=== PATIENT | female | born 1930 | race Caucasian/White ===

== ENCOUNTER → 2016-06-20 | Outpatient (CLI) | payer MEDICARE, OTHER ==
[~2016-06-20] MED LIST: AMIO200T35 PO; ATEN-36 PO; CYAN500T47; FOLI1TAB15 PO; IPRA21SP2 EA NOSTRIL; POTA99TA9 PO; PRAV20TA4 PO; TRIA1TAB3 PO; WARF2TAB PO; WARF3TAB27 PO
== END ==
LOC: WC.BC 10:49
DX: Z12.31 Encounter for screening mammogram for malignant neoplasm of breast (principal); N64.59 Other signs and symptoms in breast
CPT/HCPCS: 77063; G0202

== ENCOUNTER 2017-10-10 10:00 | Inpatient (IN) ==
--- NOTE | 2017-10-10 10:24 | Emergency Department Report ---
General Adult HPI - General Stated complaint: Extremem fatigue, dry heaves, diarrhea Time Seen by Provider: 10/10/17 10:23 Source: patient Mode of arrival: ambulatory Limitations: no limitations - History of Present Illness HPI narrative: Patient is an 86-year-old female presents emergency room for evaluation of a 2 year history of weakness. Patient does have a history of chronic atrial fibrillation currently in atrial fibrillation. Patient states that she's just been feeling weak and fatigued, for the past 2 years. Patient states it's usually worse after she gets her probably an injection, which she did receive 2 weeks ago. Patient states her weakness is worsening over the last 2 weeks, does have a productive cough just recently treated for a sinus infection. Patient states she's been to her doctor several times that he "never does nothing". Patient decided today to present to the ER for evaluation on arrival patient's heart rate is irregularly irregular 140-160, patient states she has forgotten to take her atenolol this morning. - Related Data Home Medications Medication Instructions Recorded Confirmed Potassium 99 mg PO DAILY #0 02/02/10 10/10/17 Maxzide-25mg (triamterene 37.5 1 tab PO DAILY 04/18/17 10/10/17 mg-hydrochlorothiazide 25 mg) tablet Pravachol (pravastatin) 20 mg 20 mg PO HS 04/18/17 10/10/17 tablet digoxin 125 mcg tablet 125 mcg PO Q2D tab 04/26/17 10/10/17 Atenolol [Tenormin] 25 mg PO BID 10/10/17 10/10/17 Cholecalciferol (Vitamin D3) 5,000 unit PO DAILY 10/10/17 10/10/17 [Vitamin D3] Cyanocobalamin (B-12) [Vit. B-12] 500 mcg PO DAILY 10/10/17 10/10/17 Denosumab [Prolia] 60 mg SQ Q6M 10/10/17 10/10/17 Folic Acid [Folate] 1 mg PO DAILY 10/10/17 10/10/17 Mirtazapine [Remeron] 15 mg PO HS 10/10/17 10/10/17 Warfarin Sodium 0.5 mg PO 5XW 10/10/17 10/10/17 Warfarin Sodium 2 mg PO MOFR 10/10/17 10/10/17 Warfarin [Coumadin] 4 mg PO 5XW 10/10/17 10/10/17 Allergies Allergy/AdvReac Type Severity Reaction Status Date / Time naproxen [From Aleve] Allergy Verified 10/10/17 11:28 Sulfa (Sulfonamide AdvReac Intermediate GENERALIZED Verified 10/10/17 11:28 Antibiotics) WEAKNESS Review of Systems Constitutional: Denies: fever, chills, weakness Eyes: Denies: eye pain, eye discharge, vision change ENT: Denies: ear pain, throat pain, dental pain, congestion Cardiovascular: Reports: dyspnea on exertion. Denies: chest pain, palpitations Respiratory: Reports: cough, dyspnea. Denies: wheezes Gastrointestinal: Denies: abdominal pain, nausea, vomiting Genitourinary: Denies: urgency, dysuria, frequency Musculoskeletal: Denies: back pain Neurological: Denies: headache, weakness Psychiatric: Denies: anxiety, depression Endocrine: Denies: fatigue, heat or cold intolerance Allergic/Immunologic: Denies: facial swelling [facility] Medical History (This Medical Record has been edited. Action required.) Atrial fibrillation (Acute Medical) HTN (hypertension) (Acute Medical) Surgical History: appendectomy 1935. tubal ligation . cataracts 2000- 2002. colonoscopy 2006 Family History: Family History (This Medical Record has been edited. Action required.) Father High blood pressure Mother High blood pressure Stroke Sister High blood pressure Stroke Cancer of colon Sister Cancer of colon - Social History Smoking status: Never smoker Substance use type: does not use Alcohol intake frequency: does not drink Physical Exam - General General appearance: alert, in no apparent distress - Eye Eye exam: Present: PERRL, EOMI - ENT ENT exam: Present: normal oropharynx, mucous membranes moist, TM's normal bilaterally - Neck Neck exam: Present: trachea midline. Absent: tenderness - Chest Chest inspection: Present: symmetric chest wall rise. Absent: tenderness - Respiratory Respiratory exam: Present: normal lung sounds bilaterally. Absent: respiratory distress, wheezes, stridor - Cardiovascular Cardiovascular exam: Present: tachycardia, irregular rhythm, normal heart sounds - Abdominal Exam Abdominal exam: Present: soft, normal bowel sounds. Absent: distention, tenderness - Extremities Exam Extremities exam: Present: full ROM. Absent: tenderness - Back Exam Back exam: Present: full ROM. Absent: tenderness - Skin Skin exam: Present: warm, dry - Neurological Exam Neurological exam: Present: alert, oriented X3 - Psychiatric Psychiatric exam: Present: normal affect, normal mood Medical Decision Making - Medical Records Medical records reviewed: Yes: I reviewed the patient's medical records. - Lab Data Lab results reviewed: Yes: I reviewed the patient's lab results. Result diagrams: 10/10/17 10:34 10/10/17 10:34 - Radiology Data Radiology results reviewed: Yes: I reviewed the patient's radiology results. - EKG Data EKG #1 EKG attestation: Yes: I reviewed and interpreted this EKG. Rate: tachycardia Rhythm: A.Fib Schaller/QRS: normal Interpretation: no acute changes Disposition Clinical Impression: Atrial fibrillation with RVR UTI (urinary tract infection) Qualifiers: Urinary tract infection type: acute cystitis Hematuria presence: without hematuria Qualified Code(s): N30.00 - Acute cystitis without hematuria Right middle lobe pneumonia Qualifiers: Pneumonia type: due to unspecified organism Qualified Code(s): J18.1 - Lobar pneumonia, unspecified organism Disposition: To [facility] Condition: Stable Time of Disposition: 14:07 - Seen By: physician
[2017-10-10] MEDS ORDERED: DiltiaZEM 25 MG/5 ML INJECTION IVP ONE ×3 (10:29→15:53)
[2017-10-10] MEDS ORDERED: NS 1,000 ML IV ONE (10:29)
[2017-10-10] MEDS: SALINE FLUSH 10ml SYRINGE IVF PRN (10:44)
--- NOTE | 2017-10-10 10:58 | XRay Report ---
Indication: off shortness of air weakness PROCEDURE: XR chest 1V: Encounter: Initial Comparison: March 27, 2014 Findings: New airspace opacity in the right lower or middle lobe. Left lung remains stable and grossly clear. No pleural effusion or pneumothorax. Heart size and mediastinal contours are stable. Pulmonary vascularity is normal. Impression: Right basilar pneumonia. .
--- NOTE | 2017-10-10 14:33 | History & Physical Report ---
History of Present Illness Date: 10/10/17 Chief complaint: Fatigue, dry heaves for a week HPI: Patient is an 86-year-old female who presents to the emergency room because she is "exhausted." She reports she's been tired ("that's been going on for a long time") and she is getting to the point where she can "hardly walk." She states for the last week she's had dry heaves and vomiting, usually in the evenings. She does admit to a cough and shortness of breath with exertion. She feels that she gets weaker after each Prolia injection (for hyperparathyroidism). Her last one was 2 weeks ago. On arrival to ER, patient was found to be in atrial fibrillation with rates 140-160. Patient had forgotten to take her atenolol this morning. She reports she's had cardioversion 3 and her last was in 2013. She states she does not want another cardioversion because "they have to put me out for that and the last time I had surgery they couldn't get my blood pressure up and they told me never to have surgery again." She denies symptoms with her atrial fibrillation. Review of Systems All systems PM: 10-point ROS was reviewed, no additional remarkable complaints except (fatigue/exhaustion, weakness, cough, shortness of breath exertion, nausea/dry heaves/vomiting, urinary frequency, walks with cane) Past Medical History Medical History: Medical History (This Medical Record has been edited. Action required.) Hyperlipidemia Hyperparathyroidism Atrial fibrillation HTN (hypertension) Medical History Updates: Hyperparathyroidism, hyperlipidemia, and paroxysmal atrial fibrillation Surgical History: appendectomy 1936. tubal ligation 1969. cataracts 2000- 2002. 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 Lives independently. PCP - Dr. Reid Component Design Engineer - Dr. Schmitz Endo - Dr Galvan Sister, Beth Fierro - DPOA-H Medications Home Medications Medication Instructions Recorded Confirmed Type Potassium 99 mg PO DAILY #0 02/02/10 10/10/17 History Maxzide-25mg (triamterene 37.5 1 tab PO DAILY 04/18/17 10/10/17 History mg-hydrochlorothiazide 25 mg) tablet Pravachol (pravastatin) 20 mg 20 mg PO HS 04/18/17 10/10/17 History tablet digoxin 125 mcg tablet 125 mcg PO Q2D tab 04/26/17 10/10/17 History Atenolol [Tenormin] 25 mg PO BID 10/10/17 10/10/17 History Cholecalciferol (Vitamin D3) 5,000 unit PO DAILY 10/10/17 10/10/17 History [Vitamin D3] Cyanocobalamin (B-12) [Vit. B-12] 500 mcg PO DAILY 10/10/17 10/10/17 History Denosumab [Prolia] 60 mg SQ Q6M 10/10/17 10/10/17 History Folic Acid [Folate] 1 mg PO DAILY 10/10/17 10/10/17 History Mirtazapine [Remeron] 15 mg PO HS 10/10/17 10/10/17 History Warfarin Sodium 0.5 mg PO 5XW 10/10/17 10/10/17 History Warfarin Sodium 2 mg PO MOFR 10/10/17 10/10/17 History Warfarin [Coumadin] 4 mg PO 5XW 10/10/17 10/10/17 History Allergies Allergy/AdvReac Type Severity Reaction Status Date / Time naproxen [From Aleve] Allergy Verified 10/10/17 11:28 Sulfa (Sulfonamide AdvReac Intermediate GENERALIZED Verified 10/10/17 11:28 Antibiotics) WEAKNESS Exam Vital Signs: Temperature 96.5 F L 10/10/17 14:02 Pulse Rate 88 10/10/17 14:02 Respiratory Rate 18 10/10/17 14:02 Blood Pressure 127/84 10/10/17 14:02 Pulse Oximetry 99 10/10/17 14:02 Height/Weight/BMI: Height 1.66 m Weight 61.1 kg - Constitutional Present: no acute distress, well nourished, well developed - Routine HEENT Exam Head: Present: normocephalic, atraumatic Eye: Present: EOMI, PERRL ENT: Present: mucous membranes moist, oropharynx clear - Routine Neck Exam Present: supple. Absent: lymphadenopathy, thyromegaly - Routine Respiratory Exam Present: CTA bilaterally. Absent: wheezes - Routine Cardiovascular Exam Present: irregular rhythm - Routine Abdominal Exam Present: soft, normoactive bowel sounds. Absent: tenderness, distended - Routine Extremities Exam Present: no edema, normal capillary refill - Routine Skin Exam Present: dry, warm - Routine Neurological Exam Present: alert, oriented X3, CN II-XII intact - Routine Psychiatric Exam Present: normal affect, cooperative Results - Labs CBC & Chem 7: 10/10/17 10:34 10/10/17 10:34 Labs: Laboratory Tests 10/10/17 10/10/17 10:34 10:34 INR 5.35 H* AST 94 H ALT 41 H Alkaline Phosphatase 232 H Laboratory Tests 10/10/17 10:34 Troponin I < 0.012 NT-Pro-B Natriuret Pep 6300 H TSH 1.40 Laboratory Tests 10/10/17 11:55 Urine Color Yellow Urine Clarity Clear Urine pH 6.0 Ur Specific [place] 1.010 L Urine Protein Negative Urine Glucose (UA) Negative Urine Ketones Negative Urine Occult Blood Trace-lysed Urine Nitrate Positive A Urine Bilirubin Negative Urine Urobilinogen 0.2 Ur Leukocyte Esterase 1+ A Urine RBC None seen Urine WBC 5-10 H Ur Squamous Epith Cells 5-10 Urine Bacteria 4+ H Microbiology Results: Microbiology 10/10/17 11:55 Urine, Voided (Cc/notcc) Urine Culture - Preliminary Culture Initiated - Results Pending - Imaging and Cardiology Chest x-ray Additional comments: Date of Exam: 10/10/17 Indication: off shortness of air weakness PROCEDURE: XR chest 1V: Findings: New airspace opacity in the right lower or middle lobe. Left lung remains stable and grossly clear. No pleural effusion or pneumothorax. Heart size and mediastinal contours are stable. Pulmonary vascularity is normal. Impression: Right basilar pneumonia. Assessment and Plan (1) Community acquired pneumonia Current visit: Yes Status: Acute (2) Atrial fibrillation with RVR Current visit: Yes Status: Acute Assessment and Plan: Assessment Community-acquired pneumonia-right basilar Urinary tract infection with symptoms of urinary frequency Atrial fibrillation with RVR-POA Supratherapeutic INR-POA Hyponatremia-POA Mild transaminitis-POA Normocytic anemia - POA (most recent hgb on file in 2013 was 13.3) Thrombocytosis - POA Progressive debility Hyperparathyroidism Hypertension Hyperlipidemia Paroxysmal atrial fibrillation-chronic warfarin Plan Admit for treatment of pneumonia and urinary tract infection, hydration and monitoring/treatment of atrial fibrillation. Patient was given diltiazem 10 mg IV 1 and 15 mg IV 1 for A. fib with RVR and a liter of normal saline in the emergency room. Rate currently controlled at 80. Check dig level. Will need to follow dig level closely with pt taking Zithromax as it can change the GI seng for up to a month and cause increased absorption of dig lending to dig toxicity. Dig recheck ordered for 10/13. Initiate Rocephin 1 g q24 hours and Zithromax 500mg IV q 24 hrs for coverage of CAP and UTI. Urine culture pending. Start Duonebs and acapella for pulmonary toilet. Consult pharmacy for warfarin. Currently on hold given elevated INR. Vit K 1mg x 1 with f-u INR per pharm. Iron studies and Hemoccult for further eval of anemia. Telemetry to monitor rhythm/rate. Pt declines electrical cardioversion at present given concern re: previous history of low BP assoc with sedation. Continue IVF's at 100cc/hr for hydration. Compazine IV prn nausea/vomiting. Warfarin/SCDs for DVT prophylaxis. DO NOT RESUSCITATE Dr. Reid-PCP. If patient needs cardiology consult, she would be interested in establishing with Dr. Kessler, as he is in [place], as opposed to driving to [place] to see Dr. Schmitz. DVT Prophylaxis: SCD's, Coumadin Resuscitation Status: Do Not Resuscitate - Physician Narrative Physician: Barbara Henry MD Narrative: Date: 10/10/17 Time: 2029 I have independently evaluated and examined this patient. I reviewed the chart, the patient's history, and the CARE DIRECTOR RN/PA's documented findings as above. We discussed and formulated the assessment and plan as above with additions as below: Mrs. Ardon as described with a variety of symptoms including feeling tired and washed out. She describes 10 pound weight loss in the past month because she's been too exhausted to prepare meals. She reports exertional dyspnea without orthopnea or edema. Cough without sputum production, fevers, or chills. Increased urinary frequency and getting up to urinate every 2 hours at night which is atypical for her. Chest x-ray in the emergency room has faint right basilar infiltrate, there is minor pyuria, and the patient was in atrial fibrillation with RVR. She is admitted for further management of above problems. NAD, alert, fluent speech Respirations nonlabored, crackles at the left base, no wheezing, no rhonchi appreciated Irregularly irregular rhythm with low-grade tachycardia at the time of my assessment Laboratory abnormalities his previously outlined; proBNP 6300, troponin undetectable, white count minimally elevated, digoxin level 0.5 Chest x-ray reviewed by myself-probable bilateral small pleural effusions, suggested infiltrate right lower lung EKG also reviewed by myself demonstrating atrial fibrillation with rapid ventricular response, rate 138, no acute ST/T-wave changes A. fib with RVR Right-sided pneumonia Pyuria Anorexia Antibiotics as planned; I am concerned that the patient is developing a component of heart failure due to atrial fibrillation with RVR. Rate remained elevated late this afternoon after she received a total of 40 mg of diltiazem IV (15 mg-10 mg-15 mg) at which point I opted to give her 0.25 mg of digoxin IV. Rate slowed to approximately 100 but gradually increased back to 150 prompting administration of second dose of IV dig at 0.25 mg. Patient reports that digoxin dose was decreased to every other day at some point in the recent past. Unclear over what time period heart rate has been accelerating. Echo echocardiogram to be obtained; PA/lateral chest x-ray in morning. Rate of IV fluids decreased; triamterene/HCTZ on hold. Hospital Course Summary Disclaimer: The visit summary below is not to be considered part of the above Progress Note. Hospital Course: 10/10/17 Admit for treatment of pneumonia and urinary tract infection, hydration and monitoring/treatment of atrial fibrillation. Patient was given diltiazem 10 mg IV 1 and 15 mg IV 1 for A. fib with RVR and a liter of normal saline in the emergency room. Rate currently controlled at 80. Check dig level. Will need to follow dig level closely with pt taking Zithromax as it can change the GI seng for up to a month and cause increased absorption of dig lending to dig toxicity. Dig recheck ordered for 10/13. Initiate Rocephin 1 g q24 hours and Zithromax 500mg IV q 24 hrs for coverage of CAP and UTI. Urine culture pending. Start Duonebs and acapella for pulmonary toilet. Consult pharmacy for warfarin. Currently on hold given elevated INR. Vit K 1mg x 1 with f-u INR per pharm. Iron studies and Hemoccult for further eval of anemia. Telemetry to monitor rhythm/rate. Pt declines electrical cardioversion at present given concern re: previous history of low BP assoc with sedation. Continue IVF's at 100cc/hr for hydration. Compazine IV prn nausea/vomiting. Warfarin/SCDs for DVT prophylaxis. DO NOT RESUSCITATE Dr. Reid-PCP. If patient needs cardiology consult, she would be interested in establishing with Dr. Kessler, as he is in [place], as opposed to driving to [place] to see Dr. Schmitz.
[2017-10-10] MEDS ORDERED: PROCHLORPERAZINE 10 MG/2 ML INJECTION IVP PRN (14:54)
[2017-10-10] MEDS ORDERED: ACETAMINOPHEN 325 MG TABLET PO PRN (14:54)
[2017-10-10] MEDS ORDERED: WARFARIN - PHARMACY CONSULT MC ONE (14:56)
[2017-10-10 15:05] VITALS: BMI 22.4
[2017-10-10] MEDS ORDERED: PHYTONADIONE 1 MG/0.5 ML ORAL LIQUID PO ONE (15:11)
[2017-10-10] MEDS ORDERED: POLYETHYL GLYCOL 3350 17gm PACKET PO PRN (15:11)
[2017-10-10] MEDS ORDERED: DIGOXIN 125 MCG TABLET PO SCH (15:15)
[2017-10-10] MEDS: ALBUTEROL/IPRATROPIUM 2.5mg-0.5mg/3ml NEB AEROSOL SCH ×2 (15:16→19:35)
--- NOTE | 2017-10-10 15:26 | Pharmacy Consult ---
Pharmacy Consult-Warfarin - Laboratory Information 10/10/17 10/10/17 10/10/17 10:34 10:34 10:34 Hgb 9.2 L Hct 26.5 L INR 5.35 H* AST 94 H ALT 41 H Albumin 3.4 L - Consult Information COUMADIN CONSULT (Initial): Dx: A fIB Baseline INR = 5.35. Will give VIT K po 1 mg now. NOTE MADE IN "DOCUMENT" IN EMR. Thank you.
[2017-10-10] MEDS: ATENOLOL 25 MG TABLET PO SCH ×2 (15:50→21:20)
[2017-10-10] MEDS: NS 1,000 ML IV SCH (16:05)
[2017-10-10] MEDS: CEFTRIAXONE 1 G in NS 100 ML IV SCH (16:25)
[2017-10-10] MEDS ORDERED: DIGOXIN 500 MCG/2 ML INJECTION IVP ONE ×2 (16:58→20:11)
[2017-10-10] MEDS: AZITHROMYCIN IV 500 MG in NS 250ml 250 ML IV SCH (19:49)
[2017-10-10] MEDS: MIRTAZAPINE 15 MG TABLET PO SCH (21:20)
[2017-10-10] MEDS: PRAVASTATIN 20 MG TABLET PO SCH (21:21)
[2017-10-11] MEDS: ALBUTEROL/IPRATROPIUM 2.5mg-0.5mg/3ml NEB AEROSOL SCH ×4 (07:44→21:36)
[2017-10-11] MEDS: CYANOCOBALAMIN (B-12) 500mcg TABLET PO SCH (08:53)
[2017-10-11] MEDS: FOLIC ACID 1 MG TABLET PO SCH (08:53)
[2017-10-11] MEDS: ATENOLOL 25 MG TABLET PO SCH ×2 (08:53→21:07)
[2017-10-11] MEDS ORDERED: TRIAMTERENE/HCTZ 37.5 MG-25 MG TABLET PO SCH (09:00)
[2017-10-11] MEDS ORDERED: NON-FORMULARY MEDICATION 1 EACH EACH (Potassium [Potassium] 99 MG) PO SCH (09:00)
--- NOTE | 2017-10-11 09:43 | XRay Report ---
INDICATION: pna PROCEDURE: CHEST 2-VIEWS UPRIGHT (PA & LAT) Encounter: Initial COMPARISON: October 10, 2017 FINDINGS: There is an oval 2.3 cm nodule projecting just below the right clavicle, likely within the right upper lobe. Lungs are mildly hyperinflated. Small pleural effusions. Right basilar airspace disease has slightly improved. No pneumothorax. Heart size and mediastinal contours are stable. Pulmonary vascularity is normal. Impression: Improving right basilar pneumonia. Right upper lobe pulmonary nodule. Recommend noncontrast chest CT for further evaluation. .
--- NOTE | 2017-10-11 10:31 | Pharmacy Consult ---
Pharmacy Consult-Warfarin - Laboratory Information 10/10/17 10/10/17 10/10/17 10:34 10:34 10:34 Hgb 9.2 L Hct 26.5 L INR 5.35 H* AST 94 H ALT 41 H Albumin 3.4 L 10/10/17 10/11/17 10/11/17 22:18 05:17 05:17 Hgb 7.8 L D Hct 23.3 L D INR 4.58 H* AST 44 H D ALT 33 Albumin 2.8 L 10/11/17 05:17 Hgb Hct INR 3.09 H AST ALT Albumin - Consult Information Warfarin consult: 86 y.o. F with history of a. fib and chronic anticoagulation with Warfarin. goal INR range= 2.0 to 3.0. Patient's reported home dose is Warfarin 4 mg po daily, except for Mon and Fri when she take 2 mg po. INR was supra-therapeutic on admission at 5.35, a small dose of Vitamin K 1 mg po x 1 dose was given 10/10/17. date INR dose 10/10 5.35 vitamin K 1 mg po was given 10/11 3.09 plan: 1.5 mg x 1 dose INR dropped considerably from yesterday with 1 mg po of Vitamin K. Will give a small dose of Warfarin 1.5 mg po x1 dose today. Patient is on both Rocephin and azithromycin which have a potential interaction with warfarin and may increase INR an risk of bleeding. Pharmacy will monitor and adjust as needed. Thank you, Jacy Shaffer [facility]
[2017-10-11] MEDS ORDERED: WARFARIN 3 MG TABLET PO SCH (12:00)
--- NOTE | 2017-10-11 14:15 | Echocardiogram ---
DATE OF PROCEDURE October 11, 2017 REFERRING PHYSICIAN Raji Galdamez MD This is a two-dimensional echo with spectral Doppler, color-flow and M-mode. It was obtained in a patient with atrial fibrillation. Left atrial dimension is increased. Left ventricle end-diastolic dimension is normal. Left ventricle wall thickness is normal. LV systolic function is normal with ejection fraction of 66%. Right atrium is dilated. Right ventricle is normal. Aortic root dimension is normal. Mitral annulus is calcified. Mitral valve leaflets are normal with mild mitral regurgitation. Aortic valve is a trileaflet structure with no stenosis. Mild aortic insufficiency is present. Tricuspid valve shows moderate tricuspid regurgitation with mild pulmonary hypertension with estimated pulmonary artery systolic pressure of 37. Pulmonary valve shows mild pulmonary insufficiency. There is no pericardial effusion. IMPRESSION 1. Normal LV systolic function with ejection fraction of 66%. 2. Biatrial dilation. 3. Mitral annulus calcification with mild mitral regurgitation. 4. Mild aortic insufficiency. 5. Moderate tricuspid regurgitation with mild pulmonary hypertension with estimated pulmonary artery systolic pressure of 37. 6. Mild pulmonary insufficiency. MTDD
[2017-10-11] MEDS: CEFTRIAXONE 1 G in NS 100 ML IV SCH (15:02)
[2017-10-11] MEDS: NS 1,000 ML IV SCH (15:32)
[2017-10-11] MEDS: AZITHROMYCIN IV 500 MG in NS 250ml 250 ML IV SCH (16:09)
[2017-10-11] MEDS: MIRTAZAPINE 15 MG TABLET PO SCH (21:07)
[2017-10-11] MEDS: PRAVASTATIN 20 MG TABLET PO SCH (21:07)
--- NOTE | 2017-10-11 21:31 | Progress Note ---
- Date 10/11/17 Subjective: States she is feeling all right with some residual shortness of breath. She does feel palpitations from time to time and this is more noticeable when she is active. Objective Vital signs: Temperature 97.7 F 10/11/17 08:00 Pulse Rate 135 H 10/11/17 16:00 Respiratory Rate 18 10/11/17 15:50 Blood Pressure 127/73 10/11/17 15:50 Pulse Oximetry 96 10/11/17 15:50 Rhythm: Atrial Fibrillation with RVR Height/Weight/BMI: Height 5 ft 5 in Weight 64 kg Body Mass Index 22.4 - Constitutional Present: well nourished, well developed - Routine HEENT Exam Eye: Present: EOMI ENT: Present: mucous membranes moist, dentition normal - Routine Respiratory Exam Present: CTA bilaterally. Absent: wheezes - Routine Cardiovascular Exam Present: S1, S2, murmur, irregularly irregular - Routine Abdominal Exam Present: soft, normoactive bowel sounds, non distended. Absent: tenderness - Routine Extremities Exam Present: normal capillary refill - Routine Skin Exam Present: dry, warm - Routine Neurological Exam Present: alert, oriented X3, CN II-XII intact - Routine Lymphatic Exam Lymphatic: Absent: adenopathy - Routine Psychiatric Exam Present: normal affect Results - Labs CBC & Chem 7: 10/11/17 05:17 10/11/17 05:17 Microbiology Results: Microbiology 10/10/17 11:55 Urine, Voided (Cc/notcc) Urine Culture - Preliminary Gram Negative John Assessment and Plan (1) Atrial fibrillation with RVR Current visit: Yes Status: Acute (2) Community acquired pneumonia Current visit: Yes Status: Acute Assessment and Plan: Assessment Community-acquired pneumonia-right basilar Urinary tract infection with symptoms of urinary frequency Atrial fibrillation with RVR-POA Supratherapeutic INR-POA Hyponatremia-POA Mild transaminitis-POA Normocytic anemia - POA (most recent hgb on file in 2013 was 13.3) Thrombocytosis - POA Progressive debility Hyperparathyroidism Hypertension Hyperlipidemia Paroxysmal atrial fibrillation-chronic warfarin Plan patient has received a one-off doses of diltiazem and digoxin. Her atrial fibrillation with rapid ventricular rate does not appear to be improving while on antibiotics. I've discussed the case with Dr. Kessler and he reports a 60% ejection fraction with by atrial enlargement on echocardiogram. I am more inclined to believe that this primary cardiac. We will reinitiate Cardizem and diltiazem and continue the atenolol at this time. Failing improvement on this I will make a formal consult to Dr. Kessler and Cherry. Continue the treatment for the urinary tract infection with Rocephin 1 g q24 hours and Zithromax 500mg IV q 24 hrs for coverage of CAP as well. Urine culture is greater than hundred thousand colony forming units. Consult pharmacy for warfarin. Iron studies and Hemoccult for further eval of anemia. Telemetry to monitor rhythm/rate. Pt declined electrical cardioversion at present given concern re: previous history of low BP assoc with sedation. Continue IVF's at 100cc/hr for hydration. Compazine IV prn nausea/vomiting. Warfarin/SCDs for DVT prophylaxis. DO NOT RESUSCITATE Dr. Reid-PCP. If patient needs cardiology consult, she would be interested in establishing with Dr. Kessler, as he is in [place], as opposed to driving to [place] to see Dr. Schmitz. - Physician Narrative Narrative: Date: 10/11/17 Time: 2122 Hospital Course Summary Disclaimer: The visit summary below is not to be considered part of the above Progress Note. Hospital Course: 10/10/17 Admit for treatment of pneumonia and urinary tract infection, hydration and monitoring/treatment of atrial fibrillation. Patient was given diltiazem 10 mg IV 1 and 15 mg IV 1 for A. fib with RVR and a liter of normal saline in the emergency room. Rate currently controlled at 80. Check dig level. Will need to follow dig level closely with pt taking Zithromax as it can change the GI seng for up to a month and cause increased absorption of dig lending to dig toxicity. Dig recheck ordered for 10/13. Initiate Rocephin 1 g q24 hours and Zithromax 500mg IV q 24 hrs for coverage of CAP and UTI. Urine culture pending. Start Duonebs and acapella for pulmonary toilet. Consult pharmacy for warfarin. Currently on hold given elevated INR. Vit K 1mg x 1 with f-u INR per pharm. Iron studies and Hemoccult for further eval of anemia. Telemetry to monitor rhythm/rate. Pt declines electrical cardioversion at present given concern re: previous history of low BP assoc with sedation. Continue IVF's at 100cc/hr for hydration. Compazine IV prn nausea/vomiting. Warfarin/SCDs for DVT prophylaxis. DO NOT RESUSCITATE Dr. Reid-PCP. If patient needs cardiology consult, she would be interested in establishing with Dr. Kessler, as he is in [place], as opposed to driving to [place] to see Dr. Schmitz.
[2017-10-12] MEDS: NS 1,000 ML IV SCH (03:56)
[2017-10-12] MEDS: ALBUTEROL/IPRATROPIUM 2.5mg-0.5mg/3ml NEB AEROSOL SCH ×4 (06:34→20:05)
--- NOTE | 2017-10-12 07:18 | Pharmacy Consult ---
Pharmacy Consult-Warfarin - Laboratory Information 10/10/17 10/10/17 10/10/17 10:34 10:34 10:34 Hgb 9.2 L Hct 26.5 L INR 5.35 H* AST 94 H ALT 41 H Albumin 3.4 L 10/10/17 10/11/17 10/11/17 22:18 05:17 05:17 Hgb 7.8 L D Hct 23.3 L D INR 4.58 H* AST 44 H D ALT 33 Albumin 2.8 L 10/11/17 10/12/17 05:17 04:21 Hgb Hct INR 3.09 H 2.11 H AST ALT Albumin - Consult Information INR decreased to 2.11 today. Vitamin K may still have some effect. I have ordered 5mg dose of warfarin (1 more mg than usual home dose) in attempt to move INR to center of range. Thanks
[2017-10-12] MEDS: ATENOLOL 25 MG TABLET PO SCH ×2 (08:29→20:29)
[2017-10-12] MEDS: FOLIC ACID 1 MG TABLET PO SCH (08:29)
[2017-10-12] MEDS: CYANOCOBALAMIN (B-12) 500mcg TABLET PO SCH (08:29)
[2017-10-12] MEDS ORDERED: WARFARIN 5 MG TABLET PO SCH (12:00)
[2017-10-12] MEDS: CEFTRIAXONE 1 G in NS 100 ML IV SCH (15:55)
[2017-10-12] MEDS: AZITHROMYCIN IV 500 MG in NS 250ml 250 ML IV SCH (17:08)
[2017-10-12] MEDS: PRAVASTATIN 20 MG TABLET PO SCH (20:28)
[2017-10-12] MEDS: DIGOXIN 250 MCG TABLET PO SCH (20:29)
[2017-10-12] MEDS: MIRTAZAPINE 15 MG TABLET PO SCH (20:30)
--- NOTE | 2017-10-12 22:29 | Progress Note ---
- Date 10/12/17 Subjective: Feeling somewhat better with less noticeable episodes palpitations. She still complains of fatigue and does not yet feel that she is recovered. 10 system review otherwise has no other acute changes Objective Vital signs: Temperature 97.9 F 10/12/17 15:33 Pulse Rate 116 H 10/12/17 20:29 Respiratory Rate 20 10/12/17 20:05 Blood Pressure 132/72 10/12/17 15:33 Pulse Oximetry 94 10/12/17 20:05 Rhythm: Atrial Fibrillation with RVR Height/Weight/BMI: Height 5 ft 5 in Weight 64.9 kg Body Mass Index 22.4 - Constitutional Present: well nourished, well developed - Routine HEENT Exam Eye: Present: EOMI ENT: Present: mucous membranes moist, dentition normal - Routine Respiratory Exam Present: CTA bilaterally. Absent: wheezes - Routine Cardiovascular Exam Present: murmur, tachycardia, irregular rhythm - Routine Abdominal Exam Present: soft, normoactive bowel sounds, non distended. Absent: tenderness - Routine Extremities Exam Present: normal capillary refill - Routine Skin Exam Present: dry, warm - Routine Neurological Exam Present: alert, oriented X3, CN II-XII intact - Routine Lymphatic Exam Lymphatic: Absent: adenopathy - Routine Psychiatric Exam Present: normal affect Results - Labs CBC & Chem 7: 10/11/17 05:17 10/11/17 05:17 Microbiology Results: Microbiology 10/10/17 11:55 Urine, Voided (Cc/notcc) Urine Culture - Final Klebsiella pneumoniae Assessment and Plan (1) Atrial fibrillation with RVR Current visit: Yes Status: Acute (2) Community acquired pneumonia Current visit: Yes Status: Acute Assessment and Plan: Assessment Community-acquired pneumonia-right basilar Urinary tract infection with symptoms of urinary frequency Atrial fibrillation with RVR-POA Supratherapeutic INR-POA Hyponatremia-POA Mild transaminitis-POA Normocytic anemia - POA (most recent hgb on file in 2013 was 13.3) Thrombocytosis - POA Progressive debility Hyperparathyroidism Hypertension Hyperlipidemia Paroxysmal atrial fibrillation-chronic warfarin Plan patient seems to be failing improvement on rate control despite resuming diltiazem and digoxin I will make a formal consult to Dr. Kessler and Cherry. Their input is appreciated. Continuing treatment Rocephin and azithromycin but I am less certain that there is any significant contribution of infection to her variable rate atrial fibrillation. She is growing Klebsiella that is susceptible to everything but ampicillin. Her INR is currently therapeutic 2.11 Telemetry to monitor rhythm/rate. A few days ago declined electrical cardioversion: previous history of low BP assoc with sedation. Continue IVF's at 100cc/hr for hydration. Compazine IV prn nausea/vomiting. Warfarin/SCDs for DVT prophylaxis. DO NOT RESUSCITATE Dr. Reid-PCP. If patient needs cardiology consult, she would be interested in establishing with Dr. Kessler, as he is in [place], as opposed to driving to [place] [employer] to see Dr. Schmitz. - Physician Narrative Narrative: Date: 10/12/17 Time: 2225 Hospital Course Summary Disclaimer: The visit summary below is not to be considered part of the above Progress Note. Hospital Course: 10/10/17 Admit for treatment of pneumonia and urinary tract infection, hydration and monitoring/treatment of atrial fibrillation. Patient was given diltiazem 10 mg IV 1 and 15 mg IV 1 for A. fib with RVR and a liter of normal saline in the emergency room. Rate currently controlled at 80. Check dig level. Will need to follow dig level closely with pt taking Zithromax as it can change the GI seng for up to a month and cause increased absorption of dig lending to dig toxicity. Dig recheck ordered for 10/13. Initiate Rocephin 1 g q24 hours and Zithromax 500mg IV q 24 hrs for coverage of CAP and UTI. Urine culture pending. Start Duonebs and acapella for pulmonary toilet. Consult pharmacy for warfarin. Currently on hold given elevated INR. Vit K 1mg x 1 with f-u INR per pharm. Iron studies and Hemoccult for further eval of anemia. Telemetry to monitor rhythm/rate. Pt declines electrical cardioversion at present given concern re: previous history of low BP assoc with sedation. Continue IVF's at 100cc/hr for hydration. Compazine IV prn nausea/vomiting. Warfarin/SCDs for DVT prophylaxis. DO NOT RESUSCITATE Dr. Reid-PCP. If patient needs cardiology consult, she would be interested in establishing with Dr. Kessler, as he is in [place], as opposed to driving to [place] to see Dr. Schmitz.
[2017-10-13] MEDS: ALBUTEROL/IPRATROPIUM 2.5mg-0.5mg/3ml NEB AEROSOL SCH ×4 (07:45→19:51)
--- NOTE | 2017-10-13 08:03 | Pharmacy Consult ---
Pharmacy Consult-Warfarin - Laboratory Information 10/10/17 10/10/17 10/10/17 10:34 10:34 10:34 Hgb 9.2 L Hct 26.5 L INR 5.35 H* AST 94 H ALT 41 H Albumin 3.4 L 10/10/17 10/11/17 10/11/17 22:18 05:17 05:17 Hgb 7.8 L D Hct 23.3 L D INR 4.58 H* AST 44 H D ALT 33 Albumin 2.8 L 10/11/17 10/12/17 10/13/17 05:17 04:21 04:59 Hgb Hct INR 3.09 H 2.11 H 2.41 H AST ALT Albumin - Consult Information INR is in target range. Warfarin 3mg po is ordered for noon today. Thank you.
[2017-10-13] MEDS: CYANOCOBALAMIN (B-12) 500mcg TABLET PO SCH (09:37)
[2017-10-13] MEDS: ATENOLOL 25 MG TABLET PO SCH (09:37)
[2017-10-13] MEDS: FOLIC ACID 1 MG TABLET PO SCH (09:37)
[2017-10-13] MEDS: DIGOXIN 250 MCG TABLET PO SCH (10:22)
--- NOTE | 2017-10-13 11:43 | Progress Note ---
- Date 10/13/17 Subjective: Patrizia is seen while resting in bed, working with RT on her acapella. She reports that she is feeling better and is eager for discharge home. She admits to continued non-productive cough but denies any chest pain, increased shortness of breath, nausea, vomiting or dysuria. She does complain of some abdominal wall pain from coughing so much but denies any abdominal pain. Her appetite remains fair and no BM since admission. Urinary output is stable. She remains afebrile. Heart rate remains elevated and awaiting Dr. Kessler's recommendations. Objective Vital signs: Temperature 98.3 F 10/13/17 08:00 Pulse Rate 111 H 10/13/17 10:22 Respiratory Rate 16 10/13/17 11:26 Blood Pressure 124/65 10/13/17 08:00 Pulse Oximetry 95 10/13/17 11:26 Rhythm: Atrial Fibrillation with RVR Height/Weight/BMI: Height 5 ft 5 in Weight 145 lb 4.554 oz Body Mass Index 22.4 Comments: resting in bed, working with RT on acapella. Pleasant disposition. - Constitutional Present: no acute distress, well nourished, well developed, cooperative - Routine HEENT Exam Head: Present: normocephalic, atraumatic Eye: Present: PERRL. Absent: conjunctival icterus ENT: Present: mucous membranes moist, oropharynx clear - Routine Respiratory Exam Present: decreased breath sounds. Absent: respiratory distress Comments: Bilateral basilar crackles with occasional non-productive cough. - Routine Cardiovascular Exam Present: irregularly irregular - Routine Abdominal Exam Present: soft, normoactive bowel sounds, non tender - Routine Extremities Exam Present: edema (trace), full ROM, pulses intact - Routine Back/Spine/Pelvis Exam Back/Spine: Present: full ROM. Absent: vertebral tenderness - Routine Musculoskeletal Exam Musculoskeletal: Present: no clubbing or cyanosis, moving extremities well - Routine Skin Exam Present: intact, dry, warm Comments: Afebrile. - Routine Neurological Exam Present: alert, oriented X3, moving all extremities, hearing grossly intact, normal speech - Routine Lymphatic Exam Lymphatic: Absent: lymphedema - Routine Psychiatric Exam Present: cooperative Results - Labs CBC & Chem 7: 10/14/17 04:05 10/14/17 04:05 Microbiology Results: Microbiology 10/10/17 11:55 Urine, Voided (Cc/notcc) Urine Culture - Final Klebsiella pneumoniae Assessment and Plan Assessment and Plan: Assessment Community-acquired pneumonia-right basilar Urinary tract infection with symptoms of urinary frequency Atrial fibrillation with RVR-POA Supratherapeutic INR-POA Hyponatremia-POA Mild transaminitis-POA Normocytic anemia - POA (most recent hgb on file in 2013 was 13.3) Thrombocytosis - POA Progressive debility Hyperparathyroidism Hypertension Hyperlipidemia Paroxysmal atrial fibrillation-chronic warfarin Plan - 10/13/17 Overall, patient is doing well and making gains. Eager for discharge. Remains in a-fib with RVR. Dr. Kessler consulted and awaiting his recommendations. Continue atenolol, diltiazem and digoxin. Dig level improved. Continue Rocephin and azithromycin for treatment of pneumonia and UTI. UA revealed Klebsiella pneumoniae sensitive to Rocephin. INR remains therapeutic with pharmacy managing. Continue to monitor closely on telemetry. Encourage oral intake. Will check labs now given previous anemia and electrolyte imbalances. Warfarin/SCDs for DVT prophylaxis. Anticipate discharge either today or in near future. DVT Prophylaxis: SCD's, Lovenox Resuscitation Status: Do Not Resuscitate - Time spent with patient Time with patient PN: 30 minutes - Physician Narrative Physician: other (Dr. Galdamez) Narrative: Date: 10/13/17 Time: 1139 Seen and examined patient on same day as the above note nurse practitioner Danae Bower. Agree with history, physical, assessment and plan. Patient states she does not feel significantly better yet but does not feel quite as ill as days prior Exam: vital signs as above Gen.:no apparent distress, alert and conversant but lethargic HEENT: normocephalic atraumatic, oral mucosa moderately dry neck: no lymphadenopathy no jugular venous distention respiratory: there to auscultation bilaterally with good excursion cardiovascular: cardiovascular S1 S2 no adventitious murmurs rubs or gallops abdomen/GI: soft nondistended with bowel sounds extremities: good peripheral perfusion with no edema skin/integument: no significant injuries or edema neuro: alert and oriented. No focal deficits appreciable psych: mood is perhaps a little low but appears appropriately responsive and conducive to situation Labs: reviewed Assessment and plan: atrophic with rapid ventricular rate. Increasing the digoxin level. Failing this will discuss with cardiology pneumonia and urinary tract infection. Continue Rocephin and azithromycin. Documented on Dragon speech to text. Efforts to crack speech recognition errors performed, but variation may exist Hospital Course Summary Disclaimer: The visit summary below is not to be considered part of the above Progress Note. Hospital Course: 10/10/17 Admit for treatment of pneumonia and urinary tract infection, hydration and monitoring/treatment of atrial fibrillation. Patient was given diltiazem 10 mg IV 1 and 15 mg IV 1 for A. fib with RVR and a liter of normal saline in the emergency room. Rate currently controlled at 80. Check dig level. Will need to follow dig level closely with pt taking Zithromax as it can change the GI seng for up to a month and cause increased absorption of dig lending to dig toxicity. Dig recheck ordered for 10/13. Initiate Rocephin 1 g q24 hours and Zithromax 500mg IV q 24 hrs for coverage of CAP and UTI. Urine culture pending. Start Duonebs and acapella for pulmonary toilet. Consult pharmacy for warfarin. Currently on hold given elevated INR. Vit K 1mg x 1 with f-u INR per pharm. Iron studies and Hemoccult for further eval of anemia. Telemetry to monitor rhythm/rate. Pt declines electrical cardioversion at present given concern re: previous history of low BP assoc with sedation. Continue IVF's at 100cc/hr for hydration. Compazine IV prn nausea/vomiting. Warfarin/SCDs for DVT prophylaxis. DO NOT RESUSCITATE Dr. Reid-PCP. If patient needs cardiology consult, she would be interested in establishing with Dr. Kessler, as he is in [place], as opposed to driving to [place] to see Dr. Schmitz. 10/11/17 patient has received a one-off doses of diltiazem and digoxin. Her atrial fibrillation with rapid ventricular rate does not appear to be improving while on antibiotics. I've discussed the case with Dr. Kessler and he reports a 60% ejection fraction with by atrial enlargement on echocardiogram. I am more inclined to believe that this primary cardiac. We will reinitiate Cardizem and diltiazem and continue the atenolol at this time. Failing improvement on this I will make a formal consult to Dr. Kessler and Cherry. Continue the treatment for the urinary tract infection with Rocephin 1 g q24 hours and Zithromax 500mg IV q 24 hrs for coverage of CAP as well. Urine culture is greater than hundred thousand colony forming units. Consult pharmacy for warfarin. Iron studies and Hemoccult for further eval of anemia. Telemetry to monitor rhythm/rate. Pt declined electrical cardioversion at present given concern re: previous history of low BP assoc with sedation. Continue IVF's at 100cc/hr for hydration. Compazine IV prn nausea/vomiting. Warfarin/SCDs for DVT prophylaxis. DO NOT RESUSCITATE Dr. Reid-PCP. If patient needs cardiology consult, she would be interested in establishing with Dr. Kessler, as he is in [place], as opposed to driving to [place] to see Dr. Schmitz. 10/12/17 patient seems to be failing improvement on rate control despite resuming diltiazem and digoxin I will make a formal consult to Dr. Kessler and Cherry. Their input is appreciated. Continuing treatment Rocephin and azithromycin but I am less certain that there is any significant contribution of infection to her variable rate atrial fibrillation. She is growing Klebsiella that is susceptible to everything but ampicillin. Her INR is currently therapeutic 2.11 Telemetry to monitor rhythm/rate. A few days ago declined electrical cardioversion: previous history of low BP assoc with sedation. Continue IVF's at 100cc/hr for hydration. Compazine IV prn nausea/vomiting. Warfarin/SCDs for DVT prophylaxis. DO NOT RESUSCITATE Dr. Reid-UMBERTO. If patient needs cardiology consult, she would be interested in establishing with Dr. Kessler, as he is in [place], as opposed to driving to [place] [employer] [place] to see Dr. Schmitz. 10/13/17 Overall, patient is doing well and making gains. Eager for discharge. Remains in a-fib with RVR. Dr. Kessler consulted and awaiting his recommendations. Continue atenolol, diltiazem and digoxin. Dig level improved. Continue Rocephin and azithromycin for treatment of pneumonia and UTI. UA revealed Klebsiella pneumoniae sensitive to Rocephin. INR remains therapeutic with pharmacy managing. Continue to monitor closely on telemetry. Encourage oral intake. Will check labs now given previous anemia and electrolyte imbalances. Warfarin/SCDs for DVT prophylaxis. Anticipate discharge either today or in near future.
[2017-10-13] MEDS ORDERED: WARFARIN 3 MG TABLET PO SCH (12:00)
[2017-10-13] MEDS: CEFTRIAXONE 1 G in NS 100 ML IV SCH (14:55)
[2017-10-13] MEDS: AZITHROMYCIN IV 500 MG in NS 250ml 250 ML IV SCH (15:55)
--- NOTE | 2017-10-13 17:11 | Cardiology Consult Note ---
<Cherry Hernandez - Last Filed: 10/16/17 10:51> History of Present Illness Consult date: 10/12/17 Requesting physician: Raji Galdamez Consult reason: atrial fibrillation Chief complaint: A Fib History of present illness: Patrizia is an 86-year-old female who is a patient of Dr. Schmitz with a history of PAF who presented to the ED because she was "exhausted." She reportedly has been tired ("that's been going on for a long time") and she had gotten to the point where she can "hardly walk." She reported dry heaves and vomiting, usually in the evenings and a cough and shortness of breath with exertion. She was found to be in atrial fibrillation with rates 140-160. She reportedly has had cardioversion 3 and her last was in 2013. She was admitted in the care of the hospitalist and rate is controlled with the additional of Digoxin and Cardizem, however her rate elevated with minimal activity. Dr. Kessler is consulted for further evaluation and we appreciate the consult. Review of Systems - Constitutional Constitutional: Present: fatigue, weakness. Absent: chills, fever(s) - EENMT Eyes: Absent: change in vision Balance: Absent: vertigo Mouth/Throat: Absent: sore throat - Cardiovascular Cardiovascular: Present: dyspnea on exertion. Absent: chest pain, palpitations , syncope, orthopnea, heart murmur Rhythm: Absent: abnormal rhythm Vascular: Absent: pedal edema - Respiratory Respiratory: Present: dyspnea, dyspnea on exertion. Absent: cough - Gastrointestinal Gastrointestinal: Present: as per HPI, nausea, vomiting. 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 Action required.) Hyperlipidemia (Acute Medical) Hyperparathyroidism (Acute Medical) Atrial fibrillation (Acute Medical) HTN (hypertension) (Acute Medical) Medical History Updates: Hyperparathyroidism, hyperlipidemia, and paroxysmal atrial fibrillation Surgical History: appendectomy 1936. tubal ligation 1969. cataracts 2000- 2002. colonoscopy 2005 Family History: Family History (This Medical Record has been edited. 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 B-12] 500 mcg PO DAILY 10/10/17 10/10/17 History Denosumab [Prolia] 60 mg SQ Q6M 10/10/17 10/10/17 History Folic Acid [Folate] 1 mg PO DAILY 10/10/17 10/10/17 History Mirtazapine [Remeron] 15 mg PO HS 10/10/17 10/10/17 History Atenolol [Tenormin] 50 mg PO BID tab 10/17/17 Rx Digoxin [Lanoxin] 125 mcg PO DAILY tab 10/17/17 Rx DiltiaZEM CD [Cardizem CD 180 MG] 180 mg PO DAILY cap 10/17/17 Rx PEG 3350 17gm PACKET [Miralax] 17 gm PO DAILY PRN packet 10/17/17 Rx Allergies Allergy/AdvReac Type Severity Reaction Status Date / Time naproxen [From Aleve] Allergy Verified 10/10/17 11:28 Sulfa (Sulfonamide AdvReac Intermediate GENERALIZED Verified 10/10/17 11:28 Antibiotics) WEAKNESS Exam Vital signs: Temperature 98.1 F 10/13/17 15:59 Pulse Rate 94 10/13/17 15:59 Respiratory Rate 18 10/13/17 15:59 Blood Pressure 114/63 10/13/17 15:59 Pulse Oximetry 92 10/13/17 15:59 - Constitutional no acute distress, well nourished, cooperative - Routine HEENT Exam Head: Present: normocephalic ENT: Present: mucous membranes moist - Routine Neck Exam Absent: JVD, carotid bruit - Routine Chest/Breast/Axilla Exam Chest wall: Absent: tenderness - Routine Respiratory Exam Present: CTA bilaterally. Absent: dyspnea, rales, wheezes - Routine Cardiovascular Exam Present: no murmur, irregularly irregular. Absent: JVD - Routine Abdominal Exam Present: soft - Routine Extremities Exam Present: no edema, pulses intact - Routine Skin Exam Present: intact, dry, warm - Routine Neurological Exam Present: alert - Routine Psychiatric Exam Present: normal affect Results 10/14/17 04:05 10/14/17 04:05 CBC 10/13/17 Range/Units 12:08 WBC 12.3 H (4.5-11.0) T/MM3 RBC 2.81 L (4.00-5.20) M/MM3 Hgb 7.9 L (12-16) GM/DL Hct 23.7 L (36-46) % Plt Count 491 H (130-400) T/MM3 Neut # (Auto) 9.7 H (1.8-7.7) T/MM3 Lymph # (Auto) 1.6 (1-4.8) T/MM3 [place] # (Auto) 0.9 H (0-0.8) T/MM3 Eos # (Auto) 0.1 (0-0.5) T/MM3 Baso # (Auto) 0.0 (0-0.2) T/MM3 Comprehensive Metabolic Panel 10/13/17 Range/Units 12:08 Sodium 134 L (136-146) MEQ/L Potassium 4.2 (3.6-5) MEQ/L Chloride 103 (98-107) MEQ/L Carbon Dioxide 23 (22-30) MEQ/L BUN 16.0 (7-17) MG/DL Creatinine 0.9 (0.7-1.2) mg/dL Glucose 117 H (65-110) MG/DL Calcium 8.7 (8.4-10.2) MG/DL Intake and Output 10/13/17 10/13/17 10/13/17 06:59 14:59 22:59 Intake Total 150 / 150 550 / 550 100 / 100 Balance 150 / 150 550 / 550 100 / 100 Intake: IV 100 / 100 Ceftriaxone 1 g In Ns 100 ml @ 100 / 100 200 mls/hr IV Q24H MARIFER Rx#: [id number] Oral 150 / 150 550 / 550 Other: Urine Color Yellow Yellow Stool Color Brown Stool Consistency Soft Size of Bowel Movement Small # Voids 1 1 # Bowel Movements 1 Weight 145 lb 4.554 oz Patient Weight 10/14/17 06:59 Weight 145 lb 4.554 oz - Imaging and Cardiology Imaging & Cardiology Narrative: Date of Exam: 10/11/17 Type of Exam(s): US echo doppler complete DATE OF PROCEDURE October 11, 2017 REFERRING PHYSICIAN Raji Galdamez MD This is a two-dimensional echo with spectral Doppler, color-flow and M-mode. It was obtained in a patient with atrial fibrillation. Left atrial dimension is increased. Left ventricle end-diastolic dimension is normal. Left ventricle wall thickness is normal. LV systolic function is normal with ejection fraction of 66%. Right atrium is dilated. Right ventricle is normal. Aortic root dimension is normal. Mitral annulus is calcified. Mitral valve leaflets are normal with mild mitral regurgitation. Aortic valve is a trileaflet structure with no stenosis. Mild aortic insufficiency is present. Tricuspid valve shows moderate tricuspid regurgitation with mild pulmonary hypertension with estimated pulmonary artery systolic pressure of 37. Pulmonary valve shows mild pulmonary insufficiency. There is no pericardial effusion. IMPRESSION 1. Normal LV systolic function with ejection fraction of 66%. 2. Biatrial dilation. 3. Mitral annulus calcification with mild mitral regurgitation. 4. Mild aortic insufficiency. 5. Moderate tricuspid regurgitation with mild pulmonary hypertension with estimated pulmonary artery systolic pressure of 37. 6. Mild pulmonary insufficiency. 10/13/17 17:16 EKG interpretations - EKG EKG shows: atrial fibrillation (RVR, HR 138) - Dysrhythmias Ventricular dysrhythmias: ventricular premature complexes (rare) Assessment and Plan - Assessment and Plan (1) Atrial fibrillation with RVR Status: Chronic Chronic rate controlled atrial fibrillation - rate increases and patient feels poorly with activity - increased rate related to infectious process and catecholamines - increase Atenolol for better rate control with activity - decrease Digoxin to 125mcg daily - continue to monitor dig level (2) Right middle lobe pneumonia Status: Acute (3) Essential (primary) hypertension Status: Chronic (4) Mixed hyperlipidemia Status: Chronic - Assessment and Plan A FIB RVR:Chronic rate controlled atrial fibrillation - rate increases and patient feels poorly with activity - increased rate related to infectious process and catecholamines - increase Atenolol for better rate control with activity - decrease Digoxin to 125mcg daily - continue to monitor dig level Rt pneumonia: per attending HTN:well controlled on current therapy HLD: takes Pravastatin Thank you for allowing us to participate in the care of this patient. Hospital Course Summary Disclaimer: The visit summary below is not to be considered part of the above Progress Note. Hospital Course: 10/10/17 Admit for treatment of pneumonia and urinary tract infection, hydration and monitoring/treatment of atrial fibrillation. Patient was given diltiazem 10 mg IV 1 and 15 mg IV 1 for A. fib with RVR and a liter of normal saline in the emergency room. Rate currently controlled at 80. Check dig level. Will need to follow dig level closely with pt taking Zithromax as it can change the GI seng for up to a month and cause increased absorption of dig lending to dig toxicity. Dig recheck ordered for 10/13. Initiate Rocephin 1 g q24 hours and Zithromax 500mg IV q 24 hrs for coverage of CAP and UTI. Urine culture pending. Start Duonebs and acapella for pulmonary toilet. Consult pharmacy for warfarin. Currently on hold given elevated INR. Vit K 1mg x 1 with f-u INR per pharm. Iron studies and Hemoccult for further eval of anemia. Telemetry to monitor rhythm/rate. Pt declines electrical cardioversion at present given concern re: previous history of low BP assoc with sedation. Continue IVF's at 100cc/hr for hydration. Compazine IV prn nausea/vomiting. Warfarin/SCDs for DVT prophylaxis. DO NOT RESUSCITATE Dr. Reid-PCP. If patient needs cardiology consult, she would be interested in establishing with Dr. Kessler, as he is in [place], as opposed to driving to [place] to see Dr. Schmitz. 10/11/17 patient has received a one-off doses of diltiazem and digoxin. Her atrial fibrillation with rapid ventricular rate does not appear to be improving while on antibiotics. I've discussed the case with Dr. Kessler and he reports a 60% ejection fraction with by atrial enlargement on echocardiogram. I am more inclined to believe that this primary cardiac. We will reinitiate Cardizem and diltiazem and continue the atenolol at this time. Failing improvement on this I will make a formal consult to Dr. Kessler and Cherry. Continue the treatment for the urinary tract infection with Rocephin 1 g q24 hours and Zithromax 500mg IV q 24 hrs for coverage of CAP as well. Urine culture is greater than hundred thousand colony forming units. Consult pharmacy for warfarin. Iron studies and Hemoccult for further eval of anemia. Telemetry to monitor rhythm/rate. Pt declined electrical cardioversion at present given concern re: previous history of low BP assoc with sedation. Continue IVF's at 100cc/hr for hydration. Compazine IV prn nausea/vomiting. Warfarin/SCDs for DVT prophylaxis. DO NOT RESUSCITATE Dr. Reid-PCP. If patient needs cardiology consult, she would be interested in establishing with Dr. Kessler, as he is in [place], as opposed to driving to [facility] to see Dr. Schmitz. 10/12/17 patient seems to be failing improvement on rate control despite resuming diltiazem and digoxin I will make a formal consult to Dr. Kessler and Cherry. Their input is appreciated. Continuing treatment Rocephin and azithromycin but I am less certain that there is any significant contribution of infection to her variable rate atrial fibrillation. She is growing Klebsiella that is susceptible to everything but ampicillin. Her INR is currently therapeutic 2.11 Telemetry to monitor rhythm/rate. A few days ago declined electrical cardioversion: previous history of low BP assoc with sedation. Continue IVF's at 100cc/hr for hydration. Compazine IV prn nausea/vomiting. Warfarin/SCDs for DVT prophylaxis. DO NOT RESUSCITATE Dr. Reid-UMBERTO. If patient needs cardiology consult, she would be interested in establishing with Dr. Kessler, as he is in [place], as opposed to driving to [facility] to see Dr. Schmitz. 10/13/17 Overall, patient is doing well and making gains. Eager for discharge. Remains in a-fib with RVR. Dr. Kessler consulted and awaiting his recommendations. Continue atenolol, diltiazem and digoxin. Dig level improved. Continue Rocephin and azithromycin for treatment of pneumonia and UTI. UA revealed Klebsiella pneumoniae sensitive to Rocephin. INR remains therapeutic with pharmacy managing. Continue to monitor closely on telemetry. Encourage oral intake. Will check labs now given previous anemia and electrolyte imbalances. Warfarin/SCDs for DVT prophylaxis. Anticipate discharge either today or in near future. 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 Action required.) Atrial fibrillation (Acute Medical) HTN (hypertension) (Acute Medical) Hyperlipidemia (Acute Medical) Hyperparathyroidism (Acute Medical) Family History: Family History (This Medical Record has been edited. Action required.) Father High blood pressure Mother High blood pressure Stroke Sister High blood pressure Stroke Cancer of colon Sister Cancer of colon Exam Vital signs: Temperature 97.6 F 10/17/17 07:42 Pulse Rate 105 H 10/17/17 08:38 Respiratory Rate 20 10/17/17 15:11 Blood Pressure 147/71 H 10/17/17 07:42 Pulse Oximetry 94 10/17/17 15:11 Results 10/17/17 03:57 10/17/17 03:57 Assessment and Plan - Attestation Attestation Narrative: 10/20/17 10:15 Recommendation After examining the patient I agree with the above assessment. I am involved in the formulation of the patient's plan of care. - Assessment and Plan (1) Right middle lobe pneumonia Status: Acute (2) Atrial fibrillation with RVR Status: Chronic (3) Essential (primary) hypertension Status: Chronic (4) Mixed hyperlipidemia Status: Chronic Hospital Course Summary Disclaimer: The visit summary below is not to be considered part of the above Progress Note.
[2017-10-13] MEDS: ATENOLOL 50 MG TABLET PO SCH (22:11)
[2017-10-13] MEDS: PRAVASTATIN 20 MG TABLET PO SCH (22:12)
[2017-10-13] MEDS: MIRTAZAPINE 15 MG TABLET PO SCH (22:12)
[2017-10-14] MEDS: ALBUTEROL/IPRATROPIUM 2.5mg-0.5mg/3ml NEB AEROSOL SCH ×4 (07:59→19:35)
[2017-10-14] MEDS: FOLIC ACID 1 MG TABLET PO SCH (09:14)
[2017-10-14] MEDS: CYANOCOBALAMIN (B-12) 500mcg TABLET PO SCH (09:14)
[2017-10-14] MEDS: ATENOLOL 50 MG TABLET PO SCH ×2 (09:15→20:18)
[2017-10-14] MEDS: DIGOXIN 125 MCG TABLET PO SCH (09:17)
--- NOTE | 2017-10-14 13:41 | Pharmacy Consult ---
Pharmacy Consult-Warfarin - Laboratory Information 10/10/17 10/10/17 10/10/17 10:34 10:34 10:34 Hgb 9.2 L Hct 26.5 L INR 5.35 H* AST 94 H ALT 41 H Albumin 3.4 L 10/10/17 10/11/17 10/11/17 22:18 05:17 05:17 Hgb 7.8 L D Hct 23.3 L D INR 4.58 H* AST 44 H D ALT 33 Albumin 2.8 L 10/11/17 10/12/17 10/13/17 05:17 04:21 04:59 Hgb Hct INR 3.09 H 2.11 H 2.41 H AST ALT Albumin 10/13/17 10/14/17 10/14/17 12:08 04:05 04:05 Hgb 7.9 L 7.2 L Hct 23.7 L 22.2 L INR 3.32 H AST ALT Albumin - Consult Information COUMADIN CONSULT (Recurring): 87 yr old female 5'5" 66.3 kg admitted for pneumonia. Patient takes warfarin at home for A-Fib. Her home dose of warfarin is 4.5 mg 5 days a week and 2 mg on Mondays and Fridays. Therapeutic INR range is 2-3. She was admitted and had an elevated INR of 5.35. 1 mg po Vitamin K was given. DATE INR DOSE 10/11 3.09 1.5 MG 10/12 2.11 5 MG 10/13 2.41 3 MG 10/14 3.32 Dose Held today Pharmacy will continue to monitor the INR and adjust the warfarin dose accordingly. Thank you. Justine Raya, PharmD
[2017-10-14] MEDS: CEFTRIAXONE 1 G in NS 100 ML IV SCH (14:14)
[2017-10-14] MEDS: NS FLUSH BAG 500ml IV PRN (14:14)
[2017-10-14] MEDS: AZITHROMYCIN IV 500 MG in NS 250ml 250 ML IV SCH (14:52)
--- NOTE | 2017-10-14 18:59 | Progress Note ---
- Date 10/14/17 Subjective: Nursing reports heart rates have shown some improvement after adjustments by cardiology however patient claims to still feel unimproved and quite weak. Objective Vital signs: Temperature 96.5 F L 10/14/17 15:00 Pulse Rate 85 10/14/17 15:00 Respiratory Rate 20 10/14/17 15:24 Blood Pressure 123/66 10/14/17 15:00 Pulse Oximetry 90 10/14/17 15:24 Rhythm: Atrial Fibrillation with Normal Ventricular Rate, Atrial Fibrillation with RVR Height/Weight/BMI: Height 5 ft 5 in Weight 66.3 kg Body Mass Index 22.4 Results - Labs CBC & Chem 7: 10/14/17 04:05 10/14/17 04:05 Microbiology Results: Microbiology 10/10/17 11:55 Urine, Voided (Cc/notcc) Urine Culture - Final Klebsiella pneumoniae Assessment and Plan (1) Atrial fibrillation with RVR Current visit: Yes Status: Chronic (2) Community acquired pneumonia Current visit: Yes Status: Acute Assessment and Plan: Assessment Community-acquired pneumonia-right basilar Urinary tract infection with symptoms of urinary frequency Atrial fibrillation with RVR-POA Supratherapeutic INR-POA Hyponatremia-POA Mild transaminitis-POA Normocytic anemia - POA (most recent hgb on file in 2013 was 13.3) Thrombocytosis - POA Progressive debility Hyperparathyroidism Hypertension Hyperlipidemia Paroxysmal atrial fibrillation-chronic warfarin Plan - 10/14/17 uncertain of the continuing etiology of the weakness. The patient may be adjusting to cardiac medicines or this may be some slow recovery from the infectious processes Remains in a-fib with RVR. Dr. Kessler consulted and increased beta merari while decreasing the digoxin. Continue atenolol, diltiazem and digoxin. Dig level improved. Continue Rocephin and azithromycin for treatment of pneumonia and UTI. UA revealed Klebsiella pneumoniae sensitive to Rocephin. INR remains therapeutic with pharmacy managing. Continue to monitor closely on telemetry. Physical therapy - Physician Narrative Narrative: Date: 10/14/17 Time: 1858 Hospital Course Summary Disclaimer: The visit summary below is not to be considered part of the above Progress Note. Hospital Course: 10/10/17 Admit for treatment of pneumonia and urinary tract infection, hydration and monitoring/treatment of atrial fibrillation. Patient was given diltiazem 10 mg IV 1 and 15 mg IV 1 for A. fib with RVR and a liter of normal saline in the emergency room. Rate currently controlled at 80. Check dig level. Will need to follow dig level closely with pt taking Zithromax as it can change the GI seng for up to a month and cause increased absorption of dig lending to dig toxicity. Dig recheck ordered for 10/13. Initiate Rocephin 1 g q24 hours and Zithromax 500mg IV q 24 hrs for coverage of CAP and UTI. Urine culture pending. Start Duonebs and acapella for pulmonary toilet. Consult pharmacy for warfarin. Currently on hold given elevated INR. Vit K 1mg x 1 with f-u INR per pharm. Iron studies and Hemoccult for further eval of anemia. Telemetry to monitor rhythm/rate. Pt declines electrical cardioversion at present given concern re: previous history of low BP assoc with sedation. Continue IVF's at 100cc/hr for hydration. Compazine IV prn nausea/vomiting. Warfarin/SCDs for DVT prophylaxis. DO NOT RESUSCITATE Dr. Reid-PCP. If patient needs cardiology consult, she would be interested in establishing with Dr. Kessler, as he is in [place], as opposed to driving to [place] to see Dr. Schmitz. 10/11/17 patient has received a one-off doses of diltiazem and digoxin. Her atrial fibrillation with rapid ventricular rate does not appear to be improving while on antibiotics. I've discussed the case with Dr. Kessler and he reports a 60% ejection fraction with by atrial enlargement on echocardiogram. I am more inclined to believe that this primary cardiac. We will reinitiate Cardizem and diltiazem and continue the atenolol at this time. Failing improvement on this I will make a formal consult to Dr. Kessler and Cherry. Continue the treatment for the urinary tract infection with Rocephin 1 g q24 hours and Zithromax 500mg IV q 24 hrs for coverage of CAP as well. Urine culture is greater than hundred thousand colony forming units. Consult pharmacy for warfarin. Iron studies and Hemoccult for further eval of anemia. Telemetry to monitor rhythm/rate. Pt declined electrical cardioversion at present given concern re: previous history of low BP assoc with sedation. Continue IVF's at 100cc/hr for hydration. Compazine IV prn nausea/vomiting. Warfarin/SCDs for DVT prophylaxis. DO NOT RESUSCITATE Dr. Reid-PCP. If patient needs cardiology consult, she would be interested in establishing with Dr. Kessler, as he is in [place], as opposed to driving to [place] [employer] to see Dr. Schmitz. 10/12/17 patient seems to be failing improvement on rate control despite resuming diltiazem and digoxin I will make a formal consult to Dr. Kessler and Cherry. Their input is appreciated. Continuing treatment Rocephin and azithromycin but I am less certain that there is any significant contribution of infection to her variable rate atrial fibrillation. She is growing Klebsiella that is susceptible to everything but ampicillin. Her INR is currently therapeutic 2.11 Telemetry to monitor rhythm/rate. A few days ago declined electrical cardioversion: previous history of low BP assoc with sedation. Continue IVF's at 100cc/hr for hydration. Compazine IV prn nausea/vomiting. Warfarin/SCDs for DVT prophylaxis. DO NOT RESUSCITATE Dr. Reid-PCP. If patient needs cardiology consult, she would be interested in establishing with Dr. Kessler, as he is in [place], as opposed to driving to [place] to see Dr. Schmitz. 10/13/17 Overall, patient is doing well and making gains. Eager for discharge. Remains in a-fib with RVR. Dr. Kessler consulted and awaiting his recommendations. Continue atenolol, diltiazem and digoxin. Dig level improved. Continue Rocephin and azithromycin for treatment of pneumonia and UTI. UA revealed Klebsiella pneumoniae sensitive to Rocephin. INR remains therapeutic with pharmacy managing. Continue to monitor closely on telemetry. Encourage oral intake. Will check labs now given previous anemia and electrolyte imbalances. Warfarin/SCDs for DVT prophylaxis. Anticipate discharge either today or in near future.
[2017-10-14] MEDS: MIRTAZAPINE 15 MG TABLET PO SCH (20:18)
[2017-10-14] MEDS: PRAVASTATIN 20 MG TABLET PO SCH (20:19)
[2017-10-15] MEDS: ALBUTEROL/IPRATROPIUM 2.5mg-0.5mg/3ml NEB AEROSOL SCH ×4 (07:11→20:05)
--- NOTE | 2017-10-15 08:21 | Pharmacy Consult ---
Pharmacy Consult-Warfarin - Laboratory Information 10/10/17 10/10/17 10/10/17 10:34 10:34 10:34 Hgb 9.2 L Hct 26.5 L INR 5.35 H* AST 94 H ALT 41 H Albumin 3.4 L 10/10/17 10/11/17 10/11/17 22:18 05:17 05:17 Hgb 7.8 L D Hct 23.3 L D INR 4.58 H* AST 44 H D ALT 33 Albumin 2.8 L 10/11/17 10/12/17 10/13/17 05:17 04:21 04:59 Hgb Hct INR 3.09 H 2.11 H 2.41 H AST ALT Albumin 10/13/17 10/14/17 10/14/17 12:08 04:05 04:05 Hgb 7.9 L 7.2 L Hct 23.7 L 22.2 L INR 3.32 H AST ALT Albumin 10/15/17 04:14 Hgb Hct INR 3.29 H AST ALT Albumin - Consult Information COUMADIN CONSULT (Recurring): 87 yr old female 5'5" 66.3 kg admitted for pneumonia. Patient takes warfarin at home for A-Fib. Her home dose of warfarin is 4.5 mg 5 days a week and 2 mg on Mondays and Fridays. She was admitted and had an elevated INR of 5.35. 1 mg po Vitamin K was given. Patient is currently on Rocephin and Zithromax which can cause the INR to be elevated. DATE INR DOSE 10/11 3.09 1.5 MG 10/12 2.11 5 MG 10/13 2.41 3 MG 10/14 3.32 Dose Held 10/15 3.29 Dose Held Pharmacy will continue to monitor the INR and adjust the warfarin dose accordingly. Thank you. Justine Raya, PharmD
[2017-10-15] MEDS: SALINE FLUSH 10ml SYRINGE IVF PRN (08:29)
[2017-10-15] MEDS: FOLIC ACID 1 MG TABLET PO SCH (09:02)
[2017-10-15] MEDS: DIGOXIN 125 MCG TABLET PO SCH (09:02)
[2017-10-15] MEDS: CYANOCOBALAMIN (B-12) 500mcg TABLET PO SCH (09:03)
[2017-10-15] MEDS: ATENOLOL 50 MG TABLET PO SCH ×2 (09:03→22:16)
[2017-10-15] MEDS: CEFTRIAXONE 1 G in NS 100 ML IV SCH (16:13)
--- NOTE | 2017-10-15 19:50 | Progress Note ---
- Date 10/15/17 Subjective: Mrs. Fernandes admits to feeling slow and tired. She is not seem physical therapy today cannot recall if she had worked with him yesterday. She states that she has not felt well since she last had her Prolia injection and states that she knows that her vitamin D level is practically nonexistent Objective Vital signs: Temperature 98.5 F 10/15/17 08:00 Pulse Rate 94 10/15/17 16:00 Respiratory Rate 18 10/15/17 16:04 Blood Pressure 115/65 10/15/17 16:00 Pulse Oximetry 92 10/15/17 16:04 Rhythm: Atrial Fibrillation with Normal Ventricular Rate Height/Weight/BMI: Height 5 ft 5 in Weight 68.9 kg Body Mass Index 22.4 - Constitutional Present: mild distress, well nourished, well developed, cooperative - Routine HEENT Exam Head: Present: normocephalic, atraumatic Eye: Present: EOMI ENT: Present: mucous membranes moist, dentition normal - Routine Respiratory Exam Present: CTA bilaterally. Absent: wheezes - Routine Cardiovascular Exam Present: RRR. Absent: murmur - Routine Abdominal Exam Present: soft, normoactive bowel sounds, non distended. Absent: tenderness - Routine Extremities Exam Present: normal capillary refill - Routine Skin Exam Present: dry, warm - Routine Neurological Exam Present: alert, oriented X3, CN II-XII intact - Routine Lymphatic Exam Lymphatic: Absent: adenopathy - Routine Psychiatric Exam Present: normal affect Results - Labs CBC & Chem 7: 10/14/17 04:05 10/14/17 04:05 Microbiology Results: Microbiology 10/10/17 11:55 Urine, Voided (Cc/notcc) Urine Culture - Final Klebsiella pneumoniae Assessment and Plan (1) Acute hemolytic anemia Current visit: Yes Status: Acute (2) Atrial fibrillation with RVR Current visit: Yes Status: Chronic (3) Community acquired pneumonia Current visit: Yes Status: Acute Assessment and Plan: Assessment acute anemia likely hemolytic Community-acquired pneumonia-right basilar Urinary tract infection with symptoms of urinary frequency Atrial fibrillation with RVR-POA Supratherapeutic INR-POA Hyponatremia-POA Mild transaminitis-POA Normocytic anemia - POA (most recent hgb on file in 2013 was 13.3) Thrombocytosis - POA Progressive debility Hyperparathyroidism Hypertension Hyperlipidemia Paroxysmal atrial fibrillation-chronic warfarin Plan - 10/15/17 patient's anemia has been worsening and does not appear to be any G.I. blood loss as the Guaiac study is negative. Furthermore she does have an elevated reticular site count attempting to compensate. Vitamin D level and iron binding studies are still pending to determine if IV iron gluconate and supplemental vitamin D are worthwhile. Should the patient's H&H fall any further I would be inclined to consider unit of packed red blood cells as she does have cardiac risk factors. Atrial fibrillation appears to be well rate controlled except when she attempts activity and then becomes symptomatic. My appreciation to Cherry and Dr. Kessler. Patient is also another one that is curiously fluid overloaded despite not being given aggressive fluid rehydration in many days. Will attempt to gently draw off some of fluids as well Resuscitation Status: Do Not Resuscitate - Physician Narrative Physician: other Narrative: Date: 10/15/17 Time: 1948 Hospital Course Summary Disclaimer: The visit summary below is not to be considered part of the above Progress Note. Hospital Course: 10/10/17 Admit for treatment of pneumonia and urinary tract infection, hydration and monitoring/treatment of atrial fibrillation. Patient was given diltiazem 10 mg IV 1 and 15 mg IV 1 for A. fib with RVR and a liter of normal saline in the emergency room. Rate currently controlled at 80. Check dig level. Will need to follow dig level closely with pt taking Zithromax as it can change the GI seng for up to a month and cause increased absorption of dig lending to dig toxicity. Dig recheck ordered for 10/13. Initiate Rocephin 1 g q24 hours and Zithromax 500mg IV q 24 hrs for coverage of CAP and UTI. Urine culture pending. Start Duonebs and acapella for pulmonary toilet. Consult pharmacy for warfarin. Currently on hold given elevated INR. Vit K 1mg x 1 with f-u INR per pharm. Iron studies and Hemoccult for further eval of anemia. Telemetry to monitor rhythm/rate. Pt declines electrical cardioversion at present given concern re: previous history of low BP assoc with sedation. Continue IVF's at 100cc/hr for hydration. Compazine IV prn nausea/vomiting. Warfarin/SCDs for DVT prophylaxis. DO NOT RESUSCITATE Dr. Reid-PCP. If patient needs cardiology consult, she would be interested in establishing with Dr. Kessler, as he is in [place], as opposed to driving to [employer] to see Dr. Schmitz. 10/11/17 patient has received a one-off doses of diltiazem and digoxin. Her atrial fibrillation with rapid ventricular rate does not appear to be improving while on antibiotics. I've discussed the case with Dr. Kessler and he reports a 60% ejection fraction with by atrial enlargement on echocardiogram. I am more inclined to believe that this primary cardiac. We will reinitiate Cardizem and diltiazem and continue the atenolol at this time. Failing improvement on this I will make a formal consult to Dr. Kessler and Cherry. Continue the treatment for the urinary tract infection with Rocephin 1 g q24 hours and Zithromax 500mg IV q 24 hrs for coverage of CAP as well. Urine culture is greater than hundred thousand colony forming units. Consult pharmacy for warfarin. Iron studies and Hemoccult for further eval of anemia. Telemetry to monitor rhythm/rate. Pt declined electrical cardioversion at present given concern re: previous history of low BP assoc with sedation. Continue IVF's at 100cc/hr for hydration. Compazine IV prn nausea/vomiting. Warfarin/SCDs for DVT prophylaxis. DO NOT RESUSCITATE Dr. Reid-PCP. If patient needs cardiology consult, she would be interested in establishing with Dr. Kessler, as he is in [place], as opposed to driving to [employer] to see Dr. Schmitz. 10/12/17 patient seems to be failing improvement on rate control despite resuming diltiazem and digoxin I will make a formal consult to Dr. Kessler and Cherry. Their input is appreciated. Continuing treatment Rocephin and azithromycin but I am less certain that there is any significant contribution of infection to her variable rate atrial fibrillation. She is growing Klebsiella that is susceptible to everything but ampicillin. Her INR is currently therapeutic 2.11 Telemetry to monitor rhythm/rate. A few days ago declined electrical cardioversion: previous history of low BP assoc with sedation. Continue IVF's at 100cc/hr for hydration. Compazine IV prn nausea/vomiting. Warfarin/SCDs for DVT prophylaxis. DO NOT RESUSCITATE Dr. Reid-PCP. If patient needs cardiology consult, she would be interested in establishing with Dr. Kessler, as he is in [place], as opposed to driving to [place] to see Dr. Schmitz. 10/13/17 Overall, patient is doing well and making gains. Eager for discharge. Remains in a-fib with RVR. Dr. Kessler consulted and awaiting his recommendations. Continue atenolol, diltiazem and digoxin. Dig level improved. Continue Rocephin and azithromycin for treatment of pneumonia and UTI. UA revealed Klebsiella pneumoniae sensitive to Rocephin. INR remains therapeutic with pharmacy managing. Continue to monitor closely on telemetry. Encourage oral intake. Will check labs now given previous anemia and electrolyte imbalances. Warfarin/SCDs for DVT prophylaxis. Anticipate discharge either today or in near future.
[2017-10-15] MEDS: MIRTAZAPINE 15 MG TABLET PO SCH (22:16)
[2017-10-15] MEDS: PRAVASTATIN 20 MG TABLET PO SCH (22:16)
[2017-10-16] MEDS: ALBUTEROL/IPRATROPIUM 2.5mg-0.5mg/3ml NEB AEROSOL SCH ×4 (06:46→19:02)
[2017-10-16] MEDS: DIGOXIN 125 MCG TABLET PO SCH (08:45)
[2017-10-16] MEDS: ATENOLOL 50 MG TABLET PO SCH ×2 (08:46→20:42)
[2017-10-16] MEDS: CYANOCOBALAMIN (B-12) 500mcg TABLET PO SCH (08:46)
[2017-10-16] MEDS: FOLIC ACID 1 MG TABLET PO SCH (08:46)
--- NOTE | 2017-10-16 11:19 | Pharmacy Consult ---
Pharmacy Consult-Warfarin - Laboratory Information 10/10/17 10/10/17 10/10/17 10:34 10:34 10:34 Hgb 9.2 L Hct 26.5 L INR 5.35 H* AST 94 H ALT 41 H Albumin 3.4 L 10/10/17 10/11/17 10/11/17 22:18 05:17 05:17 Hgb 7.8 L D Hct 23.3 L D INR 4.58 H* AST 44 H D ALT 33 Albumin 2.8 L 10/11/17 10/12/17 10/13/17 05:17 04:21 04:59 Hgb Hct INR 3.09 H 2.11 H 2.41 H AST ALT Albumin 10/13/17 10/14/17 10/14/17 12:08 04:05 04:05 Hgb 7.9 L 7.2 L Hct 23.7 L 22.2 L INR 3.32 H AST ALT Albumin 10/15/17 10/16/17 04:14 03:57 Hgb Hct INR 3.29 H 3.42 H AST ALT Albumin - Consult Information INR is above target range. No warfarin will be ordered today. Thank you.
[2017-10-16] MEDS: SALINE FLUSH 10ml SYRINGE IVF PRN ×2 (14:22→20:42)
[2017-10-16] MEDS: CEFTRIAXONE 1 G in NS 100 ML IV SCH (14:22)
[2017-10-16] MEDS ORDERED: SODIUM FERRIC GLUC. COMPLEX 125 MG in NS 100 ML IV ONE (15:00)
--- NOTE | 2017-10-16 19:26 | Progress Note ---
- Date 10/16/17 Subjective: Patient states she does feel a little bit less fatigue. She does feel however she is nowhere near as functional as she should be and physical therapy is simply overwhelming for her at this point. Objective Vital signs: Temperature 97.2 F 10/16/17 16:21 Pulse Rate 93 10/16/17 16:21 Respiratory Rate 16 10/16/17 19:05 Blood Pressure 138/75 10/16/17 16:21 Pulse Oximetry 93 10/16/17 19:05 Rhythm: Atrial Fibrillation with Normal Ventricular Rate Height/Weight/BMI: Height 5 ft 5 in Weight 66.9 kg Body Mass Index 22.4 - Constitutional Present: well nourished, well developed, cooperative - Routine HEENT Exam Eye: Present: EOMI ENT: Present: mucous membranes moist, dentition normal - Routine Respiratory Exam Present: CTA bilaterally. Absent: wheezes - Routine Cardiovascular Exam Present: irregularly irregular. Absent: murmur - Routine Abdominal Exam Present: soft, normoactive bowel sounds, non distended. Absent: tenderness - Routine Extremities Exam Present: normal capillary refill - Routine Skin Exam Present: dry, warm - Routine Neurological Exam Present: alert, oriented X3, CN II-XII intact - Routine Lymphatic Exam Lymphatic: Absent: adenopathy - Routine Psychiatric Exam Present: normal affect Results - Labs CBC & Chem 7: 10/16/17 03:54 10/14/17 04:05 Microbiology Results: Microbiology 10/10/17 11:55 Urine, Voided (Cc/notcc) Urine Culture - Final Klebsiella pneumoniae Assessment and Plan (1) Atrial fibrillation with RVR Current visit: Yes Status: Chronic (2) Community acquired pneumonia Current visit: Yes Status: Acute Assessment and Plan: Assessment Community-acquired pneumonia-right basilar Urinary tract infection with symptoms of urinary frequency Atrial fibrillation with RVR-POA Supratherapeutic INR-POA Hyponatremia-POA Mild transaminitis-POA Normocytic anemia - POA (most recent hgb on file in 2013 was 13.3) Thrombocytosis - POA Progressive debility Hyperparathyroidism Hypertension Hyperlipidemia Paroxysmal atrial fibrillation-chronic warfarin Plan - 10/16/17 remains fatigue but motivated Remains in a-fib with appropriate rate control. Continue atenolol, diltiazem and digoxin. Pneumonia and UTI are at the end of the treatment. Will be able to discontinue her antibiotics tomorrow or at least de-escalate to low-level oral monotherapy. The anemia shows some improvement and to assist with the iron deficiency, I am giving a iron gluconate infusion. The patient does appear to be above the threshold for blood transfusion but remains very symptomatic vitamin D deficiency appears to be well treated patient's thyroid is within normal limits - Physician Narrative Narrative: Date: 10/16/17 Time: 1921 Hospital Course Summary Disclaimer: The visit summary below is not to be considered part of the above Progress Note. Hospital Course: 10/10/17 Admit for treatment of pneumonia and urinary tract infection, hydration and monitoring/treatment of atrial fibrillation. Patient was given diltiazem 10 mg IV 1 and 15 mg IV 1 for A. fib with RVR and a liter of normal saline in the emergency room. Rate currently controlled at 80. Check dig level. Will need to follow dig level closely with pt taking Zithromax as it can change the GI seng for up to a month and cause increased absorption of dig lending to dig toxicity. Dig recheck ordered for 10/13. Initiate Rocephin 1 g q24 hours and Zithromax 500mg IV q 24 hrs for coverage of CAP and UTI. Urine culture pending. Start Duonebs and acapella for pulmonary toilet. Consult pharmacy for warfarin. Currently on hold given elevated INR. Vit K 1mg x 1 with f-u INR per pharm. Iron studies and Hemoccult for further eval of anemia. Telemetry to monitor rhythm/rate. Pt declines electrical cardioversion at present given concern re: previous history of low BP assoc with sedation. Continue IVF's at 100cc/hr for hydration. Compazine IV prn nausea/vomiting. Warfarin/SCDs for DVT prophylaxis. DO NOT RESUSCITATE Dr. Reid-PCP. If patient needs cardiology consult, she would be interested in establishing with Dr. Kessler, as he is in [place], as opposed to driving to [place] to see Dr. Schmitz. 10/11/17 patient has received a one-off doses of diltiazem and digoxin. Her atrial fibrillation with rapid ventricular rate does not appear to be improving while on antibiotics. I've discussed the case with Dr. Kessler and he reports a 60% ejection fraction with by atrial enlargement on echocardiogram. I am more inclined to believe that this primary cardiac. We will reinitiate Cardizem and diltiazem and continue the atenolol at this time. Failing improvement on this I will make a formal consult to Dr. Kessler and Cherry. Continue the treatment for the urinary tract infection with Rocephin 1 g q24 hours and Zithromax 500mg IV q 24 hrs for coverage of CAP as well. Urine culture is greater than hundred thousand colony forming units. Consult pharmacy for warfarin. Iron studies and Hemoccult for further eval of anemia. Telemetry to monitor rhythm/rate. Pt declined electrical cardioversion at present given concern re: previous history of low BP assoc with sedation. Continue IVF's at 100cc/hr for hydration. Compazine IV prn nausea/vomiting. Warfarin/SCDs for DVT prophylaxis. DO NOT RESUSCITATE Dr. Reid-PCP. If patient needs cardiology consult, she would be interested in establishing with Dr. Kessler, as he is in [place], as opposed to driving to [place] to see Dr. Schmitz. 10/12/17 patient seems to be failing improvement on rate control despite resuming diltiazem and digoxin I will make a formal consult to Dr. Kessler and Cherry. Their input is appreciated. Continuing treatment Rocephin and azithromycin but I am less certain that there is any significant contribution of infection to her variable rate atrial fibrillation. She is growing Klebsiella that is susceptible to everything but ampicillin. Her INR is currently therapeutic 2.11 Telemetry to monitor rhythm/rate. A few days ago declined electrical cardioversion: previous history of low BP assoc with sedation. Continue IVF's at 100cc/hr for hydration. Compazine IV prn nausea/vomiting. Warfarin/SCDs for DVT prophylaxis. DO NOT RESUSCITATE Dr. Reid-UMBERTO. If patient needs cardiology consult, she would be interested in establishing with Dr. Kessler, as he is in [place], as opposed to driving to [place] to see Dr. Schmitz. 10/13/17 Overall, patient is doing well and making gains. Eager for discharge. Remains in a-fib with RVR. Dr. Kessler consulted and awaiting his recommendations. Continue atenolol, diltiazem and digoxin. Dig level improved. Continue Rocephin and azithromycin for treatment of pneumonia and UTI. UA revealed Klebsiella pneumoniae sensitive to Rocephin. INR remains therapeutic with pharmacy managing. Continue to monitor closely on telemetry. Encourage oral intake. Will check labs now given previous anemia and electrolyte imbalances. Warfarin/SCDs for DVT prophylaxis. Anticipate discharge either today or in near future.
[2017-10-16] MEDS: PRAVASTATIN 20 MG TABLET PO SCH (20:42)
[2017-10-16] MEDS: MIRTAZAPINE 15 MG TABLET PO SCH (20:42)
[2017-10-17 07:48] VITALS: BP 147/71; TEMP 97.6
--- NOTE | 2017-10-17 07:49 | Pharmacy Consult ---
Pharmacy Consult-Warfarin - Laboratory Information 10/13/17 10/14/17 10/14/17 12:08 04:05 04:05 Hgb 7.9 L 7.2 L Hct 23.7 L 22.2 L INR 3.32 H AST ALT Albumin 10/15/17 10/16/17 10/16/17 04:14 03:54 03:57 Hgb 8.0 L D Hct 24.5 L INR 3.29 H 3.42 H AST ALT Albumin 10/17/17 04:03 Hgb Hct INR 3.32 H AST ALT Albumin - Consult Information WARFARIN PROTOCOL: Day 8 The INR was 3.32 today. Will hold the warfarin another day. The effect from azithromycin appears to be wearing off. Thanks, Charles Bashir, Pharmacust
[2017-10-17] MEDS: ALBUTEROL/IPRATROPIUM 2.5mg-0.5mg/3ml NEB AEROSOL SCH ×3 (08:01→15:11)
[2017-10-17] MEDS: DIGOXIN 125 MCG TABLET PO SCH (08:38)
[2017-10-17] MEDS: CYANOCOBALAMIN (B-12) 500mcg TABLET PO SCH (08:39)
[2017-10-17] MEDS: FOLIC ACID 1 MG TABLET PO SCH (08:39)
[2017-10-17] MEDS: ATENOLOL 50 MG TABLET PO SCH (08:39)
[2017-10-17 08:40] VITALS: PULSE 105
[2017-10-17] MEDS: SALINE FLUSH 10ml SYRINGE IVF PRN ×2 (11:39→13:56)
[2017-10-17] MEDS: NS FLUSH BAG 500ml IV PRN (13:56)
[2017-10-17] MEDS: CEFTRIAXONE 1 G in NS 100 ML IV SCH (14:00)
--- NOTE | 2017-10-17 14:07 | Discharge Summary ---
Discharge Information Date of admission: 10/11/17 14:28 Anticipated date of discharge: 10/17/17 Attending Physician: Raji Galdamez MD Primary care physician: Meir Reid MD Consults: Consulting Provider: [place] Kessler Reason For Exam: AFib with poorly controlled rate - Discharge Diagnosis (1) Atrial fibrillation with RVR Status: Chronic (2) Community acquired pneumonia Status: Acute Community-acquired pneumonia-right basilar Urinary tract infection secondary to Klebsiella pneumoniae Atrial fibrillation with RVR-POA- on warfarin Supratherapeutic INR-POA Hyponatremia-POA Mild transaminitis-POA Normocytic anemia - POA - iron deficient Thrombocytosis - POA Progressive debility Hyperparathyroidism Hypertension Hyperlipidemia - Procedures Procedures: Date of Exam: 10/11/17 Type of Exam(s): US echo doppler complete This is a two-dimensional echo with spectral Doppler, color-flow and M-mode. It was obtained in a patient with atrial fibrillation. Left atrial dimension is increased. Left ventricle end-diastolic dimension is normal. Left ventricle wall thickness is normal. LV systolic function is normal with ejection fraction of 66%. Right atrium is dilated. Right ventricle is normal. Aortic root dimension is normal. Mitral annulus is calcified. Mitral valve leaflets are normal with mild mitral regurgitation. Aortic valve is a trileaflet structure with no stenosis. Mild aortic insufficiency is present. Tricuspid valve shows moderate tricuspid regurgitation with mild pulmonary hypertension with estimated pulmonary artery systolic pressure of 37. Pulmonary valve shows mild pulmonary insufficiency. There is no pericardial effusion. IMPRESSION 1. Normal LV systolic function with ejection fraction of 66%. 2. Biatrial dilation. 3. Mitral annulus calcification with mild mitral regurgitation. 4. Mild aortic insufficiency. 5. Moderate tricuspid regurgitation with mild pulmonary hypertension with estimated pulmonary artery systolic pressure of 37. 6. Mild pulmonary insufficiency. - Laboratory Labs: 10/16/17 03:54 10/14/17 04:05 - Microbiology Microbiology 10/10/17 11:55 Urine, Voided (Cc/notcc) Urine Culture - Final Klebsiella pneumoniae - Radiology Radiology: Date of Exam: 10/10/17 PROCEDURE: XR chest 1V: Findings: New airspace opacity in the right lower or middle lobe. Left lung remains stable and grossly clear. No pleural effusion or pneumothorax. Heart size and mediastinal contours are stable. Pulmonary vascularity is normal. Impression: Right basilar pneumonia. = = = = = = = = = = = = = = = = = = = = = = = = = = = = = = = = = = = = = = = = = = = = = = = = = = = = = = = = = = = Date of Exam: 10/11/17 PROCEDURE: CHEST 2-VIEWS UPRIGHT (PA & LAT) FINDINGS: There is an oval 2.3 cm nodule projecting just below the right clavicle, likely within the right upper lobe. Lungs are mildly hyperinflated. Small pleural effusions. Right basilar airspace disease has slightly improved. No pneumothorax. Heart size and mediastinal contours are stable. Pulmonary vascularity is normal. Impression: Improving right basilar pneumonia. Right upper lobe pulmonary nodule. Recommend noncontrast chest CT for further evaluation. History of Present Illness HPI: Patient is an 86-year-old female who presents to the emergency room because she is "exhausted." She reports she's been tired ("that's been going on for a long time") and she is getting to the point where she can "hardly walk." She states for the last week she's had dry heaves and vomiting, usually in the evenings. She does admit to a cough and shortness of breath with exertion. She feels that she gets weaker after each Prolia injection (for hyperparathyroidism). Her last one was 2 weeks ago. On arrival to ER, patient was found to be in atrial fibrillation with rates 140-160. Patient had forgotten to take her atenolol this morning. She reports she's had cardioversion 3 and her last was in 2013. She states she does not want another cardioversion because "they have to put me out for that and the last time I had surgery they couldn't get my blood pressure up and they told me never to have surgery again." She denies symptoms with her atrial fibrillation. Objective Vital signs: Temperature 97.6 F 10/17/17 07:42 Pulse Rate 105 H 10/17/17 08:38 Respiratory Rate 22 10/17/17 11:34 Blood Pressure 147/71 H 10/17/17 07:42 Pulse Oximetry 95 10/17/17 08:05 Rhythm: Atrial Fibrillation with Normal Ventricular Rate Height/Weight/BMI: Height 1.65 m Weight 67.7 kg Body Mass Index 22.4 - Constitutional Present: no acute distress, well nourished, well developed, thin - Routine HEENT Exam Head: Present: normocephalic Eye: Present: PERRL. Absent: conjunctival icterus, scleral injection ENT: Present: oropharynx clear - Routine Respiratory Exam Present: CTA bilaterally - Routine Cardiovascular Exam Present: S1, S2, irregularly irregular - Routine Abdominal Exam Present: soft, normoactive bowel sounds, non distended, non tender - Routine Extremities Exam Present: no edema - Routine Back/Spine/Pelvis Exam Back/Spine: Present: full ROM - Routine Musculoskeletal Exam Musculoskeletal: Present: no clubbing or cyanosis - Routine Skin Exam Present: intact, dry, warm - Routine Neurological Exam Present: alert, oriented X3, CN II-XII intact, moving all extremities, vision grossly intact, hearing grossly intact, normal speech. Absent: sensory deficit , motor deficit, altered mental status, facial asymmetry - Routine Psychiatric Exam Present: normal affect, normal thought process, cooperative Hospital Course This is a general summary of the patient's hospital course. For more details refer to the complete medical record. Hospital course: Mrs. Ardon was admitted on 10/10/17 for pneumonia and UTI. For these diagnoses. She was started on Rocephin and Zithromax. Ultimately, her urine culture grew out Klebsiella pneumoniae which was sensitive to Rocephin. On admission, she was also found to be in A. fib with RVR. She received IV fluids as well as IV diltiazem and initially her rate responded. Pharmacy was consulted for Coumadin management -- her INR was high at time of admission of 4.58 and she received vitamin K. Since then, her INR has ranged from 2.1-3.4; and in fact despite holding her coumadin x4 days it was still 3.32 on day of discharge. She was found to be anemic, stool was heme-negative. Her iron stores were low, iron was 13, TIBC 157, percent saturation 8. Vitamin D stores were actually elevated at 105. Her stool was heme-negative 2. She received IV iron during her hospitalization. On her second hospital day, her A. fib was not improving. Cardiology was consulted. An echocardiogram was obtained, and her EF was found to be normal. They adjusted her medication: Atenolol 50 mg twice a day, digoxin 125 g daily, Cardizem 180 mg daily. She occasionally had spikes in her heart rate, but overall her heart rhythm was under better control in the felt she was stable to go home from that regard. She had some intermittent periods of hypoxia in which she required 1-2 L of oxygen. By time of discharge she was on room air. She remained weak throughout hospital stay and physical therapy was consulted and they recommended inpatient PT to address strength, balance, endurance and functional mobility concerns. She was medically stable for discharge to senior living on 10/17/17. Her antibiotic course for both pneumonia and UTI has been completed. Will order follow-up BMP, INR, and digoxin level in 3 days. Follow-up with cardiology in 2 weeks. Also, recommend follow-up with Dr. Reid: I discussed her hospitalization with him and he will follow up on: daily INRs and adjust her Coumadin; anemia; pneumonia/UTI; dig level and BMP; and pulmonary nodule noted on CXR. Discharge plans were reviewed with the patient and she voiced an understanding. Seen and examined patient on same day as the above discharge summary nurse practitioner Lili Ponce. Agree with summary, physical, assessment and plan. Comprehensive physical findings correlate to the above note. Exam: Gen.:no apparent distress, moderately browsable to noxious stimuli HEENT: normocephalic atraumatic, oral mucosa moderately dry neck: no lymphadenopathy no jugular venous distention respiratory: there to auscultation bilaterally with good excursion cardiovascular: cardiovascular S1 S2 no adventitious murmurs rubs or gallops abdomen/GI: soft nondistended with bowel sounds extremities: good peripheral perfusion with no edema skin/integument: no significant injuries or edema neuro: minimally responsive but protecting airway. No focal deficits appreciable psych: unable to assess Labs: reviewed assessment and plan: patient remained fatigued secondary to what appears to be anemia. She was given IV iron gluconate day prior to discharge has her hemoglobin 7.2 is probably spuriously low. Appears that are low hemoglobin was approximately 8. Rate control has been achieved for the atrial fibrillation with the help with cardiology and at this time she is best served with returning to her care center with physical therapy. Documented on Dragon speech to text. Efforts to crack speech recognition errors performed, but variation may exist Time spent with patient: greater than 35 minutes Resuscitation Status: Do Not Resuscitate Discharge Plan - Discharge Disposition Discharge Date: 10/17/17 Disposition: 03 To SNU Not [facility] [place] (SNF) *Condition: Stable Reason For Visit (Visit label in EMR): UTI,left side pnuemonia,atrial fibrillation RVR - Discharge Medications *Discharge Medications: New DiltiaZEM CD [Cardizem CD 180 MG] 180 mg PO DAILY cap PEG 3350 17gm PACKET [Miralax] 17 gm PO DAILY PRN packet PRN Reason: Constipation Atenolol [Tenormin] 50 mg PO BID tab Digoxin [Lanoxin] 125 mcg PO DAILY tab Continue Folic Acid [Folate] 1 mg PO DAILY Cyanocobalamin (B-12) [Vit. B-12] 500 mcg PO DAILY Denosumab [Prolia] 60 mg SQ Q6M Mirtazapine [Remeron] 15 mg PO HS Cholecalciferol (Vitamin D3) [Vitamin D3] 5,000 unit PO DAILY Pravachol (pravastatin) 20 mg tablet 20 mg PO HS Discontinued Potassium 99 mg PO DAILY #0 Warfarin [Coumadin] 4 mg PO 5XW Warfarin Sodium 2 mg PO MOFR Warfarin Sodium 0.5 mg PO 5XW Atenolol [Tenormin] 25 mg PO BID Maxzide-25mg (triamterene 37.5 mg-hydrochlorothiazide 25 mg) tablet 1 tab PO DAILY digoxin 125 mcg tablet 125 mcg PO Q2D tab - Discharge Packet/Instructions *Diet: Regular *Activity: PT/OT *Pain Management/Treatment: Tylenol PRN *Wound Care: N/A Additional Instructions: Check daily INR. Coumadin not restarted at time of discharge because her INR was still elevated. Dr. Reid will manage her Coumadin dosing. Check BMP and digoxin level in [address] Fax results to Dr. Reid and Dr. Kessler's office. Check daily weights. Monitor oxygen saturations and apply oxygen if <90%. *Expected Signs/Symptoms: Weakness, fatigue, palpitations *Notify Physician if: Fever, chest pain, difficulty breathing, passing out, choking or aspirating, fall, or any new concerns. *During Business Hours Contact: Contact [facility], Dr[facility] Reid's clinic. Conversely, you may also call cardiology. *After Business Hours Contact: The on-call provider for Dr. Reid, or Dr. Kessler. *Pending Lab/Results: Follow up w/your PCP Outpatient Orders: BMP - Basic Metabolic - [facility] Time Frame: 3 Days, Location: None Selected Digoxin - [facility] Time Frame: 3 Days, Location: None Selected INR - [facility] Time Frame: 1 Day, Location: None Selected - Referrals/Follow Up *Referrals/Follow Up: Meir Reid MD [Primary Care Provider] - 1 Week (daily INRs and adjust her Coumadin; anemia; pneumonia/UTI; dig level and BMP; and pulmonary nodule noted on CXR) Cherry Hernandez APRN [Advanced Practice Nurse] - 2 Weeks - Patient Handouts Patient Handouts: A-fib (Atrial Fibrillation) (GEN), Urinary Tract Infection in Women (GEN), Pneumonia (GEN) - Dismissal Complete Discharge Instructions are:: Complete Physician Narrative - Narrative Attestation Narrative: Date: 10/17/17 Time: 4801
--- NOTE | 2017-10-17 14:50 | Extended Care Facility Orders ---
Admission Orders Admit to:: Care Home Allergies/Adverse Reactions: Allergies naproxen [From Aleve] Allergy (Verified 10/10/17 11:28) Sulfa (Sulfonamide Antibiotics) Adverse Reaction (Intermediate, Verified 11:28) GENERALIZED WEAKNESS Admitting Diagnosis: UTI,left side pnuemonia,atrial fibrillation RVR Admitting Physician: Raji Galdamez MD Attending Physician: Raji Galdamez MD Code Status: Do Not Resuscitate Anticiapted Length of Stay: 30 days or less Rehab Potential: good Rehab Prognosis: good Diet: Regular Diet May use Facility Protocol or Standing Orders: Yes May have flu vaccine: Yes Evaluations/Treatment: PT, OT, as needed Care Home Certification: I certify that SNF services are required to be given on an Inpatient basis because of the patient's need for jail care on a continuing basis for the condition(s) for which she received inpatient hospital services prior to her transfer to the SNF. SNF inpatient care is necessary for the following reasons Indication for Care Home: Chest Pain Assessment/Care, Teach CHF - Additional Information In Event of Arrest: Do Not Start CPR Resident is Aware of Diagnosis: Yes Laboratory/Radiology: Check daily INR. Coumadin not restarted at time of discharge because her INR was still elevated. Dr. Reid will manage her Coumadin dosing. Check BMP and digoxin level in [address] days[address] Fax results to Dr. Reid and Dr. Kessler's office. Referrals: Meir Reid MD [Primary Care Provider] - 1 Week (daily INRs and adjust her Coumadin; anemia; pneumonia/UTI; dig level and BMP; and pulmonary nodule noted on CXR) Cherry Hernandez APRN [Advanced Practice Nurse] - 2 Weeks Additional Orders: Check daily weights. Monitor oxygen saturations and apply oxygen if <90%.
[2017-10-17 15:20] VITALS: RESP 20; O2SAT 94
== END 2017-10-17 16:21 | DRG 194 ==
LOC: ED 10:00 → EDHOLD 10:00 → SUATTDRO 13:13 → MED 13:52
PROVIDERS: ADMIT Internal Medicine; ATTEND Family Medicine

== ENCOUNTER 2017-11-01 13:00 | Inpatient (IN) ==
[2017-11-01 14:24] VITALS: BMI 27.7
--- NOTE | 2017-11-01 14:32 | XRay Report ---
Indication: CHF PROCEDURE: XR chest 1V: Encounter: Initial Comparison: Chest x-ray dated October 11, 2017 Findings: Worsening appearance of the chest with increasing small to moderate right and small left pleural effusions. Bilateral basilar compressive atelectasis. No pneumothorax. Probable skin folds present in the right chest. Heart size and mediastinal contours are stable. Pulmonary vascularity is similar to the prior study. Impression: Worsening pleural effusions. .
[2017-11-01] MEDS: FUROSEMIDE 40 MG/4 ML INJECTION IVP SCH ×2 (14:49→23:28)
[2017-11-01] MEDS ORDERED: POLYETHYL GLYCOL 3350 17gm PACKET PO PRN (16:38)
[2017-11-01] MEDS ORDERED: FUROSEMIDE 40 MG/4 ML INJECTION IVP SCH (17:00)
[2017-11-01] MEDS: ATENOLOL 50 MG TABLET PO SCH (21:52)
[2017-11-01] MEDS: PRAVASTATIN 20 MG TABLET PO SCH (21:53)
[2017-11-01] MEDS: SALINE FLUSH 10ml SYRINGE IV PRN (23:28)
[2017-11-02] MEDS: FUROSEMIDE 40 MG/4 ML INJECTION IVP SCH ×2 (07:20→22:59)
[2017-11-02] MEDS: SALINE FLUSH 10ml SYRINGE IV PRN (07:20)
[2017-11-02] MEDS: ATENOLOL 50 MG TABLET PO SCH ×2 (08:14→22:59)
[2017-11-02] MEDS: CYANOCOBALAMIN (B-12) 500mcg TABLET PO SCH (08:14)
[2017-11-02] MEDS: DIGOXIN 125 MCG TABLET PO SCH (08:15)
[2017-11-02] MEDS: FOLIC ACID 1 MG TABLET PO SCH (08:16)
[2017-11-02] MEDS ORDERED: WARFARIN 2 MG TABLET PO SCH (12:00)
--- NOTE | 2017-11-02 14:06 | Cardiology Progress Note ---
Subjective Principal diagnosis: DCHF Interval history: Patrizia is seen in follow up for DCHF. She was seen in the clinic yesterday and made a direct admit for inpatient diuresis. She diuresed 3800mL and feels much better. Her legs remain edematous, but she is in no distress on room air. She denies chest pain, pressure, tightness. Exam Vital signs: Temperature 97.5 F 11/02/17 11:58 Pulse Rate 74 11/02/17 11:58 Respiratory Rate 14 11/02/17 11:58 Blood Pressure 114/61 11/02/17 11:58 Pulse Oximetry 93 11/02/17 11:58 Inpatient Medications: Generic Name Dose Route Start Last Admin Trade Name Freq PRN Reason Stop Dose Admin Atenolol 50 mg 11/01/17 21:00 11/02/17 08:14 Tenormin PO 50 mg BID MARIFER Administration Cholecalciferol 5,000 unit 11/02/17 09:00 11/02/17 08:15 Vit. D-3 PO 5,000 unit DAILY MARIFER Administration Cyanocobalamin 500 mcg 11/02/17 09:00 11/02/17 08:14 Vit. B-12 PO 500 mcg DAILY MARIFER Administration Digoxin 125 mcg 11/02/17 09:00 11/02/17 08:15 Lanoxin PO 125 mcg DAILY MARIFER Administration Diltiazem HCl 180 mg 11/02/17 09:00 11/02/17 08:15 Cardizem Cd 180 Mg PO 180 mg DAILY MARIFER Administration Folic Acid 1 mg 11/02/17 09:00 11/02/17 08:16 Folate PO 1 mg DAILY MARIFER Administration Polyethylene Glycol 17 gm 11/01/17 16:38 Miralax PO PRN PRN Constipation Potassium Chloride 20 meq 11/02/17 12:00 11/02/17 11:26 K-Dur 20 Meq Tablet PO 20 meq TIDWM MARIFER Administration Pravastatin Sodium 20 mg 11/01/17 21:00 11/01/17 21:53 Pravachol PO 20 mg HS MARIFER Administration Sodium Chloride 10 - 80 ml 11/01/17 13:40 11/02/17 07:20 Iv Flush IV 10 ml PRN PRN Administration Flushing Discontinued Medications Generic Name Dose Route Start Last Admin Trade Name Freq PRN Reason Stop Dose Admin Furosemide 40 mg 11/01/17 17:00 Lasix 40 Mg/4 Ml IVP 0900,1700 MARIFER Furosemide 40 mg 11/01/17 15:00 11/02/17 07:20 Lasix 40 Mg/4 Ml IVP 40 mg Q8H MARIFER Administration Potassium Chloride 40 meq 11/02/17 10:42 11/02/17 11:26 K-Dur 20 Meq Tablet PO 11/02/17 10:43 40 meq O ONE Administration Warfarin Sodium 2 mg 11/02/17 12:00 Coumadin PO NOON MARIFER - Constitutional no acute distress, well nourished, cooperative - Routine HEENT Exam Head: Present: normocephalic ENT: Present: mucous membranes moist - Routine Neck Exam Absent: JVD, carotid bruit - Routine Chest/Breast/Axilla Exam Chest wall: Absent: tenderness - Routine Respiratory Exam Present: CTA bilaterally, diminished air movement (bases). Absent: dyspnea, rales, crackles - Routine Cardiovascular Exam Present: RRR, no murmur - Routine Abdominal Exam Present: soft, non tender - Routine Extremities Exam Present: edema, pulses intact - Routine Skin Exam Present: intact, dry, warm - Routine Neurological Exam Present: alert - Routine Psychiatric Exam Present: normal affect Results 11/03/17 04:10 11/03/17 04:10 Cardiac Enzymes 11/01/17 Range/Units 14:18 AST 67 H (14-36) U/L Troponin I < 0.012 (0-0.12) ng/ml CBC 11/01/17 11/02/17 Range/Units 14:18 04:34 WBC 17.7 H 14.1 H (4.5-11.0) T/MM3 RBC 3.23 L 3.15 L (4.00-5.20) M/MM3 Hgb 8.7 L 8.4 L (12-16) GM/DL Hct 26.5 L 25.9 L (36-46) % Plt Count 617 H 615 H (130-400) T/MM3 Neut # (Auto) Not performed 11.8 H Lymph # (Auto) Not performed 1.3 Parmer # (Auto) Not performed 1.0 H Eos # (Auto) Not performed 0.0 Baso # (Auto) Not performed 0.0 Comprehensive Metabolic Panel 11/01/17 11/02/17 Range/Units 14:18 04:34 Sodium 132 L 133 L (136-146) MEQ/L Potassium 3.5 L 3.1 L (3.6-5) MEQ/L Chloride 101 96 L (98-107) MEQ/L Carbon Dioxide 23 28 (22-30) MEQ/L BUN 19.0 H 19.0 H (7-17) MG/DL Creatinine 0.8 0.9 (0.7-1.2) mg/dL Glucose 91 88 (65-110) MG/DL Calcium 8.5 8.2 L (8.4-10.2) MG/DL AST 67 H (14-36) U/L ALT 35 (1-35) U/L Alkaline Phosphatase 282 H (38-126) U/L Total Protein 6.1 L (6.3-8.2) g/dL Albumin 2.7 L (3.5-5.0) g/dL Intake and Output 11/01/17 11/02/17 11/02/17 22:59 06:59 14:59 Intake Total 300 / 300 200 / 200 710 / 710 Output Total 1600 / 1600 1800 / 1800 700 / 700 Balance -1300 / -1300 -1600 / -1600 Intake: Oral 300 / 300 200 / 200 710 / 710 Output: Urine 1600 / 1600 1800 / 1800 700 / 700 Other: Urine Appearance Clear Clear Clear Urine Color Yellow Yellow Yellow Urine Odor Normal Normal # Voids 1 Weight 143 lb 1.28 oz Patient Weight 11/03/17 06:59 Weight 143 lb 1.28 oz - Imaging and Cardiology Imaging & Cardiology Narrative: Date of Exam: 11/01/17 Ordering Provider: Cherry Hernandez APRN Type of Exam(s): XR chest 1V Reason for Exam(s): CHF Indication: CHF PROCEDURE: XR chest 1V: Encounter: Initial Comparison: Chest x-ray dated October 11, 2017 Findings: Worsening appearance of the chest with increasing small to moderate right and small left pleural effusions. Bilateral basilar compressive atelectasis. No pneumothorax. Probable skin folds present in the right chest. Heart size and mediastinal contours are stable. Pulmonary vascularity is similar to the prior study. Impression: Worsening pleural effusions. 11/02/17 14:12 Assessment and Plan - Assessment and Plan (1) Acute diastolic congestive heart failure Current visit: Yes Status: Acute - BNP 6160, CXR: Worsening appearance of the chest with increasing small to moderate right and small left pleural effusions. Bilateral basilar compressive atelectasis. No pneumothorax. - Change Lasix to 40mg q12h - K+ 3.1, Mag 1.9 today, replace with 40meq X1 and 20meq TID - 1800mL fluid restriction - monitor renal and electrolytes - repeat chest x-ray in am (2) PAF (paroxysmal atrial fibrillation) Current visit: Yes Status: Chronic rate controlled - continue Atenolol, Diltiazem and Digoxin - warfarin for anticoagulation per pharmacy consult (thank you) - INR yesterday 4.5 (3) Essential (primary) hypertension Current visit: No Status: Chronic well controlled on current therapy - continue current therapy (4) Mixed hyperlipidemia Current visit: No Status: Chronic Continue Pravastatin - Assessment and Plan Acute diastolic congestive heart failure Current visit: Yes Status: Acute - BNP 6160, CXR: Worsening appearance of the chest with increasing small to moderate right and small left pleural effusions. Bilateral basilar compressive atelectasis. No pneumothorax. - Change Lasix to 40mg q12h - K+ 3.1, Mag 1.9 today, replace with 40meq X1 and 20meq TID - 1800mL fluid restriction - monitor renal and electrolytes - repeat chest x-ray in am PAF (paroxysmal atrial fibrillation) Current visit: Yes Status: Chronic - rate controlled - continue Atenolol, Diltiazem and Digoxin - warfarin for anticoagulation per pharmacy consult (thank you) - INR yesterday 4.5 Essential (primary) hypertension Current visit: No Status: Chronic - well controlled on current therapy - continue current therapy Mixed hyperlipidemia Current visit: No Status: Chronic - Continue Pravastatin Hospital Course Summary Disclaimer: The visit summary below is not to be considered part of the above Progress Note.
[2017-11-02] MEDS ORDERED: WARFARIN - PHARMACY CONSULT MC ONE (14:25)
--- NOTE | 2017-11-02 14:58 | Fluoroscopy Report ---
Indication:oropharyngeal dysphagia Procedure:FL barium swallow modified MODIFIED BAR. SWALLOW STUDY: Technique: Videofluoroscopy was performed in conjunction with a novelties sales representative from speech pathology and a separate report and recommendations will be provided. Varying gradations of barium from thin to solid were administered. Findings: Deep tracheal penetration was noted with thin consistency barium through a straw. The penetration resolved within the patient used the chin tuck method. There was no aspiration noted with any of the consistencies. On the AP view the bolus showed no obvious preference for either side. Impression: 1. Deep tracheal penetration with thin consistency barium through a straw, as described above. 2. No aspiration seen. Please see the speech pathology report for additional details and recommendations. Fluoroscopy dose: 5.55 mGy (Cumulative air kerma) Christian Costello RPA/SOPHIA performed this under my direct supervision. .
[2017-11-02] MEDS ORDERED: PHYTONADIONE 1 MG/0.5 ML ORAL LIQUID PO ONE (15:45)
--- NOTE | 2017-11-02 15:49 | Pharmacy Consult ---
Pharmacy Consult-Warfarin - Laboratory Information 11/01/17 11/01/17 11/01/17 14:18 14:18 17:19 Hgb 8.7 L Hct 26.5 L INR 4.50 H* AST 67 H ALT 35 Albumin 2.7 L 11/02/17 11/02/17 04:34 14:59 Hgb 8.4 L Hct 25.9 L INR 5.32 H* AST ALT Albumin WARFARIN THERAPY: 87yo F with DCHF, Paroxysmal A. Fib., Essential Primary HTN, Mixed Hyperlipidemia. Home dose of Warfarin reported as 2mg daily. INR on admission (yesterday) was 4.50 Repeat INR today = 5.32 Pt has not received any Warfarin yesterday or today. No symptoms of bleeding at this time. Will HOLD Warfarin dose today again and give very small dose of Phytonadione ( Vit. K) 0.5mg orally. Repeat INR in am. Elevated LFT is noted as well as drug-drug interaction with Diltiazem CD, which can both increase the INR. Thank you
[2017-11-02] MEDS: PRAVASTATIN 20 MG TABLET PO SCH (22:59)
--- NOTE | 2017-11-03 08:31 | XRay Report ---
INDICATION: chf PROCEDURE: CHEST 2-VIEWS UPRIGHT (PA & LAT) Encounter: Initial COMPARISON: November 01, 2017 FINDINGS: Pleural effusions are stable. Slight improvement in aeration of the right lower lobe. No pneumothorax. Heart size and mediastinal contours are stable. Pulmonary vascularity is unchanged. Impression: Improving aeration of the right lower lobe with stable effusions. .
[2017-11-03] MEDS: DIGOXIN 125 MCG TABLET PO SCH (08:46)
[2017-11-03] MEDS: ATENOLOL 50 MG TABLET PO SCH (08:50)
[2017-11-03] MEDS: CYANOCOBALAMIN (B-12) 500mcg TABLET PO SCH (08:50)
[2017-11-03] MEDS: FOLIC ACID 1 MG TABLET PO SCH (08:51)
[2017-11-03] MEDS: FUROSEMIDE 40 MG/4 ML INJECTION IVP SCH (08:52)
[2017-11-03] MEDS: SALINE FLUSH 10ml SYRINGE IV PRN (09:18)
--- NOTE | 2017-11-03 09:55 | Pharmacy Consult ---
Pharmacy Consult-Warfarin - Laboratory Information 11/01/17 11/01/17 11/01/17 14:18 14:18 17:19 Hgb 8.7 L Hct 26.5 L INR 4.50 H* AST 67 H ALT 35 Albumin 2.7 L 11/02/17 11/02/17 11/03/17 04:34 14:59 04:10 Hgb 8.4 L 8.2 L Hct 25.9 L 25.1 L INR 5.32 H* AST ALT Albumin 11/03/17 04:10 Hgb Hct INR 2.53 H AST ALT Albumin - Consult Information COUMADIN CONSULT (Recurring): 87 yr old female 5'2" 64.9 kg Dx: Pt with DCHF (Diastolic Congestive Hrt Failure), Paroxysmal A. Fib., Essential Primary HTN, Mixed Hyperlipidemia. Home dose warfarin is reported to be 2 mg daily. Therapeutic INR range is between 2-3 DATE INR DOSE 8/1 4.5 Hold 8/2 5.32 Hold and gave 0.5 mg po Vit K 11/03 2.53 Will give 0.5 MG Warfarin today The small dose 0.5 mg of Vit K po brought her INR down into the therapeutic range. Pharmacy will continue to monitor the INR and adjust the Warfarin dose as needed. Thank you. Justine Raya, PharmD
[2017-11-03] MEDS ORDERED: WARFARIN 1 MG TABLET PO SCH (12:00)
[2017-11-03 12:01] VITALS: BP 121/54; PULSE 77; RESP 24; TEMP 98.5; O2SAT 91
--- NOTE | 2017-11-03 12:34 | Cardiology Progress Note ---
Subjective Principal diagnosis: DCHF Interval history: Patrizia is seen in follow up for DCHF. She is in no distress on room air. She ia eager to go home today. She denies chest pain, pressure, tightness. Exam Vital signs: Temperature 98.5 F 11/03/17 11:58 Pulse Rate 77 11/03/17 11:58 Respiratory Rate 24 11/03/17 11:58 Blood Pressure 121/54 11/03/17 11:58 Pulse Oximetry 91 11/03/17 11:58 Inpatient Medications: Generic Name Dose Route Start Last Admin Trade Name Freq PRN Reason Stop Dose Admin Atenolol 50 mg 11/01/17 21:00 11/03/17 08:50 Tenormin PO 50 mg BID MARIFER Administration Cholecalciferol 5,000 unit 11/02/17 09:00 11/03/17 08:50 Vit. D-3 PO 5,000 unit DAILY MARIFER Administration Cyanocobalamin 500 mcg 11/02/17 09:00 11/03/17 08:50 Vit. B-12 PO 500 mcg DAILY MARIFER Administration Digoxin 125 mcg 11/02/17 09:00 11/03/17 08:46 Lanoxin PO 125 mcg DAILY MARIFER Administration Diltiazem HCl 180 mg 11/02/17 09:00 11/03/17 08:51 Cardizem Cd 180 Mg PO 180 mg DAILY MARIFER Administration Folic Acid 1 mg 11/02/17 09:00 11/03/17 08:51 Folate PO 1 mg DAILY MARIFER Administration Furosemide 40 mg 11/03/17 17:00 Lasix 40 Mg Tab PO 0900,1700 MARIFER Polyethylene Glycol 17 gm 11/01/17 16:38 11/03/17 08:52 Miralax PO 17 gm PRN PRN Administration Constipation Potassium Chloride 20 meq 11/02/17 12:00 11/03/17 11:51 K-Dur 20 Meq Tablet PO 20 meq TIDWM MARIFER Administration Pravastatin Sodium 20 mg 11/01/17 21:00 11/02/17 22:59 Pravachol PO 20 mg HS MARIFER Administration Sodium Chloride 10 - 80 ml 11/01/17 13:40 11/03/17 09:18 Iv Flush IV 10 ml PRN PRN Administration Flushing Warfarin Sodium 0 11/02/17 14:30 Coumadin Protocol NOTE MARIFER Warfarin Sodium 0.5 mg 11/03/17 12:00 11/03/17 11:52 Coumadin PO 11/03/17 13:00 0.5 mg NOON MARIFER Administration Discontinued Medications Generic Name Dose Route Start Last Admin Trade Name Juan J PRN Reason Stop Dose Admin Furosemide 40 mg 11/01/17 17:00 Lasix 40 Mg/4 Ml IVP 0900,1700 MARIFER Furosemide 40 mg 11/01/17 15:00 11/02/17 07:20 Lasix 40 Mg/4 Ml IVP 40 mg Q8H MARIFER Administration Furosemide 40 mg 11/02/17 21:00 11/03/17 08:52 Lasix 40 Mg/4 Ml IVP 40 mg Q12HR MARIFER Administration Phytonadione 0.5 mg 11/02/17 15:45 11/02/17 16:04 Vitamin K Oral Liq PO 11/02/17 15:46 0.5 mg O ONE Administration Potassium Chloride 40 meq 11/02/17 10:42 11/02/17 11:26 K-Dur 20 Meq Tablet PO 11/02/17 10:43 40 meq O ONE Administration Warfarin Sodium 2 mg 11/02/17 12:00 Coumadin PO NOON MARIFER Warfarin Sodium 1 each 11/02/17 14:25 11/02/17 15:04 Pharmacy Consult - Warfarin MC 11/02/17 14:26 Not Given O ONE - Constitutional no acute distress, well nourished, cooperative - Routine HEENT Exam Head: Present: normocephalic ENT: Present: mucous membranes moist - Routine Neck Exam Absent: JVD, carotid bruit - Routine Chest/Breast/Axilla Exam Chest wall: Absent: tenderness - Routine Respiratory Exam Present: diminished air movement (bases). Absent: dyspnea, rales, wheezes - Routine Cardiovascular Exam Present: RRR, no murmur - Routine Abdominal Exam Present: soft, non tender - Routine Extremities Exam Present: edema - Routine Skin Exam Present: intact, dry, warm - Routine Neurological Exam Present: alert - Routine Psychiatric Exam Present: normal affect Results 11/03/17 04:10 11/03/17 04:10 CBC 11/03/17 Range/Units 04:10 WBC 15.8 H (4.5-11.0) T/MM3 RBC 3.06 L (4.00-5.20) M/MM3 Hgb 8.2 L (12-16) GM/DL Hct 25.1 L (36-46) % Plt Count 637 H (130-400) T/MM3 Comprehensive Metabolic Panel 11/03/17 Range/Units 04:10 Sodium 134 L (136-146) MEQ/L Potassium 3.6 (3.6-5) MEQ/L Chloride 97 L (98-107) MEQ/L Carbon Dioxide 30 (22-30) MEQ/L BUN 22.0 H (7-17) MG/DL Creatinine 0.9 (0.7-1.2) mg/dL Glucose 104 (65-110) MG/DL Calcium 8.4 (8.4-10.2) MG/DL Intake and Output 11/02/17 11/03/17 11/03/17 22:59 06:59 14:59 Intake Total 628 / 628 10 / 10 Output Total 220 / 220 1825 / 1825 300 / 300 Balance 408 / 408 -1815 / -1815 -300 / -300 Intake: Oral 628 / 628 10 Output: Urine 220 / 220 1825 / 1825 300 / 300 Other: Urine Appearance Clear Clear Clear Urine Color Dark Yellow Yellow Yellow Straw Straw Urine Odor Strong Normal Normal # Voids 1 1 1 Weight 139 lb 1.787 oz Patient Weight 11/04/17 06:59 Weight 139 lb 1.787 oz - Imaging and Cardiology Imaging & Cardiology Narrative: Date of Exam: 11/03/17 Ordering Provider: Cherry Hernandez APRN Type of Exam(s): XR chest 2V Reason for Exam(s): chf INDICATION: chf PROCEDURE: CHEST 2-VIEWS UPRIGHT (PA & LAT) Encounter: Initial COMPARISON: November 01, 2017 FINDINGS: Pleural effusions are stable. Slight improvement in aeration of the right lower lobe. No pneumothorax. Heart size and mediastinal contours are stable. Pulmonary vascularity is unchanged. Impression: Improving aeration of the right lower lobe with stable effusions. 11/03/17 12:33 11/03/17 12:34 Date of Exam: 11/02/17 Ordering Provider: Cherry Hernandez APRN Type of Exam(s): FL barium swallow modified Reason for Exam(s): oropharyngeal dysphagia Indication:oropharyngeal dysphagia Procedure:FL barium swallow modified MODIFIED BAR. SWALLOW STUDY: Technique: Videofluoroscopy was performed in conjunction with a credit resolution representative from speech pathology and a separate report and recommendations will be provided. Varying gradations of barium from thin to solid were administered. Findings: Deep tracheal penetration was noted with thin consistency barium through a straw. The penetration resolved within the patient used the chin tuck method. There was no aspiration noted with any of the consistencies. On the AP view the bolus showed no obvious preference for either side. Impression: 1. Deep tracheal penetration with thin consistency barium through a straw, as described above. 2. No aspiration seen. Please see the speech pathology report for additional details and recommendations. Fluoroscopy dose: 5.55 mGy (Cumulative air kerma) Christian Costello RPA/SOPHIA performed this under my direct supervision. Assessment and Plan - Assessment and Plan (1) Acute diastolic congestive heart failure Current visit: Yes Status: Acute (2) PAF (paroxysmal atrial fibrillation) Current visit: Yes Status: Chronic (3) Essential (primary) hypertension Current visit: No Status: Chronic (4) Mixed hyperlipidemia Current visit: No Status: Chronic - Assessment and Plan 11/02/17 Acute diastolic congestive heart failure Current visit: Yes Status: Acute - BNP 6160, CXR: Worsening appearance of the chest with increasing small to moderate right and small left pleural effusions. Bilateral basilar compressive atelectasis. No pneumothorax. - Change Lasix to 40mg q12h - K+ 3.1, Mag 1.9 today, replace with 40meq X1 and 20meq TID - 1800mL fluid restriction - monitor renal and electrolytes - repeat chest x-ray in am PAF (paroxysmal atrial fibrillation) Current visit: Yes Status: Chronic - rate controlled - continue Atenolol, Diltiazem and Digoxin - warfarin for anticoagulation per pharmacy consult (thank you) - INR yesterday 4.5 Essential (primary) hypertension Current visit: No Status: Chronic - well controlled on current therapy - continue current therapy Mixed hyperlipidemia Current visit: No Status: Chronic - Continue Pravastatin 11/03/17 Diuresing well, change Lasix to po OT/PT evaluation for discharge planning (would like to discharge today) Hospital Course Summary Disclaimer: The visit summary below is not to be considered part of the above Progress Note.
--- NOTE | 2017-11-03 15:05 | Discharge Summary ---
Discharge Information Date of admission: 11/02/17 14:14 Anticipated date of discharge: 11/03/17 Attending Physician: Shakeel Sousa MD Primary care physician: Meir Reid MD - Discharge Diagnosis (1) Acute diastolic congestive heart failure Status: Acute (2) PAF (paroxysmal atrial fibrillation) Status: Chronic (3) Essential (primary) hypertension Status: Chronic (4) Mixed hyperlipidemia Status: Chronic Acute diastolic HF - Laboratory Labs: 11/03/17 04:10 11/03/17 04:10 - Radiology Radiology: Date of Exam: 11/03/17 Ordering Provider: Cherry Hernandez APRN Type of Exam(s): XR chest 2V Reason for Exam(s): chf INDICATION: chf PROCEDURE: CHEST 2-VIEWS UPRIGHT (PA & LAT) Encounter: Initial COMPARISON: November 01, 2017 FINDINGS: Pleural effusions are stable. Slight improvement in aeration of the right lower lobe. No pneumothorax. Heart size and mediastinal contours are stable. Pulmonary vascularity is unchanged. Impression: Improving aeration of the right lower lobe with stable effusions. History of Present Illness HPI: Patrizia is an 87 year old female who is known to Dr. Sousa who was seen in the clinic yesterday and made a direct admit for inpatient diuresis. She diuresed 3800mL and feels much better. Her legs remain edematous, but she is in no distress on room air. She denies chest pain, pressure, tightness. Hospital Course This is a general summary of the patient's hospital course. For more details refer to the complete medical record. Hospital course: 11/02/17 Acute diastolic congestive heart failure Current visit: Yes Status: Acute - BNP 6160, CXR: Worsening appearance of the chest with increasing small to moderate right and small left pleural effusions. Bilateral basilar compressive atelectasis. No pneumothorax. - Change Lasix to 40mg q12h - K+ 3.1, Mag 1.9 today, replace with 40meq X1 and 20meq TID - 1800mL fluid restriction - monitor renal and electrolytes - repeat chest x-ray in am PAF (paroxysmal atrial fibrillation) Current visit: Yes Status: Chronic - rate controlled - continue Atenolol, Diltiazem and Digoxin - warfarin for anticoagulation per pharmacy consult (thank you) - INR yesterday 4.5 Essential (primary) hypertension Current visit: No Status: Chronic - well controlled on current therapy - continue current therapy Mixed hyperlipidemia Current visit: No Status: Chronic - Continue Pravastatin 11/03/17 Diuresing well, change Lasix to po OT/PT evaluation for discharge planning (would like to discharge today) Discharged to SNU at [facility] with Lasix BID - BMP /Mag on 11/08/17 - Follow up with Dr. Sousa in 2 weeks Time spent with patient: 25 - 35 minutes Resuscitation Status: Do Not Resuscitate Exam Vital signs: Temperature 98.5 F 11/03/17 11:58 Pulse Rate 77 11/03/17 11:58 Respiratory Rate 24 11/03/17 11:58 Blood Pressure 121/54 11/03/17 11:58 Pulse Oximetry 91 11/03/17 11:58 - Constitutional no acute distress, well nourished, cooperative - Routine HEENT Exam Head: Present: normocephalic ENT: Present: mucous membranes moist - Routine Neck Exam Absent: JVD, carotid bruit - Routine Chest/Breast/Axilla Exam Chest wall: Absent: tenderness - Routine Respiratory Exam Present: diminished air movement. Absent: dyspnea, rales, wheezes - Routine Cardiovascular Exam Present: no murmur, irregular rhythm - Routine Abdominal Exam Present: soft, non tender - Routine Extremities Exam Present: edema (improving bilateral LEs) - Routine Skin Exam Present: intact, dry, warm - Routine Neurological Exam Present: alert, oriented X3 - Routine Psychiatric Exam Present: normal affect, normal thought process Results 11/03/17 04:10 11/03/17 04:10 CBC 11/03/17 Range/Units 04:10 WBC 15.8 H (4.5-11.0) T/MM3 RBC 3.06 L (4.00-5.20) M/MM3 Hgb 8.2 L (12-16) GM/DL Hct 25.1 L (36-46) % Plt Count 637 H (130-400) T/MM3 Comprehensive Metabolic Panel 11/03/17 Range/Units 04:10 Sodium 134 L (136-146) MEQ/L Potassium 3.6 (3.6-5) MEQ/L Chloride 97 L (98-107) MEQ/L Carbon Dioxide 30 (22-30) MEQ/L BUN 22.0 H (7-17) MG/DL Creatinine 0.9 (0.7-1.2) mg/dL Glucose 104 (65-110) MG/DL Calcium 8.4 (8.4-10.2) MG/DL Intake and Output 11/03/17 11/03/17 11/03/17 06:59 14:59 22:59 Intake Total Output Total 1825 / 1825 1050 / 1050 Balance -1815 / -1815 -1050 / -1050 Intake: Oral Output: Urine 1825 / 1825 1050 / 1050 Other: Urine Appearance Clear Clear Urine Color Yellow Yellow Straw Urine Odor Normal Normal Stool Color Brown Yellow Stool Consistency Soft Formed Size of Bowel Movement Moderate # Voids 1 1 Weight 139 lb 1.787 oz Patient Weight 11/04/17 06:59 Weight 139 lb 1.787 oz Discharge Plan - Med Rec/Dispo Referrals/Follow Up: Shakeel Sousa MD [Physician] - 2 Weeks Prescriptions: New Furosemide [Lasix 40 mg Tab] 40 mg PO 0900,1700 #60 tab Continue Folic Acid [Folate] 1 mg PO DAILY Cyanocobalamin (B-12) [Vit. B-12] 500 mcg PO DAILY Cholecalciferol (Vitamin D3) [Vitamin D3] 5,000 unit PO DAILY DiltiaZEM CD [Cardizem CD 180 MG] 180 mg PO DAILY cap Warfarin Sodium 2 mg PO DAILY Atenolol [Tenormin] 50 mg PO BID tab Digoxin [Lanoxin] 125 mcg PO DAILY tab Furosemide [Lasix] 20 mg PO DAILY PEG 3350 17gm PACKET [Miralax] 17 gm PO PRN PRN PRN Reason: Constipation Pravachol (pravastatin) 20 mg tablet 20 mg PO HS - Disposition 04 To [facility] Home/Facility - Dismissal Complete Discharge Instructions are:: Incomplete
[2017-11-03] MEDS ORDERED: FUROSEMIDE 40 MG TABLET PO SCH (17:00)
== END 2017-11-03 16:11 | DRG 293 ==
LOC: MED
PROVIDERS: ADMIT Internal Medicine Interventional Cardiology; ATTEND Internal Medicine Interventional Cardiology

== ENCOUNTER 2017-11-13 17:05 | Inpatient (IN) ==
[2017-11-13] MEDS ORDERED: NS 500 ML IV ONE (17:40)
--- NOTE | 2017-11-13 17:43 | Emergency Department Report ---
General Adult HPI - General Chief complaint: Medical Emergency <Kamlesh Lagos Q - 11/15/17 13:29> Stated complaint: low blood pressure <Kamlesh Lagos - 11/15/17 13:29> Time Seen by Provider: 11/13/17 17:20 <Kamlesh Lagos - 11/15/17 13:29> Source: patient <Brittney Soliman - 11/13/17 17:43> Mode of arrival: wheelchair <Richard Solimane Sarah - 11/13/17 17:43> Limitations: no limitations <Brittney Soliman - 11/13/17 17:43> - History of Present Illness HPI narrative: Patient is here from Dr Kapadia office where she presented with generalized weakness and anorexia and was found to have systolic pressures in the upper 80' s and low 90's. She has had numerous visits to the ER with hospitalizations since October 2017. Her primary complaints are that she is exhausted and has no energy. Patient's last hospitalization was in October when she was admitted for pneumonia. He also has a history of atrial fibrillation and takes digoxin and warfarin, congestive heart failure and takes Lasix and KCL , hypertension and takes cardizem and atenolol and hyperlipidemia. Patient is currently residing at the [facility] for rehab following her hospitalization in October. Patient denies chest pain or shortness of air. She has bilateral LE edema which she states is better than normal. She is on Lasix 40 mg BID and KCL 10 meq daily; K+ today [place] 2.4[place] [address] from last BNP on 11/03. CXR has bilateral pleural effusions similar to prior CXRs. Patient has no cough or fever per report. Patient is a DNR. She is alert and oriented and appropriate. <Brittney Soliman - 11/13/17 19:37> MD complaint: weakness <Brittney Soliman - 11/13/17 19:25> Onset (ago): week(s) (States "since October 01") <Brittney Soliman - 11/13/17 19: 25> Associated symptoms: weakness <Brittney Soliman - 11/13/17 19:25> - Related Data Home Medications Medication Instructions Recorded Confirmed Cholecalciferol (Vitamin D3) 5,000 unit PO DAILY 10/10/17 11/13/17 [Vitamin D3] Cyanocobalamin (B-12) [Vit. B-12] 500 mcg PO DAILY 10/10/17 11/13/17 Folic Acid [Folate] 1 mg PO DAILY 10/10/17 11/13/17 Peg 3350 238 G Bottle [Miralax] 17 gm PO DAILY PRN 11/05/17 11/13/17 Pravastatin [Pravachol] 20 mg PO HS 11/05/17 11/13/17 Warfarin [Coumadin] 2 mg PO HS 11/05/17 11/13/17 Ondansetron HCl [Zofran] 4 mg PO Q6H PRN 11/13/17 11/13/17 Potassium Chloride 10 meq PO DAILY 11/13/17 11/13/17 Previous Rx's Medication Instructions Recorded Atenolol [Tenormin] 50 mg PO BID tab 10/17/17 Digoxin [Lanoxin] 125 mcg PO DAILY tab 10/17/17 DiltiaZEM CD [Cardizem CD 180 MG] 180 mg PO DAILY cap 10/17/17 Furosemide [Lasix 40 mg Tab] 40 mg PO 0900,1700 #60 tab 11/03/17 <Kamlesh Lagos Q - 11/15/17 13:29> Allergies Allergy/AdvReac Type Severity Reaction Status Date / Time naproxen [From Aleve] Allergy Verified 11/13/17 17:15 Sulfa (Sulfonamide AdvReac Intermediate GENERALIZED Verified 11/13/17 17:15 Antibiotics) WEAKNESS lactose AdvReac Verified 11/13/17 17:15 <Kamlesh Lagos Q - 11/15/17 13:29> Review of Systems All systems: reviewed and negative except as stated <Brittney Soliman - 19:25> Constitutional: Reports: as per HPI, weakness. Denies: fever, chills <Brittney Soliman - 11/13/17 19:25> Eyes: Denies: eye pain <Brittney Soliman - 11/13/17 19:25> ENT: Reports: other (dysphagia which is chronic ). Denies: ear pain, throat pain <Brittney Soliman - 11/13/17 19:25> Cardiovascular: Reports: as per HPI, dyspnea on exertion (states is baseline ), edema (bilateral LE and states is better than usual ). Denies: chest pain < Brittney Soliman 11/13/17 19:25> Respiratory: Reports: dyspnea (with activity which is normal ). Denies: cough <Brittney Soliman 11/13/17 19:25> Gastrointestinal: Reports: nausea (poor appetite). Denies: abdominal pain, vomiting, diarrhea, constipation <Brittney Soliman 11/13/17 19:25> Genitourinary: Denies: urgency, dysuria <JourdanBrittney E 11/13/17 19:25> Musculoskeletal: Denies: back pain, joint swelling, arthralgia <Brittney Soliman 11/13/17 19:25> Neurological: Reports: weakness (generalized; not localized ). 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 Action required.) Atrial fibrillation (Acute Medical) HTN (hypertension) (Acute Medical) Hyperlipidemia (Acute Medical) Hyperparathyroidism (Acute Medical) <Kamlesh Lagos 11/15/17 13:29> Medical History Updates: Hyperparathyroidism, hyperlipidemia, and paroxysmal atrial fibrillation <JourdanBrittney E 11/13/17 17:43> Surgical History: appendectomy 1936. tubal ligation 1970. cataracts 2000- 2002. colonoscopy 2005 <Brittney Soliman 11/13/17 17:43> Family History: Family History (This Medical Record has been edited. Action required.) Father High blood pressure Mother High blood pressure Stroke Sister High blood pressure Stroke Cancer of colon Sister Cancer of colon <Kamlesh Lagos 11/15/17 13:29> - Social History Smoking status: Never smoker <Brittney Soliman 11/13/17 17:43> Substance use type: does not use <SolimanBrittney E 11/13/17 17:43> Alcohol intake frequency: does not drink <SolimanBrittney mead 11/13/17 17:43> Housing: other (lives on [facility]) <Brittney Soliman 17:43> Household members: none <Brittney Soliman 11/13/17 17:43> Current occupational status: retired <Brittney Soliman 11/13/17 17:43> Current residence: [place] <Brittney Soliman 11/13/17 17:43> Physical Exam - Limitations Limitations: no limitations <Brittney Soliman Sarah 11/13/17 19:25> - General General appearance: alert, in no apparent distress, other (appears anxious and tired ) <Brittney Soliman 11/13/17 19:25> - Normal Exams: Head:: Normocephalic without trauma <Brittney Soliman Sarah 11/13/17 19:25> Eyes:: Pupils are PERRLA w/ EOMI, No scleral icterus, irritation, or foreign bodies noted <Brittney Soliman 11/13/17 19:25> ENMT:: No facial trauma, nasal exudates, pharyngeal erythema, or exudates are noted <Brittney Soliman 11/13/17 19:25> Abdomen:: Bowel sounds positive, soft, non-tender, non-distended, no hepatosplenomegaly, masses or bruits noted <Brittney Soliman 11/13/17 19:25> Musculoskeletal:: No tenderness, or deformity noted, good range of motion, all extremities <Brittney Soliman 11/13/17 19:25> Integumentary:: No rashes, hives, or bruising noted, hair and nails, without abnormality <Brittney Soliman 11/13/17 19:25> Neurological:: Patient is alert, and oriented, cranial nerves, motor/sensory/ cerebellar, exams w/o gross deficits, to observation <Brittney Soliman 11/13 19:25> Psychiatric:: Patient exhibits, appropriate attention, emotion and affect < Brittney Soliman Sarah - 11/13/17 19:25> - Expanded Respiratory Exam Location: Left: rales, decreased breath sounds, Right: rales, decreased breath sounds, Lower: rales, decreased breath sounds <Brittney Soliman Sarah - 11/13/17 19: 44> - Cardiovascular Cardiovascular exam: Present: irregular rhythm, diastolic murmur <Brittney Soliman - 11/13/17 19:25> - Abdominal Exam Abdominal exam: Present: soft. Absent: distention, tenderness, guarding, rebound <Richard Solimansarah Smith - 11/13/17 19:25> Course Course Narrative: Patient has been stable throughout ER stay. Patient is a difficult stick and nursing has not been able to establish an IV. Midline was placed without difficulty by IV therapy. Patients blood pressure ranges from 91 - 115 during ER stay . Patient able to take PO and KCL [address] Mccord accepts admission to the hospitalist service. <Brittney Soliman - 11/13/17 19:39> - Consultations Consultation #1: Dr Mccord <Brittney Soliman - 11/13/17 19:37> Time: 19:35 (will admit as inpatient ) <Brittney Soliman - 11/13/17 19:37> Vital Signs Temperature 97.6 F 11/13/17 17:06 Pulse Rate 74 11/13/17 17:06 Respiratory Rate 20 11/13/17 17:06 Blood Pressure 94/53 11/13/17 17:06 Pulse Oximetry 94 11/13/17 17:06 Temperature 97.3 F 11/15/17 11:40 Pulse Rate 85 11/15/17 11:40 Respiratory Rate 24 11/15/17 11:40 Blood Pressure 101/52 11/15/17 11:40 Pulse Oximetry 93 11/15/17 11:40 <Kamlesh Lagos - 11/15/17 13:29> Medical Decision Making - Lab Data Result diagrams: 11/15/17 04:08 11/15/17 04:08 <Kamlesh Lagos - 11/15/17 13:29> Lab Results 11/13/17 11/13/17 11/13/17 Range/Units 18:06 18:06 18:06 WBC (4.5-11.0) T/MM3 RBC (4.00-5.20) M/MM3 Hgb (12-16) GM/DL Hct (36-46) % MCV (80-100) UM3 MCH (26-34) UUG MCHC (31-37) GM/DL RDW Std Deviation (36.9-50.2) FL Plt Count (130-400) T/MM3 MPV (9.4-12.4) UM3 Immature Gran % (Auto) Neut % (Auto) Lymph % (Auto) [place] % (Auto) Eos % (Auto) Baso % (Auto) Neut # (Auto) Lymph # (Auto) [place] # (Auto) Eos # (Auto) Baso # (Auto) Abs Immat Gran (auto) Neutrophils % (Manual) (33-66) % Lymphocytes % (Manual) (23-45) % Monocytes % (Manual) (0-9.0) % Neutrophils # (Manual) (1.8-7.7) T/MM3 Lymphocytes # (Manual) (1-4.8) T/MM3 Monocytes # (Manual) (0-0.8) T/MM3 Hypochromasia RBC Morph Comment INR > 10.00 H* (0.92-1.18) Turbidity (0-20) Sodium (136-146) MEQ/L Potassium (3.6-5) MEQ/L Chloride (98-107) MEQ/L Carbon Dioxide (22-30) MEQ/L Anion Gap (5-15) meq/L BUN (7-17) MG/DL Creatinine (0.7-1.2) mg/dL Estimated Creat Clear (>50) mL/min GFR Calculation (>60) mL/min BUN/Creatinine Ratio (6-26) RATIO Glucose (65-110) MG/DL Calculated Osmolality (261-280) MOSM/KG Calcium (8.4-10.2) MG/DL Magnesium 1.8 (1.6-2.3) MG/DL Total Bilirubin (0.20-1.30) MG/DL Icterus Index (0-7) AST (14-36) U/L ALT (1-35) U/L Alkaline Phosphatase (38-126) U/L Troponin I (0-0.12) ng/ml NT-Pro-B Natriuret Pep (0-175) pg/mL Total Protein (6.3-8.2) g/dL Albumin (3.5-5.0) g/dL Globulin (2.4-3.6) G/DL Albumin/Globulin Ratio (1.1-2.2) RATIO Specimen Hemolysis (0-25) Ur Collection Type Urine Color (YELLOW) Urine Clarity Urine pH (5.0-8.0) Ur Specific [place] (1.015-1.025) Urine Protein (NEGATIVE) Urine Glucose (UA) (NEGATIVE) Urine Ketones (NEGATIVE) Urine Occult Blood (NEGATIVE) Urine Nitrate (NEGATIVE) Urine Bilirubin (NEGATIVE) Urine Urobilinogen (NORMAL) EU/DL Ur Leukocyte Esterase (NEGATIVE) Urinalysis Comment Digoxin 1.3 (0.8-2.0) ng/mL 11/13/17 11/13/17 11/13/17 Range/Units 18:14 18:14 18:42 WBC 18.2 H (4.5-11.0) T/MM3 RBC 3.39 L (4.00-5.20) M/MM3 Hgb 8.7 L (12-16) GM/DL Hct 27.4 L (36-46) % MCV 80.8 (80-100) UM3 MCH 25.7 L (26-34) UUG MCHC 31.8 (31-37) GM/DL RDW Std Deviation 48.6 (36.9-50.2) FL Plt Count 574 H (130-400) T/MM3 MPV 9.3 L (9.4-12.4) UM3 Immature Gran % (Auto) Not performed Neut % (Auto) Not performed Lymph % (Auto) Not performed [place] % (Auto) Not performed Eos % (Auto) Not performed Baso % (Auto) Not performed Neut # (Auto) Not performed Lymph # (Auto) Not performed [place] # (Auto) Not performed Eos # (Auto) Not performed Baso # (Auto) Not performed Abs Immat Gran (auto) Not performed Neutrophils % (Manual) 91.0 H (33-66) % Lymphocytes % (Manual) 7.0 L (23-45) % Monocytes % (Manual) 2.0 (0-9.0) % Neutrophils # (Manual) 16.6 H (1.8-7.7) T/MM3 Lymphocytes # (Manual) 1.3 (1-4.8) T/MM3 Monocytes # (Manual) 0.4 (0-0.8) T/MM3 Hypochromasia 1+ RBC Morph Comment Abnormal INR (0.92-1.18) Turbidity < 20 (0-20) Sodium 134 L (136-146) MEQ/L Potassium 2.4 L* (3.6-5) MEQ/L Chloride 90 L (98-107) MEQ/L Carbon Dioxide 33 H (22-30) MEQ/L Anion Gap 11 (5-15) meq/L BUN 30.0 H (7-17) MG/DL Creatinine 1.2 (0.7-1.2) mg/dL Estimated Creat Clear 29 (>50) mL/min GFR Calculation 42 (>60) mL/min BUN/Creatinine Ratio 25 (6-26) RATIO Glucose 113 H (65-110) MG/DL Calculated Osmolality 265 (261-280) MOSM/KG Calcium 7.9 L (8.4-10.2) MG/DL Magnesium (1.6-2.3) MG/DL Total Bilirubin 0.70 (0.20-1.30) MG/DL Icterus Index < 2 (0-7) AST 42 H (14-36) U/L ALT 23 (1-35) U/L Alkaline Phosphatase 179 H (38-126) U/L Troponin I 0.059 (0-0.12) ng/ml NT-Pro-B Natriuret Pep 91319 H (0-175) pg/mL Total Protein 5.8 L (6.3-8.2) g/dL Albumin 2.6 L (3.5-5.0) g/dL Globulin 3.2 (2.4-3.6) G/DL Albumin/Globulin Ratio 0.8 L (1.1-2.2) RATIO Specimen Hemolysis < 15 (0-25) Ur Collection Type Urine, void-cc/notcc Urine Color Yellow (YELLOW) Urine Clarity Clear Urine pH 5.5 (5.0-8.0) Ur Specific [place] 1.025 (1.015-1.025) Urine Protein Negative (NEGATIVE) Urine Glucose (UA) Negative (NEGATIVE) Urine Ketones Negative (NEGATIVE) Urine Occult Blood Negative (NEGATIVE) Urine Nitrate Negative (NEGATIVE) Urine Bilirubin 1+ A (NEGATIVE) Urine Urobilinogen 1.0 (NORMAL) EU/DL Ur Leukocyte Esterase Negative (NEGATIVE) Urinalysis Comment Microscopic not ind. Digoxin (0.8-2.0) ng/mL <Star Lagosn Q - 11/15/17 13:29> - EKG Data EKG #1 EKG results narrative: Atrial fibrillation. 71 bpm. No STEMI. Nonspecific ST Changes. <Nicholas Olvera C - 11/13/17 19:11> Disposition Clinical Impression: Hypokalemia, Weakness Congestive heart failure Qualifiers: Heart failure type: diastolic Heart failure chronicity: acute on chronic Qualified Code(s): I50.33 - Acute on chronic diastolic (congestive) heart failure <Star Lagosn Catherine - 11/15/17 13:29> [place]position: [place] [facility] [place] <DemondKamlesh Q 11/15/17 13:29> Condition: Stable <DemondKamlesh Q 11/15/17 13:29> Instructions: <DemondKamlesh 11/15/17 13:29> Prescriptions: No Action Folic Acid [Folate] 1 mg PO DAILY Cyanocobalamin (B-12) [Vit. B-12] 500 mcg PO DAILY Cholecalciferol (Vitamin D3) [Vitamin D3] 5,000 unit PO DAILY DiltiaZEM CD [Cardizem CD 180 MG] 180 mg PO DAILY cap Warfarin [Coumadin] 2 mg PO HS Pravastatin [Pravachol] 20 mg PO HS Potassium Chloride 10 meq PO DAILY Ondansetron HCl [Zofran] 4 mg PO Q6H PRN PRN Reason: Nausea Atenolol [Tenormin] 50 mg PO BID tab Digoxin [Lanoxin] 125 mcg PO DAILY tab Furosemide [Lasix 40 mg Tab] 40 mg PO 0900,1700 #60 tab Peg 3350 238 G Bottle [Miralax] 17 gm PO DAILY PRN PRN Reason: Constipation <GeorgetownKamlesh godinez Q - 11/15/17 13:29> Referrals: Meir Reid MD [Primary Care Provider] - <Kamlesh Lagos - 11/15/17 13:29> Forms: <DemondKamlesh 11/15/17 13:29> Time of Disposition: 19:41 <Brittney Soliman - 11/13/17 19:44> - Seen By: midlevel <Brittney Soliman 11/13/17 19:44>
[2017-11-13] MEDS ORDERED: LEVOFLOXACIN PB 500 MG/100 ML BAG IV SCH (20:29)
[2017-11-13] MEDS ORDERED: ONDANSETRON 4 MG TABLET PO PRN (20:29)
[2017-11-13] MEDS ORDERED: ACETAMINOPHEN 325 MG TABLET PO PRN (20:29)
[2017-11-13] MEDS ORDERED: POLYETHYL GLYCOL 3350 17gm PACKET PO PRN (20:29)
[2017-11-13] MEDS ORDERED: WARFARIN 2 MG TABLET PO SCH (21:00)
[2017-11-13] MEDS ORDERED: PHYTONADIONE 5 MG/2.5 ML ORAL LIQUID PO ONE (21:09)
--- NOTE | 2017-11-13 21:29 | History & Physical Report ---
History of Present Illness Date: 11/14/17 Chief complaint: Weakness HPI: Patrizia is a pleasant 87 -year-old female patient currently residing at [facility] undergoing rehabilitation from a hospitalization about one month ago. that was occasioned by fluid overload, she was diuresed over 3-1 /2 L. she was sent over to the emergency department this evening for progressive fatigue, and weakness which she states has really not resolved since her prior hospitalization but has been much worse over the last several days. i believe she saw dr. Diallo in the clinic, and was sent by him with concern of low blood pressures in the 90 systolic range. she also sees dr. Kessler with cardiology. in the emergency department, her blood pressures were acceptable, but she was noted to have a leukocytosis with neutrophil predominance of 91%, a bnp over 11 ,000, up from the 6000 range previously, as well as a potassium critically low at 2.4. follow-up magnesium was low normal at 1.8. her chest x-ray shows a right-sided effusion, with trace effusion on the left, these are not new findings. she has had paroxysms of wet cough, however, and given her leukocytosis and recent pneumonia earlier in the summer, she was given vancomycin and levaquin, placed on supplemental oxygen, and she is admitted for further evaluation and management. she takes coumadin for atrial fibrillation, as well as digoxin. her digoxin level was good at 1.3, however her inr reported at greater than 10 and i have just ordered 10 mg of oral vitamin k. Review of Systems - Constitutional Constitutional: Present: fatigue, lethargy, weight gain ( her discharge weight was challenging to find, this evening's weight recorded at 58 kg). Absent: anorexia, chills - EENMT Eyes: Absent: blurry vision, change in vision - Cardiovascular Cardiovascular: Present: dyspnea on exertion, edema ( she feels the swelling in her legs is better than it was a few weeks ago). Absent: chest pain, palpitations - Respiratory Respiratory: Present: cough, dyspnea. Absent: hemoptysis, dyspnea on exertion, wheezing, pain on inspiration - Gastrointestinal Gastrointestinal: Present: change in stool character ( she had been having some loose stools, as near as i could tell those are improving and had not been bothering her significantly recently). Absent: abdominal pain - Musculoskeletal Musculoskeletal: Absent: abnormal gait - Neurological Neurological: Absent: abnormal movements, abnormal speech, confusion, focal weakness Past Medical History Medical History: Medical History (This Medical Record has been edited. Action required.) Atrial fibrillation HTN (hypertension) Hyperlipidemia Hyperparathyroidism Medical History Updates: Hyperparathyroidism, hyperlipidemia, and paroxysmal atrial fibrillation Surgical History: appendectomy 193. tubal ligation 1969. cataracts 2000- 2002. colonoscopy 2006 Family History: Family History (This Medical Record has been edited. Action required.) Father High blood pressure Mother High blood pressure Stroke Sister High blood pressure Stroke Cancer of colon Sister Cancer of colon Family History: As Above - Social History Smoking status: Never smoker Alcohol intake frequency: does not drink [facility]: [facility] Current occupational status: retired Medications Home Medications Medication Instructions Recorded Confirmed Type Cholecalciferol (Vitamin D3) 5,000 unit PO DAILY 10/10/17 11/13/17 History [Vitamin D3] Cyanocobalamin (B-12) [Vit. B-12] 500 mcg PO DAILY 10/10/17 11/13/17 History Folic Acid [Folate] 1 mg PO DAILY 10/10/17 11/13/17 History Atenolol [Tenormin] 50 mg PO BID tab 10/17/17 11/13/17 Rx Digoxin [Lanoxin] 125 mcg PO DAILY tab 10/17/17 11/13/17 Rx DiltiaZEM CD [Cardizem CD 180 MG] 180 mg PO DAILY cap 10/17/17 11/13/17 Rx Furosemide [Lasix 40 mg Tab] 40 mg PO 0900,1700 #60 tab 11/03/17 11/13/17 Rx Peg 3350 238 G Bottle [Miralax] 17 gm PO DAILY PRN 11/05/17 11/13/17 History Pravastatin [Pravachol] 20 mg PO HS 11/05/17 11/13/17 History Warfarin [Coumadin] 2 mg PO HS 11/05/17 11/13/17 History Ondansetron HCl [Zofran] 4 mg PO Q6H PRN 11/13/17 11/13/17 History Potassium Chloride 10 meq PO DAILY 11/13/17 11/13/17 History Allergies Allergy/AdvReac Type Severity Reaction Status Date / Time naproxen [From Aleve] Allergy Verified 11/13/17 17:15 Sulfa (Sulfonamide AdvReac Intermediate GENERALIZED Verified 11/13/17 17:15 Antibiotics) WEAKNESS lactose AdvReac Verified 11/13/17 17:15 Exam Vital Signs: Temperature 97.4 F 11/13/17 20:00 Pulse Rate 75 11/13/17 20:56 Respiratory Rate 16 11/13/17 20:56 Blood Pressure 119/59 11/13/17 20:00 Pulse Oximetry 97 11/13/17 21:12 Height/Weight/BMI: Height 5 ft 5 in Weight 58 kg Body Mass Index 21.2 - Constitutional Present: no acute distress Comments: pleasant and cooperative, alert and oriented - Routine HEENT Exam Head: Present: normocephalic, atraumatic Eye: Present: EOMI, PERRL ENT: Present: mucous membranes moist - Routine Neck Exam Present: supple. Absent: JVD - Routine Respiratory Exam Present: diminished air movement ( especially in the right base). Absent: accessory muscle use, prolonged expiratory phase - Routine Cardiovascular Exam Present: irregular rhythm - Routine Abdominal Exam Present: soft, normoactive bowel sounds, non distended, non tender - Routine Extremities Exam Present: edema ( 2+ symmetric bilateral lower extremities pitting). Absent: cyanosis, clubbing - Routine Skin Exam Present: intact. Absent: rash - Routine Neurological Exam Present: alert, oriented X3, CN II-XII intact. Absent: sensory deficit, motor deficit - Routine Psychiatric Exam Present: normal affect, normal thought process Comments: pleasant and cooperative to history and examination - Additional findings Additional findings: examination performed using telemedicine equipment with the assistance of the bedside nurse Results - Labs CBC & Chem 7: 11/14/17 04:26 11/14/17 04:26 Assessment and Plan (1) Healthcare-associated pneumonia Current visit: Yes Status: Acute (2) Essential (primary) hypertension Current visit: No Status: Chronic (3) Acute diastolic congestive heart failure Current visit: No Status: Acute (4) PAF (paroxysmal atrial fibrillation) Current visit: No Status: Chronic (5) Hypokalemia Current visit: Yes Status: Acute (6) Weakness Current visit: Yes Status: Acute Assessment and Plan: lizz wright is a pleasant 87-year-old female admitted with profound hypokalemia , likely due to loop diuretics, and suspect right lower lobe pneumonia, she is in a healthcare setting, along with recent hospitalizations, aspiration pneumonitis/pneumonia is less likely, but cannot be ruled out. she did cough when she took her liquid potassium supplement this evening. she is admitted with telemetry, will continue antibiotics, gentle lasix given her relatively low blood pressure reported in the clinic, continue the majority of her home medications besides warfarin for which vitamin k was given to antagonize. appreciate cardiology's input expertise and familiarity in these matters in the morning, as well as physical occupational and speech therapies. will provide further symptomatic, supportive, and diagnostic cares as the current workup, or as changes in her clinical scenario indicate. the plan of care was discussed with the patient and her family at the bedside at the time of my evaluation and they expressed understanding and a desire to proceed. they desire do not resuscitate code status. DVT Prophylaxis: SCD's, other ( inr is supratherapeutic) Resuscitation Status: Do Not Resuscitate - Physician Narrative Physician: Edgard Villalba MD Narrative: Date: 11/14/17 Time: 904 Dr. Mccord's note reviewed. Ms. Ardon interviewed and examined at bedside. CC: Generalized weakness, fatigue, cough HPI: A pleasant 87-year-old female patient of Dr. Orellana presented to emergency room with complaints of ongoing generalized weakness, fatigue and unquantifiable weight gain. Patient noted to have leukocytosis, WBC count 18, 200 with left shift. Patient also had INR greater than 10 and potassium level of 2.4. Patient received 10 mg oral vitamin K ordered by telemetry hospitalist along with potassium chloride 40 mEq oral 2 doses. INR remains elevated at 6.75 this morning. Serum potassium remains low at 2.7. Patient's blood pressure 93/52 this morning. Hemoglobin dropped from 8.7 at admission to 7.4 today. On further inquiry, patient does report having black colored tarry loose stools ongoing for the past few days, likely secondary to supratherapeutic INR. Symptoms associated with cough, no reported expectoration. Patient has had a history of recent hospitalization for fluid overload, was adequately diuresed and thereafter resident at [facility] for rehabilitation posthospitalization. Patient also follows up with health science specialist, Dr. Kessler. PMH: Paroxysmal atrial fibrillation, hypertension, hyperlipidemia, hyperparathyroidism. SH: Tubal ligation, appendectomy, cataract extraction surgery, colonoscopy reportedly in 2005. Social: No reported history of tobacco, alcohol or street drug use. Patient currently resident of rehabilitation facility. FH: Patient's mother and sister had a history of CVA, patient's sister has a history of colon cancer. No reported family history of coronary artery disease or diabetes mellitus. ROS: 10 point review negative except - positive cough, positive generalized weakness, positive lethargy, positive weight gain, positive fatigue, positive lower extremity edema, positive black tarry stools, positive dyspnea on exertion. EXAM: General: Alert, awake, oriented x 3. In mild distress. Head: Atraumatic. Pupils equal, round, reactive to light and accommodation. Extraocular movements intact. Neck: No elevation in JVP. No pharyngeal erythema noted. Chest: The patient does not use accessory muscles for breathing. Lungs: Diminished breath sounds on auscultation bilateral lung colón. No wheezing, no rhonchi, no crepitations, no crackles. No pleural rub. CVS: S1, S2 heard on auscultation. Normal rate and rhythm. No murmur, no S3/S4 gallops. Abdomen: Soft, nontender, no distention. Bowel sounds appreciated on auscultation. : No flank tenderness, no suprapubic distention or tenderness. Skin: No rashes, no induration, no erythema. Capillary refill less than 4 seconds. Extremities: 1+ pitting pedal edema bilateral lower extremities. No calf tenderness bilaterally. Palpable dorsalis pedis and posterior tibial pulses bilateral lower extremities. DATA: WBC count 14,900, hemoglobin 7.4 when compared to 8.7 yesterday. INR greater than 10 last night, 6.75 this morning. Serum potassium 2.4 last night, 2.7 this morning. BU and 33, serum creatinine 1.2. 1 view chest x-ray Impression: Stable small pleural effusions. Echocardiogram performed on 10/11/2017 reported to show biatrial dilatation, normal left ventricular ejection fraction of 66%, moderate tricuspid regurgitation, mild pulmonary hypertension with PA P estimated at 37, mild aortic insufficiency, mild pulmonary insufficiency, mitral annulus calcification with mild mitral regurgitation. Assessment: Lower GI bleeding with supratherapeutic INR on Coumadin Hypokalemia, likely secondary to diuresis Right lower lobe aspiration pneumonia versus pleural effusion Atrial fibrillation Hypertension, presently hypotensive. Hyperlipidemia Hyperparathyroidism Plan: IV potassium chloride 60 mEq 1. Continue oral potassium chloride 20 mEq twice a day. We will recheck potassium chloride this evening at 1600. Stool for occult blood. Hemoglobin dropped from 8.7 last night to 7.4 this morning. We will type, cross match and transfuse 1 unit of PRBC. Will recheck H& H 1 hour posttransfusion. INR 6.75. Will provide 10 mg vitamin K subcutaneous 1, with concern for active lower GI bleeding. We will recheck INR at 1600. Patient will be placed on clear liquid diet. Cautious diuresis IV Lasix 20 mg twice a day. Patient has received IV vancomycin and Levaquin, with concern for recurrent aspiration pneumonia. Discontinue Levaquin, considering patient's age and history of atrial fibrillation. Patient will be started on IV Rocephin 1 g daily. Long catheter in place, will monitor intake and output, daily weights. We will recheck BNP tomorrow morning, along with CBC, CMP with mag and phosphorus. Hospital Course Summary Disclaimer: The visit summary below is not to be considered part of the above Progress Note.
[2017-11-13] MEDS: PRAVASTATIN 20 MG TABLET PO SCH (22:35)
[2017-11-13] MEDS: FUROSEMIDE 20 MG/2 ML INJECTION IVP SCH (22:35)
[2017-11-13] MEDS ORDERED: ACETAMINOPHEN 160mg/5ml ORAL LIQUID PO PRN (23:10)
[2017-11-14] MEDS: POTASSIUM CHLORIDE 20 MEQ/15 ML ORAL LIQUID PO SCH ×3 (00:09→18:05)
--- NOTE | 2017-11-14 07:54 | XRay Report ---
Indication: weakness PROCEDURE: XR chest 1V: Encounter: Initial Comparison: November 05, 2017 Findings: Small pleural effusions are not significantly changed with lower lobe airspace disease. Upper lung colón are clear. No pneumothorax. Heart size and mediastinal contours are stable. Pulmonary vascularity is less congested. Degenerative change and scoliosis in the spine. Impression: Stable small pleural effusions. .
[2017-11-14] MEDS: FOLIC ACID 1 MG TABLET PO SCH (09:31)
[2017-11-14] MEDS: CYANOCOBALAMIN (B-12) 500mcg TABLET PO SCH (09:31)
[2017-11-14] MEDS ORDERED: PHYTONADIONE 10mg/ml (Adult) INJECTION SQ ONE (09:38)
[2017-11-14] MEDS: SALINE FLUSH 10ml SYRINGE IVF PRN ×3 (09:38→18:05)
[2017-11-14] MEDS: FUROSEMIDE 20 MG/2 ML INJECTION IVP SCH ×2 (09:38→20:55)
[2017-11-14] MEDS: DIGOXIN 125 MCG TABLET PO SCH (09:38)
--- NOTE | 2017-11-14 09:53 | Cardiology Consult Note ---
<Cherry Hernandez - Last Filed: 11/15/17 14:58> History of Present Illness Consult date: 11/14/17 Requesting physician: Edgard Villalba Consult reason: congestive heart failure Chief complaint: fatigue/ weakness History of present illness: Patrizia is an 87 year old female who is known to Dr. Kessler's practice with a history of diastolic CHF, PAF, HTN and HLD who is currently residing at [facility] undergoing rehabilitation from a hospitalization about one month ago. On 11/02 she was seen in the clinic by Dr. Sousa and was admitted for diuresis, she diuresed over 3.5 L and was discharged to rehab at [facility] on 11/03/17 with Lasix 40mg BID and follow up lab the following week. Last evening she was sent to the ED for progressive fatigue and weakness which she states has really not resolved since her prior hospitalization but has been much worse over the last several days. In the ED, BNP was 11,200, up from the 6000 range previously, and K+ 2.4. Mag 1.8. CXR shows a right-sided effusion, with trace effusion on the left, neither are new findings. She takes Coumadin for atrial fibrillation, as well as digoxin. Digoxin level 1.3, INR > 10. She was given Vitamin K and admitted for further medical evaluation. Dr. Kessler is consulted and we appreciate the consult. Patrizia is seen in her room on Medical, she is laying almost flat with feet elevated, in no distress, on room air. She denies shortness of breath or orthopnea. states she noticed her ankle were swollen and has felt weak. Review of Systems - Constitutional Constitutional: Present: fatigue, weakness. Absent: chills, fever(s) - EENMT Eyes: Absent: change in vision Balance: Absent: vertigo Mouth/Throat: Absent: sore throat - Cardiovascular Cardiovascular: Present: edema. Absent: chest pain, palpitations, syncope, orthopnea, heart murmur Rhythm: Present: abnormal rhythm Vascular: Present: pedal edema - Respiratory Respiratory: Absent: cough, dyspnea, dyspnea on exertion - Gastrointestinal Gastrointestinal: Absent: constipation, diarrhea, nausea, vomiting - Genitourinary Genitourinary: Absent: dysuria - Integumentary/Breasts Integumentary: Absent: rash - Endocrine Endocrine: Absent: palpitations PFSH Patient Stated Medical History Cataracts Yes Dental Problems dentures Other HEENT Yes: wears glasses Cardiac Arrhythmia Yes: a-fib Congestive Heart Failure Yes Hypertension Yes Pneumonia Yes: october 2017 Other GI Yes: hernia right abd Hx Incontinence Yes: Urgency Hx Urinary Tract Infection Yes Other Hematologic Yes: on blood thinner Other Musculoskeletal Yes: 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 Action required.) Atrial fibrillation (Acute Medical) HTN (hypertension) (Acute Medical) Hyperlipidemia (Acute Medical) Hyperparathyroidism (Acute Medical) Medical History Updates: Hyperparathyroidism, hyperlipidemia, and paroxysmal atrial fibrillation Surgical History: appendectomy 1935. tubal ligation 1969. cataracts 2000- 2002. colonoscopy 2005 Family History: Family History (This Medical Record has been edited. Action required.) Father High blood pressure Mother High blood pressure Stroke Sister High blood pressure Stroke Cancer of colon Sister Cancer of colon - Social History Smoking status: Never smoker Substance use type: does not use Alcohol intake frequency: does not drink Housing: residential ([facility], rehab) Household members: none Current occupational status: retired Current residence: Assisted Medications Home Medications Medication Instructions Recorded Confirmed Type Cholecalciferol (Vitamin D3) 5,000 unit PO DAILY 10/10/17 11/13/17 History [Vitamin D3] Cyanocobalamin (B-12) [Vit. B-12] 500 mcg PO DAILY 10/10/17 11/13/17 History Folic Acid [Folate] 1 mg PO DAILY 10/10/17 11/13/17 History Atenolol [Tenormin] 50 mg PO BID tab 10/17/17 11/13/17 Rx Digoxin [Lanoxin] 125 mcg PO DAILY tab 10/17/17 11/13/17 Rx DiltiaZEM CD [Cardizem CD 180 MG] 180 mg PO DAILY cap 10/17/17 11/13/17 Rx Furosemide [Lasix 40 mg Tab] 40 mg PO 0900,1700 #60 tab 11/03/17 11/13/17 Rx Peg 3350 238 G Bottle [Miralax] 17 gm PO DAILY PRN 11/05/17 11/13/17 History Pravastatin [Pravachol] 20 mg PO HS 11/05/17 11/13/17 History Warfarin [Coumadin] 2 mg PO HS 11/05/17 11/13/17 History Ondansetron HCl [Zofran] 4 mg PO Q6H PRN 11/13/17 11/13/17 History Potassium Chloride 10 meq PO DAILY 11/13/17 11/13/17 History Allergies Allergy/AdvReac Type Severity Reaction Status Date / Time naproxen [From Aleve] Allergy Verified 11/13/17 17:15 Sulfa (Sulfonamide AdvReac Intermediate GENERALIZED Verified 11/13/17 17:15 Antibiotics) WEAKNESS lactose AdvReac Verified 11/13/17 17:15 Exam Vital signs: Temperature 96.7 F L 11/14/17 07:50 Pulse Rate 80 11/14/17 09:38 Respiratory Rate 18 11/14/17 07:50 Blood Pressure 87/44 11/14/17 09:33 Pulse Oximetry 98 11/14/17 08:32 - Constitutional no acute distress, well nourished, cooperative - Routine HEENT Exam Head: Present: normocephalic ENT: Present: mucous membranes dry - Routine Neck Exam Absent: JVD, carotid bruit - Routine Chest/Breast/Axilla Exam Chest wall: Absent: tenderness - Routine Respiratory Exam Present: diminished air movement (right bases). Absent: dyspnea, rales, wheezes - Routine Cardiovascular Exam Present: no murmur, irregular rhythm. Absent: JVD - Routine Abdominal Exam Present: soft, non tender - Routine Extremities Exam Present: edema (2+ bilaterally) - Routine Skin Exam Present: intact, dry, warm - Routine Neurological Exam Present: alert, oriented X3 - Routine Psychiatric Exam Present: normal affect, normal thought process Results 11/15/17 04:08 11/15/17 04:08 Cardiac Enzymes 11/13/17 Range/Units 18:14 AST 42 H (14-36) U/L Troponin I 0.059 (0-0.12) ng/ml CBC 11/13/17 11/14/17 Range/Units 18:14 04:26 WBC 18.2 H 14.9 H (4.5-11.0) T/MM3 RBC 3.39 L 2.85 L (4.00-5.20) M/MM3 Hgb 8.7 L 7.4 L D (12-16) GM/DL Hct 27.4 L 23.1 L D (36-46) % Plt Count 574 H 547 H (130-400) T/MM3 Neut # (Auto) Not performed 12.6 H Lymph # (Auto) Not performed 1.3 Eaton # (Auto) Not performed 0.9 H Eos # (Auto) Not performed 0.0 Baso # (Auto) Not performed 0.0 Comprehensive Metabolic Panel 11/13/17 11/14/17 Range/Units 18:14 04:26 Sodium 134 L 134 L (136-146) MEQ/L Potassium 2.4 L* 2.7 L* (3.6-5) MEQ/L Chloride 90 L 94 L (98-107) MEQ/L Carbon Dioxide 33 H 32 H (22-30) MEQ/L BUN 30.0 H 33.0 H (7-17) MG/DL Creatinine 1.2 1.2 (0.7-1.2) mg/dL Glucose 113 H 93 (65-110) MG/DL Calcium 7.9 L 7.2 L D (8.4-10.2) MG/DL AST 42 H (14-36) U/L ALT 23 (1-35) U/L Alkaline Phosphatase 179 H (38-126) U/L Total Protein 5.8 L (6.3-8.2) g/dL Albumin 2.6 L (3.5-5.0) g/dL Intake and Output 11/13/17 11/14/17 11/14/17 22:59 06:59 14:59 Intake Total 350 / 350 Output Total 250 / 250 Balance 100 / 100 Intake: IV 350 / 350 Levofloxacin Pb 500 mg In 100 100 / 100 ml @ 100 mls/hr IV Q24H [facility] Rx# :[id number] Vancomycin 1,250 mg In NS 250ml 250 / 250 250 ml @ 200 mls/hr IV Q12H [facility] Rx#:[id number] Output: Urine Amount (Catheter) 250 / 250 Other: Urine Appearance Clear Urine Color Yellow Stool Color Brown Stool Consistency Soft Size of Bowel Movement Small # Bowel Movements 2 Weight 127 lb 13.89 oz 129 lb 13.636 oz Patient Weight 11/15/17 06:59 Weight 129 lb 13.636 oz - Imaging and Cardiology Imaging & Cardiology Narrative: Date of Exam: 11/13/17 Ordering Provider: Brittney Soliman APRN Type of Exam(s): XR chest 1V Reason for Exam(s): weakness Indication: weakness PROCEDURE: XR chest 1V: Encounter: Initial Comparison: November 05, 2017 Findings: Small pleural effusions are not significantly changed with lower lobe airspace disease. Upper lung colón are clear. No pneumothorax. Heart size and mediastinal contours are stable. Pulmonary vascularity is less congested. Degenerative change and scoliosis in the spine. Impression: Stable small pleural effusions. 11/14/17 10:12 EKG interpretations - EKG EKG shows: atrial fibrillation - Blocks, axis, hypertrophy, ST abn Repolarization changes or abnormalities: nonspecific abnormality, ST segment, and/or T wave Assessment and Plan - Assessment and Plan (1) Healthcare-associated pneumonia Current visit: Yes Status: Acute per hospitalist service (2) Acute diastolic congestive heart failure Current visit: No Status: Chronic Denies Orthopnea or SOA, no JVD, 2+ LE edema - Diurese with Lasix 40mg bid as BP allows - Holding Cardizem due to lower BPs (3) Hypokalemia Current visit: Yes Status: Acute K+ 2.8, replace 40meq orally, Mag 1.8, replace 1gm IV - continue to monitor renal and electrolytes (4) PAF (paroxysmal atrial fibrillation) Current visit: No Status: Chronic Rate well controlled with Digoxin, hold Cardizem for now due to BP - INR 6.75 today, holding Coumadin (5) Anemia Current visit: Yes Status: Chronic HGB 7.4, transfused 1 unit PRBCs per hospitalist (6) Weakness Current visit: Yes Status: Acute - Assessment and Plan Healthcare-associated pneumonia Current visit: Yes Status: Acute - per hospitalist service Acute diastolic congestive heart failure Current visit: No Status: Acute - Denies Orthopnea or SOA, no JVD, 2+ LE edema - Diurese with Lasix 40mg bid as BP allows - Holding Cardizem due to lower BPs Hypokalemia Current visit: Yes Status: Acute - K+ 2.8, replace 40meq orally, Mag 1.8, replace 1gm IV - continue to monitor renal and electrolytes PAF (paroxysmal atrial fibrillation) Current visit: No Status: Chronic - Rate well controlled with Digoxin, hold Cardizem for now due to BP - INR 6.75 today, holding Coumadin Anemia Current visit: Yes Status: Chronic - HGB 7.4, transfused 1 unit PRBCs per hospitalist Weakness Current visit: Yes Status: Acute Thank you for allowing us to participate in the care of this patient, we will follow along with you. Hospital Course Summary Disclaimer: The visit summary below is not to be considered part of the above Progress Note. 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 Action required.) Atrial fibrillation (Acute Medical) HTN (hypertension) (Acute Medical) Hyperlipidemia (Acute Medical) Hyperparathyroidism (Acute Medical) Family History: Family History (This Medical Record has been edited. Action required.) Father High blood pressure Mother High blood pressure Stroke Sister High blood pressure Stroke Cancer of colon Sister Cancer of colon Exam Vital signs: Temperature 98.1 F 11/20/17 12:00 Pulse Rate 101 H 11/20/17 12:00 Respiratory Rate 17 11/20/17 12:00 Blood Pressure 115/63 11/20/17 12:00 Pulse Oximetry 94 11/20/17 12:00 Results 11/20/17 11:33 11/20/17 11:33 CBC 11/20/17 Range/Units 11:33 WBC 17.5 H (4.5-11.0) T/MM3 RBC 3.78 L (4.00-5.20) M/MM3 Hgb 9.9 L (12-16) GM/DL Hct 30.7 L (36-46) % Plt Count 319 (130-400) T/MM3 Neut # (Auto) Not performed Lymph # (Auto) Not performed Eaton # (Auto) Not performed Eos # (Auto) Not performed Baso # (Auto) Not performed Comprehensive Metabolic Panel 11/20/17 Range/Units 11:33 Sodium 141 (136-146) MEQ/L Potassium 3.4 L (3.6-5) MEQ/L Chloride 103 (98-107) MEQ/L Carbon Dioxide 28 (22-30) MEQ/L BUN 26.0 H (7-17) MG/DL Creatinine 1.1 (0.7-1.2) mg/dL Glucose 89 (65-110) MG/DL Calcium 6.7 L (8.4-10.2) MG/DL Intake and Output 11/19/17 11/20/17 11/20/17 22:59 06:59 14:59 Intake Total 300 / 300 327.5 / 327.5 200 / 200 Output Total 475 / 475 Balance 300 / 300 -147.5 / -147.5 200 / 200 Intake: IV 300 / 300 327.5 / 327.5 200 / 200 Ceftriaxone 1 g In Ns 100 ml @ 100 / 100 200 mls/hr IV Q24H [facility] Rx#: [id number] D5-1/2NS with KCL 20mEq 1,000 227.5 / 227.5 ml @ 30 mls/hr IV .Q24H [facility] Rx# :[id number] MetroNIDAZOLE PB 500 mg In 100 100 / 100 100 / 100 100 / 100 ml @ 100 mls/hr IV Q8H [facility] Rx#: [id number] Potassium Chloride Premix 10 200 / 200 meq In 100 ml @ 100 mls/hr IV Q1H [facility] Rx#:[id number] Output: Urine Amount (Catheter) 475 / 475 Other: Urine Appearance Clear Cloudy Urine Color Yellow Dark Yellow Straw Urine Odor Normal Weight 60.5 kg Patient Weight 11/21/17 06:59 Weight 60.5 kg Assessment and Plan - Attestation Attestation Narrative: 11/20/17 13:59 Recommendation After examining the patient I agree with the above assessment. I am involved in the formulation of the patient's plan of care. - Assessment and Plan (1) C. difficile diarrhea Current visit: Yes Status: Acute (2) Acute diastolic congestive heart failure Current visit: No Status: Chronic (3) PAF (paroxysmal atrial fibrillation) Current visit: No Status: Chronic (4) Hypokalemia Current visit: Yes Status: Acute (5) Weakness Current visit: Yes Status: Acute (6) Healthcare-associated pneumonia Current visit: Yes Status: Acute (7) Anemia Current visit: Yes Status: Chronic Hospital Course Summary Disclaimer: The visit summary below is not to be considered part of the above Progress Note.
[2017-11-14] MEDS: CEFTRIAXONE 1 G in NS 100 ML IV SCH (10:13)
[2017-11-14] MEDS ORDERED: MAGNESIUM SULFATE 1gm PREMIX 1 GM/100 ML BAG IV ONE (10:28)
[2017-11-14] MEDS ORDERED: POTASSIUM CHLORIDE 20 MEQ/15 ML ORAL LIQUID PO ONE (10:45)
[2017-11-14 12:12] VITALS: BMI 21.6
[2017-11-14] MEDS: NS FLUSH BAG 500ml IV PRN (14:15)
[2017-11-14] MEDS ORDERED: FUROSEMIDE 20 MG/2 ML INJECTION IVP ONE (15:44)
[2017-11-14] MEDS: PRAVASTATIN 20 MG TABLET PO SCH (20:56)
[2017-11-14] MEDS: VANCOMYCIN 250mg/5ml ORAL LIQ PO SCH (23:35)
[2017-11-15] MEDS: VANCOMYCIN 250mg/5ml ORAL LIQ PO SCH ×4 (02:47→21:15)
[2017-11-15] MEDS: POTASSIUM CHLORIDE 20 MEQ/15 ML ORAL LIQUID PO SCH (10:13)
[2017-11-15] MEDS: CEFTRIAXONE 1 G in NS 100 ML IV SCH (10:14)
[2017-11-15] MEDS: CYANOCOBALAMIN (B-12) 500mcg TABLET PO SCH (10:14)
[2017-11-15] MEDS: FUROSEMIDE 20 MG/2 ML INJECTION IVP SCH (10:14)
[2017-11-15] MEDS: SALINE FLUSH 10ml SYRINGE IVF PRN ×3 (10:15→16:30)
[2017-11-15] MEDS: FOLIC ACID 1 MG TABLET PO SCH (10:15)
[2017-11-15] MEDS: DIGOXIN 125 MCG TABLET PO SCH (10:16)
--- NOTE | 2017-11-15 10:50 | Progress Note ---
- Date 11/15/17 Subjective: Patient resting in bedside chair at the time of interview. Stool sample obtained last evening was positive for C. difficile toxin. Patient placed under contact precautions. Patient started on oral vancomycin 125 mg every 6 hours. Patient does not report any further bowel movements since last evening. Patient received 1 unit of typed and crossmatched PRBCs yesterday, hemoglobin improved from 7.4-10.7 thereafter. Repeat hemoglobin dropped to 8.9 this morning. Patient 's INR which was greater than 10 on admission and 6.75 yesterday, later on decreased to 1.55. Patient has +500 mL fluid balance, blood pressure improved to 124/58 this morning. Patient reportedly had a colonoscopy in the year 2005, states that following the procedure, she did have low blood pressures and required significant amount of IV fluids to maintain her blood pressures. Discussed with patient about lower GI bleeding likely secondary to supratherapeutic INR with Coumadin anti-coagulation. With patient's hemoglobin dropped this morning, discussed with patient about general surgery consult for repeat colonoscopy, patient agreeable. Will remain on clear liquids for now. Serum potassium improved to 3.0 this morning, patient receiving 20 mg oral potassium chloride. Will provide 20 mEq IV potassium chloride. Will recheck H&H this afternoon at 1600. Coumadin will remain on hold for now. Objective Vital signs: Temperature 97.7 F 11/14/17 23:00 Pulse Rate 76 11/15/17 10:16 Respiratory Rate 24 11/15/17 08:04 Blood Pressure 124/58 11/15/17 08:04 Pulse Oximetry 94 11/15/17 08:04 Height/Weight/BMI: Height 1.65 m Weight 58.6 kg Body Mass Index 21.6 - Additional findings Additional findings: General: Alert, awake, oriented x 3. Not in acute distress. Head: Atraumatic. Pupils equal, round, reactive to light and accommodation. Extraocular movements intact. Neck: No elevation in JVP. No pharyngeal erythema noted. Chest: The patient does not use accessory muscles for breathing. Lungs: Diminished breath sounds on auscultation bilateral lung colón. No wheezing, no rhonchi, no crepitations, no crackles. No pleural rub. CVS: S1, S2 heard on auscultation. Irregularly irregular heart sounds. No murmur, no S3/S4 gallops. Abdomen: Soft, nontender, no distention. Bowel sounds appreciated on auscultation. : No flank tenderness, no suprapubic distention or tenderness. Skin: No rashes, no induration, no erythema. Capillary refill less than 4 seconds. Extremities: 1+ pitting pedal edema bilateral lower extremities. No calf tenderness bilaterally. Palpable dorsalis pedis and posterior tibial pulses bilateral lower extremities. Results - Labs CBC & Chem 7: 11/15/17 16:26 11/15/17 04:08 Labs: Laboratory Tests 11/13/17 11/14/17 11/14/17 18:06 15:33 18:33 INR Stool Occult Blood Negative Stl Cyclospora species Negative Stool Rotavirus A PCR Negative Stool Adenovirus (PCR) Negative Stool Astrovirus (PCR) Negative Stool Campylobacter PCR Negative Stl C.difficile Tox PCR Detected A* Stool Cryptosporidium PCR Negative Stl E.coli Shiga Toxins Negative Stl Enterotoxigenic E PCR Negative Stool EPEC (PCR) Negative Stool EAEC (PCR) Negative Stool Entamoeba (PCR) Negative Stool Giardia Lamblia PCR Negative Stool Salmonella PCR Negative Stool Sapovirus (PCR) Negative Stl P. shigelloides PCR Negative Stl Shigella/EIEC PCR Negative St Y.enterocolitica PCR Negative Stool Vibrio (PCR) Negative Stl Vibrio cholera PCR Negative Stl Norovirus GI/GII PCR Negative Digoxin 1.3 11/14/17 18:39 INR 1.55 H Stool Occult Blood Stl Cyclospora species Stool Rotavirus A PCR Stool Adenovirus (PCR) Stool Astrovirus (PCR) Stool Campylobacter PCR Stl C.difficile Tox PCR Stool Cryptosporidium PCR Stl E.coli Shiga Toxins Stl Enterotoxigenic E PCR Stool EPEC (PCR) Stool EAEC (PCR) Stool Entamoeba (PCR) Stool Giardia Lamblia PCR Stool Salmonella PCR Stool Sapovirus (PCR) Stl P. shigelloides PCR Stl Shigella/EIEC PCR St Y.enterocolitica PCR Stool Vibrio (PCR) Stl Vibrio cholera PCR Stl Norovirus GI/GII PCR Digoxin - Echocardiogram History of Echocardiogram: Echocardiogram performed on 11/14/2017. IMPRESSION. 1. Normal LV systolic function with ejection fraction of 55%. 2. Pleural effusion present. 3. Biatrial dilation. 4. Mild to moderate mitral regurgitation. 5. Aortic sclerosis with moderate aortic insufficiency. 6. Moderate tricuspid regurgitation with moderate pulmonary hypertension with estimated pulmonary artery systolic pressure of 44. 7. Mild pulmonary insufficiency. Assessment and Plan (1) Healthcare-associated pneumonia Current visit: Yes Status: Acute (2) Essential (primary) hypertension Current visit: No Status: Chronic (3) Acute diastolic congestive heart failure Current visit: No Status: Chronic (4) PAF (paroxysmal atrial fibrillation) Current visit: No Status: Chronic (5) Hypokalemia Current visit: Yes Status: Acute (6) Weakness Current visit: Yes Status: Acute Assessment and Plan: Assessment: Lower GI bleeding, on Coumadin, INR 1.55 C. difficile diarrhea, positive C. difficile toxin on stool sample Hypokalemia, likely secondary to diuresis, POA Right lower lobe aspiration pneumonia versus pleural effusion Atrial fibrillation Hypertension, presently hypotensive. Hyperlipidemia Hyperparathyroidism Plan: Patient will remain in contact precautions. Oral vancomycin 125 mg every 6 hours for positive C. difficile. Serum potassium 3.0, patient received 20 mEq oral potassium chloride. Will provide 20 mEq IV potassium chloride and monitor potassium levels. Patient reports she does not like oral potassium chloride supplementation which will be discontinued for now. Cardiology consulted, recommendation for oral Lasix 40 mg twice a day. We'll monitor intake and output, daily weights. Echocardiogram findings as described above. INR reaches greater than 10 on admission has dropped to 1.55 last evening. Will monitor PT/INR. Coumadin remains on hold. We will continue digoxin 0.125 mg daily. Patient status post transfusion of 1 unit of PRBC, hemoglobin improved from 7.4 to 10.7 last evening, repeat hemoglobin dropped to 8.9 this morning. Stool for occult blood negative. Will discuss case with general surgeon, Dr. Ibrahim regarding need for repeat colonoscopy. Patient will remain on clear liquid diet. If no plan for colonoscopy, will progress to soft cardiac diet. Continue IV Rocephin 1 g daily. Long catheter in place, will monitor intake and output, daily weights. We will recheck BNP tomorrow morning, along with INR, CBC, BMP with mag and phosphorus. DVT Prophylaxis: SCD's, other ( inr is supratherapeutic) GI Prophylaxis: Protonix Resuscitation Status: Do Not Resuscitate - Physician Narrative Narrative: Date: 11/15/17 Time: 1045 Hospital Course Summary Disclaimer: The visit summary below is not to be considered part of the above Progress Note.
[2017-11-15] MEDS: POTASSIUM CHLORIDE PREMIX 10 MEQ/100 ML BAG IV SCH ×2 (11:36→13:11)
--- NOTE | 2017-11-15 14:16 | Echocardiogram ---
DATE OF PROCEDURE November 14, 2017 REFERRING PHYSICIAN Barbara Henry MD This is a two-dimensional echo with spectral Doppler, color-flow and M-mode. It was obtained in a patient with heart failure. Left atrium is dilated. Left ventricle end-diastolic dimension is normal. Left ventricle wall thickness is normal. LV systolic function is normal with ejection fraction of 55%. Right atrium is dilated. Right ventricle is normal. Aortic root dimension is normal. Mitral valve is morphologically normal with mild to moderate mitral regurgitation. Aortic valve shows fibrocalcific changes with no stenosis. Moderate aortic insufficiency is present. Tricuspid valve shows moderate tricuspid regurgitation with moderate pulmonary hypertension with estimated pulmonary artery systolic pressure of 44. Pulmonary valve shows mild pulmonary insufficiency. There is no pericardial effusion. IMPRESSION 1. Normal LV systolic function with ejection fraction of 55%. 2. Pleural effusion present. 3. Biatrial dilation. 4. Mild to moderate mitral regurgitation. 5. Aortic sclerosis with moderate aortic insufficiency. 6. Moderate tricuspid regurgitation with moderate pulmonary hypertension with estimated pulmonary artery systolic pressure of 44. 7. Mild pulmonary insufficiency. MTDD
--- NOTE | 2017-11-15 14:49 | Wound Care Progress Note ---
Wound Center Progress Note: Pt seen for wound consult r/t coccyx wound. Pt lying in bed, no complains of pain, Long to DD. Pt states "I do not have any sores on my bottom." Pt is incontinent of stool. Coccyx: 2 Stage 3 PI, superior and inferior, 1 Stage 3 PI on R buttock with elements of IAD (incontinence associated damage from stool). Superior PI: 1.5 (L) x 1.8 (W). Wound bed 100% yellow slough, painful, no drainage. Inferior PI: 0.7 (L) x 1.7 (W). Wound bed 100% yellow slough, painful , no drainage. R buttock PI: 0.4 (L) x 0.5 (W). Wound bed 100% yellow slough, painful, no drainage. Periwound: blanchable erythema. Wound tx plan: Apply Iodosorb to wound beds, cover with gauze, cover with Mepilex, change q 3 days. Off load with regular repositioning.
--- NOTE | 2017-11-15 15:01 | Cardiology Progress Note ---
<Cherry Hernandez - Last Filed: 11/16/17 14:44> Subjective Principal diagnosis: edema Interval history: Patrizia is seen in follow up for diastolic HF. She is in bed after returning from the bathroom. She is in no distress on room air. She denies chest pain, pressure, palpitations,dyspnea, dizziness or nausea. Exam Vital signs: Temperature 97.3 F 11/15/17 11:40 Pulse Rate 85 11/15/17 11:40 Respiratory Rate 24 11/15/17 11:40 Blood Pressure 101/52 11/15/17 11:40 Pulse Oximetry 93 11/15/17 11:40 Inpatient Medications: Generic Name Dose Route Start Last Admin Trade Name Freq PRN Reason Stop Dose Admin Acetaminophen 325 - 650 mg 11/13/17 20:29 Tylenol PO Q5H PRN Discomfort Acetaminophen 320 mg 11/13/17 23:10 11/14/17 00:08 Tylenol 160 Mg/5 Ml Liquid PO 320 mg Q6H PRN Administration Discomfort Cyanocobalamin 500 mcg 11/14/17 09:00 11/15/17 10:14 Vit. B-12 PO 500 mcg DAILY [facility] Administration Digoxin 125 mcg 11/14/17 09:00 11/15/17 10:16 Lanoxin PO 125 mcg DAILY [facility] Administration Folic Acid 1 mg 11/14/17 09:00 11/15/17 10:15 Folate PO 1 mg DAILY [facility] Administration Furosemide 40 mg 11/15/17 17:00 Lasix 40 Mg Tab PO 0900,1700 [facility] Ceftriaxone Sodium 1 g/ Sodium 100 mls @ 200 mls/hr 11/14/17 09:45 11/15/17 11:43 Chloride IV Infused DAILY [facility] Infusion Vancomycin HCl 1,250 mg/ 250 mls @ 200 mls/hr 11/14/17 12:00 11/15/17 14:45 Sodium Chloride IV 200 mls/hr Q24H [facility] Administration Ondansetron HCl 4 mg 11/13/17 20:29 Zofran Po PO Q6H PRN Nausea Pantoprazole Sodium 40 mg 11/16/17 06:30 Protonix Tab PO ACB [facility] Polyethylene Glycol 17 gm 11/13/17 20:29 Miralax PO DAILY PRN Constipation Pravastatin Sodium 20 mg 11/13/17 21:00 11/14/17 20:56 Pravachol PO 20 mg HS [facility] Administration Sodium Chloride 10 - 80 ml 11/13/17 17:42 11/15/17 11:36 Iv Flush IVF 10 ml PRN PRN Administration Flushing Sodium Chloride 500 ml 11/14/17 14:38 11/14/17 14:15 Normal Saline IV 500 ml PRN PRN Administration Vancomycin HCl 125 mg 11/14/17 22:15 11/15/17 14:46 Vancomycin Oral Liq PO 125 mg Q6HR [facility] Administration Discontinued Medications Generic Name Dose Route Start Last Admin Trade Name Freq PRN Reason Stop Dose Admin Diltiazem HCl 180 mg 11/14/17 09:00 11/14/17 09:41 Cardizem Cd 180 Mg PO Not Given DAILY [facility] Furosemide 20 mg 11/13/17 20:29 11/15/17 10:14 Lasix 20 Mg/2 Ml IVP 20 mg Q12H [facility] Administration Furosemide 20 mg 11/14/17 15:44 11/14/17 18:05 Lasix 20 Mg/2 Ml IVP 11/14/17 15:45 20 mg O ONE Administration Sodium Chloride 500 mls @ 1,000 mls/hr 11/13/17 17:40 11/13/17 18:58 Normal Saline IV 11/13/17 18:09 Not Given .Q30M ONE Sodium Chloride 500 mls @ 999.9 mls/hr 11/13/17 17:40 11/13/17 19:04 Normal Saline IV 11/13/17 18:09 Not Given .Q30M ONE Levofloxacin/Dextrose 500 mg in 100 mls @ 100 mls/hr 11/13/17 20:29 11/14/17 01:30 Levaquin 500 Mg Premix IV Infused Q24H [facility] Infusion Vancomycin HCl 1,000 mg/ 250 mls @ 250 mls/hr 11/13/17 20:29 11/13/17 22:36 Sodium Chloride IV Not Given Q12H [facility] Vancomycin HCl 1,250 mg/ 250 mls @ 200 mls/hr 11/13/17 22:30 11/14/17 12:14 Sodium Chloride IV Not Given Q12H [facility] Magnesium Sulfate/Dextrose 1 gm in 100 mls @ 100 mls/hr 11/14/17 10:28 12:18 Mag Sulf 1gm Premix IV 11/14/17 11:27 Infused O ONE Infusion Potassium Chloride 10 meq in 100 mls @ 100 mls/hr 11/15/17 10:45 11/15/17 13: 11 Potassium Chloride Premix IV 11/15/17 12:44 100 mls/hr Q1H [facility] Administration Phytonadione 10 mg 11/13/17 21:09 11/13/17 22:35 Vitamin K Oral Liq PO 11/13/17 21:10 10 mg O ONE Administration Phytonadione 10 mg 11/14/17 09:38 11/14/17 10:11 Vitamin K (Adult) Inj SQ 11/14/17 09:39 10 mg O ONE Administration Potassium Chloride 40 meq 11/13/17 19:00 11/13/17 19:11 K-Dur 20 Meq Tablet PO 11/13/17 19:01 40 meq O ONE Administration Potassium Chloride 20 meq 11/14/17 08:00 11/15/17 10:13 Kcl Oral Liq 20 Meq/15 Ml PO 20 meq BIDWM [facility] Administration Potassium Chloride 40 meq 11/14/17 10:29 11/14/17 10:38 K-Dur 20 Meq Tablet PO 11/14/17 10:30 Not Given O ONE Potassium Chloride 40 meq 11/14/17 10:45 11/14/17 10:52 Kcl Oral Liq 20 Meq/15 Ml PO 11/14/17 10:46 40 meq O ONE Administration Potassium Citrate 40 meq 11/13/17 20:29 11/13/17 22:34 Urocit-K PO 11/13/17 20:30 40 meq TID ONE Administration Warfarin Sodium 2 mg 11/13/17 21:00 Coumadin PO HS [facility] - Constitutional no acute distress, well nourished, cooperative - Routine HEENT Exam Head: Present: normocephalic ENT: Present: mucous membranes moist - Routine Neck Exam Absent: JVD, carotid bruit - Routine Chest/Breast/Axilla Exam Chest wall: Absent: tenderness - Routine Respiratory Exam Present: CTA bilaterally, diminished air movement - Routine Cardiovascular Exam Present: no murmur, irregular rhythm - Routine Abdominal Exam Present: soft, non tender - Routine Extremities Exam Present: edema - Routine Skin Exam Present: intact, dry, warm - Routine Neurological Exam Present: alert, oriented X3 - Routine Psychiatric Exam Present: normal affect, normal thought process - Urinary Catheter Management Urethral Cath placed during this visit: yes Insertion date: 11/13/17 Insertion time: 21:00 Results 11/15/17 04:08 11/15/17 04:08 Cardiac Enzymes 11/15/17 Range/Units 04:08 AST 46 H (14-36) U/L CBC 11/14/17 11/15/17 Range/Units 18:39 04:08 WBC 17.6 H 15.9 H (4.5-11.0) T/MM3 RBC 3.98 L 3.35 L (4.00-5.20) M/MM3 Hgb 10.7 L D 8.9 L D (12-16) GM/DL Hct 32.8 L D 27.6 L D (36-46) % Plt Count 585 H 460 H (130-400) T/MM3 Neut # (Auto) Not performed Not performed Lymph # (Auto) Not performed Not performed Emery # (Auto) Not performed Not performed Eos # (Auto) Not performed Not performed Baso # (Auto) Not performed Not performed Comprehensive Metabolic Panel 11/15/17 11/15/17 Range/Units 04:08 04:08 Sodium 137 (136-146) MEQ/L Potassium 3.0 L (3.6-5) MEQ/L Chloride 98 D (98-107) MEQ/L Carbon Dioxide 29 (22-30) MEQ/L BUN 31.0 H (7-17) MG/DL Creatinine 1.0 1.1 (0.7-1.2) mg/dL Glucose 85 (65-110) MG/DL Calcium 7.1 L (8.4-10.2) MG/DL AST 46 H (14-36) U/L ALT 19 (1-35) U/L Alkaline Phosphatase 124 D (38-126) U/L Total Protein 4.9 L (6.3-8.2) g/dL Albumin 2.2 L (3.5-5.0) g/dL Intake and Output 11/14/17 11/15/17 11/15/17 22:59 06:59 14:59 Intake Total 565 / 565 100 / 100 200 / 200 Output Total 425 / 425 550 / 550 Balance 140 / 140 -450 / -450 200 / 200 Intake: IV 200 / 200 Ceftriaxone 1 g In Ns 100 ml @ 100 / 100 200 mls/hr IV DAILY [facility] Rx#: [id number] Potassium Chloride Premix 10 100 / 100 meq In 100 ml @ 100 mls/hr IV Q1H [facility] Rx#:[id number] Oral 565 / 565 100 / 100 Output: Urine Amount (Catheter) 425 / 425 550 / 550 Other: Urine Appearance Clear Urine Color Pale Urine Odor Normal Stool Characteristics Normal for Patient Stool Color Yellow Brown Stool Consistency Loose Size of Bowel Movement Smear Smear # Bowel Movements 1 # Incontinent Bowel Movements 1 Weight 129 lb 3.054 oz Patient Weight 11/16/17 06:59 Weight 129 lb 3.054 oz - Imaging and Cardiology Imaging & Cardiology Narrative: Date of Exam: 11/14/17 Type of Exam(s): US echo doppler complete DATE OF PROCEDURE November 14, 2017 REFERRING PHYSICIAN Barabra Henry MD This is a two-dimensional echo with spectral Doppler, color-flow and M-mode. It was obtained in a patient with heart failure. Left atrium is dilated. Left ventricle end-diastolic dimension is normal. Left ventricle wall thickness is normal. LV systolic function is normal with ejection fraction of 55%. Right atrium is dilated. Right ventricle is normal. Aortic root dimension is normal. Mitral valve is morphologically normal with mild to moderate mitral regurgitation. Aortic valve shows fibrocalcific changes with no stenosis. Moderate aortic insufficiency is present. Tricuspid valve shows moderate tricuspid regurgitation with moderate pulmonary hypertension with estimated pulmonary artery systolic pressure of 44. Pulmonary valve shows mild pulmonary insufficiency. There is no pericardial effusion. IMPRESSION 1. Normal LV systolic function with ejection fraction of 55%. 2. Pleural effusion present. 3. Biatrial dilation. 4. Mild to moderate mitral regurgitation. 5. Aortic sclerosis with moderate aortic insufficiency. 6. Moderate tricuspid regurgitation with moderate pulmonary hypertension with estimated pulmonary artery systolic pressure of 44. 7. Mild pulmonary insufficiency. 11/15/17 15:02 Assessment and Plan - Assessment and Plan (2) Healthcare-associated pneumonia Current visit: Yes Status: Acute (3) Acute diastolic congestive heart failure Current visit: No Status: Chronic (4) Hypokalemia Current visit: Yes Status: Acute (5) PAF (paroxysmal atrial fibrillation) Current visit: No Status: Chronic (6) Anemia Current visit: Yes Status: Chronic (7) Weakness Current visit: Yes Status: Acute - Assessment and Plan Healthcare-associated pneumonia Current visit: Yes Status: Acute - per hospitalist service Acute diastolic congestive heart failure Current visit: No Status: Acute - Denies Orthopnea or SOA, no JVD, 2+ LE edema - Diurese with Lasix 40mg bid as BP allows - Holding Cardizem due to lower BPs Hypokalemia Current visit: Yes Status: Acute - K+ 2.8, replace 40meq orally, Mag 1.8, replace 1gm IV - continue to monitor renal and electrolytes PAF (paroxysmal atrial fibrillation) Current visit: No Status: Chronic - Rate well controlled with Digoxin, hold Cardizem for now due to BP - INR 6.75 today, holding Coumadin Anemia Current visit: Yes Status: Chronic - HGB 7.4, transfused 1 unit PRBCs per hospitalist Weakness Current visit: Yes Status: Acute Thank you for allowing us to participate in the care of this patient, we will follow along with you. 11/15/17 K+ 3.0, replace with 40meq po X1 with food to minimize stomach upset, recheck in am - Keep K+ >4.0, Mag >2.0 Hospital Course Summary Disclaimer: The visit summary below is not to be considered part of the above Progress Note. <Salinas Kessler - Last Filed: 11/20/17 14:12> Exam Vital signs: Temperature 98.1 F 11/20/17 12:00 Pulse Rate 101 H 11/20/17 12:00 Respiratory Rate 17 11/20/17 12:00 Blood Pressure 115/63 11/20/17 12:00 Pulse Oximetry 94 11/20/17 12:00 Inpatient Medications: Generic Name Dose Route Start Last Admin Trade Name Freq PRN Reason Stop Dose Admin Acetaminophen 325 - 650 mg 11/13/17 20:29 11/15/17 18:38 Tylenol PO 650 mg Q5H PRN Administration Discomfort Acetaminophen 320 mg 11/13/17 23:10 11/14/17 00:08 Tylenol 160 Mg/5 Ml Liquid PO 320 mg Q6H PRN Administration Discomfort Cyanocobalamin 500 mcg 11/14/17 09:00 11/19/17 08:46 Vit. B-12 PO Not Given DAILY [facility] Digoxin 125 mcg 11/19/17 09:45 11/20/17 08:44 Lanoxin IVP 125 mcg DAILY [facility] Administration Enoxaparin Sodium 90 mg 11/19/17 09:45 11/20/17 08:46 Lovenox SQ 90 mg DAILY [facility] Administration Folic Acid 1 mg 11/14/17 09:00 11/19/17 08:47 Folate PO Not Given DAILY [facility] Furosemide 20 mg 11/19/17 17:00 11/20/17 08:44 Lasix 20 Mg/2 Ml IVP 20 mg 0900,1700 [facility] Administration Ceftriaxone Sodium 1 g/ Sodium 100 mls @ 200 mls/hr 11/19/17 09:45 11/20/17 09:07 Chloride IV Infused Q24H [facility] Infusion Metronidazole/Sodium Chloride 500 mg in 100 mls @ 100 mls/hr 11/19/17 10:00 11/20/17 11:02 Flagyl Iv Premix IV Infused Q8H [facility] Infusion Potassium Chloride/Dextrose/Sod Cl 1,000 mls @ 30 mls/hr 11/19/17 18:23 11/20 03:51 D5-1/2ns With Kcl 20meq Premix IV 30 mls/hr .Q24H [facility] Infusion Magnesium Oxide 400 mg 11/16/17 09:00 11/19/17 08:47 Magox PO Not Given DAILY [facility] Ondansetron HCl 4 mg 11/19/17 09:42 Zofran IVP Q6H PRN Nausea &/or vomiting Pantoprazole Sodium 40 mg 11/20/17 09:00 11/20/17 08:43 Protonix Iv IVP 40 mg DAILY [facility] Administration Pravastatin Sodium 20 mg 11/13/17 21:00 11/18/17 21:44 Pravachol PO 20 mg HS [facility] Administration Sodium Chloride 10 - 80 ml 11/13/17 17:42 11/20/17 08:44 Iv Flush IVF 40 ml PRN PRN Administration Flushing Sodium Chloride 500 ml 11/14/17 14:38 11/16/17 09:26 Normal Saline IV 500 ml PRN PRN Administration Spironolactone 25 mg 11/16/17 14:45 11/19/17 08:47 Aldactone 25 Mg PO Not Given DAILY [facility] Throat Lozenges 3 spray 11/18/17 11:15 Chloraseptic M[place]alla PO Q2H PRN Sore throat Warfarin Sodium 0 11/17/17 15:00 Coumadin Protocol MC NOTE [facility]ER Warfarin Sodium 1 mg 11/20/17 12:00 08/20/18 12:09 Coumadin PO 11/20/17 23:59 Not Given NOON [facility] Discontinued Medications Generic Name Dose Route Start Last Admin Trade Name Michaelq PRN Reason Stop Dose Admin Digoxin 125 mcg 11/14/17 09:00 11/19/17 08:46 Lanoxin PO Not Given DAILY [facility] Diltiazem HCl 180 mg 11/14/17 09:00 11/14/17 09:41 Cardizem Cd 180 Mg PO Not Given DAILY [facility] Enoxaparin Sodium 40 mg 11/18/17 15:45 11/19/17 09:32 Lovenox SQ 40 mg DAILY [facility] Administration Enoxaparin Sodium 50 mg 11/20/17 12:45 Lovenox SQ 11/20/17 12:46 ONE TIME ONE Enoxaparin Sodium 50 mg 11/19/17 12:45 11/19/17 13:03 Lovenox SQ 11/19/17 12:46 50 mg ONE TIME ONE Administration Furosemide 20 mg 11/13/17 20:29 11/15/17 10:14 Lasix 20 Mg/2 Ml IVP 20 mg Q12H [facility]ER Administration Furosemide 20 mg 11/14/17 15:44 11/14/17 18:05 Lasix 20 Mg/2 Ml IVP 11/14/17 15:45 20 mg O ONE Administration Furosemide 40 mg 11/15/17 17:00 11/19/17 08:47 Lasix 40 Mg Tab PO Not Given 0900,1700 [facility] Furosemide 20 mg 11/19/17 11:31 11/19/17 13:01 Lasix 20 Mg/2 Ml IVP 11/19/17 11:32 20 mg ONCE ONE Administration Haloperidol Lactate 0.5 mg 11/18/17 18:45 11/20/17 12:00 Haldol IVP Not Given O [facility] Sodium Chloride 500 mls @ 1,000 mls/hr 11/13/17 17:40 11/13/17 18:58 Normal Saline IV 11/13/17 18:09 Not Given .Q30M ONE Sodium Chloride 500 mls @ 999.9 mls/hr 11/13/17 17:40 11/13/17 19:04 Normal Saline IV 11/13/17 18:09 Not Given .Q30M ONE Levofloxacin/Dextrose 500 mg in 100 mls @ 100 mls/hr 11/13/17 20:29 11/14/17 01:30 Levaquin 500 Mg Premix IV Infused Q24H [facility] Infusion Vancomycin HCl 1,000 mg/ 250 mls @ 250 mls/hr 11/13/17 20:29 11/13/17 22:36 Sodium Chloride IV Not Given Q12H [facility] Vancomycin HCl 1,250 mg/ 250 mls @ 200 mls/hr 11/13/17 22:30 11/14/17 12:14 Sodium Chloride IV Not Given Q12H [facility] Ceftriaxone Sodium 1 g/ Sodium 100 mls @ 200 mls/hr 11/14/17 09:45 11/16/17 11:22 Chloride IV Infused DAILY [facility] Infusion Magnesium Sulfate/Dextrose 1 gm in 100 mls @ 100 mls/hr 11/14/17 10:28 12:18 Mag Sulf 1gm Premix IV 11/14/17 11:27 Infused O ONE Infusion Vancomycin HCl 1,250 mg/ 250 mls @ 200 mls/hr 11/14/17 12:00 11/15/17 16:30 Sodium Chloride IV Infused Q24H [facility] Infusion Potassium Chloride 10 meq in 100 mls @ 100 mls/hr 11/15/17 10:45 11/15/17 14: 20 Potassium Chloride Premix IV 11/15/17 12:44 Infused Q1H [facility] Infusion Lidocaine HCl 10 mg/ Potassium 100 mls @ 100 mls/hr 11/16/17 07:45 11/16/17 18:55 Chloride 10 meq/ Sodium IV 11/16/17 11:58 Infused Chloride .Q1H [facility] Infusion Vancomycin HCl 1,000 mg/ 250 mls @ 250 mls/hr 11/16/17 15:00 11/17/17 19:31 Sodium Chloride IV Infused Q24H [facility] Infusion Magnesium Sulfate/Dextrose 1 gm in 100 mls @ 100 mls/hr 11/16/17 15:00 21:25 Mag Sulf 1gm Premix IV 11/16/17 16:59 Infused Q1H [facility] Infusion Lidocaine HCl 10 mg/ Potassium 100 mls @ 100 mls/hr 11/17/17 08:45 11/17/17 19:01 Chloride 10 meq/ Sodium IV 11/17/17 14:44 Infused Chloride .Q1H [facility] Infusion Potassium Chloride/Dextrose/Sod Cl 1,000 mls @ 50 mls/hr 11/19/17 09:45 11/19 10:24 D5-1/2ns With Kcl 20meq Premix IV 0 mls/hr .Q20H [facility] Infusion Potassium Chloride 10 meq in 100 mls @ 100 mls/hr 11/19/17 09:45 11/19/17 17: 00 Potassium Chloride Premix IV 11/19/17 13:44 Infused Q1H [facility] Infusion Ondansetron HCl 4 mg 11/13/17 20:29 Zofran Po PO Q6H PRN Nausea Pantoprazole Sodium 40 mg 11/16/17 06:30 11/19/17 06:29 Protonix Tab PO Not Given ACB [facility] Phytonadione 10 mg 11/13/17 21:09 11/13/17 22:35 Vitamin K Oral Liq PO 11/13/17 21:10 10 mg O ONE Administration Phytonadione 10 mg 11/14/17 09:38 11/14/17 10:11 Vitamin K (Adult) Inj SQ 11/14/17 09:39 10 mg O ONE Administration Polyethylene Glycol 17 gm 11/13/17 20:29 Miralax PO DAILY PRN Constipation Potassium Chloride 40 meq 11/13/17 19:00 11/13/17 19:11 K-Dur 20 Meq Tablet PO 11/13/17 19:01 40 meq O ONE Administration Potassium Chloride 20 meq 11/14/17 08:00 11/15/17 10:13 Kcl Oral Liq 20 Meq/15 Ml PO 20 meq BIDWM [facility] Administration Potassium Chloride 40 meq 11/14/17 10:29 11/14/17 10:38 K-Dur 20 Meq Tablet PO 11/14/17 10:30 Not Given O ONE Potassium Chloride 40 meq 11/14/17 10:45 11/14/17 10:52 Kcl Oral Liq 20 Meq/15 Ml PO 11/14/17 10:46 40 meq O ONE Administration Potassium Chloride 40 meq 11/15/17 15:03 11/15/17 16:29 K-Dur 20 Meq Tablet PO 11/15/17 15:04 40 meq O ONE Administration Potassium Chloride 20 meq 11/18/17 12:00 11/19/17 08:46 K-Dur 20 Meq Tablet PO Not Given TIDWM [facility] Potassium Citrate 40 meq 11/13/17 20:29 11/13/17 22:34 Urocit-K PO 11/13/17 20:30 40 meq TID ONE Administration Quetiapine Fumarate 25 mg 11/18/17 21:00 11/18/17 21:44 Seroquel PO 25 mg HS [facility] Administration Vancomycin HCl 125 mg 11/14/17 22:15 11/19/17 09:36 Vancomycin Oral Liq PO Not Given Q6HR [facility] Warfarin Sodium 2 mg 11/13/17 21:00 Coumadin PO HS [facility] Warfarin Sodium 2 mg 11/17/17 21:00 Coumadin PO HS [facility] Warfarin Sodium 1 each 11/17/17 14:14 11/20/17 12:00 Pharmacy Consult - Warfarin MC 11/17/17 14:15 Not Given O ONE Warfarin Sodium 1 mg 11/17/17 14:45 11/17/17 18:26 Coumadin PO 11/17/17 14:46 1 mg O ONE Administration Warfarin Sodium 1 mg 11/18/17 12:00 11/18/17 12:46 Coumadin PO 11/18/17 12:30 1 mg NOON [facility] Administration Warfarin Sodium 1 mg 11/19/17 12:00 11/19/17 12:49 Coumadin PO 11/19/17 12:30 Not Given NOON [facility] Warfarin Sodium 2 mg 11/20/17 12:00 Coumadin PO 11/20/17 23:59 NOON [facility] - Urinary Catheter Management Urethral Cath placed during this visit: no Results 11/20/17 11:33 11/20/17 11:33 CBC 11/20/17 Range/Units 11:33 WBC 17.5 H (4.5-11.0) T/MM3 RBC 3.78 L (4.00-5.20) M/MM3 Hgb 9.9 L (12-16) GM/DL Hct 30.7 L (36-46) % Plt Count 319 (130-400) T/MM3 Neut # (Auto) Not performed Lymph # (Auto) Not performed Emery # (Auto) Not performed Eos # (Auto) Not performed Baso # (Auto) Not performed Comprehensive Metabolic Panel 11/20/17 Range/Units 11:33 Sodium 141 (136-146) MEQ/L Potassium 3.4 L (3.6-5) MEQ/L Chloride 103 (98-107) MEQ/L Carbon Dioxide 28 (22-30) MEQ/L BUN 26.0 H (7-17) MG/DL Creatinine 1.1 (0.7-1.2) mg/dL Glucose 89 (65-110) MG/DL Calcium 6.7 L (8.4-10.2) MG/DL Intake and Output 11/19/17 11/20/17 11/20/17 22:59 06:59 14:59 Intake Total 300 / 300 327.5 / 327.5 200 / 200 Output Total 475 / 475 Balance 300 / 300 -147.5 / -147.5 200 / 200 Intake: IV 300 / 300 327.5 / 327.5 200 / 200 Ceftriaxone 1 g In Ns 100 ml @ 100 / 100 200 mls/hr IV Q24H [facility] Rx#: [id number] D5-1/2NS with KCL 20mEq 1,000 227.5 / 227.5 ml @ 30 mls/hr IV .Q24H [facility] Rx# :[id number] MetroNIDAZOLE PB 500 mg In 100 100 / 100 100 / 100 100 / 100 ml @ 100 mls/hr IV Q8H [facility] Rx#: [id number] Potassium Chloride Premix 10 200 / 200 meq In 100 ml @ 100 mls/hr IV Q1H [facility] Rx#:[id number] Output: Urine Amount (Catheter) 475 / 475 Other: Urine Appearance Clear Cloudy Urine Color Yellow Dark Yellow Straw Urine Odor Normal Weight 60.5 kg Patient Weight 11/21/17 06:59 Weight 60.5 kg Assessment and Plan - Assessment and Plan (1) C. difficile diarrhea Current visit: Yes Status: Acute (2) Acute diastolic congestive heart failure Current visit: No Status: Chronic (3) PAF (paroxysmal atrial fibrillation) Current visit: No Status: Chronic (4) Hypokalemia Current visit: Yes Status: Acute (5) Weakness Current visit: Yes Status: Acute (6) Healthcare-associated pneumonia Current visit: Yes Status: Acute (7) Anemia Current visit: Yes Status: Chronic - Attestation Attestation Narrative: 11/20/17 14:12 Recommendation After examining the patient I agree with the above assessment. I am involved in the formulation of the patient's plan of care. Hospital Course Summary Disclaimer: The visit summary below is not to be considered part of the above Progress Note.
[2017-11-15] MEDS: FUROSEMIDE 40 MG TABLET PO SCH (16:49)
[2017-11-15] MEDS: PRAVASTATIN 20 MG TABLET PO SCH (21:15)
[2017-11-16] MEDS: VANCOMYCIN 250mg/5ml ORAL LIQ PO SCH ×4 (03:14→20:23)
[2017-11-16] MEDS: PANTOPRAZOLE 40 MG TABLET PO SCH (06:05)
[2017-11-16] MEDS: FOLIC ACID 1 MG TABLET PO SCH (09:26)
[2017-11-16] MEDS: NS FLUSH BAG 500ml IV PRN (09:26)
[2017-11-16] MEDS: CEFTRIAXONE 1 G in NS 100 ML IV SCH (09:26)
[2017-11-16] MEDS: DIGOXIN 125 MCG TABLET PO SCH (09:26)
[2017-11-16] MEDS: FUROSEMIDE 40 MG TABLET PO SCH ×2 (09:27→18:28)
[2017-11-16] MEDS: CYANOCOBALAMIN (B-12) 500mcg TABLET PO SCH (09:27)
--- NOTE | 2017-11-16 09:42 | Progress Note ---
- Date 11/16/17 Subjective: Patrizia has no new complaints this morning. She continues to have diarrhea but denies nausea or abdominal cramping. She doesn't care for the clear liquid diet , and particularly doesn't care for the protein supplements as they are too sweet. She has not had any shortness of breath, chest pain, or palpitations. She is able to stand and take a couple steps to the commode with assistance, but is weak and has poor balance. Objective Vital signs: Temperature 96 F L 11/16/17 08:08 Pulse Rate 73 11/16/17 09:26 Respiratory Rate 15 11/16/17 03:47 Blood Pressure 143/62 H 11/16/17 08:08 Pulse Oximetry 94 11/16/17 08:08 Height/Weight/BMI: Height 1.65 m Weight 60.7 kg Body Mass Index 21.6 - Constitutional Present: no acute distress, well nourished, well developed - Routine HEENT Exam Head: Present: normocephalic Eye: Present: PERRL. Absent: conjunctival icterus, scleral injection - Routine Respiratory Exam Present: decreased breath sounds (bilateral bases). Absent: wheezes - Routine Cardiovascular Exam Present: S1, S2, irregularly irregular - Routine Abdominal Exam Present: soft, normoactive bowel sounds (hyperactive), non distended, non tender - Routine Extremities Exam Present: edema (3+ edema around ankles, 1+ to shins). Absent: calf tenderness - Routine Skin Exam Present: intact, dry, warm - Routine Neurological Exam Present: alert, oriented X3, moving all extremities, normal speech. Absent: facial asymmetry - Routine Psychiatric Exam Present: normal affect, normal thought process, cooperative Results - Labs CBC & Chem 7: 11/16/17 04:51 11/16/17 04:51 Assessment and Plan (1) Acute diastolic congestive heart failure Current visit: No Status: Chronic (2) Hypokalemia Current visit: Yes Status: Acute (3) Healthcare-associated pneumonia Current visit: Yes Status: Acute Assessment and Plan: Assessment: Lower GI bleeding, on Coumadin, INR 1.55 C. difficile diarrhea, positive C. difficile toxin on stool sample Hypokalemia, likely secondary to diuresis, POA Right lower lobe aspiration pneumonia versus pleural effusion Atrial fibrillation Hypertension, presently hypotensive. Hyperlipidemia Hyperparathyroidism Plan: Potassium has dropped further to 2.7. IV replacement has been ordered. Mag is low normal at 1.6, and will start daily replacement. White count increased to 16.4. Continue oral Vanco for C. difficile. She continues on Rocephin as well - will discuss antibiotics with attending. Advance diet to soft cardiac diet. Dr. Ibrahim indicated that she may follow- up outpatient. Diuresis per cardiology. Fluid status is +1.7; weight trending up. DC Long as soon as possible. Will need to discuss anticoagulation with cardiology. Discussed with RN. DVT Prophylaxis: SCD's, other ( inr is supratherapeutic) GI Prophylaxis: Protonix Resuscitation Status: Do Not Resuscitate - Physician Narrative Physician: Edgard Villalba MD Narrative: Date: 11/16/17 Time: 937 I have independently interviewed and examined patient. Patient chart reviewed. 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 Care plan developed with my supervision, agree with above. Patient continues to have off and on episodes of diarrhea. Remains under contact precautions with positive C. difficile. Serum potassium 2.7, will be replaced. INR decreased at 1.43 today. General surgery not planning any colonoscopy at this time. We'll advance diet as tolerated. Physical exam: AAO x 3, NAD PERRLA, EOMI S1 and S2 heard on auscultation, irregularly irregular heart sounds. No murmurs Lungs clear to auscultation bilaterally, no wheezing, no crackles Abdomen soft, nontender, positive bowel sounds 2+ pitting edema bilateral lower extremities. Assessment: C. difficile diarrhea, melanotic stools secondary to anticoagulation with Coumadin. Hypokalemia. Atrial fibrillation. Hypertension. Hyperlipidemia. Hyperparathyroidism. Plan: Continue oral vancomycin for C. difficile diarrhea. Advanced to soft cardiac diet. Cardiology consulted. Patient started on oral spironolactone 25 mg daily. DC IV Rocephin. Hospital Course Summary Disclaimer: The visit summary below is not to be considered part of the above Progress Note. Hospital Course: 11/13/17 admitted with profound hypokalemia, likely due to loop diuretics, and suspect right lower lobe pneumonia, she is in a healthcare setting, along with recent hospitalizations, aspiration pneumonitis/pneumonia is less likely, but cannot be ruled out. she did cough when she took her liquid potassium supplement this evening. she is admitted with telemetry, will continue antibiotics, gentle lasix given her relatively low blood pressure reported in the clinic, continue the majority of her home medications besides warfarin for which vitamin k was given to antagonize. appreciate cardiology's input expertise and familiarity in these matters in the morning, as well as physical occupational and speech therapies. will provide further symptomatic, supportive, and diagnostic cares as the current workup, or as changes in her clinical scenario indicate. the plan of care was discussed with the patient and her family at the bedside at the time of my evaluation and they expressed understanding and a desire to proceed. 11/14/17 IV potassium chloride 60 mEq 1. Continue oral potassium chloride 20 mEq twice a day. We will recheck potassium chloride this evening at 1600. Stool for occult blood. Hemoglobin dropped from 8.7 last night to 7.4 this morning. We will type, cross match and transfuse 1 unit of PRBC. Will recheck H& H 1 hour posttransfusion. INR 6.75. Will provide 10 mg vitamin K subcutaneous 1, with concern for active lower GI bleeding. We will recheck INR at 1600. Patient will be placed on clear liquid diet. Cautious diuresis IV Lasix 20 mg twice a day. Patient has received IV vancomycin and Levaquin, with concern for recurrent aspiration pneumonia. Discontinue Levaquin, considering patient's age and history of atrial fibrillation. Patient will be started on IV Rocephin 1 g daily. Long catheter in place, will monitor intake and output, daily weights. 11/15/17 Patient will remain in contact precautions. Oral vancomycin 125 mg every 6 hours for positive C. difficile. Serum potassium 3.0, patient received 20 mEq oral potassium chloride. Will provide 20 mEq IV potassium chloride and monitor potassium levels. Patient reports she does not like oral potassium chloride supplementation which will be discontinued for now. Cardiology consulted, recommendation for oral Lasix 40 mg twice a day. We'll monitor intake and output, daily weights. Echocardiogram findings as described above. INR reaches greater than 10 on admission has dropped to 1.55 last evening. Will monitor PT/INR. Coumadin remains on hold. We will continue digoxin 0.125 mg daily. Patient status post transfusion of 1 unit of PRBC, hemoglobin improved from 7.4 to 10.7 last evening, repeat hemoglobin dropped to 8.9 this morning. Stool for occult blood negative. Will discuss case with general surgeon, Dr. Ibrahim regarding need for repeat colonoscopy. Patient will remain on clear liquid diet. If no plan for colonoscopy, will progress to soft cardiac diet. 11/16/17 Potassium has dropped further to 2.7. IV replacement has been ordered. Mag is low normal at 1.6, and will start daily replacement. White count increased to 16.4. Continue oral Vanco for C. difficile. She continues on Rocephin as well - will discuss antibiotics with attending. Advance diet to soft cardiac diet. Dr. Ibrahim indicated that she may follow- up outpatient. Diuresis per cardiology. Fluid status is +1.7; weight trending up. GREGORY Long as soon as possible. Will need to discuss anticoagulation with cardiology.
[2017-11-16] MEDS: LIDOCAINE 1% INJ 10 MG, POTASSIUM CHLORIDE INJ 10 MEQ in NS 100 ML IV SCH ×4 (10:38→17:23)
[2017-11-16] MEDS: MAGNESIUM OXIDE 400 MG TABLET PO SCH (10:38)
[2017-11-16] MEDS: SALINE FLUSH 10ml SYRINGE IVF PRN ×2 (10:39→17:24)
--- NOTE | 2017-11-16 13:08 | Pharmacy Consult-Antibiotics ---
Pharmacy Consult-Vancomycin - Laboratory Information WBC 16.4 T/MM3 (4.5-11.0) H 11/16/17 04:51 BUN 26.0 MG/DL (7-17) H 11/16/17 04:51 Creatinine 1.0 mg/dL (0.7-1.2) 11/16/17 04:51 Vancomycin Trough 20.93 ug/mL (15-20) H 11/16/17 11:03 - Consult Information Vancomycin trough slightly elevated. Will reduce vancomycin dose to 1 gram IV q24h. Thank you.
--- NOTE | 2017-11-16 14:47 | Cardiology Progress Note ---
<Cherry Hernandez M - Last Filed: 11/17/17 15:29> Subjective Principal diagnosis: edema Interval history: Patrizia is seen in follow up for diastolic HF. She is in bed, family at the bedside. She states she feels bad all over, continues to have loose stools. She is in no distress on room air. She denies chest pain, pressure, palpitations, dyspnea, dizziness or nausea. Exam Vital signs: Temperature 96 F L 11/16/17 08:08 Pulse Rate 87 11/16/17 13:16 Respiratory Rate 24 11/16/17 13:16 Blood Pressure 142/69 H 11/16/17 13:16 Pulse Oximetry 97 11/16/17 13:16 Inpatient Medications: Generic Name Dose Route Start Last Admin Trade Name Freq PRN Reason Stop Dose Admin Acetaminophen 325 - 650 mg 11/13/17 20:29 11/15/17 18:38 Tylenol PO 650 mg Q5H PRN Administration Discomfort Acetaminophen 320 mg 11/13/17 23:10 11/14/17 00:08 Tylenol 160 Mg/5 Ml Liquid PO 320 mg Q6H PRN Administration Discomfort Cyanocobalamin 500 mcg 11/14/17 09:00 11/16/17 09:27 Vit. B-12 PO 500 mcg DAILY [facility] Administration Digoxin 125 mcg 11/14/17 09:00 11/16/17 09:26 Lanoxin PO 125 mcg DAILY [facility] Administration Folic Acid 1 mg 11/14/17 09:00 11/16/17 09:26 Folate PO 1 mg DAILY [facility] Administration Furosemide 40 mg 11/15/17 17:00 11/16/17 09:27 Lasix 40 Mg Tab PO 40 mg 0900,1700 [facility] Administration Ceftriaxone Sodium 1 g/ Sodium 100 mls @ 200 mls/hr 11/14/17 09:45 11/16/17 11:22 Chloride IV Infused DAILY [facility] Infusion Vancomycin HCl 1,000 mg/ 250 mls @ 250 mls/hr 11/16/17 15:00 Sodium Chloride IV Q24H [facility] Magnesium Oxide 400 mg 11/16/17 09:00 11/16/17 10:38 Magox PO 400 mg DAILY [facility] Administration Ondansetron HCl 4 mg 11/13/17 20:29 Zofran Po PO Q6H PRN Nausea Pantoprazole Sodium 40 mg 11/16/17 06:30 11/16/17 06:05 Protonix Tab PO 40 mg ACB [facility] Administration Polyethylene Glycol 17 gm 11/13/17 20:29 Miralax PO DAILY PRN Constipation Pravastatin Sodium 20 mg 11/13/17 21:00 11/15/17 21:15 Pravachol PO 20 mg HS [facility] Administration Sodium Chloride 10 - 80 ml 11/13/17 17:42 11/16/17 10:39 Iv Flush IVF 10 ml PRN PRN Administration Flushing Sodium Chloride 500 ml 11/14/17 14:38 11/16/17 09:26 Normal Saline IV 500 ml PRN PRN Administration Spironolactone 25 mg 11/16/17 14:45 Aldactone 25 Mg PO DAILY [facility] Vancomycin HCl 125 mg 11/14/17 22:15 11/16/17 09:25 Vancomycin Oral Liq PO 125 mg Q6HR [facility] Administration Discontinued Medications Generic Name Dose Route Start Last Admin Trade Name Freq PRN Reason Stop Dose Admin Diltiazem HCl 180 mg 11/14/17 09:00 11/14/17 09:41 Cardizem Cd 180 Mg PO Not Given DAILY [facility] Furosemide 20 mg 11/13/17 20:29 11/15/17 10:14 Lasix 20 Mg/2 Ml IVP 20 mg Q12H [facility] Administration Furosemide 20 mg 11/14/17 15:44 11/14/17 18:05 Lasix 20 Mg/2 Ml IVP 11/14/17 15:45 20 mg O ONE Administration Sodium Chloride 500 mls @ 1,000 mls/hr 11/13/17 17:40 11/13/17 18:58 Normal Saline IV 11/13/17 18:09 Not Given .Q30M ONE Sodium Chloride 500 mls @ 999.9 mls/hr 11/13/17 17:40 11/13/17 19:04 Normal Saline IV 11/13/17 18:09 Not Given .Q30M ONE Levofloxacin/Dextrose 500 mg in 100 mls @ 100 mls/hr 11/13/17 20:29 11/14/17 01:30 Levaquin 500 Mg Premix IV Infused Q24H [facility] Infusion Vancomycin HCl 1,000 mg/ 250 mls @ 250 mls/hr 11/13/17 20:29 11/13/17 22:36 Sodium Chloride IV Not Given Q12H [facility] Vancomycin HCl 1,250 mg/ 250 mls @ 200 mls/hr 11/13/17 22:30 11/14/17 12:14 Sodium Chloride IV Not Given Q12H [facility] Magnesium Sulfate/Dextrose 1 gm in 100 mls @ 100 mls/hr 11/14/17 10:28 12:18 Mag Sulf 1gm Premix IV 11/14/17 11:27 Infused O ONE Infusion Vancomycin HCl 1,250 mg/ 250 mls @ 200 mls/hr 11/14/17 12:00 11/15/17 16:30 Sodium Chloride IV Infused Q24H [facility] Infusion Potassium Chloride 10 meq in 100 mls @ 100 mls/hr 11/15/17 10:45 11/15/17 14: 20 Potassium Chloride Premix IV 11/15/17 12:44 Infused Q1H [facility] Infusion Lidocaine HCl 10 mg/ Potassium 100 mls @ 100 mls/hr 11/16/17 07:45 11/16/17 14:00 Chloride 10 meq/ Sodium IV 11/16/17 11:58 100 mls/hr Chloride .Q1H [facility] Administration Phytonadione 10 mg 11/13/17 21:09 11/13/17 22:35 Vitamin K Oral Liq PO 11/13/17 21:10 10 mg O ONE Administration Phytonadione 10 mg 11/14/17 09:38 11/14/17 10:11 Vitamin K (Adult) Inj SQ 11/14/17 09:39 10 mg O ONE Administration Potassium Chloride 40 meq 11/13/17 19:00 11/13/17 19:11 K-Dur 20 Meq Tablet PO 11/13/17 19:01 40 meq O ONE Administration Potassium Chloride 20 meq 11/14/17 08:00 11/15/17 10:13 Kcl Oral Liq 20 Meq/15 Ml PO 20 meq BIDWM [facility] Administration Potassium Chloride 40 meq 11/14/17 10:29 11/14/17 10:38 K-Dur 20 Meq Tablet PO 11/14/17 10:30 Not Given O ONE Potassium Chloride 40 meq 11/14/17 10:45 11/14/17 10:52 Kcl Oral Liq 20 Meq/15 Ml PO 11/14/17 10:46 40 meq O ONE Administration Potassium Chloride 40 meq 11/15/17 15:03 11/15/17 16:29 K-Dur 20 Meq Tablet PO 11/15/17 15:04 40 meq O ONE Administration Potassium Citrate 40 meq 11/13/17 20:29 11/13/17 22:34 Urocit-K PO 11/13/17 20:30 40 meq TID ONE Administration Warfarin Sodium 2 mg 11/13/17 21:00 Coumadin PO HS [facility] - Constitutional no acute distress, well nourished, cooperative - Routine HEENT Exam Head: Present: normocephalic ENT: Present: mucous membranes moist - Routine Neck Exam Absent: JVD, carotid bruit - Routine Chest/Breast/Axilla Exam Chest wall: Absent: tenderness - Routine Respiratory Exam Present: diminished air movement (bases). Absent: dyspnea, CTA bilaterally - Routine Cardiovascular Exam Present: S1, S2, no murmur, irregular rhythm - Routine Abdominal Exam Present: soft, non tender - Routine Extremities Exam Present: edema - Routine Skin Exam Present: intact, dry, warm - Routine Neurological Exam Present: alert, oriented X3 - Routine Psychiatric Exam Present: normal affect, normal thought process - Urinary Catheter Management Urethral Cath placed during this visit: yes Insertion date: 11/13/17 Insertion time: 21:00 Results 11/16/17 04:51 11/16/17 04:51 CBC 11/15/17 11/16/17 Range/Units 16:26 04:51 WBC 16.4 H (4.5-11.0) T/MM3 RBC 3.29 L (4.00-5.20) M/MM3 Hgb 9.2 L 8.8 L (12-16) GM/DL Hct 28.0 L 26.6 L (36-46) % Plt Count 426 H (130-400) T/MM3 Comprehensive Metabolic Panel 11/16/17 Range/Units 04:51 Sodium 135 L (136-146) MEQ/L Potassium 2.7 L* (3.6-5) MEQ/L Chloride 98 (98-107) MEQ/L Carbon Dioxide 29 (22-30) MEQ/L BUN 26.0 H (7-17) MG/DL Creatinine 1.0 (0.7-1.2) mg/dL Glucose 106 (65-110) MG/DL Calcium 7.0 L (8.4-10.2) MG/DL Intake and Output 11/15/17 11/16/17 11/16/17 22:59 06:59 14:59 Intake Total 1170 / 1170 60 / 60 330 / 330 Output Total 450 / 450 1050 / 1050 Balance 720 / 720 60 / 60 -720 / -720 Intake: IV 250 / 250 300 / 300 Ceftriaxone 1 g In Ns 100 ml @ 100 / 100 200 mls/hr IV DAILY [facility] Rx#: [id number] Lidocaine 1% Inj 10 mg 200 / 200 Potassium Chloride Inj 10 meq In Ns 100 ml @ 100 mls/hr IV . Q1H [facility] Rx#:[id number] Vancomycin 1,250 mg In NS 250ml 250 / 250 250 ml @ 200 mls/hr IV Q24H [facility] Rx#:[id number] Oral 920 / 920 60 / 60 30 / 30 Output: Urine Amount (Catheter) 450 / 450 1050 / 1050 Other: Urine Appearance Cloudy Clear Urine Color Yellow Dark Yellow Urine Odor Normal Stool Characteristics Mucoid Stool Color Brown Brown Black Green Stool Consistency Liquid Liquid Size of Bowel Movement Moderate Small # Bowel Movements 1 1 # Incontinent Bowel Movements 1 Weight 133 lb 13.129 oz Patient Weight 11/17/17 06:59 Weight 133 lb 13.129 oz Assessment and Plan - Assessment and Plan (2) Healthcare-associated pneumonia Current visit: Yes Status: Acute (3) Acute diastolic congestive heart failure Current visit: No Status: Chronic (4) Hypokalemia Current visit: Yes Status: Acute (5) PAF (paroxysmal atrial fibrillation) Current visit: No Status: Chronic (6) Anemia Current visit: Yes Status: Chronic (7) Weakness Current visit: Yes Status: Acute - Assessment and Plan Healthcare-associated pneumonia Current visit: Yes Status: Acute - per hospitalist service Acute diastolic congestive heart failure Current visit: No Status: Acute - Denies Orthopnea or SOA, no JVD, 2+ LE edema - Diurese with Lasix 40mg bid as BP allows - Holding Cardizem due to lower BPs Hypokalemia Current visit: Yes Status: Acute - K+ 2.8, replace 40meq orally, Mag 1.8, replace 1gm IV - continue to monitor renal and electrolytes PAF (paroxysmal atrial fibrillation) Current visit: No Status: Chronic - Rate well controlled with Digoxin, hold Cardizem for now due to BP - INR 6.75 today, holding Coumadin Anemia Current visit: Yes Status: Chronic - HGB 7.4, transfused 1 unit PRBCs per hospitalist Weakness Current visit: Yes Status: Acute Thank you for allowing us to participate in the care of this patient, we will follow along with you. 11/15/17 K+ 3.0, replace with 40meq po X1 with food to minimize stomach upset, recheck in am - Keep K+ >4.0, Mag >2.0 11/16/17 - K+ 2.7, Replaced per hospitalist, Mag 1.6, replace 2gms IV. - Spironolactone 25mg daily to help patient retain potassium Hospital Course Summary Disclaimer: The visit summary below is not to be considered part of the above Progress Note. Hospital Course: 11/13/17 admitted with profound hypokalemia, likely due to loop diuretics, and suspect right lower lobe pneumonia, she is in a healthcare setting, along with recent hospitalizations, aspiration pneumonitis/pneumonia is less likely, but cannot be ruled out. she did cough when she took her liquid potassium supplement this evening. she is admitted with telemetry, will continue antibiotics, gentle lasix given her relatively low blood pressure reported in the clinic, continue the majority of her home medications besides warfarin for which vitamin k was given to antagonize. appreciate cardiology's input expertise and familiarity in these matters in the morning, as well as physical occupational and speech therapies. will provide further symptomatic, supportive, and diagnostic cares as the current workup, or as changes in her clinical scenario indicate. the plan of care was discussed with the patient and her family at the bedside at the time of my evaluation and they expressed understanding and a desire to proceed. 11/14/17 IV potassium chloride 60 mEq 1. Continue oral potassium chloride 20 mEq twice a day. We will recheck potassium chloride this evening at 1600. Stool for occult blood. Hemoglobin dropped from 8.7 last night to 7.4 this morning. We will type, cross match and transfuse 1 unit of PRBC. Will recheck H& H 1 hour posttransfusion. INR 6.75. Will provide 10 mg vitamin K subcutaneous 1, with concern for active lower GI bleeding. We will recheck INR at 1600. Patient will be placed on clear liquid diet. Cautious diuresis IV Lasix 20 mg twice a day. Patient has received IV vancomycin and Levaquin, with concern for recurrent aspiration pneumonia. Discontinue Levaquin, considering patient's age and history of atrial fibrillation. Patient will be started on IV Rocephin 1 g daily. Long catheter in place, will monitor intake and output, daily weights. 11/15/17 Patient will remain in contact precautions. Oral vancomycin 125 mg every 6 hours for positive C. difficile. Serum potassium 3.0, patient received 20 mEq oral potassium chloride. Will provide 20 mEq IV potassium chloride and monitor potassium levels. Patient reports she does not like oral potassium chloride supplementation which will be discontinued for now. Cardiology consulted, recommendation for oral Lasix 40 mg twice a day. We'll monitor intake and output, daily weights. Echocardiogram findings as described above. INR reaches greater than 10 on admission has dropped to 1.55 last evening. Will monitor PT/INR. Coumadin remains on hold. We will continue digoxin 0.125 mg daily. Patient status post transfusion of 1 unit of PRBC, hemoglobin improved from 7.4 to 10.7 last evening, repeat hemoglobin dropped to 8.9 this morning. Stool for occult blood negative. Will discuss case with general surgeon, Dr. Ibrahim regarding need for repeat colonoscopy. Patient will remain on clear liquid diet. If no plan for colonoscopy, will progress to soft cardiac diet. 11/16/17 Potassium has dropped further to 2.7. IV replacement has been ordered. Mag is low normal at 1.6, and will start daily replacement. White count increased to 16.4. Continue oral Vanco for C. difficile. She continues on Rocephin as well - will discuss antibiotics with attending. Advance diet to soft cardiac diet. Dr. Ibrahim indicated that she may follow- up outpatient. Diuresis per cardiology. Fluid status is +1.7; weight trending up. DC Long as soon as possible. Will need to discuss anticoagulation with cardiology. <Salinas Kessler - Last Filed: 11/20/17 14:18> Exam Vital signs: Temperature 98.1 F 11/20/17 12:00 Pulse Rate 101 H 11/20/17 12:00 Respiratory Rate 17 11/20/17 12:00 Blood Pressure 115/63 11/20/17 12:00 Pulse Oximetry 94 11/20/17 12:00 Inpatient Medications: Generic Name Dose Route Start Last Admin Trade Name Freq PRN Reason Stop Dose Admin Acetaminophen 325 - 650 mg 11/13/17 20:29 11/15/17 18:38 Tylenol PO 650 mg Q5H PRN Administration Discomfort Acetaminophen 320 mg 11/13/17 23:10 11/14/17 00:08 Tylenol 160 Mg/5 Ml Liquid PO 320 mg Q6H PRN Administration Discomfort Cyanocobalamin 500 mcg 11/14/17 09:00 11/19/17 08:46 Vit. B-12 PO Not Given DAILY [facility] Digoxin 125 mcg 11/19/17 09:45 11/20/17 08:44 Lanoxin IVP 125 mcg DAILY [facility] Administration Enoxaparin Sodium 90 mg 11/19/17 09:45 11/20/17 08:46 Lovenox SQ 90 mg DAILY [facility] Administration Folic Acid 1 mg 11/14/17 09:00 11/19/17 08:47 Folate PO Not Given DAILY [facility] Furosemide 20 mg 11/19/17 17:00 11/20/17 08:44 Lasix 20 Mg/2 Ml IVP 20 mg 0900,1700 [facility] Administration Ceftriaxone Sodium 1 g/ Sodium 100 mls @ 200 mls/hr 11/19/17 09:45 11/20/17 09:07 Chloride IV Infused Q24H [facility] Infusion Metronidazole/Sodium Chloride 500 mg in 100 mls @ 100 mls/hr 11/19/17 10:00 11/20/17 11:02 Flagyl Iv Premix IV Infused Q8H [facility] Infusion Potassium Chloride/Dextrose/Sod Cl 1,000 mls @ 30 mls/hr 11/19/17 18:23 11/20 03:51 D5-1/2ns With Kcl 20meq Premix IV 30 mls/hr .Q24H [facility] Infusion Magnesium Oxide 400 mg 11/16/17 09:00 11/19/17 08:47 Magox PO Not Given DAILY [facility] Ondansetron HCl 4 mg 11/19/17 09:42 Zofran IVP Q6H PRN Nausea &/or vomiting Pantoprazole Sodium 40 mg 11/20/17 09:00 11/20/17 08:43 Protonix Iv IVP 40 mg DAILY [facility] Administration Pravastatin Sodium 20 mg 11/13/17 21:00 11/18/17 21:44 Pravachol PO 20 mg HS [facility] Administration Sodium Chloride 10 - 80 ml 11/13/17 17:42 11/20/17 08:44 Iv Flush IVF 40 ml PRN PRN Administration Flushing Sodium Chloride 500 ml 11/14/17 14:38 11/16/17 09:26 Normal Saline IV 500 ml PRN PRN Administration Spironolactone 25 mg 11/16/17 14:45 11/19/17 08:47 Aldactone 25 Mg PO Not Given DAILY [facility] Throat Lozenges 3 spray 11/18/17 11:15 Chloraseptic [place] PO Q2H PRN Sore throat Warfarin Sodium 0 11/17/17 15:00 Coumadin Protocol NOTE [facility] Warfarin Sodium 1 mg 11/20/17 12:00 11/20/17 12:09 Coumadin PO 11/20/17 23:59 Not Given NOON [facility] Discontinued Medications Generic Name Dose Route Start Last Admin Trade Name Freq PRN Reason Stop Dose Admin Digoxin 125 mcg 11/14/17 09:00 11/19/17 08:46 Lanoxin PO Not Given DAILY [facility] Diltiazem HCl 180 mg 11/14/17 09:00 11/14/17 09:41 Cardizem Cd 180 Mg PO Not Given DAILY [facility] Enoxaparin Sodium 40 mg 11/18/17 15:45 11/19/17 09:32 Lovenox SQ 40 mg DAILY [facility] Administration Enoxaparin Sodium 50 mg 11/20/17 12:45 Lovenox SQ 11/20/17 12:46 ONE TIME ONE Enoxaparin Sodium 50 mg 11/19/17 12:45 11/19/17 13:03 Lovenox SQ 11/19/17 12:46 50 mg ONE TIME ONE Administration Furosemide 20 mg 11/13/17 20:29 11/15/17 10:14 Lasix 20 Mg/2 Ml IVP 20 mg Q12H [facility] Administration Furosemide 20 mg 11/14/17 15:44 11/14/17 18:05 Lasix 20 Mg/2 Ml IVP 11/14/17 15:45 20 mg O ONE Administration Furosemide 40 mg 11/15/17 17:00 11/19/17 08:47 Lasix 40 Mg Tab PO Not Given 0900,1700 [facility] Furosemide 20 mg 11/19/17 11:31 11/19/17 13:01 Lasix 20 Mg/2 Ml IVP 11/19/17 11:32 20 mg ONCE ONE Administration Haloperidol Lactate 0.5 mg 11/18/17 18:45 11/20/17 12:00 Haldol IVP Not Given O [facility] Sodium Chloride 500 mls @ 1,000 mls/hr 11/13/17 17:40 11/13/17 18:58 Normal Saline IV 11/13/17 18:09 Not Given .Q30M ONE Sodium Chloride 500 mls @ 999.9 mls/hr 11/13/17 17:40 11/13/17 19:04 Normal Saline IV 11/13/17 18:09 Not Given .Q30M ONE Levofloxacin/Dextrose 500 mg in 100 mls @ 100 mls/hr 11/13/17 20:29 11/14/17 01:30 Levaquin 500 Mg Premix IV Infused Q24H [facility] Infusion Vancomycin HCl 1,000 mg/ 250 mls @ 250 mls/hr 11/13/17 20:29 11/13/17 22:36 Sodium Chloride IV Not Given Q12H [facility] Vancomycin HCl 1,250 mg/ 250 mls @ 200 mls/hr 11/13/17 22:30 11/14/17 12:14 Sodium Chloride IV Not Given Q12H [facility] Ceftriaxone Sodium 1 g/ Sodium 100 mls @ 200 mls/hr 11/14/17 09:45 11/16/17 11:22 Chloride IV Infused DAILY [facility] Infusion Magnesium Sulfate/Dextrose 1 gm in 100 mls @ 100 mls/hr 11/14/17 10:28 12:18 Mag Sulf 1gm Premix IV 11/14/17 11:27 Infused O ONE Infusion Vancomycin HCl 1,250 mg/ 250 mls @ 200 mls/hr 11/14/17 12:00 11/15/17 16:30 Sodium Chloride IV Infused Q24H [facility] Infusion Potassium Chloride 10 meq in 100 mls @ 100 mls/hr 11/15/17 10:45 11/15/17 14: 20 Potassium Chloride Premix IV 11/15/17 12:44 Infused Q1H [facility] Infusion Lidocaine HCl 10 mg/ Potassium 100 mls @ 100 mls/hr 11/16/17 07:45 11/16/17 18:55 Chloride 10 meq/ Sodium IV 11/16/17 11:58 Infused Chloride .Q1H [facility] Infusion Vancomycin HCl 1,000 mg/ 250 mls @ 250 mls/hr 11/16/17 15:00 11/17/17 19:31 Sodium Chloride IV Infused Q24H [facility] Infusion Magnesium Sulfate/Dextrose 1 gm in 100 mls @ 100 mls/hr 11/16/17 15:00 21:25 Mag Sulf 1gm Premix IV 11/16/17 16:59 Infused Q1H [facility] Infusion Lidocaine HCl 10 mg/ Potassium 100 mls @ 100 mls/hr 11/17/17 08:45 11/17/17 19:01 Chloride 10 meq/ Sodium IV 11/17/17 14:44 Infused Chloride .Q1H [facility] Infusion Potassium Chloride/Dextrose/Sod Cl 1,000 mls @ 50 mls/hr 11/19/17 09:45 11/19 10:24 D5-1/2ns With Kcl 20meq Premix IV 0 mls/hr .Q20H [facility] Infusion Potassium Chloride 10 meq in 100 mls @ 100 mls/hr 11/19/17 09:45 11/19/17 17: 00 Potassium Chloride Premix IV 11/19/17 13:44 Infused Q1H [facility] Infusion Ondansetron HCl 4 mg 11/13/17 20:29 Zofran Po PO Q6H PRN Nausea Pantoprazole Sodium 40 mg 11/16/17 06:30 11/19/17 06:29 Protonix Tab PO Not Given ACB [facility] Phytonadione 10 mg 11/13/17 21:09 11/13/17 22:35 Vitamin K Oral Liq PO 11/13/17 21:10 10 mg O ONE Administration Phytonadione 10 mg 11/14/17 09:38 11/14/17 10:11 Vitamin K (Adult) Inj SQ 11/14/17 09:39 10 mg O ONE Administration Polyethylene Glycol 17 gm 11/13/17 20:29 Miralax PO DAILY PRN Constipation Potassium Chloride 40 meq 11/13/17 19:00 11/13/17 19:11 K-Dur 20 Meq Tablet PO 11/13/17 19:01 40 meq O ONE Administration Potassium Chloride 20 meq 11/14/17 08:00 11/15/17 10:13 Kcl Oral Liq 20 Meq/15 Ml PO 20 meq BIDWM [facility] Administration Potassium Chloride 40 meq 11/14/17 10:29 11/14/17 10:38 K-Dur 20 Meq Tablet PO 11/14/17 10:30 Not Given O ONE Potassium Chloride 40 meq 11/14/17 10:45 11/14/17 10:52 Kcl Oral Liq 20 Meq/15 Ml PO 11/14/17 10:46 40 meq O ONE Administration Potassium Chloride 40 meq 11/15/17 15:03 11/15/17 16:29 K-Dur 20 Meq Tablet PO 11/15/17 15:04 40 meq O ONE Administration Potassium Chloride 20 meq 11/18/17 12:00 11/19/17 08:46 K-Dur 20 Meq Tablet PO Not Given TIDWM [facility] Potassium Citrate 40 meq 11/13/17 20:29 11/13/17 22:34 Urocit-K PO 11/13/17 20:30 40 meq TID ONE Administration Quetiapine Fumarate 25 mg 11/18/17 21:00 11/18/17 21:44 Seroquel PO 25 mg HS [facility] Administration Vancomycin HCl 125 mg 11/14/17 22:15 11/19/17 09:36 Vancomycin Oral Liq PO Not Given Q6HR [facility] Warfarin Sodium 2 mg 11/13/17 21:00 Coumadin PO HS [facility] Warfarin Sodium 2 mg 11/17/17 21:00 Coumadin PO HS [facility] Warfarin Sodium 1 each 11/17/17 14:14 11/20/17 12:00 Pharmacy Consult - Warfarin MC 11/17/17 14:15 Not Given O ONE Warfarin Sodium 1 mg 11/17/17 14:45 11/17/17 18:26 Coumadin PO 11/17/17 14:46 1 mg O ONE Administration Warfarin Sodium 1 mg 11/18/17 12:00 11/18/17 12:46 Coumadin PO 11/18/17 12:30 1 mg NOON [facility] Administration Warfarin Sodium 1 mg 11/19/17 12:00 11/19/17 12:49 Coumadin PO 11/19/17 12:30 Not Given NOON [facility] Warfarin Sodium 2 mg 11/20/17 12:00 Coumadin PO 11/20/17 23:59 NOON [facility] - Urinary Catheter Management Urethral Cath placed during this visit: no Results 11/20/17 11:33 11/20/17 11:33 CBC 11/20/17 Range/Units 11:33 WBC 17.5 H (4.5-11.0) T/MM3 RBC 3.78 L (4.00-5.20) M/MM3 Hgb 9.9 L (12-16) GM/DL Hct 30.7 L (36-46) % Plt Count 319 (130-400) T/MM3 Neut # (Auto) Not performed Lymph # (Auto) Not performed [place] # (Auto) Not performed Eos # (Auto) Not performed Baso # (Auto) Not performed Comprehensive Metabolic Panel 11/20/17 Range/Units 11:33 Sodium 141 (136-146) MEQ/L Potassium 3.4 L (3.6-5) MEQ/L Chloride 103 (98-107) MEQ/L Carbon Dioxide 28 (22-30) MEQ/L BUN 26.0 H (7-17) MG/DL Creatinine 1.1 (0.7-1.2) mg/dL Glucose 89 (65-110) MG/DL Calcium 6.7 L (8.4-10.2) MG/DL Intake and Output 11/19/17 11/20/17 11/20/17 22:59 06:59 14:59 Intake Total 300 / 300 327.5 / 327.5 200 / 200 Output Total 475 / 475 Balance 300 / 300 -147.5 / -147.5 200 / 200 Intake: IV 300 / 300 327.5 / 327.5 200 / 200 Ceftriaxone 1 g In Ns 100 ml @ 100 / 100 200 mls/hr IV Q24H [facility] Rx#: [id number] D5-1/2NS with KCL 20mEq 1,000 227.5 / 227.5 ml @ 30 mls/hr IV .Q24H [facility] Rx# :[id number] MetroNIDAZOLE PB 500 mg In 100 100 / 100 100 / 100 100 / 100 ml @ 100 mls/hr IV Q8H [facility] Rx#: [id number] Potassium Chloride Premix 10 200 / 200 meq In 100 ml @ 100 mls/hr IV Q1H [facility] Rx#:[id number] Output: Urine Amount (Catheter) 475 / 475 Other: Urine Appearance Clear Cloudy Urine Color Yellow Dark Yellow Straw Urine Odor Normal Weight 60.5 kg Patient Weight 11/21/17 06:59 Weight 60.5 kg Assessment and Plan - Assessment and Plan (1) C. difficile diarrhea Current visit: Yes Status: Acute (2) Acute diastolic congestive heart failure Current visit: No Status: Chronic (3) PAF (paroxysmal atrial fibrillation) Current visit: No Status: Chronic (4) Hypokalemia Current visit: Yes Status: Acute (5) Weakness Current visit: Yes Status: Acute (6) Healthcare-associated pneumonia Current visit: Yes Status: Acute (7) Anemia Current visit: Yes Status: Chronic - Attestation Attestation Narrative: 11/20/17 14:18 Recommendation After examining the patient I agree with the above assessment. I am involved in the formulation of the patient's plan of care. Hospital Course Summary Disclaimer: The visit summary below is not to be considered part of the above Progress Note.
[2017-11-16] MEDS: SPIRONOLACTONE 25 MG TABLET PO SCH (15:23)
[2017-11-16] MEDS: MAGNESIUM SULFATE 1gm PREMIX 1 GM/100 ML BAG IV SCH ×2 (19:02→20:22)
[2017-11-16] MEDS: PRAVASTATIN 20 MG TABLET PO SCH (20:23)
[2017-11-17] MEDS: VANCOMYCIN 250mg/5ml ORAL LIQ PO SCH ×4 (04:23→21:26)
[2017-11-17] MEDS: PANTOPRAZOLE 40 MG TABLET PO SCH (06:41)
[2017-11-17] MEDS ORDERED: POTASSIUM CHLORIDE PREMIX 10 MEQ/100 ML BAG IV SCH (09:15)
[2017-11-17] MEDS: LIDOCAINE 1% INJ 10 MG, POTASSIUM CHLORIDE INJ 10 MEQ in NS 100 ML IV SCH ×7 (09:34→18:01)
--- NOTE | 2017-11-17 09:39 | Progress Note ---
- Date 11/17/17 Subjective: Patrizia is feeling a little better, though is getting bored and would like to be able to get up and walk around more. She was evaluated by PT yesterday and she said that she expects to see them again today. She was curious to know what her potassium level was. She denies feeling short of breath, no chest pain. She doesn't have much of an appetite but denies abdominal pain/cramping. She has not had diarrhea overnight or yet this morning. Some of her answers were slightly inappropriate, but when I asked her again in a louder voice she answered appropriately. Nursing staff report that she woke up disoriented once during the night but was easily reoriented. She's been refusing the foam heel protectors b/c they are too hot. Objective Vital signs: Temperature 95.4 F L 11/17/17 04:00 Pulse Rate 71 11/17/17 08:00 Respiratory Rate 16 11/17/17 04:00 Blood Pressure 131/62 11/17/17 04:00 Pulse Oximetry 95 11/17/17 04:00 Height/Weight/BMI: Height 1.65 m Weight 60.7 kg Body Mass Index 21.6 - Constitutional Present: no acute distress, well nourished, well developed, thin - Routine HEENT Exam Head: Present: normocephalic Eye: Absent: conjunctival icterus, scleral injection - Routine Respiratory Exam Present: decreased breath sounds (b/l bases) - Routine Cardiovascular Exam Present: S1, S2, irregularly irregular - Routine Abdominal Exam Present: soft, normoactive bowel sounds, non distended, non tender - Routine Extremities Exam Present: edema (b/l lower ext.) - Routine Skin Exam Present: dry, warm - Routine Neurological Exam Present: alert, moving all extremities, normal speech - Routine Psychiatric Exam Present: cooperative Results - Labs CBC & Chem 7: 11/17/17 04:33 11/17/17 04:33 Assessment and Plan (1) Acute diastolic congestive heart failure Current visit: No Status: Chronic (2) Hypokalemia Current visit: Yes Status: Acute (3) Healthcare-associated pneumonia Current visit: Yes Status: Acute Assessment and Plan: Assessment: Lower GI bleeding - resolved, on Coumadin C. difficile diarrhea, positive C. difficile toxin on stool sample Hypokalemia, likely secondary to diuresis, POA Right lower lobe aspiration pneumonia versus pleural effusion Atrial fibrillation Hypertension. Hyperlipidemia Hyperparathyroidism Plan: Potassium remains low, 2.9. Will give IV KCl, 60 mEq and recheck K this afternoon. WBC remains elevated at 16 - upon further review, she has tended to have leukocytosis all through 2018. A secondary source of infection is not strongly suspected at this point. Continue oral vanco for C. diff. Rocephin was discontinued yesterday. Continue diuresis, she's had good urine output though is fluid positive 1.2L and weight is trending up. Keep Long for now. She's on Lasix 40 mg PO BID and spironolactone 25 mg daily. Cardiology following. INR 1.29; stool was neg for occult blood - will discuss resumption of anticoagulation with attending. Discussed with dietary - poor oral intake, lactose intolerant -- recommends changing diet to regular diet to see if this might increase caloric intake. DVT Prophylaxis: SCD's, other ( inr is supratherapeutic) GI Prophylaxis: Protonix Resuscitation Status: Do Not Resuscitate - Physician Narrative Physician: Edgard Villalba MD Narrative: Date: 11/17/17 Time: 934 I have independently interviewed and examined patient. Patient chart reviewed. Case discussed with my ENVIRONMENTAL FIELD OFFICE MANAGER. Care plan developed with my supervision, agree with above. Patient resting in bed at the time of interview. No reported abdominal pain, no nausea, no vomiting, no diarrhea. No reported flank pain, no subjective fever, no chills. Patient did have episode of confusion noted last night by nursing staff which later resolved. Physical exam: AAO x 3, NAD PERRLA, EOMI S1 and S2 heard on auscultation, irregularly irregular heart sounds. No murmurs Lungs clear to auscultation bilaterally, no wheezing, no crackles Abdomen soft, nontender, positive bowel sounds 1+ pitting edema bilateral lower extremities. Assessment: C. difficile diarrhea, melanotic stools secondary to anticoagulation with Coumadin. Hypokalemia. Atrial fibrillation. Hypertension. Hyperlipidemia. Hyperparathyroidism. Plan: Continue oral vancomycin for C. difficile diarrhea. Patient tolerating soft cardiac diet. Serum potassium 2.9, will provide 60 mEq IV potassium chloride and recheck potassium levels in the afternoon. Cardiology consulted. Patient started on oral spironolactone 25 mg daily. INR 1.29, hemoglobin stable at 9.3. Will restart home medication Coumadin. Hospital Course Summary Disclaimer: The visit summary below is not to be considered part of the above Progress Note. Hospital Course: 11/13/17 admitted with profound hypokalemia, likely due to loop diuretics, and suspect right lower lobe pneumonia, she is in a healthcare setting, along with recent hospitalizations, aspiration pneumonitis/pneumonia is less likely, but cannot be ruled out. she did cough when she took her liquid potassium supplement this evening. she is admitted with telemetry, will continue antibiotics, gentle lasix given her relatively low blood pressure reported in the clinic, continue the majority of her home medications besides warfarin for which vitamin k was given to antagonize. appreciate cardiology's input expertise and familiarity in these matters in the morning, as well as physical occupational and speech therapies. will provide further symptomatic, supportive, and diagnostic cares as the current workup, or as changes in her clinical scenario indicate. the plan of care was discussed with the patient and her family at the bedside at the time of my evaluation and they expressed understanding and a desire to proceed. 11/14/17 IV potassium chloride 60 mEq 1. Continue oral potassium chloride 20 mEq twice a day. We will recheck potassium chloride this evening at 1600. Stool for occult blood. Hemoglobin dropped from 8.7 last night to 7.4 this morning. We will type, cross match and transfuse 1 unit of PRBC. Will recheck H& H 1 hour posttransfusion. INR 6.75. Will provide 10 mg vitamin K subcutaneous 1, with concern for active lower GI bleeding. We will recheck INR at 1600. Patient will be placed on clear liquid diet. Cautious diuresis IV Lasix 20 mg twice a day. Patient has received IV vancomycin and Levaquin, with concern for recurrent aspiration pneumonia. Discontinue Levaquin, considering patient's age and history of atrial fibrillation. Patient will be started on IV Rocephin 1 g daily. Long catheter in place, will monitor intake and output, daily weights. 11/15/17 Patient will remain in contact precautions. Oral vancomycin 125 mg every 6 hours for positive C. difficile. Serum potassium 3.0, patient received 20 mEq oral potassium chloride. Will provide 20 mEq IV potassium chloride and monitor potassium levels. Patient reports she does not like oral potassium chloride supplementation which will be discontinued for now. Cardiology consulted, recommendation for oral Lasix 40 mg twice a day. We'll monitor intake and output, daily weights. Echocardiogram findings as described above. INR reaches greater than 10 on admission has dropped to 1.55 last evening. Will monitor PT/INR. Coumadin remains on hold. We will continue digoxin 0.125 mg daily. Patient status post transfusion of 1 unit of PRBC, hemoglobin improved from 7.4 to 10.7 last evening, repeat hemoglobin dropped to 8.9 this morning. Stool for occult blood negative. Will discuss case with general surgeon, Dr. Ibrahim regarding need for repeat colonoscopy. Patient will remain on clear liquid diet. If no plan for colonoscopy, will progress to soft cardiac diet. 11/16/17 Potassium has dropped further to 2.7. IV replacement has been ordered. Mag is low normal at 1.6, and will start daily replacement. White count increased to 16.4. Continue oral Vanco for C. difficile. She continues on Rocephin as well - will discuss antibiotics with attending. Advance diet to soft cardiac diet. Dr. Ibrahim indicated that she may follow- up outpatient. Diuresis per cardiology. Fluid status is +1.7; weight trending up. DC Long as soon as possible. Will need to discuss anticoagulation with cardiology. 11/17/17 Potassium remains low, 2.9. Will give IV KCl, 60 mEq and recheck K this afternoon. WBC remains elevated at 16 - upon further review, she has tended to have leukocytosis all through 2018. A secondary source of infection is not strongly suspected at this point. Continue oral vanco for C. diff. Rocephin was discontinued yesterday. Continue diuresis, she's had good urine output though is fluid positive 1.2L and weight is trending up. Keep Long for now. She's on Lasix 40 mg PO BID and spironolactone 25 mg daily. Cardiology following. INR 1.29; stool was neg for occult blood - will discuss resumption of anticoagulation with attending. Discussed with dietary - poor oral intake, lactose intolerant -- recommends changing diet to regular diet to see if this might increase caloric intake.
[2017-11-17] MEDS: CYANOCOBALAMIN (B-12) 500mcg TABLET PO SCH (09:41)
[2017-11-17] MEDS: FOLIC ACID 1 MG TABLET PO SCH (09:41)
[2017-11-17] MEDS: MAGNESIUM OXIDE 400 MG TABLET PO SCH (09:42)
[2017-11-17] MEDS: DIGOXIN 125 MCG TABLET PO SCH (09:42)
[2017-11-17] MEDS: FUROSEMIDE 40 MG TABLET PO SCH ×2 (09:42→18:26)
[2017-11-17] MEDS: SPIRONOLACTONE 25 MG TABLET PO SCH (09:42)
[2017-11-17] MEDS ORDERED: WARFARIN - PHARMACY CONSULT MC ONE (14:14)
[2017-11-17] MEDS ORDERED: WARFARIN 1 MG TABLET PO ONE (14:45)
--- NOTE | 2017-11-17 15:32 | Cardiology Progress Note ---
<Cherry Hernandez M - Last Filed: 11/20/17 13:42> Subjective Principal diagnosis: edema Interval history: Patrizia is seen in follow up for diastolic HF. She is in bed, family at the bedside. She states she feels bad all over, continues to have loose stools. She is in no distress on room air. She denies chest pain, pressure, palpitations, dyspnea, dizziness or nausea. Exam Vital signs: Temperature 96.1 F L 11/17/17 12:00 Pulse Rate 82 11/17/17 12:00 Respiratory Rate 16 11/17/17 12:00 Blood Pressure 118/59 11/17/17 08:00 Pulse Oximetry 93 11/17/17 12:00 Inpatient Medications: Generic Name Dose Route Start Last Admin Trade Name Freq PRN Reason Stop Dose Admin Acetaminophen 325 - 650 mg 11/13/17 20:29 11/15/17 18:38 Tylenol PO 650 mg Q5H PRN Administration Discomfort Acetaminophen 320 mg 11/13/17 23:10 11/14/17 00:08 Tylenol 160 Mg/5 Ml Liquid PO 320 mg Q6H PRN Administration Discomfort Cyanocobalamin 500 mcg 11/14/17 09:00 11/17/17 09:41 Vit. B-12 PO 500 mcg DAILY MARIFER Administration Digoxin 125 mcg 11/14/17 09:00 11/17/17 09:42 Lanoxin PO 125 mcg DAILY MARIFER Administration Folic Acid 1 mg 11/14/17 09:00 11/17/17 09:41 Folate PO 1 mg DAILY MARIFER Administration Furosemide 40 mg 11/15/17 17:00 11/17/17 09:42 Lasix 40 Mg Tab PO 40 mg 0900,1700 MARIFER Administration Vancomycin HCl 1,000 mg/ 250 mls @ 250 mls/hr 11/16/17 15:00 11/16/17 17:24 Sodium Chloride IV Infused Q24H MARIFER Infusion Magnesium Oxide 400 mg 11/16/17 09:00 11/17/17 09:42 Magox PO 400 mg DAILY MARIFER Administration Ondansetron HCl 4 mg 11/13/17 20:29 Zofran Po PO Q6H PRN Nausea Pantoprazole Sodium 40 mg 11/16/17 06:30 11/17/17 06:41 Protonix Tab PO 40 mg ACB MARIFER Administration Polyethylene Glycol 17 gm 11/13/17 20:29 Miralax PO DAILY PRN Constipation Pravastatin Sodium 20 mg 11/13/17 21:00 11/16/17 20:23 Pravachol PO 20 mg HS MARIFER Administration Sodium Chloride 10 - 80 ml 11/13/17 17:42 11/16/17 17:24 Iv Flush IVF 20 ml PRN PRN Administration Flushing Sodium Chloride 500 ml 11/14/17 14:38 11/16/17 09:26 Normal Saline IV 500 ml PRN PRN Administration Spironolactone 25 mg 11/16/17 14:45 11/17/17 09:42 Aldactone 25 Mg PO 25 mg DAILY MARIFER Administration Vancomycin HCl 125 mg 11/14/17 22:15 11/17/17 09:44 Vancomycin Oral Liq PO 125 mg Q6HR MARIFER Administration Warfarin Sodium 0 11/17/17 15:00 Coumadin Protocol NOTE MARIFER Discontinued Medications Generic Name Dose Route Start Last Admin Trade Name Freq PRN Reason Stop Dose Admin Diltiazem HCl 180 mg 11/14/17 09:00 11/14/17 09:41 Cardizem Cd 180 Mg PO Not Given DAILY [facility] Furosemide 20 mg 11/13/17 20:29 11/15/17 10:14 Lasix 20 Mg/2 Ml IVP 20 mg Q12H MARIFER Administration Furosemide 20 mg 11/14/17 15:44 11/14/17 18:05 Lasix 20 Mg/2 Ml IVP 11/14/17 15:45 20 mg O ONE Administration Sodium Chloride 500 mls @ 1,000 mls/hr 11/13/17 17:40 11/13/17 18:58 Normal Saline IV 11/13/17 18:09 Not Given .Q30M ONE Sodium Chloride 500 mls @ 999.9 mls/hr 11/13/17 17:40 11/13/17 19:04 Normal Saline IV 11/13/17 18:09 Not Given .Q30M ONE Levofloxacin/Dextrose 500 mg in 100 mls @ 100 mls/hr 11/13/17 20:29 11/14/17 01:30 Levaquin 500 Mg Premix IV Infused Q24H MARIFER Infusion Vancomycin HCl 1,000 mg/ 250 mls @ 250 mls/hr 11/13/17 20:29 11/13/17 22:36 Sodium Chloride IV Not Given Q12H MARIFER Vancomycin HCl 1,250 mg/ 250 mls @ 200 mls/hr 11/13/17 22:30 11/14/17 12:14 Sodium Chloride IV Not Given Q12H MARIFER Ceftriaxone Sodium 1 g/ Sodium 100 mls @ 200 mls/hr 11/14/17 09:45 11/16/17 11:22 Chloride IV Infused DAILY MAR[facility]ER Infusion Magnesium Sulfate/Dextrose 1 gm in 100 mls @ 100 mls/hr 11/14/17 10:28 12:18 Mag Sulf 1gm Premix IV 11/14/17 11:27 Infused O ONE Infusion Vancomycin HCl 1,250 mg/ 250 mls @ 200 mls/hr 11/14/17 12:00 11/15/17 16:30 Sodium Chloride IV Infused Q24H MARIFER Infusion Potassium Chloride 10 meq in 100 mls @ 100 mls/hr 11/15/17 10:45 11/15/17 14: 20 Potassium Chloride Premix IV 11/15/17 12:44 Infused Q1H MARIFER Infusion Lidocaine HCl 10 mg/ Potassium 100 mls @ 100 mls/hr 11/16/17 07:45 11/16/17 18:55 Chloride 10 meq/ Sodium IV 11/16/17 11:58 Infused Chloride .Q1H MARIFER Infusion Magnesium Sulfate/Dextrose 1 gm in 100 mls @ 100 mls/hr 11/16/17 15:00 21:25 Mag Sulf 1gm Premix IV 11/16/17 16:59 Infused Q1H MAR[facility]ER Infusion Lidocaine HCl 10 mg/ Potassium 100 mls @ 100 mls/hr 11/17/17 08:45 11/17/17 13:33 Chloride 10 meq/ Sodium IV 11/17/17 14:44 100 mls/hr Chloride .Q1H MARIFER Administration Phytonadione 10 mg 11/13/17 21:09 11/13/17 22:35 Vitamin K Oral Liq PO 11/13/17 21:10 10 mg O ONE Administration Phytonadione 10 mg 11/14/17 09:38 11/14/17 10:11 Vitamin K (Adult) Inj SQ 11/14/17 09:39 10 mg O ONE Administration Potassium Chloride 40 meq 11/13/17 19:00 11/13/17 19:11 K-Dur 20 Meq Tablet PO 11/13/17 19:01 40 meq O ONE Administration Potassium Chloride 20 meq 08/14/18 08:00 11/15/17 10:13 Kcl Oral Liq 20 Meq/15 Ml PO 20 meq BIDWM MARIFER Administration Potassium Chloride 40 meq 11/14/17 10:29 11/14/17 10:38 K-Dur 20 Meq Tablet PO 11/14/17 10:30 Not Given O ONE Potassium Chloride 40 meq 11/14/17 10:45 11/14/17 10:52 Kcl Oral Liq 20 Meq/15 Ml PO 11/14/17 10:46 40 meq O ONE Administration Potassium Chloride 40 meq 11/15/17 15:03 11/15/17 16:29 K-Dur 20 Meq Tablet PO 11/15/17 15:04 40 meq O ONE Administration Potassium Citrate 40 meq 11/13/17 20:29 11/13/17 22:34 Urocit-K PO 11/13/17 20:30 40 meq TID ONE Administration Warfarin Sodium 2 mg 11/13/17 21:00 Coumadin PO HS [facility] Warfarin Sodium 2 mg 11/17/17 21:00 Coumadin PO HS [facility] Warfarin Sodium 1 each 11/17/17 14:14 Pharmacy Consult - Warfarin MC 11/17/17 14:15 O ONE Warfarin Sodium 1 mg 11/17/17 14:45 Coumadin PO 11/17/17 14:46 O ONE - Constitutional no acute distress, well nourished, cooperative - Routine HEENT Exam Head: Present: normocephalic ENT: Present: mucous membranes dry - Routine Neck Exam Absent: JVD, carotid bruit - Routine Chest/Breast/Axilla Exam Chest wall: Absent: tenderness - Routine Respiratory Exam Present: diminished air movement (bases). Absent: dyspnea - Routine Cardiovascular Exam Present: no murmur, irregular rhythm - Routine Abdominal Exam Present: soft, non tender. Absent: normoactive bowel sounds - Routine Extremities Exam Present: edema - Routine Skin Exam Present: intact, dry, warm - Routine Neurological Exam Present: alert, oriented X3 - Routine Psychiatric Exam Present: normal affect, normal thought process - Urinary Catheter Management Urethral Cath placed during this visit: yes Insertion date: 11/13/17 Insertion time: 21:00 Results 11/20/17 11:33 11/20/17 11:33 CBC 11/17/17 Range/Units 04:33 WBC 16.0 H (4.5-11.0) T/MM3 RBC 3.51 L (4.00-5.20) M/MM3 Hgb 9.3 L (12-16) GM/DL Hct 28.6 L (36-46) % Plt Count 390 (130-400) T/MM3 Neut # (Auto) Not performed Lymph # (Auto) Not performed [place] # (Auto) Not performed Eos # (Auto) Not performed Baso # (Auto) Not performed Comprehensive Metabolic Panel 11/17/17 Range/Units 04:33 Sodium 136 (136-146) MEQ/L Potassium 2.9 L* (3.6-5) MEQ/L Chloride 97 L (98-107) MEQ/L Carbon Dioxide 31 H (22-30) MEQ/L BUN 21.0 H (7-17) MG/DL Creatinine 0.9 (0.7-1.2) mg/dL Glucose 96 (65-110) MG/DL Calcium 7.2 L (8.4-10.2) MG/DL Intake and Output 11/17/17 11/17/17 11/17/17 06:59 14:59 22:59 Intake Total 50 / 50 200.000 / 200.000 Output Total 1025 / 1025 Balance -975 / -975 200.000 / 200.000 Intake: IV 200.000 / 200.000 Lidocaine 1% Inj 10 mg 200.000 / 200.000 Potassium Chloride Inj 10 meq In Ns 100 ml @ 100 mls/hr IV . Q1H [facility] Rx#:[id number] Oral 50 / 50 Output: Urine Amount (Catheter) 1025 / 1025 Other: Urine Appearance Clear Urine Color Yellow Urine Odor Normal Weight 132 lb 11.492 oz Patient Weight 11/18/17 06:59 Weight 132 lb 11.492 oz Assessment and Plan - Assessment and Plan (1) Acute diastolic congestive heart failure Status: Chronic (2) PAF (paroxysmal atrial fibrillation) Status: Chronic (3) Hypokalemia Status: Acute (4) Weakness Status: Acute (5) Healthcare-associated pneumonia Status: Acute (6) Anemia Status: Chronic (7) C. difficile diarrhea Start date: 11/14/17 Start time: 16:00 Status: Acute - Assessment and Plan Healthcare-associated pneumonia Current visit: Yes Status: Acute - per hospitalist service Acute diastolic congestive heart failure Current visit: No Status: Acute - Denies Orthopnea or SOA, no JVD, 2+ LE edema - Diurese with Lasix 40mg bid as BP allows - Holding Cardizem due to lower BPs Hypokalemia Current visit: Yes Status: Acute - K+ 2.8, replace 40meq orally, Mag 1.8, replace 1gm IV - continue to monitor renal and electrolytes PAF (paroxysmal atrial fibrillation) Current visit: No Status: Chronic - Rate well controlled with Digoxin, hold Cardizem for now due to BP - INR 6.75 today, holding Coumadin Anemia Current visit: Yes Status: Chronic - HGB 7.4, transfused 1 unit PRBCs per hospitalist Weakness Current visit: Yes Status: Acute Thank you for allowing us to participate in the care of this patient, we will follow along with you. 11/15/17 K+ 3.0, replace with 40meq po X1 with food to minimize stomach upset, recheck in am - Keep K+ >4.0, Mag >2.0 11/16/17 - K+ 2.7, Replaced per hospitalist, Mag 1.6, replace 2gms IV. - Spironolactone 25mg daily to help patient retain potassium 11/17/17 K+ 2.9 today, replaced per hospitalist, recheck 3.2 - Continue Spironolactone, continues to have loose stools - HR well controlled with Digoxin Hospital Course Summary Disclaimer: The visit summary below is not to be considered part of the above Progress Note. Hospital Course: 11/13/17 admitted with profound hypokalemia, likely due to loop diuretics, and suspect right lower lobe pneumonia, she is in a healthcare setting, along with recent hospitalizations, aspiration pneumonitis/pneumonia is less likely, but cannot be ruled out. she did cough when she took her liquid potassium supplement this evening. she is admitted with telemetry, will continue antibiotics, gentle lasix given her relatively low blood pressure reported in the clinic, continue the majority of her home medications besides warfarin for which vitamin k was given to antagonize. appreciate cardiology's input expertise and familiarity in these matters in the morning, as well as physical occupational and speech therapies. will provide further symptomatic, supportive, and diagnostic cares as the current workup, or as changes in her clinical scenario indicate. the plan of care was discussed with the patient and her family at the bedside at the time of my evaluation and they expressed understanding and a desire to proceed. 11/14/17 IV potassium chloride 60 mEq 1. Continue oral potassium chloride 20 mEq twice a day. We will recheck potassium chloride this evening at 1600. Stool for occult blood. Hemoglobin dropped from 8.7 last night to 7.4 this morning. We will type, cross match and transfuse 1 unit of PRBC. Will recheck H& H 1 hour posttransfusion. INR 6.75. Will provide 10 mg vitamin K subcutaneous 1, with concern for active lower GI bleeding. We will recheck INR at 1600. Patient will be placed on clear liquid diet. Cautious diuresis IV Lasix 20 mg twice a day. Patient has received IV vancomycin and Levaquin, with concern for recurrent aspiration pneumonia. Discontinue Levaquin, considering patient's age and history of atrial fibrillation. Patient will be started on IV Rocephin 1 g daily. Long catheter in place, will monitor intake and output, daily weights. 11/15/17 Patient will remain in contact precautions. Oral vancomycin 125 mg every 6 hours for positive C. difficile. Serum potassium 3.0, patient received 20 mEq oral potassium chloride. Will provide 20 mEq IV potassium chloride and monitor potassium levels. Patient reports she does not like oral potassium chloride supplementation which will be discontinued for now. Cardiology consulted, recommendation for oral Lasix 40 mg twice a day. We'll monitor intake and output, daily weights. Echocardiogram findings as described above. INR reaches greater than 10 on admission has dropped to 1.55 last evening. Will monitor PT/INR. Coumadin remains on hold. We will continue digoxin 0.125 mg daily. Patient status post transfusion of 1 unit of PRBC, hemoglobin improved from 7.4 to 10.7 last evening, repeat hemoglobin dropped to 8.9 this morning. Stool for occult blood negative. Will discuss case with general surgeon, Dr. Ibrahim regarding need for repeat colonoscopy. Patient will remain on clear liquid diet. If no plan for colonoscopy, will progress to soft cardiac diet. 11/16/17 Potassium has dropped further to 2.7. IV replacement has been ordered. Mag is low normal at 1.6, and will start daily replacement. White count increased to 16.4. Continue oral Vanco for C. difficile. She continues on Rocephin as well - will discuss antibiotics with attending. Advance diet to soft cardiac diet. Dr. Ibrahim indicated that she may follow- up outpatient. Diuresis per cardiology. Fluid status is +1.7; weight trending up. GREGORY Long as soon as possible. Will need to discuss anticoagulation with cardiology. <Salinas Kessler - Last Filed: 11/29/17 10:20> Exam Vital signs: Temperature 98.5 F 11/21/17 16:00 Pulse Rate 96 11/21/17 20:00 Respiratory Rate 20 11/21/17 20:00 Blood Pressure 114/69 11/21/17 16:00 Pulse Oximetry 93 11/21/17 16:00 Inpatient Medications: Discontinued Medications Generic Name Dose Route Start Last Admin Trade Name Freq PRN Reason Stop Dose Admin Acetaminophen 325 - 650 mg 11/13/17 20:29 11/15/17 18:38 Tylenol PO 650 mg Q5H PRN Administration Discomfort Acetaminophen 320 mg 11/13/17 23:10 11/14/17 00:08 Tylenol 160 Mg/5 Ml Liquid PO 320 mg Q6H PRN Administration Discomfort Acetaminophen 650 mg 11/20/17 18:23 Tylenol NC Q5H PRN Pain Cyanocobalamin 500 mcg 11/14/17 09:00 11/21/17 08:23 Vit. B-12 PO Not Given DAILY [facility] Digoxin 125 mcg 11/14/17 09:00 11/19/17 08:46 Lanoxin PO Not Given DAILY MARIFER Digoxin 125 mcg 11/19/17 09:45 11/21/17 08:22 Lanoxin IVP 125 mcg DAILY MARIFER Administration Diltiazem HCl 180 mg 11/14/17 09:00 11/14/17 09:41 Cardizem Cd 180 Mg PO Not Given DAILY MARIFER Enoxaparin Sodium 40 mg 11/18/17 15:45 11/19/17 09:32 Lovenox SQ 40 mg DAILY MARIFER Administration Enoxaparin Sodium 90 mg 11/19/17 09:45 11/21/17 08:21 Lovenox SQ 90 mg DAILY MARIFER Administration Enoxaparin Sodium 50 mg 11/20/17 12:45 Lovenox SQ 11/20/17 12:46 ONE TIME ONE Enoxaparin Sodium 50 mg 11/19/17 12:45 11/19/17 13:03 Lovenox SQ 11/19/17 12:46 50 mg ONE TIME ONE Administration Folic Acid 1 mg 11/14/17 09:00 11/21/17 08:23 Folate PO Not Given DAILY MARIFER Furosemide 20 mg 11/13/17 20:29 11/15/17 10:14 Lasix 20 Mg/2 Ml IVP 20 mg Q12H MARIFER Administration Furosemide 20 mg 11/14/17 15:44 11/14/17 18:05 Lasix 20 Mg/2 Ml IVP 11/14/17 15:45 20 mg O ONE Administration Furosemide 40 mg 11/15/17 17:00 11/19/17 08:47 Lasix 40 Mg Tab PO Not Given 0900,1700 MARIFER Furosemide 20 mg 11/19/17 17:00 11/20/17 08:44 Lasix 20 Mg/2 Ml IVP 20 mg 0900,1700 MARIFER Administration Furosemide 20 mg 11/19/17 11:31 11/19/17 13:01 Lasix 20 Mg/2 Ml IVP 11/19/17 11:32 20 mg ONCE ONE Administration Furosemide 40 mg 11/20/17 17:00 11/21/17 17:39 Lasix 40 Mg/4 Ml IVP 40 mg 0900,1700 MARIFER Administration Haloperidol Lactate 0.5 mg 11/18/17 18:45 11/20/17 12:00 Haldol IVP Not Given O MARIFER Sodium Chloride 500 mls @ 1,000 mls/hr 11/13/17 17:40 11/13/17 18:58 Normal Saline IV 11/13/17 18:09 Not Given .Q30M ONE Sodium Chloride 500 mls @ 999.9 mls/hr 11/13/17 17:40 11/13/17 19:04 Normal Saline IV 11/13/17 18:09 Not Given .Q30M ONE Levofloxacin/Dextrose 500 mg in 100 mls @ 100 mls/hr 11/13/17 20:29 11/14/17 01:30 Levaquin 500 Mg Premix IV Infused Q24H MARIFER Infusion Vancomycin HCl 1,000 mg/ 250 mls @ 250 mls/hr 11/13/17 20:29 11/13/17 22:36 Sodium Chloride IV Not Given Q12H MARIFER Vancomycin HCl 1,250 mg/ 250 mls @ 200 mls/hr 11/13/17 22:30 11/14/17 12:14 Sodium Chloride IV Not Given Q12H MARIFER Ceftriaxone Sodium 1 g/ Sodium 100 mls @ 200 mls/hr 11/14/17 09:45 11/16/17 11:22 Chloride IV Infused DAILY MAR[facility]ER Infusion Magnesium Sulfate/Dextrose 1 gm in 100 mls @ 100 mls/hr 11/14/17 10:28 12:18 Mag Sulf 1gm Premix IV 11/14/17 11:27 Infused O ONE Infusion Vancomycin HCl 1,250 mg/ 250 mls @ 200 mls/hr 11/14/17 12:00 11/15/17 16:30 Sodium Chloride IV Infused Q24H MARIFER Infusion Potassium Chloride 10 meq in 100 mls @ 100 mls/hr 11/15/17 10:45 11/15/17 14: 20 Potassium Chloride Premix IV 11/15/17 12:44 Infused Q1H MARIFER Infusion Lidocaine HCl 10 mg/ Potassium 100 mls @ 100 mls/hr 11/16/17 07:45 11/16/17 18:55 Chloride 10 meq/ Sodium IV 11/16/17 11:58 Infused Chloride .Q1H MARIFER Infusion Vancomycin HCl 1,000 mg/ 250 mls @ 250 mls/hr 11/16/17 15:00 11/17/17 19:31 Sodium Chloride IV Infused Q24H MARIFER Infusion Magnesium Sulfate/Dextrose 1 gm in 100 mls @ 100 mls/hr 11/16/17 15:00 21:25 Mag Sulf 1gm Premix IV 11/16/17 16:59 Infused Q1H MARIFER Infusion Lidocaine HCl 10 mg/ Potassium 100 mls @ 100 mls/hr 11/17/17 08:45 11/17/17 19:01 Chloride 10 meq/ Sodium IV 11/17/17 14:44 Infused Chloride .Q1H MARIFER Infusion Ceftriaxone Sodium 1 g/ Sodium 100 mls @ 200 mls/hr 11/19/17 09:45 11/20/17 09:07 Chloride IV Infused Q24H MARIFER Infusion Potassium Chloride/Dextrose/Sod Cl 1,000 mls @ 50 mls/hr 11/19/17 09:45 11/19 10:24 D5-1/2ns With Kcl 20meq Premix IV 0 mls/hr .Q20H MARIFER Infusion Potassium Chloride 10 meq in 100 mls @ 100 mls/hr 11/19/17 09:45 11/19/17 17: 00 Potassium Chloride Premix IV 11/19/17 13:44 Infused Q1H MARIFER Infusion Metronidazole/Sodium Chloride 500 mg in 100 mls @ 100 mls/hr 11/19/17 10:00 11/21/17 19:00 Flagyl Iv Premix IV Infused Q8H MARIFER Infusion Potassium Chloride/Dextrose/Sod Cl 1,000 mls @ 30 mls/hr 11/19/17 18:23 11/21 19:00 D5-1/2ns With Kcl 20meq Premix IV 30 mls/hr .Q24H MARIFER Infusion Calcium Gluconate 4.65 meq/ 110 mls @ 50 mls/hr 11/20/17 18:22 11/20/17 22:02 Sodium Chloride IV 11/20/17 20:33 Infused O ONE Infusion Potassium Chloride 10 meq in 100 mls @ 100 mls/hr 11/21/17 09:45 11/21/17 16: 58 Potassium Chloride Premix IV 11/21/17 13:44 Infused Q1H MARIFER Infusion Calcium Gluconate 4.65 meq/ 60 mls @ 200 mls/hr 11/21/17 14:06 11/21/17 17:57 Sodium Chloride IV 11/21/17 14:23 Infused O ONE Infusion Magnesium Oxide 400 mg 11/16/17 09:00 11/19/17 08:47 Magox PO Not Given DAILY MARIFER Ondansetron HCl 4 mg 11/13/17 20:29 Zofran Po PO Q6H PRN Nausea Ondansetron HCl 4 mg 11/19/17 09:42 Zofran IVP Q6H PRN Nausea &/or vomiting Pantoprazole Sodium 40 mg 11/16/17 06:30 11/19/17 06:29 Protonix Tab PO Not Given ACB MARIFER Pantoprazole Sodium 40 mg 11/20/17 09:00 11/21/17 08:22 Protonix Iv IVP 40 mg DAILY MARIFER Administration Phytonadione 10 mg 11/13/17 21:09 11/13/17 22:35 Vitamin K Oral Liq PO 11/13/17 21:10 10 mg O ONE Administration Phytonadione 10 mg 11/14/17 09:38 11/14/17 10:11 Vitamin K (Adult) Inj SQ 11/14/17 09:39 10 mg O ONE Administration Polyethylene Glycol 17 gm 11/13/17 20:29 Miralax PO DAILY PRN Constipation Potassium Chloride 40 meq 11/13/17 19:00 11/13/17 19:11 K-Dur 20 Meq Tablet PO 11/13/17 19:01 40 meq O ONE Administration Potassium Chloride 20 meq 11/14/17 08:00 11/15/17 10:13 Kcl Oral Liq 20 Meq/15 Ml PO 20 meq BIDWM MARIFER Administration Potassium Chloride 40 meq 11/14/17 10:29 11/14/17 10:38 K-Dur 20 Meq Tablet PO 11/14/17 10:30 Not Given O ONE Potassium Chloride 40 meq 11/14/17 10:45 11/14/17 10:52 Kcl Oral Liq 20 Meq/15 Ml PO 11/14/17 10:46 40 meq O ONE Administration Potassium Chloride 40 meq 11/15/17 15:03 11/15/17 16:29 K-Dur 20 Meq Tablet PO 11/15/17 15:04 40 meq O ONE Administration Potassium Chloride 20 meq 11/18/17 12:00 11/19/17 08:46 K-Dur 20 Meq Tablet PO Not Given TIDWM MARIFER Potassium Citrate 40 meq 11/13/17 20:29 11/13/17 22:34 Urocit-K PO 11/13/17 20:30 40 meq TID ONE Administration Pravastatin Sodium 20 mg 11/13/17 21:00 11/18/17 21:44 Pravachol PO 20 mg HS MARIFER Administration Quetiapine Fumarate 25 mg 11/18/17 21:00 11/18/17 21:44 Seroquel PO 25 mg HS MARIFER Administration Sodium Chloride 10 - 80 ml 11/13/17 17:42 11/20/17 08:44 Iv Flush IVF 40 ml PRN PRN Administration Flushing Sodium Chloride 500 ml 11/14/17 14:38 11/16/17 09:26 Normal Saline IV 500 ml PRN PRN Administration Spironolactone 25 mg 11/16/17 14:45 11/21/17 08:23 Aldactone 25 Mg PO Not Given DAILY MAR[facility]ER Throat Lozenges 3 spray 11/18/17 11:15 Chloraseptic [place] PO Q2H PRN Sore throat Vancomycin HCl 125 mg 11/14/17 22:15 11/19/17 09:36 Vancomycin Oral Liq PO Not Given Q6HR MARIFER Vancomycin HCl 250 mg 11/21/17 17:00 11/21/17 17:55 Vancomycin Oral Liq PO Not Given Q8HR MARIFER Warfarin Sodium 2 mg 11/13/17 21:00 Coumadin PO HS MARIFER Warfarin Sodium 2 mg 11/17/17 21:00 Coumadin PO HS MAR[facility]ER Warfarin Sodium 1 each 11/17/17 14:14 11/20/17 12:00 Pharmacy Consult - Warfarin 11/17/17 14:15 Not Given O ONE Warfarin Sodium 1 mg 11/17/17 14:45 11/17/17 18:26 Coumadin PO 11/17/17 14:46 1 mg O ONE Administration Warfarin Sodium 0 11/17/17 15:00 Coumadin Protocol NOTE MARIFER Warfarin Sodium 1 mg 11/18/17 12:00 11/18/17 12:46 Coumadin PO 11/18/17 12:30 1 mg NOON MARIFER Administration Warfarin Sodium 1 mg 11/19/17 12:00 11/19/17 12:49 Coumadin PO 11/19/17 12:30 Not Given NOON MAR[facility]ER Warfarin Sodium 2 mg 11/20/17 12:00 Coumadin PO 11/20/17 23:59 NOON MARIFER Warfarin Sodium 1 mg 11/20/17 12:00 11/20/17 12:09 Coumadin PO 11/20/17 23:59 Not Given NOON MAR[facility]ER Warfarin Sodium 2 mg 11/21/17 12:00 11/21/17 11:57 Coumadin PO 11/21/17 23:59 Not Given NOON [facility] - Urinary Catheter Management Urethral Cath placed during this visit: no Results 11/21/17 04:05 11/21/17 04:05 Assessment and Plan - Assessment and Plan (1) Acute diastolic congestive heart failure Status: Chronic (2) PAF (paroxysmal atrial fibrillation) Status: Chronic (3) Hypokalemia Status: Acute (4) Weakness Status: Acute (5) Healthcare-associated pneumonia Status: Acute (6) Anemia Status: Chronic (7) C. difficile diarrhea Status: Acute - Attestation Attestation Narrative: 11/29/17 10:19 Recommendation After examining the patient I agree with the above assessment. I am involved in the formulation of the patient's plan of care. Hospital Course Summary Disclaimer: The visit summary below is not to be considered part of the above Progress Note.
--- NOTE | 2017-11-17 19:39 | Pharmacy Consult ---
Pharmacy Consult-Warfarin - Laboratory Information 11/13/17 11/13/17 11/13/17 18:06 18:14 18:14 Hgb 8.7 L Hct 27.4 L INR > 10.00 H* AST 42 H ALT 23 Albumin 2.6 L 11/14/17 11/14/17 11/14/17 04:26 04:26 09:46 Hgb 7.4 L D Hct 23.1 L D INR 6.75 H* AST 53 H ALT 25 Albumin 2.5 L 11/14/17 11/14/17 11/15/17 18:39 18:39 04:08 Hgb 10.7 L D 8.9 L D Hct 32.8 L D 27.6 L D INR 1.55 H AST ALT Albumin 11/15/17 11/15/17 11/16/17 04:08 16:26 04:51 Hgb 9.2 L 8.8 L Hct 28.0 L 26.6 L INR AST 46 H ALT 19 Albumin 2.2 L 11/16/17 11/17/17 11/17/17 04:51 04:33 04:33 Hgb 9.3 L Hct 28.6 L INR 1.43 H 1.29 H AST ALT Albumin - Consult Information COUMADIN CONSULT (Initial): 87 y.o. female with history of a.fib and chronic anticoagulation with warfarin. home warfarin dose= 2 mg po daily. INR was significantly supra-therapeutic on admission > 10.0. Vitamin k doses were given 10 mg po x 1 dose on 11/13 and 10 mg sq x1 dose on 11/14. today's INR = 1.29 Will give Warfarin 1 mg today. Due to high INR on admission will carefully monitor. Thank you, Jacy Shaffer, [facility]
[2017-11-17] MEDS ORDERED: WARFARIN 2 MG TABLET PO SCH (21:00)
[2017-11-17] MEDS: PRAVASTATIN 20 MG TABLET PO SCH (21:26)
[2017-11-18] MEDS: VANCOMYCIN 250mg/5ml ORAL LIQ PO SCH ×4 (03:57→21:44)
[2017-11-18] MEDS: PANTOPRAZOLE 40 MG TABLET PO SCH (05:36)
--- NOTE | 2017-11-18 07:31 | Pharmacy Consult ---
Pharmacy Consult-Warfarin - Laboratory Information 11/13/17 11/13/17 11/13/17 18:06 18:14 18:14 Hgb 8.7 L Hct 27.4 L INR > 10.00 H* AST 42 H ALT 23 Albumin 2.6 L 11/14/17 11/14/17 11/14/17 04:26 04:26 09:46 Hgb 7.4 L D Hct 23.1 L D INR 6.75 H* AST 53 H ALT 25 Albumin 2.5 L 11/14/17 11/14/17 11/15/17 18:39 18:39 04:08 Hgb 10.7 L D 8.9 L D Hct 32.8 L D 27.6 L D INR 1.55 H AST ALT Albumin 11/15/17 11/15/17 11/16/17 04:08 16:26 04:51 Hgb 9.2 L 8.8 L Hct 28.0 L 26.6 L INR AST 46 H ALT 19 Albumin 2.2 L 11/16/17 11/17/17 11/17/17 04:51 04:33 04:33 Hgb 9.3 L Hct 28.6 L INR 1.43 H 1.29 H AST ALT Albumin 11/18/17 11/18/17 03:59 03:59 Hgb 9.4 L Hct 29.8 L INR 1.40 H AST ALT Albumin - Consult Information We will give another 1 mg of warfarin po at noon today. Consider enoxaparin bridge as INR is currently subtherapeutic. Thanks
[2017-11-18] MEDS: SALINE FLUSH 10ml SYRINGE IVF PRN ×2 (09:43→18:56)
[2017-11-18] MEDS: DIGOXIN 125 MCG TABLET PO SCH (09:44)
[2017-11-18] MEDS: CYANOCOBALAMIN (B-12) 500mcg TABLET PO SCH (09:44)
[2017-11-18] MEDS: MAGNESIUM OXIDE 400 MG TABLET PO SCH (09:44)
[2017-11-18] MEDS: FOLIC ACID 1 MG TABLET PO SCH (09:44)
[2017-11-18] MEDS: SPIRONOLACTONE 25 MG TABLET PO SCH (09:45)
[2017-11-18] MEDS: FUROSEMIDE 40 MG TABLET PO SCH ×2 (09:45→17:17)
[2017-11-18] MEDS ORDERED: SORE THROAT SPRAY 20ml PO PRN (11:15)
--- NOTE | 2017-11-18 11:20 | Progress Note ---
- Date 11/18/17 Subjective: Patrizia is seen today in follow up. She awakens easily. Is lying still, speaking very quietly. Reports that she has a sore throat, which is why she is not speaking normally. Reports some painful swallowing as well. Denies cough or congestion. Denies headache or neck pain. Denies abdominal discomfort. Afebrile (body temp a bit low). BM x 2 last 24 hours per charting. Objective Vital signs: Temperature 96.9 F 11/18/17 11:03 Pulse Rate 85 11/18/17 11:03 Respiratory Rate 13 11/18/17 11:03 Blood Pressure 118/55 11/18/17 11:03 Pulse Oximetry 92 11/18/17 11:03 Height/Weight/BMI: Height 1.65 m Weight 59.9 kg Body Mass Index 21.6 - Constitutional Present: no acute distress, thin, cooperative - Routine HEENT Exam Head: Present: normocephalic, atraumatic Eye: Present: EOMI, PERRL ENT: Present: mucous membranes moist (LImited exam. No visible thrush. Pt. reluctant to allow me to examine mouth. ) - Routine Respiratory Exam Present: CTA bilaterally, diminished air movement. Absent: rales, rhonchi, wheezes - Routine Cardiovascular Exam Present: RRR, S1, S2, no murmur - Routine Abdominal Exam Present: soft, normoactive bowel sounds, non distended, non tender - Routine Extremities Exam Present: edema (Trace LE edema. Some early foot drop. ) - Routine Musculoskeletal Exam Musculoskeletal: Present: moving extremities well - Routine Skin Exam Present: intact, dry, warm - Routine Neurological Exam Present: alert, moving all extremities - Routine Psychiatric Exam Present: cooperative, unable to assess (withdrawn and quiet. Difficult to determine mentation. ) Results - Labs CBC & Chem 7: 11/18/17 03:59 11/18/17 03:59 - Impressions no new Assessment and Plan (1) Acute diastolic congestive heart failure Current visit: No Status: Chronic (2) Hypokalemia Current visit: Yes Status: Acute (3) Healthcare-associated pneumonia Current visit: Yes Status: Acute Assessment and Plan: Assessment: Lower GI bleeding - resolved, on Coumadin C. difficile diarrhea, positive C. difficile toxin on stool sample Hypokalemia, likely secondary to diuresis, POA Right lower lobe aspiration pneumonia versus pleural effusion Atrial fibrillation Hypertension. Hyperlipidemia Hyperparathyroidism Plan: 11/18/2017 Some improvement in frequency of stools. Continue oral Vanco. Persistent leukocytosis, anemia noted- stable. Peripheral smear ordered for further assessment. Continue Folate. LCTA- continue to monitor. Dysphagia- continue altered diet. Sore throat- ordered chloraseptic. Monitor for thrush. Add oral potassium replacement for now and monitor. BP is relatively stable. Continue supportive care. Repeat labs and CXR in AM. Warfarin- resume soon? Plan return to [facility] with SNU services post DC. DVT Prophylaxis: SCD's, other ( inr is supratherapeutic) GI Prophylaxis: Protonix Resuscitation Status: Do Not Resuscitate - Physician Narrative Physician: Edgard Villalba MD Narrative: Date: 11/18/17 Time: 1600 I have independently interviewed and examined patient. Patient chart reviewed. Case discussed with my FOLDED CLOTH TAPER. Care plan developed with my supervision, agree with above. Patient resting in bed at the time of interview. Patient reported sore throat earlier this morning, Chloraseptic spray when necessary was ordered. At the time of examination in the afternoon, patient denies any sore throat. Patient appears fidgety, anxious. On inquiry, reports feeling anxious and noted to have some tremors in upper extremities. Patient trying to pick at her oxygen saturation monitor. No reported abdominal pain, no nausea, no vomiting, no diarrhea. No reported flank pain, no subjective fever, no chills. Physical exam: AAO x 3, NAD, appears anxious. Tremors noted bilateral upper extremities. PERRLA, EOMI S1 and S2 heard on auscultation, irregularly irregular heart sounds. No murmurs Lungs clear to auscultation bilaterally, no wheezing, no crackles Abdomen soft, nontender, positive bowel sounds 1+ pitting edema bilateral lower extremities. Assessment: C. difficile diarrhea, melanotic stools secondary to anticoagulation with Coumadin. Anxiety. Hypokalemia. Atrial fibrillation. Hypertension. Hyperlipidemia. Hyperparathyroidism. Plan: Patient reports anxiety, appears fidgety and reports insomnia at nighttime. Seroquel 25 mg by mouth at bedtime. Patient reported some sore throat this morning, symptoms have resolved with Chloraseptic spray. Continue oral vancomycin for C. difficile diarrhea. Hemoglobin stable at 9.4. Patient started on Lovenox 40 mg subcutaneous daily. INR 1.4 today. We will recheck INR in the morning. Patient tolerating soft cardiac diet. Serum potassium 3.0, will provide 20 mEq IV potassium chloride. Continue oral potassium chloride 20 mg in 3 times a day. We will recheck potassium levels in the afternoon. Cardiology consulted. Continue Lasix 40 mg by mouth twice a day and oral spironolactone 25 mg daily. Continue home medication Coumadin, pharmacy dosing. Hospital Course Summary Disclaimer: The visit summary below is not to be considered part of the above Progress Note. Hospital Course: 11/13/17 admitted with profound hypokalemia, likely due to loop diuretics, and suspect right lower lobe pneumonia, she is in a healthcare setting, along with recent hospitalizations, aspiration pneumonitis/pneumonia is less likely, but cannot be ruled out. she did cough when she took her liquid potassium supplement this evening. she is admitted with telemetry, will continue antibiotics, gentle lasix given her relatively low blood pressure reported in the clinic, continue the majority of her home medications besides warfarin for which vitamin k was given to antagonize. appreciate cardiology's input expertise and familiarity in these matters in the morning, as well as physical occupational and speech therapies. will provide further symptomatic, supportive, and diagnostic cares as the current workup, or as changes in her clinical scenario indicate. the plan of care was discussed with the patient and her family at the bedside at the time of my evaluation and they expressed understanding and a desire to proceed. 11/14/17 IV potassium chloride 60 mEq 1. Continue oral potassium chloride 20 mEq twice a day. We will recheck potassium chloride this evening at 1600. Stool for occult blood. Hemoglobin dropped from 8.7 last night to 7.4 this morning. We will type, cross match and transfuse 1 unit of PRBC. Will recheck H& H 1 hour posttransfusion. INR 6.75. Will provide 10 mg vitamin K subcutaneous 1, with concern for active lower GI bleeding. We will recheck INR at 1600. Patient will be placed on clear liquid diet. Cautious diuresis IV Lasix 20 mg twice a day. Patient has received IV vancomycin and Levaquin, with concern for recurrent aspiration pneumonia. Discontinue Levaquin, considering patient's age and history of atrial fibrillation. Patient will be started on IV Rocephin 1 g daily. Long catheter in place, will monitor intake and output, daily weights. 11/15/17 Patient will remain in contact precautions. Oral vancomycin 125 mg every 6 hours for positive C. difficile. Serum potassium 3.0, patient received 20 mEq oral potassium chloride. Will provide 20 mEq IV potassium chloride and monitor potassium levels. Patient reports she does not like oral potassium chloride supplementation which will be discontinued for now. Cardiology consulted, recommendation for oral Lasix 40 mg twice a day. We'll monitor intake and output, daily weights. Echocardiogram findings as described above. INR reaches greater than 10 on admission has dropped to 1.55 last evening. Will monitor PT/INR. Coumadin remains on hold. We will continue digoxin 0.125 mg daily. Patient status post transfusion of 1 unit of PRBC, hemoglobin improved from 7.4 to 10.7 last evening, repeat hemoglobin dropped to 8.9 this morning. Stool for occult blood negative. Will discuss case with general surgeon, Dr. Ibrahim regarding need for repeat colonoscopy. Patient will remain on clear liquid diet. If no plan for colonoscopy, will progress to soft cardiac diet. 11/16/17 Potassium has dropped further to 2.7. IV replacement has been ordered. Mag is low normal at 1.6, and will start daily replacement. White count increased to 16.4. Continue oral Vanco for C. difficile. She continues on Rocephin as well - will discuss antibiotics with attending. Advance diet to soft cardiac diet. Dr. Ibrahim indicated that she may follow- up outpatient. Diuresis per cardiology. Fluid status is +1.7; weight trending up. DC Long as soon as possible. Will need to discuss anticoagulation with cardiology. 11/18/2017 Some improvement in frequency of stools. Continue oral Vanco. Persistent leukocytosis, anemia noted- stable. Peripheral smear ordered for further assessment. Continue Folate. LCTA- continue to monitor. Dysphagia- continue altered diet. Sore throat- ordered chloraseptic. Monitor for thrush. Add oral potassium replacement for now and monitor. BP is relatively stable. Continue supportive care. Repeat labs and CXR in AM. Warfarin- resume soon? Plan return to [facility] with SNU services post DC.
[2017-11-18] MEDS ORDERED: WARFARIN 1 MG TABLET PO SCH (12:00)
[2017-11-18] MEDS: ENOXAPARIN 40 MG/0.4 ML INJECTION SQ SCH (17:17)
[2017-11-18] MEDS: HALOPERIDOL 5 MG/ML INJECTION IVP SCH (18:56)
[2017-11-18] MEDS ORDERED: QUETIAPINE 25 MG TABLET PO SCH (21:00)
[2017-11-18] MEDS: PRAVASTATIN 20 MG TABLET PO SCH (21:44)
[2017-11-19] MEDS: VANCOMYCIN 250mg/5ml ORAL LIQ PO SCH ×2 (03:44→09:36)
[2017-11-19] MEDS: PANTOPRAZOLE 40 MG TABLET PO SCH (06:29)
--- NOTE | 2017-11-19 06:42 | Pharmacy Consult ---
Pharmacy Consult-Warfarin - Laboratory Information 11/13/17 11/13/17 11/13/17 18:06 18:14 18:14 Hgb 8.7 L Hct 27.4 L INR > 10.00 H* AST 42 H ALT 23 Albumin 2.6 L 11/14/17 11/14/17 11/14/17 04:26 04:26 09:46 Hgb 7.4 L D Hct 23.1 L D INR 6.75 H* AST 53 H ALT 25 Albumin 2.5 L 11/14/17 11/14/17 11/15/17 18:39 18:39 04:08 Hgb 10.7 L D 8.9 L D Hct 32.8 L D 27.6 L D INR 1.55 H AST ALT Albumin 11/15/17 11/15/17 11/16/17 04:08 16:26 04:51 Hgb 9.2 L 8.8 L Hct 28.0 L 26.6 L INR AST 46 H ALT 19 Albumin 2.2 L 11/16/17 11/17/17 11/17/17 04:51 04:33 04:33 Hgb 9.3 L Hct 28.6 L INR 1.43 H 1.29 H AST ALT Albumin 11/18/17 11/18/17 11/19/17 03:59 03:59 03:52 Hgb 9.4 L 9.0 L Hct 29.8 L 27.8 L INR 1.40 H AST ALT Albumin 11/19/17 11/19/17 03:52 03:52 Hgb Hct INR 1.52 H AST ALT Albumin 2.3 L - Consult Information We will continue to give 1mg of warfarin today at noon as INR is gradually increasing. Please consider enoxaparin dose to bridge INR. Thanks.
[2017-11-19] MEDS: CYANOCOBALAMIN (B-12) 500mcg TABLET PO SCH (08:46)
[2017-11-19] MEDS: DIGOXIN 125 MCG TABLET PO SCH (08:46)
[2017-11-19] MEDS: FUROSEMIDE 40 MG TABLET PO SCH (08:47)
[2017-11-19] MEDS: FOLIC ACID 1 MG TABLET PO SCH (08:47)
[2017-11-19] MEDS: SPIRONOLACTONE 25 MG TABLET PO SCH (08:47)
[2017-11-19] MEDS: MAGNESIUM OXIDE 400 MG TABLET PO SCH (08:47)
[2017-11-19] MEDS: ENOXAPARIN 40 MG/0.4 ML INJECTION SQ SCH (09:32)
[2017-11-19] MEDS ORDERED: ONDANSETRON 4 MG/2 ML INJECTION IVP PRN (09:42)
[2017-11-19] MEDS ORDERED: D5-1/2NS with KCL 20mEq 1,000 ML IV SCH (09:45)
--- NOTE | 2017-11-19 09:53 | Progress Note ---
- Date 11/19/17 Subjective: Nursing staff called hospitalist service this morning that patient was having difficulty swallowing, confusion and change in mental status and appeared to have grasping while breathing. Patient evaluated at bedside in the presence of patient's sister and DURABLE POWER OF FIELD CONSULTANT, . Beth Fierro. Patient lying down in bed, less responsive when compared to yesterday. Patient mumbling in response to queries and concern for left-sided facial droop. Patient also not able to follow simple commands. RT was contacted earlier this morning by nursing staff and required oral suctioning. Patient's clinical findings could indicate new onset CVA versus recurrent aspiration pneumonia and altered mental status secondary to medication provided last night IV Haldol/oral Seroquel. Blood culture 2, sputum culture requested. Patient was started on IV Rocephin 1 g daily, IV Flagyl 500 mg every 8 hours. (Will hold off on other antibiotics including clindamycin at this time as patient has active C. difficile) Patient will be kept nothing by mouth. CT scan of head without contrast, 1 view chest x- ray ordered stat. If CT scan of head does not show any evidence of bleeding, patient will be on therapeutic doses of Lovenox 90 mg subcutaneous daily until INR therapeutic. Most of patient's oral medications will be switched to IV. Case discussed in detail with patient's sister at bedside and all questions answered to her satisfaction. Case also discussed with patient's nurse at this time, Mar, and change in treatment plan was communicated. Objective Vital signs: Temperature 97.2 F 11/19/17 07:54 Pulse Rate 88 11/19/17 08:46 Respiratory Rate 20 11/19/17 07:54 Blood Pressure 96/55 11/19/17 07:54 Pulse Oximetry 93 11/19/17 07:54 Height/Weight/BMI: Height 1.65 m Weight 61.6 kg Body Mass Index 21.6 - Additional findings Additional findings: General: Drowsy, arousable. Patient has mumbled responses to queries. Patient also noted to be drooling from the corner of her mouth. Difficult to clinically ascertain due to mental status changes but patient appears to have a left-sided facial droop. Head: Pupils equal, round, reactive to light and accommodation. Neck: No elevation in JVP. Chest: The patient does not use accessory muscles for breathing. Lungs: Coarse breath sounds on auscultation bilateral lung colón. Crackles on auscultation bilateral lung bases, more on the right side. No wheezing. No pleural rub. CVS: S1, S2 heard on auscultation. Irregularly irregular heart sounds. No murmur, no S3/S4 gallops. Abdomen: Soft, nontender, no distention. Bowel sounds appreciated on auscultation. Skin: No rashes, no induration, no erythema. Capillary refill less than 4 seconds. Extremities: Trace pedal edema bilateral lower extremities. No calf tenderness bilaterally. Palpable dorsalis pedis and posterior tibial pulses bilateral lower extremities. SUPERVISOR S[employer]KE [employer]OL: Difficult to ascertain strength due to mental status changes. Patient noted to have weak adoption agent bilateral upper extremities. Left-sided facial droop as described above. Results - Labs CBC & Chem 7: 11/19/17 03:52 11/19/17 03:52 Labs: Laboratory Tests 11/19/17 11/19/17 03:52 03:52 INR 1.52 H Estimated Creat Clear 32 GFR Calculation 47 BUN/Creatinine Ratio 25 Glucose 103 Calculated Osmolality 271 Calcium 6.9 L Phosphorus 2.6 Magnesium 1.9 Albumin 2.3 L Assessment and Plan (1) Acute diastolic congestive heart failure Current visit: No Status: Chronic (2) Hypokalemia Current visit: Yes Status: Acute (3) Healthcare-associated pneumonia Current visit: Yes Status: Acute Assessment and Plan: Assessment: Altered mental status with dysphagia - concern for CVA versus secondary to medications. Recurrent aspiration pneumonia Lower GI bleeding - resolved, on Coumadin C. difficile diarrhea, positive C. difficile toxin on stool sample Hypokalemia, likely secondary to diuresis, POA Atrial fibrillation Hypertension. Hyperlipidemia Hyperparathyroidism Plan: Patient appears to have significant clinical changes today when compared to yesterday. 1 view chest x-ray portable shows evidence of worsening pleural effusion with atelectasis especially in right lung base. Oral Lasix, Aldactone held due to mental status changes. We'll provide Lasix 20 mg IV push 1. Thereafter patient will be on IV Lasix 20 mg twice a day. Stat CT scan of head without IV contrast does not show any evidence of acute intracranial hemorrhage. Patient will be kept nothing by mouth due to mental status changes and dysphagia. Blood culture 2, sputum culture requested. Patient started on IV Rocephin 1 g daily. We will stop oral vancomycin. Patient started on IV Flagyl 500 MG every 8 hours. Cautious IV fluids D5 half normal saline with 20 mEq potassium chloride at 50 mL per hour. Serum potassium 3.1, oral potassium chloride held. Patient will be provided IV potassium chloride 40 mEq 1. We'll hold all oral medication at this point. Will switch route, digoxin 125 mcg IV daily, Protonix 40 mg IV daily, IV Zofran 4 mg every 6 hours as needed for nausea. Speech therapy consulted to evaluate patient. Patient has been on Lovenox 40 mg subcutaneous daily, prophylactic dose especially in the context of recent melanotic stools, drop in hemoglobin and INR greater than 10 at the time of admission. Patient will be started on therapeutic doses of Lovenox 90 mg subcutaneous daily. Case discussed in detail with patient's sister and DURABLE POWER OF FIELD CONSULTANT, Ms. Beth Fierro in detail at bedside and all questions answered to her satisfaction. DVT Prophylaxis: SCD's, Lovenox, other ( inr is supratherapeutic) GI Prophylaxis: Protonix Resuscitation Status: Do Not Resuscitate - Physician Narrative Narrative: Date: 11/19/17 Time: 0945 Hospital Course Summary Disclaimer: The visit summary below is not to be considered part of the above Progress Note. Hospital Course: 11/13/17 admitted with profound hypokalemia, likely due to loop diuretics, and suspect right lower lobe pneumonia, she is in a healthcare setting, along with recent hospitalizations, aspiration pneumonitis/pneumonia is less likely, but cannot be ruled out. she did cough when she took her liquid potassium supplement this evening. she is admitted with telemetry, will continue antibiotics, gentle lasix given her relatively low blood pressure reported in the clinic, continue the majority of her home medications besides warfarin for which vitamin k was given to antagonize. appreciate cardiology's input expertise and familiarity in these matters in the morning, as well as physical occupational and speech therapies. will provide further symptomatic, supportive, and diagnostic cares as the current workup, or as changes in her clinical scenario indicate. the plan of care was discussed with the patient and her family at the bedside at the time of my evaluation and they expressed understanding and a desire to proceed. 11/14/17 IV potassium chloride 60 mEq 1. Continue oral potassium chloride 20 mEq twice a day. We will recheck potassium chloride this evening at 1600. Stool for occult blood. Hemoglobin dropped from 8.7 last night to 7.4 this morning. We will type, cross match and transfuse 1 unit of PRBC. Will recheck H& H 1 hour posttransfusion. INR 6.75. Will provide 10 mg vitamin K subcutaneous 1, with concern for active lower GI bleeding. We will recheck INR at 1600. Patient will be placed on clear liquid diet. Cautious diuresis IV Lasix 20 mg twice a day. Patient has received IV vancomycin and Levaquin, with concern for recurrent aspiration pneumonia. Discontinue Levaquin, considering patient's age and history of atrial fibrillation. Patient will be started on IV Rocephin 1 g daily. Long catheter in place, will monitor intake and output, daily weights. 11/15/17 Patient will remain in contact precautions. Oral vancomycin 125 mg every 6 hours for positive C. difficile. Serum potassium 3.0, patient received 20 mEq oral potassium chloride. Will provide 20 mEq IV potassium chloride and monitor potassium levels. Patient reports she does not like oral potassium chloride supplementation which will be discontinued for now. Cardiology consulted, recommendation for oral Lasix 40 mg twice a day. We'll monitor intake and output, daily weights. Echocardiogram findings as described above. INR reaches greater than 10 on admission has dropped to 1.55 last evening. Will monitor PT/INR. Coumadin remains on hold. We will continue digoxin 0.125 mg daily. Patient status post transfusion of 1 unit of PRBC, hemoglobin improved from 7.4 to 10.7 last evening, repeat hemoglobin dropped to 8.9 this morning. Stool for occult blood negative. Will discuss case with general surgeon, Dr. Ibrahim regarding need for repeat colonoscopy. Patient will remain on clear liquid diet. If no plan for colonoscopy, will progress to soft cardiac diet. 11/16/17 Potassium has dropped further to 2.7. IV replacement has been ordered. Mag is low normal at 1.6, and will start daily replacement. White count increased to 16.4. Continue oral Vanco for C. difficile. She continues on Rocephin as well - will discuss antibiotics with attending. Advance diet to soft cardiac diet. Dr. Ibrahim indicated that she may follow- up outpatient. Diuresis per cardiology. Fluid status is +1.7; weight trending up. DC Long as soon as possible. Will need to discuss anticoagulation with cardiology. 11/17/2017 Potassium remains low, 2.9. Will give IV KCl, 60 mEq and recheck K this afternoon. WBC remains elevated at 16 - upon further review, she has tended to have leukocytosis all through 2018. A secondary source of infection is not strongly suspected at this point. Continue oral vanco for C. diff. Rocephin was discontinued yesterday. Continue diuresis, she's had good urine output though is fluid positive 1.2L and weight is trending up. Keep Long for now. She's on Lasix 40 mg PO BID and spironolactone 25 mg daily. Cardiology following. INR 1.29; stool was neg for occult blood Discussed with dietary - poor oral intake, lactose intolerant -- recommends changing diet to regular diet to see if this might increase caloric intake. 11/18/2017 Some improvement in frequency of stools. Continue oral Vanco. Persistent leukocytosis, anemia noted- stable. Peripheral smear ordered for further assessment. Continue Folate. LCTA- continue to monitor. Dysphagia- continue altered diet. Sore throat- ordered chloraseptic. Monitor for thrush. Add oral potassium replacement for now and monitor. BP is relatively stable. Continue supportive care. Repeat labs and CXR in AM. 11/19/2017 Patient appears to have significant clinical changes today when compared to yesterday. 1 view chest x-ray portable shows evidence of worsening pleural effusion with atelectasis especially in right lung base. Oral Lasix, Aldactone held due to mental status changes. We'll provide Lasix 20 mg IV push 1. Thereafter patient will be on IV Lasix 20 mg twice a day. Stat CT scan of head without IV contrast does not show any evidence of acute intracranial hemorrhage. Patient will be kept nothing by mouth due to mental status changes and dysphagia. Blood culture 2, sputum culture requested. Patient started on IV Rocephin 1 g daily. We will stop oral vancomycin. Patient started on IV Flagyl 500 MG every 8 hours. Cautious IV fluids D5 half normal saline with 20 mEq potassium chloride at 50 mL per hour. Serum potassium 3.1, oral potassium chloride held. Patient will be provided IV potassium chloride 40 mEq 1. We'll hold all oral medication at this point. Will switch route, digoxin 125 mcg IV daily, Protonix 40 mg IV daily, IV Zofran 4 mg every 6 hours as needed for nausea. Speech therapy consulted to evaluate patient. Patient has been on Lovenox 40 mg subcutaneous daily, prophylactic dose especially in the context of recent melanotic stools, drop in hemoglobin and INR greater than 10 at the time of admission. Patient will be started on therapeutic doses of Lovenox 90 mg subcutaneous daily. Case discussed in detail with patient's sister and DURABLE POWER OF FIELD CONSULTANT, Ms. Beth Fierro in detail at bedside and all questions answered to her satisfaction.
[2017-11-19] MEDS: DIGOXIN 500 MCG/2 ML INJECTION IVP SCH (10:18)
[2017-11-19] MEDS: CEFTRIAXONE 1 G in NS 100 ML IV SCH (10:23)
[2017-11-19] MEDS ORDERED: FUROSEMIDE 20 MG/2 ML INJECTION IVP ONE (11:31)
[2017-11-19] MEDS: POTASSIUM CHLORIDE PREMIX 10 MEQ/100 ML BAG IV SCH ×4 (11:32→15:53)
[2017-11-19] MEDS ORDERED: WARFARIN 1 MG TABLET PO SCH (12:00)
[2017-11-19] MEDS ORDERED: ENOXAPARIN 60 MG/0.6 ML INJECTION SQ ONE (12:45)
[2017-11-19] MEDS: ENOXAPARIN 100 MG/ML INJECTION SQ SCH (12:47)
--- NOTE | 2017-11-19 13:17 | CT Scan Report ---
Indication: dysphagia, altered mental status PROCEDURE: CT head/brain wo con: Encounter: Initial Comparison: None Technique: Axial CT images through the head were performed without contrast. Iterative Reconstruction dose reducing technique was utilized. FINDINGS: Moderate generalized atrophy. The ventricles are of normal size, shape, and contour for the patient's age. There are scattered areas of low attenuation in the white matter which most likely represent changes from chronic microvascular ischemia. The brainstem, cerebellum, and cerebral hemispheres otherwise have a normal morphology and CT attenuation. There is no evidence of midline displacement. No hemorrhage, signs of acute territorial stroke, mass effect, mass lesions, or edema is evident. The visualized portions of the skull base, midface, and calvarium demonstrate no abnormality. The paranasal sinuses are well aerated and free of significant disease. The tympanic and mastoid cavities appear normal. IMPRESSION: No acute intracranial abnormality or hemorrhage. There is a preliminary report by [facility]. .
--- NOTE | 2017-11-19 14:24 | XRay Report ---
Indication: SOA, HF PROCEDURE: XR chest 1V: Encounter: Initial Comparison: November 13, 2017 Findings: Increasing moderate right and small to moderate left pleural effusions. No pneumothorax. Compressive atelectasis in both lower lobes. Cardiac silhouette is mildly enlarged. Mediastinal contours are grossly stable. Impression: Worsening pleural effusions. There is a preliminary report by [facility]. .
[2017-11-19] MEDS: MetroNIDAZOLE PB 500 MG/100 ML BAG IV SCH ×2 (17:52→22:03)
[2017-11-19] MEDS: FUROSEMIDE 20 MG/2 ML INJECTION IVP SCH (18:32)
[2017-11-19] MEDS: D5-1/2NS with KCL 20mEq 1,000 ML IV SCH (19:16)
[2017-11-20] MEDS: MetroNIDAZOLE PB 500 MG/100 ML BAG IV SCH ×3 (02:51→17:34)
[2017-11-20] MEDS: PANTOPRAZOLE 40 MG INJECTION IVP SCH (08:43)
[2017-11-20] MEDS: FUROSEMIDE 20 MG/2 ML INJECTION IVP SCH (08:44)
[2017-11-20] MEDS: SALINE FLUSH 10ml SYRINGE IVF PRN (08:44)
[2017-11-20] MEDS: DIGOXIN 500 MCG/2 ML INJECTION IVP SCH (08:44)
[2017-11-20] MEDS: ENOXAPARIN 100 MG/ML INJECTION SQ SCH (08:46)
[2017-11-20] MEDS: CEFTRIAXONE 1 G in NS 100 ML IV SCH (08:47)
--- NOTE | 2017-11-20 09:50 | Pharmacy Consult ---
Pharmacy Consult-Warfarin - Laboratory Information 11/18/17 11/18/17 11/19/17 03:59 03:59 03:52 Hgb 9.4 L 9.0 L Hct 29.8 L 27.8 L INR 1.40 H AST ALT Albumin 11/19/17 11/19/17 11/20/17 03:52 03:52 04:09 Hgb Hct INR 1.52 H 1.64 H AST ALT Albumin 2.3 L - Consult Information COUMADIN CONSULT (Recurring): MATT is a 87 yo female patient currently residing at [facility] undergoing rehabilitation from a hospitalization about one month ago, that was occasioned by fluid overload, and she was diuresed over 3-1/2 L. She was sent over to the emergency department this evening for progressive fatigue, and weakness which she states has really not resolved since her prior hospitalization but has been much worse over the last several days. i believe she saw dr. Diallo in the clinic, and was sent by him with concern of low blood pressures in the 90 systolic range. She also sees Dr. Kessler with cardiology. She takes Coumadin 2 mg po daily for atrial fibrillation, as well as Digoxin. Her digoxin level was good at 1.3, however her INR reported at greater than 10 so oral Vitamin K 10 mg. Patient has diagnoses of HCAP, essential (primary) hypertension, Acute diastolic congestive heart failure, and paroxysmal atrial fibrillation. The patient is currently on Enoxaparin 90 mg sq daily (1.5 mg/kg dosing.) Date INR Dose 11/17 1.29 1 mg 11/18 1.40 1 mg 11/19 1.52 1 mg 8. 1.69 Plan 1 mg I will order Warfarin 1 mg p.o. today X1 and the pharmacy will continue to monitor the INR and adjust the Warfarin as needed. Thank you for the Warfarin Protocol, Charles Bashir, Pharmacist.
[2017-11-20] MEDS ORDERED: WARFARIN 2 MG TABLET PO SCH (12:00)
[2017-11-20] MEDS: HALOPERIDOL 5 MG/ML INJECTION IVP SCH (12:00)
[2017-11-20] MEDS ORDERED: WARFARIN 1 MG TABLET PO SCH (12:00)
[2017-11-20] MEDS ORDERED: ENOXAPARIN 60 MG/0.6 ML INJECTION SQ ONE (12:45)
--- NOTE | 2017-11-20 15:09 | Wound Care Progress Note ---
Wound Center Progress Note: Pt seen for wound follow up. Pt lying in bed, friend at bedside, reports her bottom hurts. Pt has recently had a change in mental status and physical decline. Coccyx: Stage 3 PI. Wound bed has 100% slough, discoloration to R buttock, no drainage. Periwound: blanchable erythema, pain with turning. Continue wound care per order, off load with regular repositioning.
--- NOTE | 2017-11-20 15:17 | Magnetic Resonance Report ---
EXAM: MR head/brain wo con LOCATION OF DICTATION: [facility] [place]. COMPARISON: 11/19/2017 CT head HISTORY: dysphagia/dysarthria-new, L-weakness [...] TECHNIQUE: Axial images through the brain are obtained in T1, T2, FLAIR, diffusion weighted, and ADC map sequences. Sagittal T1 and Coronal T2 sequences are also obtained. FINDINGS: The CSF spaces are prominent likely related to atrophy in keeping with age. Extensive periventricular deep white matter hyperintense FLAIR foci are noted likely related to small vessel ischemic disease. No abnormal diffusion weighted sequence signal is identified to suggest acute ischemic event. No restricted diffusion is identified. The suprasellar cistern and quadrigeminal plate cisterns are intact. The singh-white junctions are distinct. No sulcal effacement is identified. The basal ganglia, posterior fossa, brainstem region appear unremarkable. There is no evidence for midline shift or mass effect. The midline structures appear unremarkable. The internal auditory canal regions appear unremarkable. The paranasal sinuses and mastoid air cells are clear. IMPRESSION: 1. Atrophy in keeping with age. 2. Periventricular deep white matter hyperintense FLAIR foci are noted likely related to small vessel ischemic disease. [...] .
--- NOTE | 2017-11-20 16:16 | Cardiology Progress Note ---
<Cherry Hernandez - Last Filed: 11/20/17 19:37> Subjective Principal diagnosis: edema Interval history: Patrizia is seen in follow up for diastolic HF. She is in bed, family is at the bedside. She is alert and able to answer yes and no questions but not carry a conversation. She denies chest pain, palpitations, dizziness or nausea. Exam Vital signs: Temperature 98.1 F 11/20/17 12:00 Pulse Rate 101 H 11/20/17 12:00 Respiratory Rate 17 11/20/17 12:00 Blood Pressure 115/63 11/20/17 12:00 Pulse Oximetry 94 11/20/17 12:00 Inpatient Medications: Generic Name Dose Route Start Last Admin Trade Name Freq PRN Reason Stop Dose Admin Acetaminophen 325 - 650 mg 11/13/17 20:29 11/15/17 18:38 Tylenol PO 650 mg Q5H PRN Administration Discomfort Acetaminophen 320 mg 11/13/17 23:10 11/14/17 00:08 Tylenol 160 Mg/5 Ml Liquid PO 320 mg Q6H PRN Administration Discomfort Cyanocobalamin 500 mcg 11/14/17 09:00 11/19/17 08:46 Vit. B-12 PO Not Given DAILY MARIFER Digoxin 125 mcg 11/19/17 09:45 11/20/17 08:44 Lanoxin IVP 125 mcg DAILY MARIFER Administration Enoxaparin Sodium 90 mg 11/19/17 09:45 11/20/17 08:46 Lovenox SQ 90 mg DAILY MARIFER Administration Folic Acid 1 mg 11/14/17 09:00 11/19/17 08:47 Folate PO Not Given DAILY MARIFER Furosemide 20 mg 11/19/17 17:00 11/20/17 08:44 Lasix 20 Mg/2 Ml IVP 20 mg 0900,1700 MARIFER Administration Ceftriaxone Sodium 1 g/ Sodium 100 mls @ 200 mls/hr 11/19/17 09:45 11/20/17 09:07 Chloride IV Infused Q24H MARIFER Infusion Metronidazole/Sodium Chloride 500 mg in 100 mls @ 100 mls/hr 11/19/17 10:00 11/20/17 11:02 Flagyl Iv Premix IV Infused Q8H MARIFER Infusion Potassium Chloride/Dextrose/Sod Cl 1,000 mls @ 30 mls/hr 11/19/17 18:23 11/20 03:51 D5-1/2ns With Kcl 20meq Premix IV 30 mls/hr .Q24H MARIFER Infusion Magnesium Oxide 400 mg 11/16/17 09:00 11/19/17 08:47 Magox PO Not Given DAILY [facility] Ondansetron HCl 4 mg 11/19/17 09:42 Zofran IVP Q6H PRN Nausea &/or vomiting Pantoprazole Sodium 40 mg 11/20/17 09:00 11/20/17 08:43 Protonix Iv IVP 40 mg DAILY MARIFER Administration Pravastatin Sodium 20 mg 11/13/17 21:00 11/18/17 21:44 Pravachol PO 20 mg HS MARIFER Administration Sodium Chloride 10 - 80 ml 11/13/17 17:42 11/20/17 08:44 Iv Flush IVF 40 ml PRN PRN Administration Flushing Sodium Chloride 500 ml 11/14/17 14:38 11/16/17 09:26 Normal Saline IV 500 ml PRN PRN Administration Spironolactone 25 mg 11/16/17 14:45 11/19/17 08:47 Aldactone 25 Mg PO Not Given DAILY [facility] Throat Lozenges 3 spray 11/18/17 11:15 Chloraseptic [place] PO Q2H PRN Sore throat Warfarin Sodium 0 11/17/17 15:00 Coumadin Protocol NOTE MARIFER Warfarin Sodium 1 mg 11/20/17 12:00 11/20/17 12:09 Coumadin PO 11/20/17 23:59 Not Given NOON MARIFER Discontinued Medications Generic Name Dose Route Start Last Admin Trade Name Freq PRN Reason Stop Dose Admin Digoxin 125 mcg 11/14/17 09:00 11/19/17 08:46 Lanoxin PO Not Given DAILY [facility] Diltiazem HCl 180 mg 11/14/17 09:00 11/14/17 09:41 Cardizem Cd 180 Mg PO Not Given DAILY [facility] Enoxaparin Sodium 40 mg 11/18/17 15:45 11/19/17 09:32 Lovenox SQ 40 mg DAILY MARIFER Administration Enoxaparin Sodium 50 mg 11/20/17 12:45 Lovenox SQ 11/20/17 12:46 ONE TIME ONE Enoxaparin Sodium 50 mg 11/19/17 12:45 11/19/17 13:03 Lovenox SQ 11/19/17 12:46 50 mg ONE TIME ONE Administration Furosemide 20 mg 11/13/17 20:29 11/15/17 10:14 Lasix 20 Mg/2 Ml IVP 20 mg Q12H MRAIFER Administration Furosemide 20 mg 11/14/17 15:44 11/14/17 18:05 Lasix 20 Mg/2 Ml IVP 11/14/17 15:45 20 mg O ONE Administration Furosemide 40 mg 11/15/17 17:00 11/19/17 08:47 Lasix 40 Mg Tab PO Not Given 0900,1700 MARIFER Furosemide 20 mg 11/19/17 11:31 11/19/17 13:01 Lasix 20 Mg/2 Ml IVP 11/19/17 11:32 20 mg ONCE ONE Administration Haloperidol Lactate 0.5 mg 11/18/17 18:45 11/20/17 12:00 Haldol IVP Not Given O MARIFER Sodium Chloride 500 mls @ 1,000 mls/hr 11/13/17 17:40 11/13/17 18:58 Normal Saline IV 11/13/17 18:09 Not Given .Q30M ONE Sodium Chloride 500 mls @ 999.9 mls/hr 11/13/17 17:40 11/13/17 19:04 Normal Saline IV 11/13/17 18:09 Not Given .Q30M ONE Levofloxacin/Dextrose 500 mg in 100 mls @ 100 mls/hr 11/13/17 20:29 11/14/17 01:30 Levaquin 500 Mg Premix IV Infused Q24H MARIFER Infusion Vancomycin HCl 1,000 mg/ 250 mls @ 250 mls/hr 11/13/17 20:29 11/13/17 22:36 Sodium Chloride IV Not Given Q12H MARIFER Vancomycin HCl 1,250 mg/ 250 mls @ 200 mls/hr 11/13/17 22:30 11/14/17 12:14 Sodium Chloride IV Not Given Q12H MARIFER Ceftriaxone Sodium 1 g/ Sodium 100 mls @ 200 mls/hr 11/14/17 09:45 11/16/17 11:22 Chloride IV Infused DAILY MARIFER Infusion Magnesium Sulfate/Dextrose 1 gm in 100 mls @ 100 mls/hr 11/14/17 10:28 12:18 Mag Sulf 1gm Premix IV 11/14/17 11:27 Infused O ONE Infusion Vancomycin HCl 1,250 mg/ 250 mls @ 200 mls/hr 11/14/17 12:00 11/15/17 16:30 Sodium Chloride IV Infused Q24H MARIFER Infusion Potassium Chloride 10 meq in 100 mls @ 100 mls/hr 11/15/17 10:45 11/15/17 14: 20 Potassium Chloride Premix IV 11/15/17 12:44 Infused Q1H MARIFER Infusion Lidocaine HCl 10 mg/ Potassium 100 mls @ 100 mls/hr 11/16/17 07:45 11/16/17 18:55 Chloride 10 meq/ Sodium IV 11/16/17 11:58 Infused Chloride .Q1H MARIFER Infusion Vancomycin HCl 1,000 mg/ 250 mls @ 250 mls/hr 11/16/17 15:00 11/17/17 19:31 Sodium Chloride IV Infused Q24H MARIFER Infusion Magnesium Sulfate/Dextrose 1 gm in 100 mls @ 100 mls/hr 11/16/17 15:00 21:25 Mag Sulf 1gm Premix IV 11/16/17 16:59 Infused Q1H MARIFER Infusion Lidocaine HCl 10 mg/ Potassium 100 mls @ 100 mls/hr 11/17/17 08:45 11/17/17 19:01 Chloride 10 meq/ Sodium IV 11/17/17 14:44 Infused Chloride .Q1H MARIFER Infusion Potassium Chloride/Dextrose/Sod Cl 1,000 mls @ 50 mls/hr 11/19/17 09:45 11/19 10:24 D5-1/2ns With Kcl 20meq Premix IV 0 mls/hr .Q20H MARIFER Infusion Potassium Chloride 10 meq in 100 mls @ 100 mls/hr 11/19/17 09:45 11/19/17 17: 00 Potassium Chloride Premix IV 11/19/17 13:44 Infused Q1H MARIFER Infusion Ondansetron HCl 4 mg 11/13/17 20:29 Zofran Po PO Q6H PRN Nausea Pantoprazole Sodium 40 mg 11/16/17 06:30 11/19/17 06:29 Protonix Tab PO Not Given ACB MARIFER Phytonadione 10 mg 11/13/17 21:09 11/13/17 22:35 Vitamin K Oral Liq PO 11/13/17 21:10 10 mg O ONE Administration Phytonadione 10 mg 11/14/17 09:38 11/14/17 10:11 Vitamin K (Adult) Inj SQ 11/14/17 09:39 10 mg O ONE Administration Polyethylene Glycol 17 gm 11/13/17 20:29 Miralax PO DAILY PRN Constipation Potassium Chloride 40 meq 11/13/17 19:00 11/13/17 19:11 K-Dur 20 Meq Tablet PO 11/13/17 19:01 40 meq O ONE Administration Potassium Chloride 20 meq 11/14/17 08:00 11/15/17 10:13 Kcl Oral Liq 20 Meq/15 Ml PO 20 meq BIDWM MARIFER Administration Potassium Chloride 40 meq 11/14/17 10:29 11/14/17 10:38 K-Dur 20 Meq Tablet PO 11/14/17 10:30 Not Given O ONE Potassium Chloride 40 meq 11/14/17 10:45 11/14/17 10:52 Kcl Oral Liq 20 Meq/15 Ml PO 11/14/17 10:46 40 meq O ONE Administration Potassium Chloride 40 meq 11/15/17 15:03 11/15/17 16:29 K-Dur 20 Meq Tablet PO 11/15/17 15:04 40 meq O ONE Administration Potassium Chloride 20 meq 11/18/17 12:00 11/19/17 08:46 K-Dur 20 Meq Tablet PO Not Given TIDWM MARIFER Potassium Citrate 40 meq 11/13/17 20:29 11/13/17 22:34 Urocit-K PO 11/13/17 20:30 40 meq TID ONE Administration Quetiapine Fumarate 25 mg 11/18/17 21:00 11/18/17 21:44 Seroquel PO 25 mg HS MARIFER Administration Vancomycin HCl 125 mg 11/14/17 22:15 11/19/17 09:36 Vancomycin Oral Liq PO Not Given Q6HR MARIFER Warfarin Sodium 2 mg 11/13/17 21:00 Coumadin PO HS MARIFER Warfarin Sodium 2 mg 11/17/17 21:00 Coumadin PO HS MARIFER Warfarin Sodium 1 each 11/17/17 14:14 11/20/17 12:00 Pharmacy Consult - Warfarin MC 11/17/17 14:15 Not Given O ONE Warfarin Sodium 1 mg 11/17/17 14:45 11/17/17 18:26 Coumadin PO 11/17/17 14:46 1 mg O ONE Administration Warfarin Sodium 1 mg 11/18/17 12:00 11/18/17 12:46 Coumadin PO 11/18/17 12:30 1 mg NOON MARIFER Administration Warfarin Sodium 1 mg 11/19/17 12:00 11/19/17 12:49 Coumadin PO 11/19/17 12:30 Not Given NOON MARIFER Warfarin Sodium 2 mg 11/20/17 12:00 Coumadin PO 11/20/17 23:59 NOON MARIFER - Constitutional no acute distress, well nourished, cooperative - Routine HEENT Exam Head: Present: normocephalic - Routine Neck Exam Absent: JVD, carotid bruit - Routine Chest/Breast/Axilla Exam Chest wall: Absent: tenderness - Routine Respiratory Exam Present: rales (bibasilar). Absent: dyspnea - Routine Cardiovascular Exam Present: no murmur, irregular rhythm - Routine Abdominal Exam Present: soft - Routine Extremities Exam Present: edema - Routine Skin Exam Present: intact, dry, warm - Routine Neurological Exam Present: alert - Routine Psychiatric Exam Present: normal affect - Urinary Catheter Management Urethral Cath placed during this visit: yes Insertion date: 11/13/17 Insertion time: 21:00 Results 11/20/17 11:33 11/20/17 11:33 CBC 11/20/17 Range/Units 11:33 WBC 17.5 H (4.5-11.0) T/MM3 RBC 3.78 L (4.00-5.20) M/MM3 Hgb 9.9 L (12-16) GM/DL Hct 30.7 L (36-46) % Plt Count 319 (130-400) T/MM3 Neut # (Auto) Not performed Lymph # (Auto) Not performed [place] # (Auto) Not performed Eos # (Auto) Not performed Baso # (Auto) Not performed Comprehensive Metabolic Panel 11/20/17 Range/Units 11:33 Sodium 141 (136-146) MEQ/L Potassium 3.4 L (3.6-5) MEQ/L Chloride 103 (98-107) MEQ/L Carbon Dioxide 28 (22-30) MEQ/L BUN 26.0 H (7-17) MG/DL Creatinine 1.1 (0.7-1.2) mg/dL Glucose 89 (65-110) MG/DL Calcium 6.7 L (8.4-10.2) MG/DL Intake and Output 11/20/17 11/20/17 11/20/17 06:59 14:59 22:59 Intake Total 327.5 / 327.5 200 / 200 Output Total 475 / 475 Balance -147.5 / -147.5 200 / 200 Intake: IV 327.5 / 327.5 200 / 200 Ceftriaxone 1 g In Ns 100 ml @ 100 / 100 200 mls/hr IV Q24H MARIFER Rx#: [id number] D5-1/2NS with KCL 20mEq 1,000 227.5 / 227.5 ml @ 30 mls/hr IV .Q24H MARIFER Rx# :[id number] MetroNIDAZOLE PB 500 mg In 100 100 / 100 100 / 100 ml @ 100 mls/hr IV Q8H MARIFER Rx#: [id number] Output: Urine Amount (Catheter) 475 / 475 Other: Urine Appearance Clear Cloudy Urine Color Yellow Dark Yellow Straw Urine Odor Normal Weight 133 lb 6.075 oz Patient Weight 11/21/17 06:59 Weight 133 lb 6.075 oz - Imaging and Cardiology Imaging & Cardiology Narrative: Date of Exam: 11/20/17 Ordering Provider: Barbara Henry MD Type of Exam(s): MR head/brain wo con Reason for Exam(s): dysphagia/dysarthria-new, L-weakness EXAM: MR head/brain wo con [place] [facility] [place]ISON: 11/19/2017 CT head HISTORY: dysphagia/dysarthria-new, L-weakness [...] TECHNIQUE: Axial images through the brain are obtained in T1, T2, FLAIR, diffusion weighted, and ADC map sequences. Sagittal T1 and Coronal T2 sequences are also obtained. FINDINGS: The CSF spaces are prominent likely related to atrophy in keeping with age. Extensive periventricular deep white matter hyperintense FLAIR foci are noted likely related to small vessel ischemic disease. No abnormal diffusion weighted sequence signal is identified to suggest acute ischemic event. No restricted diffusion is identified. The suprasellar cistern and quadrigeminal plate cisterns are intact. The singh-white junctions are distinct. No sulcal effacement is identified. The basal ganglia, posterior fossa, brainstem region appear unremarkable. There is no evidence for midline shift or mass effect. The midline structures appear unremarkable. The internal auditory canal regions appear unremarkable. The paranasal sinuses and mastoid air cells are clear. IMPRESSION: 1. Atrophy in keeping with age. 2. Periventricular deep white matter hyperintense FLAIR foci are noted likely related to small vessel ischemic disease. [...] 11/20/17 16:14 11/20/17 16:15 Date of Exam: 11/19/17 Ordering Provider: Marcia Dubose APRN Type of Exam(s): XR chest 1V Reason for Exam(s): SOA, HF Indication: SOA, HF PROCEDURE: XR chest 1V: Encounter: Initial Comparison: November 13, 2017 Findings: Increasing moderate right and small to moderate left pleural effusions. No pneumothorax. Compressive atelectasis in both lower lobes. Cardiac silhouette is mildly enlarged. Mediastinal contours are grossly stable. Impression: Worsening pleural effusions. There is a preliminary report by virtual radiologic. Assessment and Plan - Assessment and Plan (1) Acute diastolic congestive heart failure Status: Chronic (2) PAF (paroxysmal atrial fibrillation) Status: Chronic (3) Hypokalemia Status: Acute (4) Weakness Status: Acute (5) Healthcare-associated pneumonia Status: Acute (6) Anemia Status: Chronic (7) C. difficile diarrhea Status: Acute - Assessment and Plan Healthcare-associated pneumonia Current visit: Yes Status: Acute - per hospitalist service Acute diastolic congestive heart failure Current visit: No Status: Acute - Denies Orthopnea or SOA, no JVD, 2+ LE edema - Diurese with Lasix 40mg bid as BP allows - Holding Cardizem due to lower BPs Hypokalemia Current visit: Yes Status: Acute - K+ 2.8, replace 40meq orally, Mag 1.8, replace 1gm IV - continue to monitor renal and electrolytes PAF (paroxysmal atrial fibrillation) Current visit: No Status: Chronic - Rate well controlled with Digoxin, hold Cardizem for now due to BP - INR 6.75 today, holding Coumadin Anemia Current visit: Yes Status: Chronic - HGB 7.4, transfused 1 unit PRBCs per hospitalist Weakness Current visit: Yes Status: Acute Thank you for allowing us to participate in the care of this patient, we will follow along with you. 11/15/17 K+ 3.0, replace with 40meq po X1 with food to minimize stomach upset, recheck in am - Keep K+ >4.0, Mag >2.0 11/16/17 - K+ 2.7, Replaced per hospitalist, Mag 1.6, replace 2gms IV. - Spironolactone 25mg daily to help patient retain potassium 11/17/17 K+ 2.9 today, replaced per hospitalist, recheck 3.2 - Continue Spironolactone, continues to have loose stools - HR well controlled with Digoxin 11/20/17 -11/19/17 CXR with worsening pleural effusions. - Increase Lasix to 40mg IV BID - Consider thoracentesis as is unlikely to decrease pleural effusions with diuresis - replace potassium, mag 1.8 today Hospital Course Summary Disclaimer: The visit summary below is not to be considered part of the above Progress Note. Hospital Course: 11/13/17 admitted with profound hypokalemia, likely due to loop diuretics, and suspect right lower lobe pneumonia, she is in a healthcare setting, along with recent hospitalizations, aspiration pneumonitis/pneumonia is less likely, but cannot be ruled out. she did cough when she took her liquid potassium supplement this evening. she is admitted with telemetry, will continue antibiotics, gentle lasix given her relatively low blood pressure reported in the clinic, continue the majority of her home medications besides warfarin for which vitamin k was given to antagonize. appreciate cardiology's input expertise and familiarity in these matters in the morning, as well as physical occupational and speech therapies. will provide further symptomatic, supportive, and diagnostic cares as the current workup, or as changes in her clinical scenario indicate. the plan of care was discussed with the patient and her family at the bedside at the time of my evaluation and they expressed understanding and a desire to proceed. 11/14/17 IV potassium chloride 60 mEq 1. Continue oral potassium chloride 20 mEq twice a day. We will recheck potassium chloride this evening at 1600. Stool for occult blood. Hemoglobin dropped from 8.7 last night to 7.4 this morning. We will type, cross match and transfuse 1 unit of PRBC. Will recheck H& H 1 hour posttransfusion. INR 6.75. Will provide 10 mg vitamin K subcutaneous 1, with concern for active lower GI bleeding. We will recheck INR at 1600. Patient will be placed on clear liquid diet. Cautious diuresis IV Lasix 20 mg twice a day. Patient has received IV vancomycin and Levaquin, with concern for recurrent aspiration pneumonia. Discontinue Levaquin, considering patient's age and history of atrial fibrillation. Patient will be started on IV Rocephin 1 g daily. Long catheter in place, will monitor intake and output, daily weights. 11/15/17 Patient will remain in contact precautions. Oral vancomycin 125 mg every 6 hours for positive C. difficile. Serum potassium 3.0, patient received 20 mEq oral potassium chloride. Will provide 20 mEq IV potassium chloride and monitor potassium levels. Patient reports she does not like oral potassium chloride supplementation which will be discontinued for now. Cardiology consulted, recommendation for oral Lasix 40 mg twice a day. We'll monitor intake and output, daily weights. Echocardiogram findings as described above. INR reaches greater than 10 on admission has dropped to 1.55 last evening. Will monitor PT/INR. Coumadin remains on hold. We will continue digoxin 0.125 mg daily. Patient status post transfusion of 1 unit of PRBC, hemoglobin improved from 7.4 to 10.7 last evening, repeat hemoglobin dropped to 8.9 this morning. Stool for occult blood negative. Will discuss case with general surgeon, Dr. Ibrahim regarding need for repeat colonoscopy. Patient will remain on clear liquid diet. If no plan for colonoscopy, will progress to soft cardiac diet. 11/16/17 Potassium has dropped further to 2.7. IV replacement has been ordered. Mag is low normal at 1.6, and will start daily replacement. White count increased to 16.4. Continue oral Vanco for C. difficile. She continues on Rocephin as well - will discuss antibiotics with attending. Advance diet to soft cardiac diet. Dr. Ibrahim indicated that she may follow- up outpatient. Diuresis per cardiology. Fluid status is +1.7; weight trending up. DC Long as soon as possible. Will need to discuss anticoagulation with cardiology. <Salinas Kessler - Last Filed: 11/29/17 10:22> Exam Vital signs: Temperature 98.5 F 11/21/17 16:00 Pulse Rate 96 11/21/17 20:00 Respiratory Rate 20 11/21/17 20:00 Blood Pressure 114/69 11/21/17 16:00 Pulse Oximetry 93 11/21/17 16:00 Inpatient Medications: Discontinued Medications Generic Name Dose Route Start Last Admin Trade Name Freq PRN Reason Stop Dose Admin Acetaminophen 325 - 650 mg 11/13/17 20:29 11/15/17 18:38 Tylenol PO 650 mg Q5H PRN Administration Discomfort Acetaminophen 320 mg 11/13/17 23:10 11/14/17 00:08 Tylenol 160 Mg/5 Ml Liquid PO 320 mg Q6H PRN Administration Discomfort Acetaminophen 650 mg 11/20/17 18:23 Tylenol TN Q5H PRN Pain Cyanocobalamin 500 mcg 11/14/17 09:00 11/21/17 08:23 Vit. B-12 PO Not Given DAILY [facility] Digoxin 125 mcg 11/14/17 09:00 11/19/17 08:46 Lanoxin PO Not Given DAILY MARIFER Digoxin 125 mcg 11/19/17 09:45 11/21/17 08:22 Lanoxin IVP 125 mcg DAILY [facility] Administration Diltiazem HCl 180 mg 11/14/17 09:00 11/14/17 09:41 Cardizem Cd 180 Mg PO Not Given DAILY [facility] Enoxaparin Sodium 40 mg 11/18/17 15:45 11/19/17 09:32 Lovenox SQ 40 mg DAILY MARIFER Administration Enoxaparin Sodium 90 mg 11/19/17 09:45 11/21/17 08:21 Lovenox SQ 90 mg DAILY MARIFER Administration Enoxaparin Sodium 50 mg 11/20/17 12:45 Lovenox SQ 11/20/17 12:46 ONE TIME ONE Enoxaparin Sodium 50 mg 11/19/17 12:45 11/19/17 13:03 Lovenox SQ 11/19/17 12:46 50 mg ONE TIME ONE Administration Folic Acid 1 mg 11/14/17 09:00 11/21/17 08:23 Folate PO Not Given DAILY [facility] Furosemide 20 mg 11/13/17 20:29 11/15/17 10:14 Lasix 20 Mg/2 Ml IVP 20 mg Q12H MARIFER Administration Furosemide 20 mg 11/14/17 15:44 11/14/17 18:05 Lasix 20 Mg/2 Ml IVP 11/14/17 15:45 20 mg O ONE Administration Furosemide 40 mg 11/15/17 17:00 11/19/17 08:47 Lasix 40 Mg Tab PO Not Given 0900,1700 MARIFER Furosemide 20 mg 11/19/17 17:00 11/20/17 08:44 Lasix 20 Mg/2 Ml IVP 20 mg 0900,1700 [facility] Administration Furosemide 20 mg 11/19/17 11:31 11/19/17 13:01 Lasix 20 Mg/2 Ml IVP 11/19/17 11:32 20 mg ONCE ONE Administration Furosemide 40 mg 11/20/17 17:00 11/21/17 17:39 Lasix 40 Mg/4 Ml IVP 40 mg 0900,1700 MARIFER Administration Haloperidol Lactate 0.5 mg 11/18/17 18:45 11/20/17 12:00 Haldol IVP Not Given O MARIFER Sodium Chloride 500 mls @ 1,000 mls/hr 11/13/17 17:40 11/13/17 18:58 Normal Saline IV 11/13/17 18:09 Not Given .Q30M ONE Sodium Chloride 500 mls @ 999.9 mls/hr 11/13/17 17:40 11/13/17 19:04 Normal Saline IV 11/13/17 18:09 Not Given .Q30M ONE Levofloxacin/Dextrose 500 mg in 100 mls @ 100 mls/hr 11/13/17 20:29 11/14/17 01:30 Levaquin 500 Mg Premix IV Infused Q24H MARIFER Infusion Vancomycin HCl 1,000 mg/ 250 mls @ 250 mls/hr 11/13/17 20:29 11/13/17 22:36 Sodium Chloride IV Not Given Q12H MARIFER Vancomycin HCl 1,250 mg/ 250 mls @ 200 mls/hr 11/13/17 22:30 11/14/17 12:14 Sodium Chloride IV Not Given Q12H MARIFER Ceftriaxone Sodium 1 g/ Sodium 100 mls @ 200 mls/hr 11/14/17 09:45 11/16/17 11:22 Chloride IV Infused DAILY MARIFER Infusion Magnesium Sulfate/Dextrose 1 gm in 100 mls @ 100 mls/hr 11/14/17 10:28 12:18 Mag Sulf 1gm Premix IV 11/14/17 11:27 Infused O ONE Infusion Vancomycin HCl 1,250 mg/ 250 mls @ 200 mls/hr 11/14/17 12:00 11/15/17 16:30 Sodium Chloride IV Infused Q24H MARIFER Infusion Potassium Chloride 10 meq in 100 mls @ 100 mls/hr 11/15/17 10:45 11/15/17 14: 20 Potassium Chloride Premix IV 11/15/17 12:44 Infused Q1H MARIFER Infusion Lidocaine HCl 10 mg/ Potassium 100 mls @ 100 mls/hr 11/16/17 07:45 11/16/17 18:55 Chloride 10 meq/ Sodium IV 11/16/17 11:58 Infused Chloride .Q1H MARIFER Infusion Vancomycin HCl 1,000 mg/ 250 mls @ 250 mls/hr 11/16/17 15:00 11/17/17 19:31 Sodium Chloride IV Infused Q24H MARIFER Infusion Magnesium Sulfate/Dextrose 1 gm in 100 mls @ 100 mls/hr 11/16/17 15:00 21:25 Mag Sulf 1gm Premix IV 11/16/17 16:59 Infused Q1H MARIFER Infusion Lidocaine HCl 10 mg/ Potassium 100 mls @ 100 mls/hr 11/17/17 08:45 11/17/17 19:01 Chloride 10 meq/ Sodium IV 11/17/17 14:44 Infused Chloride .Q1H MARIFER Infusion Ceftriaxone Sodium 1 g/ Sodium 100 mls @ 200 mls/hr 11/19/17 09:45 11/20/17 09:07 Chloride IV Infused Q24H MARIFER Infusion Potassium Chloride/Dextrose/Sod Cl 1,000 mls @ 50 mls/hr 11/19/17 09:45 11/19 10:24 D5-1/2ns With Kcl 20meq Premix IV 0 mls/hr .Q20H MARIFER Infusion Potassium Chloride 10 meq in 100 mls @ 100 mls/hr 11/19/17 09:45 11/19/17 17: 00 Potassium Chloride Premix IV 11/19/17 13:44 Infused Q1H MARIFER Infusion Metronidazole/Sodium Chloride 500 mg in 100 mls @ 100 mls/hr 11/19/17 10:00 11/21/17 19:00 Flagyl Iv Premix IV Infused Q8H MARIFER Infusion Potassium Chloride/Dextrose/Sod Cl 1,000 mls @ 30 mls/hr 11/19/17 18:23 11/21 19:00 D5-1/2ns With Kcl 20meq Premix IV 30 mls/hr .Q24H MARIFER Infusion Calcium Gluconate 4.65 meq/ 110 mls @ 50 mls/hr 11/20/17 18:22 11/20/17 22:02 Sodium Chloride IV 11/20/17 20:33 Infused O ONE Infusion Potassium Chloride 10 meq in 100 mls @ 100 mls/hr 11/21/17 09:45 11/21/17 16: 58 Potassium Chloride Premix IV 11/21/17 13:44 Infused Q1H MARIFER Infusion Calcium Gluconate 4.65 meq/ 60 mls @ 200 mls/hr 11/21/17 14:06 11/21/17 17:57 Sodium Chloride IV 11/21/17 14:23 Infused O ONE Infusion Magnesium Oxide 400 mg 11/16/17 09:00 11/19/17 08:47 Magox PO Not Given DAILY MARIFER Ondansetron HCl 4 mg 11/13/17 20:29 Zofran Po PO Q6H PRN Nausea Ondansetron HCl 4 mg 11/19/17 09:42 Zofran IVP Q6H PRN Nausea &/or vomiting Pantoprazole Sodium 40 mg 11/16/17 06:30 11/19/17 06:29 Protonix Tab PO Not Given ACB MARIFER Pantoprazole Sodium 40 mg 11/20/17 09:00 11/21/17 08:22 Protonix Iv IVP 40 mg DAILY MARIFER Administration Phytonadione 10 mg 11/13/17 21:09 11/13/17 22:35 Vitamin K Oral Liq PO 11/13/17 21:10 10 mg O ONE Administration Phytonadione 10 mg 11/14/17 09:38 11/14/17 10:11 Vitamin K (Adult) Inj SQ 11/14/17 09:39 10 mg O ONE Administration Polyethylene Glycol 17 gm 11/13/17 20:29 Miralax PO DAILY PRN Constipation Potassium Chloride 40 meq 11/13/17 19:00 11/13/17 19:11 K-Dur 20 Meq Tablet PO 11/13/17 19:01 40 meq O ONE Administration Potassium Chloride 20 meq 11/14/17 08:00 11/15/17 10:13 Kcl Oral Liq 20 Meq/15 Ml PO 20 meq BIDWM MARIFER Administration Potassium Chloride 40 meq 11/14/17 10:29 11/14/17 10:38 K-Dur 20 Meq Tablet PO 11/14/17 10:30 Not Given O ONE Potassium Chloride 40 meq 11/14/17 10:45 11/14/17 10:52 Kcl Oral Liq 20 Meq/15 Ml PO 11/14/17 10:46 40 meq O ONE Administration Potassium Chloride 40 meq 11/15/17 15:03 11/15/17 16:29 K-Dur 20 Meq Tablet PO 11/15/17 15:04 40 meq O ONE Administration Potassium Chloride 20 meq 11/18/17 12:00 11/19/17 08:46 K-Dur 20 Meq Tablet PO Not Given TIDWM MARIFER Potassium Citrate 40 meq 11/13/17 20:29 11/13/17 22:34 Urocit-K PO 11/13/17 20:30 40 meq TID ONE Administration Pravastatin Sodium 20 mg 11/13/17 21:00 11/18/17 21:44 Pravachol PO 20 mg HS [facility] Administration Quetiapine Fumarate 25 mg 11/18/17 21:00 11/18/17 21:44 Seroquel PO 25 mg HS [facility] Administration Sodium Chloride 10 - 80 ml 11/13/17 17:42 11/20/17 08:44 Iv Flush IVF 40 ml PRN PRN Administration [place] Sodium Chloride 500 ml 11/14/17 14:38 11/16/17 09:26 Normal Saline IV 500 ml PRN PRN Administration Spironolactone 25 mg 11/16/17 14:45 11/21/17 08:23 Aldactone 25 Mg PO Not Given DAILY [facility] Throat Lozenges 3 spray 11/18/17 11:15 Chloraseptic [place] PO Q2H PRN Sore throat Vancomycin HCl 125 mg 11/14/17 22:15 11/19/17 09:36 Vancomycin Oral Liq PO Not Given Q6HR MARIFER Vancomycin HCl 250 mg 11/21/17 17:00 11/21/17 17:55 Vancomycin Oral Liq PO Not Given Q8HR [facility] Warfarin Sodium 2 mg 11/13/17 21:00 Coumadin PO HS MARIFER Warfarin Sodium 2 mg 11/17/17 21:00 Coumadin PO HS [facility] Warfarin Sodium 1 each 11/17/17 14:14 11/20/17 12:00 Pharmacy Consult - Warfarin 11/17/17 14:15 Not Given O ONE Warfarin Sodium 1 mg 11/17/17 14:45 11/17/17 18:26 Coumadin PO 11/17/17 14:46 1 mg O ONE Administration Warfarin Sodium 0 11/17/17 15:00 Coumadin Protocol NOTE MARIFER Warfarin Sodium 1 mg 11/18/17 12:00 08/18/18 12:46 Coumadin PO 11/18/17 12:30 1 mg NOON MARIFER Administration Warfarin Sodium 1 mg 11/19/17 12:00 11/19/17 12:49 Coumadin PO 11/19/17 12:30 Not Given NOON MARIFER Warfarin Sodium 2 mg 11/20/17 12:00 Coumadin PO 11/20/17 23:59 NOON MARIFER Warfarin Sodium 1 mg 11/20/17 12:00 11/20/17 12:09 Coumadin PO 11/20/17 23:59 Not Given NOON MARIFER Warfarin Sodium 2 mg 11/21/17 12:00 11/21/17 11:57 Coumadin PO 11/21/17 23:59 Not Given NOON MARIFER - Urinary Catheter Management Urethral Cath placed during this visit: no Results 11/21/17 04:05 11/21/17 04:05 Assessment and Plan - Assessment and Plan (1) Acute diastolic congestive heart failure Status: Chronic (2) PAF (paroxysmal atrial fibrillation) Status: Chronic (3) Hypokalemia Status: Acute (4) Weakness Status: Acute (5) Healthcare-associated pneumonia Status: Acute (6) Anemia Status: Chronic (7) C. difficile diarrhea Status: Acute - Attestation Attestation Narrative: 11/29/17 10:22 Recommendation After examining the patient I agree with the above assessment. I am involved in the formulation of the patient's plan of care. Hospital Course Summary Disclaimer: The visit summary below is not to be considered part of the above Progress Note.
--- NOTE | 2017-11-20 16:35 | Progress Note ---
- Date 11/20/17 Subjective: Mrs. Ardon was seen this morning with her sister at bedside. Patient's speech is mumbled but she was able to respond to questions with yes no answers and occasionally adding additional information. She denied dyspnea, chest pain, or nausea. She denied pain. Speech therapy was present and recommended strict nothing by mouth due to change in swallow ability compared to late last week. Left facial droop was described yesterday in addition to difficulty speaking and swallowing. Objective Vital signs: Temperature 97.7 F 11/20/17 16:00 Pulse Rate 90 11/20/17 16:00 Respiratory Rate 20 11/20/17 16:00 Blood Pressure 133/71 11/20/17 16:00 Pulse Oximetry 92 - RA 11/20/17 16:00 I/O 127/600 Elderly female, NAD, mumbled speech with preference for negative answers Conjugate gaze, EOMI, conjunctiva clear, sclera anicteric, tongue midline, facial structure symmetric-no left facial droop evident Respirations nonlabored with diminished breath sounds bilaterally, coarse sounds at the bases posteriorly, no wheezing or respiratory distress Irregular cardiac rhythm, S1-S2 Abdomen soft, nontender, bowel sounds present Extremities without edema Increased motor tone bilateral upper extremities with tremor present, 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, cannot hold arms outstretched- drop back to the bed slowly; cannot raise her arms off the bed independently; very weak plantar flexion bilaterally and minimal palpable quadriceps tightening palpable on the left leg with no quadriceps movement palpable on the right; responds to stimulation in all 4 extremities, left toe may be upgoing Skin without rash or wounds Rhythm: Atrial Fibrillation with Normal Ventricular Rate Height/Weight/BMI: Height 1.65 m Weight 60.5 kg Body Mass Index 21.6 Results - Labs CBC & Chem 7: 11/20/17 11:33 11/20/17 11:33 Labs: S80 L15 M5 INR 1.64 Calcium 6.7, ionized calcium 0.88, magnesium 1.8 Microbiology Results: Microbiology 11/19/17 10:19 Peripheral/Iv Start Blood Culture - Preliminary No Growth After 1 Day 11/19/17 10:15 Peripheral/Iv Start Blood Culture - Preliminary No Growth After 1 Day 11/19/17 10:37 Sputum, Induced Gram Stain - Final 11/19/17 10:37 Sputum, Induced Sputum Culture - Preliminary Early growth - Imaging and Cardiology MRI - head Status: image reviewed by me (chronic changes, no acute stroke visualized) Assessment and Plan (1) Hypokalemia Current visit: Yes Status: Acute (2) Acute diastolic congestive heart failure Current visit: No Status: Chronic Assessment and Plan: Assessment: Acute/chronic diastolic CHF, POA Hypokalemia, POA Coagulopathy due to warfarin, INR >10 on admission Altered mental status with dysphagia - concern for CVA versus secondary to medications 11/19/17. Recurrent aspiration pneumonia Lower GI bleeding - resolved, on Coumadin Anemia, microcytic-transfused 1 unit PRBC 11/14/17 C. difficile diarrhea, positive C. difficile toxin on stool sample 11/14/17 Hypocalcemia (treated with Prolia in October 2017) Atrial fibrillation Hypertension. Hyperlipidemia Hyperparathyroidism Plan: Complicated hospitalization with persistent hypokalemia, weakness, hypocalcemia (following treatment for hyperparathyroidism last month), questionable pneumonia , and definite C. difficile colitis. Evidence of recurrent acute diastolic CHF and volume overload on admission requiring diuresis. The patient has been on antibiotics for possible pneumonia from 11/13 through present receiving 5 days of vancomycin (11/13-), 5 days Rocephin (11/14-, 11/19-), and one day of Levaquin-11/14. Yesterday's chest x-ray revealed increasing pleural effusions and compressive atelectasis but no infiltrate and ceftriaxone will be discontinued. White count remains elevated but patient has known C. difficile currently being treated with IV metronidazole since she is nothing by mouth. Will discuss potential Dobbhoff placement for medication administration with the patient's sister. Low-volume IV fluids being given; diuresis ongoing. MRI without evidence of acute stroke and I don't see focal abnormalities on exam however the patient has had significant deterioration in her ability to speak or swallow over the past 48 hours and has profound generalized weakness. Calcium is significantly low and dropping progressively; I suspect this is result of treatment for hyperparathyroidism last month. IV calcium to be given today and continue to monitor. Presenting coagulopathy reversed with vitamin K however patient requires ongoing anticoagulation due to atrial fibrillation; Lovenox being used at present due to inability to take warfarin. Melena present when INR was quite high, resolved with reversal of coagulopathy and has not been ongoing; hemoglobin stable following initial transfusion. Potassium remains low but slowly improving with potassium replacement and IV fluids. Continue to monitor. Prognosis is guarded at best. Discussed with cardiology and pharmacology. DVT Prophylaxis: SCD's, Lovenox, other ( inr is supratherapeutic) GI Prophylaxis: Protonix Resuscitation Status: Do Not Resuscitate - Physician Narrative Narrative: Date: 11/20/17 Time: 1629 Hospital Course Summary Disclaimer: The visit summary below is not to be considered part of the above Progress Note. Hospital Course: 11/13/17 admitted with profound hypokalemia, likely due to loop diuretics, and suspect right lower lobe pneumonia, she is in a healthcare setting, along with recent hospitalizations, aspiration pneumonitis/pneumonia is less likely, but cannot be ruled out. she did cough when she took her liquid potassium supplement this evening. she is admitted with telemetry, will continue antibiotics, gentle lasix given her relatively low blood pressure reported in the clinic, continue the majority of her home medications besides warfarin for which vitamin k was given to antagonize. appreciate cardiology's input expertise and familiarity in these matters in the morning, as well as physical occupational and speech therapies. will provide further symptomatic, supportive, and diagnostic cares as the current workup, or as changes in her clinical scenario indicate. the plan of care was discussed with the patient and her family at the bedside at the time of my evaluation and they expressed understanding and a desire to proceed. 11/14/17 IV potassium chloride 60 mEq 1. Continue oral potassium chloride 20 mEq twice a day. We will recheck potassium chloride this evening at 1600. Stool for occult blood. Hemoglobin dropped from 8.7 last night to 7.4 this morning. We will type, cross match and transfuse 1 unit of PRBC. Will recheck H& H 1 hour posttransfusion. INR 6.75. Will provide 10 mg vitamin K subcutaneous 1, with concern for active lower GI bleeding. We will recheck INR at 1600. Patient will be placed on clear liquid diet. Cautious diuresis IV Lasix 20 mg twice a day. Patient has received IV vancomycin and Levaquin, with concern for recurrent aspiration pneumonia. Discontinue Levaquin, considering patient's age and history of atrial fibrillation. Patient will be started on IV Rocephin 1 g daily. Long catheter in place, will monitor intake and output, daily weights. 11/15/17 Patient will remain in contact precautions. Oral vancomycin 125 mg every 6 hours for positive C. difficile. Serum potassium 3.0, patient received 20 mEq oral potassium chloride. Will provide 20 mEq IV potassium chloride and monitor potassium levels. Patient reports she does not like oral potassium chloride supplementation which will be discontinued for now. Cardiology consulted, recommendation for oral Lasix 40 mg twice a day. We'll monitor intake and output, daily weights. Echocardiogram findings as described above. INR reaches greater than 10 on admission has dropped to 1.55 last evening. Will monitor PT/INR. Coumadin remains on hold. We will continue digoxin 0.125 mg daily. Patient status post transfusion of 1 unit of PRBC, hemoglobin improved from 7.4 to 10.7 last evening, repeat hemoglobin dropped to 8.9 this morning. Stool for occult blood negative. Will discuss case with general surgeon, Dr. Ibrahim regarding need for repeat colonoscopy. Patient will remain on clear liquid diet. If no plan for colonoscopy, will progress to soft cardiac diet. 11/16/17 Potassium has dropped further to 2.7. IV replacement has been ordered. Mag is low normal at 1.6, and will start daily replacement. White count increased to 16.4. Continue oral Vanco for C. difficile. She continues on Rocephin as well - will discuss antibiotics with attending. Advance diet to soft cardiac diet. Dr. Ibrahim indicated that she may follow- up outpatient. Diuresis per cardiology. Fluid status is +1.7; weight trending up. DC Long as soon as possible. Will need to discuss anticoagulation with cardiology. 11/17/2017 Potassium remains low, 2.9. Will give IV KCl, 60 mEq and recheck K this afternoon. WBC remains elevated at 16 - upon further review, she has tended to have leukocytosis all through 2018. A secondary source of infection is not strongly suspected at this point. Continue oral vanco for C. diff. Rocephin was discontinued yesterday. Continue diuresis, she's had good urine output though is fluid positive 1.2L and weight is trending up. Keep Long for now. She's on Lasix 40 mg PO BID and spironolactone 25 mg daily. Cardiology following. INR 1.29; stool was neg for occult blood Discussed with dietary - poor oral intake, lactose intolerant -- recommends changing diet to regular diet to see if this might increase caloric intake. 11/18/2017 Some improvement in frequency of stools. Continue oral Vanco. Persistent leukocytosis, anemia noted- stable. Peripheral smear ordered for further assessment. Continue Folate. LCTA- continue to monitor. Dysphagia- continue altered diet. Sore throat- ordered chloraseptic. Monitor for thrush. Add oral potassium replacement for now and monitor. BP is relatively stable. Continue supportive care. Repeat labs and CXR in AM. 11/19/2017 Patient appears to have significant clinical changes today when compared to yesterday. 1 view chest x-ray portable shows evidence of worsening pleural effusion with atelectasis especially in right lung base. Oral Lasix, Aldactone held due to mental status changes. We'll provide Lasix 20 mg IV push 1. Thereafter patient will be on IV Lasix 20 mg twice a day. Stat CT scan of head without IV contrast does not show any evidence of acute intracranial hemorrhage. Patient will be kept nothing by mouth due to mental status changes and dysphagia. Blood culture 2, sputum culture requested. Patient started on IV Rocephin 1 g daily. We will stop oral vancomycin. Patient started on IV Flagyl 500 MG every 8 hours. Cautious IV fluids D5 half normal saline with 20 mEq potassium chloride at 50 mL per hour. Serum potassium 3.1, oral potassium chloride held. Patient will be provided IV potassium chloride 40 mEq 1. We'll hold all oral medication at this point. Will switch route, digoxin 125 mcg IV daily, Protonix 40 mg IV daily, IV Zofran 4 mg every 6 hours as needed for nausea. Speech therapy consulted to evaluate patient. Patient has been on Lovenox 40 mg subcutaneous daily, prophylactic dose especially in the context of recent melanotic stools, drop in hemoglobin and INR greater than 10 at the time of admission. Patient will be started on therapeutic doses of Lovenox 90 mg subcutaneous daily. Case discussed in detail with patient's sister and DURABLE POWER OF FIELD ADMINISTRATOR, Ms. Beth Fierro in detail at bedside and all questions answered to her satisfaction. 11/20/17 Complicated hospitalization with persistent hypokalemia, weakness, hypocalcemia (following treatment for hyperparathyroidism last month), questionable pneumonia , and definite C. difficile colitis. Evidence of recurrent acute diastolic CHF and volume overload on admission requiring diuresis. The patient has been on antibiotics for possible pneumonia from 11/13 through present receiving 5 days of vancomycin, 7 days Rocephin, and one day of Levaquin. Yesterday's chest x-ray revealed increasing pleural effusions and compressive atelectasis but no infiltrate and ceftriaxone will be discontinued. White count remains elevated but patient has known C. difficile currently being treated with IV metronidazole since she is nothing by mouth. Will discuss potential Dobbhoff placement for medication administration with the patient's sister. Low-volume IV fluids being given; diuresis ongoing. MRI without evidence of acute stroke and I don't see focal abnormalities on exam however the patient has had significant deterioration in her ability to speak or swallow over the past 48 hours and has profound generalized weakness. Calcium is significantly low and dropping progressively; I suspect this is result of treatment for hyperparathyroidism last month. IV calcium to be given today and continue to monitor. Presenting coagulopathy reversed with vitamin K however patient requires ongoing anticoagulation due to atrial fibrillation; Lovenox being used at present due to inability to take warfarin. Melena present when INR was quite high, resolved with reversal of coagulopathy and has not been ongoing; hemoglobin stable following initial transfusion. Potassium remains low but slowly improving with potassium replacement and IV fluids. Continue to monitor. Prognosis is guarded at best.
[2017-11-20] MEDS: FUROSEMIDE 40 MG/4 ML INJECTION IVP SCH (17:34)
[2017-11-20] MEDS ORDERED: CALCIUM GLUCONATE 4.65 MEQ in NS 100 ML IV ONE (18:22)
[2017-11-20] MEDS ORDERED: ACETAMINOPHEN 650 MG SUPPOSITORY PR PRN (18:23)
[2017-11-20] MEDS: D5-1/2NS with KCL 20mEq 1,000 ML IV SCH (22:52)
[2017-11-21] MEDS: MetroNIDAZOLE PB 500 MG/100 ML BAG IV SCH ×3 (01:09→17:59)
[2017-11-21] MEDS: D5-1/2NS with KCL 20mEq 1,000 ML IV SCH (01:10)
[2017-11-21] MEDS: ENOXAPARIN 100 MG/ML INJECTION SQ SCH (08:21)
[2017-11-21] MEDS: FUROSEMIDE 40 MG/4 ML INJECTION IVP SCH ×2 (08:22→17:39)
[2017-11-21] MEDS: PANTOPRAZOLE 40 MG INJECTION IVP SCH (08:22)
[2017-11-21] MEDS: DIGOXIN 500 MCG/2 ML INJECTION IVP SCH (08:22)
[2017-11-21] MEDS: CYANOCOBALAMIN (B-12) 500mcg TABLET PO SCH (08:23)
[2017-11-21] MEDS: FOLIC ACID 1 MG TABLET PO SCH (08:23)
[2017-11-21] MEDS: SPIRONOLACTONE 25 MG TABLET PO SCH (08:23)
--- NOTE | 2017-11-21 09:26 | Pharmacy Consult ---
Pharmacy Consult-Warfarin - Laboratory Information 11/20/17 11/21/17 11/21/17 11:33 04:05 04:05 Hgb 9.9 L 9.3 L Hct 30.7 L 28.8 L INR 1.64 H AST ALT Albumin 11/21/17 04:05 Hgb Hct INR AST ALT Albumin 2.3 L - Consult Information COUMADIN CONSULT: Day 5 AP is a 87 yo female patient currently residing at [facility] undergoing rehabilitation from a hospitalization about one month ago, that was occasioned by fluid overload, and she was diuresed over 3-1/2 L. She was sent over to the emergency department this evening for progressive fatigue, and weakness which she states has really not resolved since her prior hospitalization but has been much worse over the last several days. i believe she saw dr. Diallo in the clinic, and was sent by him with concern of low blood pressures in the 90 systolic range. She also sees Dr. Kessler with cardiology. She takes Coumadin 2 mg po daily for atrial fibrillation, as well as Digoxin. Her digoxin level was good at 1.3, however her INR reported at greater than 10 so oral Vitamin K 10 mg. Patient has diagnoses of HCAP, essential (primary) hypertension, Acute diastolic congestive heart failure, and paroxysmal atrial fibrillation. The patient is currently on Enoxaparin 90 mg sq daily (1.5 mg/kg dosing.) Date INR Dose 11/17 1.29 1 mg 11/18 1.40 1 mg 11/19 1.52 1 mg 11/20 1.64 1 mg 11/21 1.69 Plan 2 mg I will order Warfarin 2 mg p.o. today X1 because the INR did not increase on the 1 mg dose. The pharmacy will continue to monitor the INR and adjust the Warfarin as needed. Thank you for the Warfarin Protocol, Charles Bashir, Pharmacist.
--- NOTE | 2017-11-21 10:21 | XRay Report ---
Indication: CHF PROCEDURE: XR chest 1V: Encounter: Initial Comparison: November 19, 2017 Findings: Chest is stable in appearance with bilateral pleural effusions and basilar compressive atelectasis. No obvious new or worsening infiltrates. No pneumothorax. Heart size and mediastinal contours are stable. Multiple overlying leads. Impression: Stable appearance of the chest. .
[2017-11-21] MEDS: POTASSIUM CHLORIDE PREMIX 10 MEQ/100 ML BAG IV SCH ×4 (11:49→15:58)
[2017-11-21] MEDS ORDERED: WARFARIN 2 MG TABLET PO SCH (12:00)
[2017-11-21] MEDS ORDERED: CALCIUM GLUCONATE 4.65 MEQ in NS 50 ML IV ONE (14:06)
--- NOTE | 2017-11-21 15:07 | Cardiology Progress Note ---
<Cherry Hernandez M - Last Filed: 11/21/17 16:59> Subjective Principal diagnosis: edema Interval history: Patrizia is seen in follow up for diastolic HF. She is in bed, family is at the bedside. She is drowsy but nods yes or no to questions. She denies chest pain, palpitations, dizziness or nausea. Exam Vital signs: Temperature 97.8 F 11/21/17 11:52 Pulse Rate 95 11/21/17 11:52 Respiratory Rate 24 11/21/17 11:52 Blood Pressure 97/62 11/21/17 11:52 Pulse Oximetry 94 11/21/17 11:52 Inpatient Medications: Generic Name Dose Route Start Last Admin Trade Name Freq PRN Reason Stop Dose Admin Acetaminophen 325 - 650 mg 11/13/17 20:29 11/15/17 18:38 Tylenol PO 650 mg Q5H PRN Administration Discomfort Acetaminophen 320 mg 11/13/17 23:10 11/14/17 00:08 Tylenol 160 Mg/5 Ml Liquid PO 320 mg Q6H PRN Administration Discomfort Acetaminophen 650 mg 11/20/17 18:23 Tylenol LA Q5H PRN Pain Cyanocobalamin 500 mcg 11/14/17 09:00 11/21/17 08:23 Vit. B-12 PO Not Given DAILY [facility] Digoxin 125 mcg 11/19/17 09:45 11/21/17 08:22 Lanoxin IVP 125 mcg DAILY [facility] Administration Enoxaparin Sodium 90 mg 11/19/17 09:45 11/21/17 08:21 Lovenox SQ 90 mg DAILY [facility] Administration Folic Acid 1 mg 11/14/17 09:00 11/21/17 08:23 Folate PO Not Given DAILY [facility] Furosemide 40 mg 11/20/17 17:00 11/21/17 08:22 Lasix 40 Mg/4 Ml IVP 40 mg 0900,1700 [facility] Administration Metronidazole/Sodium Chloride 500 mg in 100 mls @ 100 mls/hr 11/19/17 10:00 11/21/17 11:30 Flagyl Iv Premix IV Infused Q8H [facility] Infusion Potassium Chloride/Dextrose/Sod Cl 1,000 mls @ 30 mls/hr 11/19/17 18:23 11/21 10:22 D5-1/2ns With Kcl 20meq Premix IV 0 mls/hr .Q24H [facility] Infusion Magnesium Oxide 400 mg 11/16/17 09:00 11/19/17 08:47 Magox PO Not Given DAILY [facility] Ondansetron HCl 4 mg 11/19/17 09:42 Zofran IVP Q6H PRN Nausea &/or vomiting Pantoprazole Sodium 40 mg 11/20/17 09:00 11/21/17 08:22 Protonix Iv IVP 40 mg DAILY [facility] Administration Pravastatin Sodium 20 mg 11/13/17 21:00 11/18/17 21:44 Pravachol PO 20 mg HS [facility] Administration Sodium Chloride 10 - 80 ml 11/13/17 17:42 11/20/17 08:44 Iv Flush IVF 40 ml PRN PRN Administration Flushing Sodium Chloride 500 ml 11/14/17 14:38 11/16/17 09:26 Normal Saline IV 500 ml PRN PRN Administration Spironolactone 25 mg 11/16/17 14:45 11/21/17 08:23 Aldactone 25 Mg PO Not Given DAILY [facility] Throat Lozenges 3 spray 11/18/17 11:15 Chloraseptic [place] PO Q2H PRN Sore throat Vancomycin HCl 250 mg 11/21/17 17:00 Vancomycin Oral Liq PO Q8HR [facility] Warfarin Sodium 0 11/17/17 15:00 Coumadin Protocol NOTE [facility] Warfarin Sodium 2 mg 11/21/17 12:00 11/21/17 11:57 Coumadin PO 11/21/17 23:59 Not Given NOON [facility] Discontinued Medications Generic Name Dose Route Start Last Admin Trade Name Freq PRN Reason Stop Dose Admin Digoxin 125 mcg 11/14/17 09:00 11/19/17 08:46 Lanoxin PO Not Given DAILY [facility] Diltiazem HCl 180 mg 11/14/17 09:00 11/14/17 09:41 Cardizem Cd 180 Mg PO Not Given DAILY [facility] Enoxaparin Sodium 40 mg 11/18/17 15:45 11/19/17 09:32 Lovenox SQ 40 mg DAILY [facility] Administration Enoxaparin Sodium 50 mg 11/20/17 12:45 Lovenox SQ 11/20/17 12:46 ONE TIME ONE Enoxaparin Sodium 50 mg 11/19/17 12:45 11/19/17 13:03 Lovenox SQ 11/19/17 12:46 50 mg ONE TIME ONE Administration Furosemide 20 mg 11/13/17 20:29 11/15/17 10:14 Lasix 20 Mg/2 Ml IVP 20 mg Q12H [facility] Administration Furosemide 20 mg 11/14/17 15:44 11/14/17 18:05 Lasix 20 Mg/2 Ml IVP 11/14/17 15:45 20 mg O ONE Administration Furosemide 40 mg 11/15/17 17:00 11/19/17 08:47 Lasix 40 Mg Tab PO Not Given 0900,1700 [facility] Furosemide 20 mg 11/19/17 17:00 11/20/17 08:44 Lasix 20 Mg/2 Ml IVP 20 mg 0900,1700 [facility] Administration Furosemide 20 mg 11/19/17 11:31 11/19/17 13:01 Lasix 20 Mg/2 Ml IVP 11/19/17 11:32 20 mg ONCE ONE Administration Haloperidol Lactate 0.5 mg 11/18/17 18:45 11/20/17 12:00 Haldol IVP Not Given O [facility] Sodium Chloride 500 mls @ 1,000 mls/hr 11/13/17 17:40 11/13/17 18:58 Normal Saline IV 11/13/17 18:09 Not Given .Q30M ONE Sodium Chloride 500 mls @ 999.9 mls/hr 11/13/17 17:40 11/13/17 19:04 Normal Saline IV 11/13/17 18:09 Not Given .Q30M ONE Levofloxacin/Dextrose 500 mg in 100 mls @ 100 mls/hr 11/13/17 20:29 11/14/17 01:30 Levaquin 500 Mg Premix IV Infused Q24H [facility] Infusion Vancomycin HCl 1,000 mg/ 250 mls @ 250 mls/hr 11/13/17 20:29 11/13/17 22:36 Sodium Chloride IV Not Given Q12H [facility] Vancomycin HCl 1,250 mg/ 250 mls @ 200 mls/hr 11/13/17 22:30 11/14/17 12:14 Sodium Chloride IV Not Given Q12H [facility] Ceftriaxone Sodium 1 g/ Sodium 100 mls @ 200 mls/hr 11/14/17 09:45 11/16/17 11:22 Chloride IV Infused DAILY [facility] Infusion Magnesium Sulfate/Dextrose 1 gm in 100 mls @ 100 mls/hr 11/14/17 10:28 12:18 Mag Sulf 1gm Premix IV 11/14/17 11:27 Infused O ONE Infusion Vancomycin HCl 1,250 mg/ 250 mls @ 200 mls/hr 11/14/17 12:00 11/15/17 16:30 Sodium Chloride IV Infused Q24H [facility] Infusion Potassium Chloride 10 meq in 100 mls @ 100 mls/hr 11/15/17 10:45 11/15/17 14: 20 Potassium Chloride Premix IV 11/15/17 12:44 Infused Q1H [facility] Infusion Lidocaine HCl 10 mg/ Potassium 100 mls @ 100 mls/hr 11/16/17 07:45 11/16/17 18:55 Chloride 10 meq/ Sodium IV 11/16/17 11:58 Infused Chloride .Q1H [facility] Infusion Vancomycin HCl 1,000 mg/ 250 mls @ 250 mls/hr 11/16/17 15:00 11/17/17 19:31 Sodium Chloride IV Infused Q24H [facility] Infusion Magnesium Sulfate/Dextrose 1 gm in 100 mls @ 100 mls/hr 11/16/17 15:00 21:25 Mag Sulf 1gm Premix IV 11/16/17 16:59 Infused Q1H [facility] Infusion Lidocaine HCl 10 mg/ Potassium 100 mls @ 100 mls/hr 11/17/17 08:45 11/17/17 19:01 Chloride 10 meq/ Sodium IV 11/17/17 14:44 Infused Chloride .Q1H [facility] Infusion Ceftriaxone Sodium 1 g/ Sodium 100 mls @ 200 mls/hr 11/19/17 09:45 11/20/17 09:07 Chloride IV Infused Q24H [facility] Infusion Potassium Chloride/Dextrose/Sod Cl 1,000 mls @ 50 mls/hr 11/19/17 09:45 11/19 10:24 D5-1/2ns With Kcl 20meq Premix IV 0 mls/hr .Q20H [facility] Infusion Potassium Chloride 10 meq in 100 mls @ 100 mls/hr 11/19/17 09:45 11/19/17 17: 00 Potassium Chloride Premix IV 11/19/17 13:44 Infused Q1H [facility] Infusion Calcium Gluconate 4.65 meq/ 110 mls @ 50 mls/hr 11/20/17 18:22 11/20/17 22:02 Sodium Chloride IV 11/20/17 20:33 Infused O ONE Infusion Potassium Chloride 10 meq in 100 mls @ 100 mls/hr 11/21/17 09:45 11/21/17 14: 29 Potassium Chloride Premix IV 11/21/17 13:44 100 mls/hr Q1H [facility] Administration Calcium Gluconate 4.65 meq/ 60 mls @ 200 mls/hr 11/21/17 14:06 Sodium Chloride IV 11/21/17 14:23 O ONE Ondansetron HCl 4 mg 11/13/17 20:29 Zofran Po PO Q6H PRN Nausea Pantoprazole Sodium 40 mg 11/16/17 06:30 11/19/17 06:29 Protonix Tab PO Not Given ACB [facility] Phytonadione 10 mg 11/13/17 21:09 11/13/17 22:35 Vitamin K Oral Liq PO 11/13/17 21:10 10 mg O ONE Administration Phytonadione 10 mg 11/14/17 09:38 11/14/17 10:11 Vitamin K (Adult) Inj SQ 11/14/17 09:39 10 mg O ONE Administration Polyethylene Glycol 17 gm 11/13/17 20:29 Miralax PO DAILY PRN Constipation Potassium Chloride 40 meq 11/13/17 19:00 11/13/17 19:11 K-Dur 20 Meq Tablet PO 11/13/17 19:01 40 meq O ONE Administration Potassium Chloride 20 meq 11/14/17 08:00 11/15/17 10:13 Kcl Oral Liq 20 Meq/15 Ml PO 20 meq BIDWM [facility] Administration Potassium Chloride 40 meq 11/14/17 10:29 11/14/17 10:38 K-Dur 20 Meq Tablet PO 11/14/17 10:30 Not Given O ONE Potassium Chloride 40 meq 11/14/17 10:45 11/14/17 10:52 Kcl Oral Liq 20 Meq/15 Ml PO 11/14/17 10:46 40 meq O ONE Administration Potassium Chloride 40 meq 11/15/17 15:03 11/15/17 16:29 K-Dur 20 Meq Tablet PO 11/15/17 15:04 40 meq O ONE Administration Potassium Chloride 20 meq 11/18/17 12:00 11/19/17 08:46 K-Dur 20 Meq Tablet PO Not Given TIDWM [facility] Potassium Citrate 40 meq 11/13/17 20:29 11/13/17 22:34 Urocit-K PO 11/13/17 20:30 40 meq TID ONE Administration Quetiapine Fumarate 25 mg 11/18/17 21:00 11/18/17 21:44 Seroquel PO 25 mg HS [facility] Administration Vancomycin HCl 125 mg 11/14/17 22:15 11/19/17 09:36 Vancomycin Oral Liq PO Not Given Q6HR [facility] Warfarin Sodium 2 mg 11/13/17 21:00 Coumadin PO [facility] Warfarin Sodium 2 mg 11/17/17 21:00 Coumadin PO [facility] Warfarin Sodium 1 each 11/17/17 14:14 11/20/17 12:00 Pharmacy Consult - Warfarin MC 11/17/17 14:15 Not Given O ONE Warfarin Sodium 1 mg 11/17/17 14:45 11/17/17 18:26 Coumadin PO 11/17/17 14:46 1 mg O ONE Administration Warfarin Sodium 1 mg 11/18/17 12:00 11/18/17 12:46 Coumadin PO 11/18/17 12:30 1 mg NOON [facility] Administration Warfarin Sodium 1 mg 11/19/17 12:00 11/19/17 12:49 Coumadin PO 11/19/17 12:30 Not Given NOON [facility] Warfarin Sodium 2 mg 11/20/17 12:00 Coumadin PO 11/20/17 23:59 NOON [facility] Warfarin Sodium 1 mg 11/20/17 12:00 11/20/17 12:09 Coumadin PO 11/20/17 23:59 Not Given NOON [facility] - Constitutional no acute distress, well nourished, cooperative - Routine HEENT Exam Head: Present: normocephalic ENT: Present: mucous membranes dry - Routine Neck Exam Absent: JVD, carotid bruit - Routine Chest/Breast/Axilla Exam Chest wall: Absent: tenderness - Routine Respiratory Exam Present: CTA bilaterally. Absent: dyspnea, rales, wheezes - Routine Cardiovascular Exam Present: no murmur, irregular rhythm - Routine Abdominal Exam Present: soft, non tender - Routine Extremities Exam Present: edema - Routine Skin Exam Present: intact, dry, warm - Routine Neurological Exam Present: alert - Routine Psychiatric Exam Present: normal affect - Urinary Catheter Management Urethral Cath placed during this visit: yes Insertion date: 11/13/17 Insertion time: 21:00 Results 11/21/17 04:05 11/21/17 04:05 CBC 11/21/17 Range/Units 04:05 WBC 17.7 H (4.5-11.0) T/MM3 RBC 3.53 L (4.00-5.20) M/MM3 Hgb 9.3 L (12-16) GM/DL Hct 28.8 L (36-46) % Plt Count 304 (130-400) T/MM3 Neut # (Auto) Not performed Lymph # (Auto) Not performed [place] # (Auto) Not performed Eos # (Auto) Not performed Baso # (Auto) Not performed Comprehensive Metabolic Panel 11/21/17 Range/Units 04:05 Sodium 140 (136-146) MEQ/L Potassium 3.0 L (3.6-5) MEQ/L Chloride 104 (98-107) MEQ/L Carbon Dioxide 28 (22-30) MEQ/L BUN 29.0 H (7-17) MG/DL Creatinine 1.2 (0.7-1.2) mg/dL Glucose 101 (65-110) MG/DL Calcium 6.7 L (8.4-10.2) MG/DL Albumin 2.3 L (3.5-5.0) g/dL Intake and Output 11/21/17 11/21/17 11/21/17 06:59 14:59 22:59 Intake Total 393.5 / 393.5 546 / 546 Output Total 550 / 550 Balance -156.5 / -156.5 546 / 546 Intake: IV 393.5 / 393.5 546 / 546 D5-1/2NS with KCL 20mEq 1,000 293.5 / 293.5 246 / 246 ml @ 30 mls/hr IV .Q24H [facility] Rx# :[id number] MetroNIDAZOLE PB 500 mg In 100 100 / 100 100 / 100 ml @ 100 mls/hr IV Q8H [facility] Rx#: [id number] Potassium Chloride Premix 10 200 / 200 meq In 100 ml @ 100 mls/hr IV Q1H [facility] Rx#:[id number] Output: Urine Amount (Catheter) 550 / 550 Other: Urine Appearance Clear Urine Color Bright Yellow Urine Odor Normal Stool Color Brown Stool Consistency Liquid Size of Bowel Movement Large # Incontinent Bowel Movements 1 Weight 129 lb 10.109 oz Patient Weight 11/22/17 06:59 Weight 129 lb 10.109 oz - Imaging and Cardiology Imaging & Cardiology Narrative: Date of Exam: 11/21/17 Ordering Provider: Barbara Henry MD Type of Exam(s): XR chest 1V Reason for Exam(s): CHF Indication: CHF PROCEDURE: XR chest 1V: Encounter: Initial Comparison: November 19, 2017 Findings: Chest is stable in appearance with bilateral pleural effusions and basilar compressive atelectasis. No obvious new or worsening infiltrates. No pneumothorax. Heart size and mediastinal contours are stable. Multiple overlying leads. Impression: Stable appearance of the chest. 11/21/17 17:00 Assessment and Plan - Assessment and Plan (1) Acute diastolic congestive heart failure Status: Chronic (2) PAF (paroxysmal atrial fibrillation) Status: Chronic (3) Hypokalemia Status: Acute (4) Weakness Status: Acute (5) Healthcare-associated pneumonia Status: Acute (6) Anemia Status: Chronic (7) C. difficile diarrhea Status: Acute - Assessment and Plan Healthcare-associated pneumonia Current visit: Yes Status: Acute - per hospitalist service Acute diastolic congestive heart failure Current visit: No Status: Acute - Denies Orthopnea or SOA, no JVD, 2+ LE edema - Diurese with Lasix 40mg bid as BP allows - Holding Cardizem due to lower BPs Hypokalemia Current visit: Yes Status: Acute - K+ 2.8, replace 40meq orally, Mag 1.8, replace 1gm IV - continue to monitor renal and electrolytes PAF (paroxysmal atrial fibrillation) Current visit: No Status: Chronic - Rate well controlled with Digoxin, hold Cardizem for now due to BP - INR 6.75 today, holding Coumadin Anemia Current visit: Yes Status: Chronic - HGB 7.4, transfused 1 unit PRBCs per hospitalist Weakness Current visit: Yes Status: Acute Thank you for allowing us to participate in the care of this patient, we will follow along with you. 11/15/17 K+ 3.0, replace with 40meq po X1 with food to minimize stomach upset, recheck in am - Keep K+ >4.0, Mag >2.0 11/16/17 - K+ 2.7, Replaced per hospitalist, Mag 1.6, replace 2gms IV. - Spironolactone 25mg daily to help patient retain potassium 11/17/17 K+ 2.9 today, replaced per hospitalist, recheck 3.2 - Continue Spironolactone, continues to have loose stools - HR well controlled with Digoxin 11/20/17 -11/19/17 CXR with worsening pleural effusions. - Increase Lasix to 40mg IV BID - Consider thoracentesis as is unlikely to decrease pleural effusions with diuresis - replace potassium, mag 1.8 today 11/21/17 Review of telemetry shows some wide complex beats. Dr. Kessler believes it to be aberrant atrial fibrillation K+ 3.0 today, replace, Mag remains 1.8 remains unable to swallow, BUN trending up, continue to monitor CT chest report pending Hospital Course Summary Disclaimer: The visit summary below is not to be considered part of the above Progress Note. Hospital Course: 11/13/17 admitted with profound hypokalemia, likely due to loop diuretics, and suspect right lower lobe pneumonia, she is in a healthcare setting, along with recent hospitalizations, aspiration pneumonitis/pneumonia is less likely, but cannot be ruled out. she did cough when she took her liquid potassium supplement this evening. she is admitted with telemetry, will continue antibiotics, gentle lasix given her relatively low blood pressure reported in the clinic, continue the majority of her home medications besides warfarin for which vitamin k was given to antagonize. appreciate cardiology's input expertise and familiarity in these matters in the morning, as well as physical occupational and speech therapies. will provide further symptomatic, supportive, and diagnostic cares as the current workup, or as changes in her clinical scenario indicate. the plan of care was discussed with the patient and her family at the bedside at the time of my evaluation and they expressed understanding and a desire to proceed. 11/14/17 IV potassium chloride 60 mEq 1. Continue oral potassium chloride 20 mEq twice a day. We will recheck potassium chloride this evening at 1600. Stool for occult blood. Hemoglobin dropped from 8.7 last night to 7.4 this morning. We will type, cross match and transfuse 1 unit of PRBC. Will recheck H& H 1 hour posttransfusion. INR 6.75. Will provide 10 mg vitamin K subcutaneous 1, with concern for active lower GI bleeding. We will recheck INR at 1600. Patient will be placed on clear liquid diet. Cautious diuresis IV Lasix 20 mg twice a day. Patient has received IV vancomycin and Levaquin, with concern for recurrent aspiration pneumonia. Discontinue Levaquin, considering patient's age and history of atrial fibrillation. Patient will be started on IV Rocephin 1 g daily. Long catheter in place, will monitor intake and output, daily weights. 11/15/17 Patient will remain in contact precautions. Oral vancomycin 125 mg every 6 hours for positive C. difficile. Serum potassium 3.0, patient received 20 mEq oral potassium chloride. Will provide 20 mEq IV potassium chloride and monitor potassium levels. Patient reports she does not like oral potassium chloride supplementation which will be discontinued for now. Cardiology consulted, recommendation for oral Lasix 40 mg twice a day. We'll monitor intake and output, daily weights. Echocardiogram findings as described above. INR reaches greater than 10 on admission has dropped to 1.55 last evening. Will monitor PT/INR. Coumadin remains on hold. We will continue digoxin 0.125 mg daily. Patient status post transfusion of 1 unit of PRBC, hemoglobin improved from 7.4 to 10.7 last evening, repeat hemoglobin dropped to 8.9 this morning. Stool for occult blood negative. Will discuss case with general surgeon, Dr. Ibrahim regarding need for repeat colonoscopy. Patient will remain on clear liquid diet. If no plan for colonoscopy, will progress to soft cardiac diet. 11/16/17 Potassium has dropped further to 2.7. IV replacement has been ordered. Mag is low normal at 1.6, and will start daily replacement. White count increased to 16.4. Continue oral Vanco for C. difficile. She continues on Rocephin as well - will discuss antibiotics with attending. Advance diet to soft cardiac diet. Dr. Ibrahim indicated that she may follow- up outpatient. Diuresis per cardiology. Fluid status is +1.7; weight trending up. DC Long as soon as possible. Will need to discuss anticoagulation with cardiology. <Salinas Kessler - Last Filed: 11/29/17 10:29> Exam Vital signs: Temperature 98.5 F 11/21/17 16:00 Pulse Rate 96 11/21/17 20:00 Respiratory Rate 20 11/21/17 20:00 Blood Pressure 114/69 11/21/17 16:00 Pulse Oximetry 93 11/21/17 16:00 Inpatient Medications: Discontinued Medications Generic Name Dose Route Start Last Admin Trade Name Freq PRN Reason Stop Dose Admin Acetaminophen 325 - 650 mg 11/13/17 20:29 11/15/17 18:38 Tylenol PO 650 mg Q5H PRN Administration Discomfort Acetaminophen 320 mg 11/13/17 23:10 11/14/17 00:08 Tylenol 160 Mg/5 Ml Liquid PO 320 mg Q6H PRN Administration Discomfort Acetaminophen 650 mg 11/20/17 18:23 Tylenol LA Q5H PRN Pain Cyanocobalamin 500 mcg 11/14/17 09:00 11/21/17 08:23 Vit. B-12 PO Not Given DAILY [facility] Digoxin 125 mcg 11/14/17 09:00 11/19/17 08:46 Lanoxin PO Not Given DAILY [facility] Digoxin 125 mcg 11/19/17 09:45 11/21/17 08:22 Lanoxin IVP 125 mcg DAILY [facility] Administration Diltiazem HCl 180 mg 11/14/17 09:00 11/14/17 09:41 Cardizem Cd 180 Mg PO Not Given DAILY [facility] Enoxaparin Sodium 40 mg 11/18/17 15:45 11/19/17 09:32 Lovenox SQ 40 mg DAILY [facility] Administration Enoxaparin Sodium 90 mg 11/19/17 09:45 11/21/17 08:21 Lovenox SQ 90 mg DAILY [facility] Administration Enoxaparin Sodium 50 mg 11/20/17 12:45 Lovenox SQ 11/20/17 12:46 ONE TIME ONE Enoxaparin Sodium 50 mg 11/19/17 12:45 11/19/17 13:03 Lovenox SQ 11/19/17 12:46 50 mg ONE TIME ONE Administration Folic Acid 1 mg 11/14/17 09:00 11/21/17 08:23 Folate PO Not Given DAILY [facility] Furosemide 20 mg 11/13/17 20:29 11/15/17 10:14 Lasix 20 Mg/2 Ml IVP 20 mg Q12H [facility] Administration Furosemide 20 mg 11/14/17 15:44 11/14/17 18:05 Lasix 20 Mg/2 Ml IVP 11/14/17 15:45 20 mg O ONE Administration Furosemide 40 mg 11/15/17 17:00 11/19/17 08:47 Lasix 40 Mg Tab PO Not Given 0900,1700 [facility] Furosemide 20 mg 11/19/17 17:00 11/20/17 08:44 Lasix 20 Mg/2 Ml IVP 20 mg 0900,1700 [facility] Administration Furosemide 20 mg 11/19/17 11:31 11/19/17 13:01 Lasix 20 Mg/2 Ml IVP 11/19/17 11:32 20 mg ONCE ONE Administration Furosemide 40 mg 11/20/17 17:00 11/21/17 17:39 Lasix 40 Mg/4 Ml IVP 40 mg 0900,1700 [facility] Administration Haloperidol Lactate 0.5 mg 11/18/17 18:45 11/20/17 12:00 Haldol IVP Not Given O [facility] Sodium Chloride 500 mls @ 1,000 mls/hr 11/13/17 17:40 11/13/17 18:58 Normal Saline IV 11/13/17 18:09 Not Given .Q30M ONE Sodium Chloride 500 mls @ 999.9 mls/hr 11/13/17 17:40 11/13/17 19:04 Normal Saline IV 11/13/17 18:09 Not Given .Q30M ONE Levofloxacin/Dextrose 500 mg in 100 mls @ 100 mls/hr 11/13/17 20:29 11/14/17 01:30 Levaquin 500 Mg Premix IV Infused Q24H [facility] Infusion Vancomycin HCl 1,000 mg/ 250 mls @ 250 mls/hr 11/13/17 20:29 11/13/17 22:36 Sodium Chloride IV Not Given Q12H [facility] Vancomycin HCl 1,250 mg/ 250 mls @ 200 mls/hr 11/13/17 22:30 11/14/17 12:14 Sodium Chloride IV Not Given Q12H [facility] Ceftriaxone Sodium 1 g/ Sodium 100 mls @ 200 mls/hr 11/14/17 09:45 11/16/17 11:22 Chloride IV Infused DAILY [facility] Infusion Magnesium Sulfate/Dextrose 1 gm in 100 mls @ 100 mls/hr 11/14/17 10:28 12:18 Mag Sulf 1gm Premix IV 11/14/17 11:27 Infused O ONE Infusion Vancomycin HCl 1,250 mg/ 250 mls @ 200 mls/hr 11/14/17 12:00 11/15/17 16:30 Sodium Chloride IV Infused Q24H [facility] Infusion Potassium Chloride 10 meq in 100 mls @ 100 mls/hr 11/15/17 10:45 11/15/17 14: 20 Potassium Chloride Premix IV 11/15/17 12:44 Infused Q1H [facility] Infusion Lidocaine HCl 10 mg/ Potassium 100 mls @ 100 mls/hr 11/16/17 07:45 11/16/17 18:55 Chloride 10 meq/ Sodium IV 11/16/17 11:58 Infused Chloride .Q1H [facility] Infusion Vancomycin HCl 1,000 mg/ 250 mls @ 250 mls/hr 11/16/17 15:00 11/17/17 19:31 Sodium Chloride IV Infused Q24H [facility] Infusion Magnesium Sulfate/Dextrose 1 gm in 100 mls @ 100 mls/hr 11/16/17 15:00 21:25 Mag Sulf 1gm Premix IV 11/16/17 16:59 Infused Q1H [facility] Infusion Lidocaine HCl 10 mg/ Potassium 100 mls @ 100 mls/hr 11/17/17 08:45 11/17/17 19:01 Chloride 10 meq/ Sodium IV 11/17/17 14:44 Infused Chloride .Q1H [facility] Infusion Ceftriaxone Sodium 1 g/ Sodium 100 mls @ 200 mls/hr 11/19/17 09:45 11/20/17 09:07 Chloride IV Infused Q24H [facility] Infusion Potassium Chloride/Dextrose/Sod Cl 1,000 mls @ 50 mls/hr 11/19/17 09:45 11/19 10:24 D5-1/2ns With Kcl 20meq Premix IV 0 mls/hr .Q20H [facility] Infusion Potassium Chloride 10 meq in 100 mls @ 100 mls/hr 11/19/17 09:45 11/19/17 17: 00 Potassium Chloride Premix IV 11/19/17 13:44 Infused Q1H [facility] Infusion Metronidazole/Sodium Chloride 500 mg in 100 mls @ 100 mls/hr 11/19/17 10:00 11/21/17 19:00 Flagyl Iv Premix IV Infused Q8H [facility] Infusion Potassium Chloride/Dextrose/Sod Cl 1,000 mls @ 30 mls/hr 11/19/17 18:23 11/21 19:00 D5-1/2ns With Kcl 20meq Premix IV 30 mls/hr .Q24H [facility] Infusion Calcium Gluconate 4.65 meq/ 110 mls @ 50 mls/hr 11/20/17 18:22 08/20/18 22:02 Sodium Chloride IV 11/20/17 20:33 Infused O ONE Infusion Potassium Chloride 10 meq in 100 mls @ 100 mls/hr 11/21/17 09:45 11/21/17 16: 58 Potassium Chloride Premix IV 11/21/17 13:44 Infused Q1H [facility] Infusion Calcium Gluconate 4.65 meq/ 60 mls @ 200 mls/hr 11/21/17 14:06 11/21/17 17:57 Sodium Chloride IV 11/21/17 14:23 Infused O ONE Infusion Magnesium Oxide 400 mg 11/16/17 09:00 11/19/17 08:47 Magox PO Not Given DAILY [facility] Ondansetron HCl 4 mg 11/13/17 20:29 Zofran Po PO Q6H PRN Nausea Ondansetron HCl 4 mg 11/19/17 09:42 Zofran IVP Q6H PRN Nausea &/or vomiting Pantoprazole Sodium 40 mg 11/16/17 06:30 11/19/17 06:29 Protonix Tab PO Not Given ACB [facility] Pantoprazole Sodium 40 mg 11/20/17 09:00 11/21/17 08:22 Protonix Iv IVP 40 mg DAILY [facility] Administration Phytonadione 10 mg 11/13/17 21:09 11/13/17 22:35 Vitamin K Oral Liq PO 11/13/17 21:10 10 mg O ONE Administration Phytonadione 10 mg 11/14/17 09:38 11/14/17 10:11 Vitamin K (Adult) Inj SQ 11/14/17 09:39 10 mg O ONE Administration Polyethylene Glycol 17 gm 11/13/17 20:29 Miralax PO DAILY PRN Constipation Potassium Chloride 40 meq 11/13/17 19:00 11/13/17 19:11 K-Dur 20 Meq Tablet PO 11/13/17 19:01 40 meq O ONE Administration Potassium Chloride 20 meq 11/14/17 08:00 11/15/17 10:13 Kcl Oral Liq 20 Meq/15 Ml PO 20 meq BIDWM MARIFER Administration Potassium Chloride 40 meq 11/14/17 10:29 11/14/17 10:38 K-Dur 20 Meq Tablet PO 11/14/17 10:30 Not Given O ONE Potassium Chloride 40 meq 11/14/17 10:45 11/14/17 10:52 Kcl Oral Liq 20 Meq/15 Ml PO 11/14/17 10:46 40 meq O ONE Administration Potassium Chloride 40 meq 11/15/17 15:03 11/15/17 16:29 K-Dur 20 Meq Tablet PO 11/15/17 15:04 40 meq O ONE Administration Potassium Chloride 20 meq 11/18/17 12:00 11/19/17 08:46 K-Dur 20 Meq Tablet PO Not Given TIDWM MARIFER Potassium Citrate 40 meq 11/13/17 20:29 11/13/17 22:34 Urocit-K PO 11/13/17 20:30 40 meq TID ONE Administration Pravastatin Sodium 20 mg 11/13/17 21:00 11/18/17 21:44 Pravachol PO 20 mg HS MARIFER Administration Quetiapine Fumarate 25 mg 11/18/17 21:00 11/18/17 21:44 Seroquel PO 25 mg HS MARIFER Administration Sodium Chloride 10 - 80 ml 11/13/17 17:42 11/20/17 08:44 Iv Flush IVF 40 ml PRN PRN Administration Flushing Sodium Chloride 500 ml 11/14/17 14:38 11/16/17 09:26 Normal Saline IV 500 ml PRN PRN Administration Spironolactone 25 mg 11/16/17 14:45 11/21/17 08:23 Aldactone 25 Mg PO Not Given DAILY MARIFER Throat Lozenges 3 spray 11/18/17 11:15 Chloraseptic [place] PO Q2H PRN Sore throat Vancomycin HCl 125 mg 11/14/17 22:15 11/19/17 09:36 Vancomycin Oral Liq PO Not Given Q6HR MARIFER Vancomycin HCl 250 mg 11/21/17 17:00 11/21/17 17:55 Vancomycin Oral Liq PO Not Given Q8HR [facility] Warfarin Sodium 2 mg 11/13/17 21:00 Coumadin PO HS MARIFER Warfarin Sodium 2 mg 11/17/17 21:00 Coumadin PO HS [facility] Warfarin Sodium 1 each 11/17/17 14:14 11/20/17 12:00 Pharmacy Consult - Warfarin MC 11/17/17 14:15 Not Given O ONE Warfarin Sodium 1 mg 11/17/17 14:45 11/17/17 18:26 Coumadin PO 11/17/17 14:46 1 mg O ONE Administration Warfarin Sodium 0 11/17/17 15:00 Coumadin Protocol MC NOTE MARIFER Warfarin Sodium 1 mg 11/18/17 12:00 11/18/17 12:46 Coumadin PO 11/18/17 12:30 1 mg NOON MARIFER Administration Warfarin Sodium 1 mg 11/19/17 12:00 11/19/17 12:49 Coumadin PO 11/19/17 12:30 Not Given NOON MARIFER Warfarin Sodium 2 mg 11/20/17 12:00 Coumadin PO 11/20/17 23:59 NOON MARIFER Warfarin Sodium 1 mg 11/20/17 12:00 11/20/17 12:09 Coumadin PO 11/20/17 23:59 Not Given NOON MARIFER Warfarin Sodium 2 mg 11/21/17 12:00 11/21/17 11:57 Coumadin PO 11/21/17 23:59 Not Given NOON MARIFER - Urinary Catheter Management Urethral Cath placed during this visit: no Results 11/21/17 04:05 11/21/17 04:05 Assessment and Plan - Assessment and Plan (1) Acute diastolic congestive heart failure Status: Chronic (2) PAF (paroxysmal atrial fibrillation) Status: Chronic (3) Hypokalemia Status: Acute (4) Weakness Status: Acute (5) Healthcare-associated pneumonia Status: Acute (6) Anemia Status: Chronic (7) C. difficile diarrhea Status: Acute - Attestation Attestation Narrative: 11/29/17 10:29 Recommendation After examining the patient I agree with the above assessment. I am involved in the formulation of the patient's plan of care. Hospital Course Summary Disclaimer: The visit summary below is not to be considered part of the above Progress Note.
--- NOTE | 2017-11-21 15:43 | Progress Note ---
- Date 11/21/17 Subjective: Mrs Ardon is seen this afternoon while resting in bed. Her granddaughter is at her side. She denies having any pain or feeling short of breath. She does complain of her mouth and swallow feeling "stiff". She remains NPO. BP at noon was decreased to 97/62. Staff reports 1 loose bowel movement this am. Objective Vital signs: Temperature 97.8 F 11/21/17 11:52 Pulse Rate 95 11/21/17 11:52 Respiratory Rate 24 11/21/17 11:52 Blood Pressure 97/62 11/21/17 11:52 Pulse Oximetry 94 11/21/17 11:52 Height/Weight/BMI: Height 1.65 m Weight 58.8 kg Body Mass Index 21.6 - Constitutional Present: no acute distress, well nourished, well developed - Routine HEENT Exam Eye: Present: EOMI ENT: Present: mucous membranes moist, dentition normal - Routine Respiratory Exam Present: CTA bilaterally. Absent: wheezes - Routine Cardiovascular Exam Present: RRR, S1, S2. Absent: murmur - Routine Abdominal Exam Present: soft, normoactive bowel sounds, non distended. Absent: tenderness - Routine Extremities Exam Present: normal capillary refill - Routine Skin Exam Present: intact, dry, warm - Routine Neurological Exam Present: alert, CN II-XII intact - Routine Lymphatic Exam Lymphatic: Absent: adenopathy - Routine Psychiatric Exam Present: cooperative Results - Labs CBC & Chem 7: 11/21/17 04:05 11/21/17 04:05 Microbiology Results: Microbiology 11/19/17 10:19 Peripheral/Iv Start Blood Culture - Preliminary No Growth After 2 Days 11/19/17 10:15 Peripheral/Iv Start Blood Culture - Preliminary No Growth After 2 Days 11/19/17 10:37 Sputum, Induced Gram Stain - Final 11/19/17 10:37 Sputum, Induced Sputum Culture - Final Normal Respiratory [place] Present Assessment and Plan (1) Acute diastolic congestive heart failure Current visit: No Status: Chronic (2) Hypokalemia Current visit: Yes Status: Acute Assessment and Plan: Assessment: Acute/chronic diastolic CHF, POA Hypokalemia, POA Coagulopathy due to warfarin, INR >10 on admission Altered mental status with dysphagia - concern for CVA versus secondary to medications 11/19/17. Recurrent aspiration pneumonia Lower GI bleeding - resolved, on Coumadin Anemia, microcytic-transfused 1 unit PRBC 11/14/17 C. difficile diarrhea, positive C. difficile toxin on stool sample 11/14/17 Hypocalcemia (treated with Prolia in October 2017) Atrial fibrillation Hypertension. Hyperlipidemia Hyperparathyroidism Plan: Obtain Ct scan of the chest to further evaluate pleural effusions Persistent Leukocytosis- 17. Likely secondary to known C difficile, remains on IV Flagyl Strict NPO as recommended by Speech therapy Lovenox daily for anticoagulation Remains on diuretics- Lasix 40 mg BID. Weight stable Potassium replaced orally Case discussed with attending, Dr Henry DVT Prophylaxis: SCD's, Lovenox GI Prophylaxis: Protonix Resuscitation Status: Do Not Resuscitate - Physician Narrative Physician: Barbara Henry MD Narrative: Date: 11/21/17 Time: 2249 I have independently evaluated and examined this patient. I reviewed the chart, the patient's history, and the HAM STRINGER/PA's documented findings as above. We discussed and formulated the assessment and plan as above with additions as below: Mrs. Ardon was seen briefly this morning and again this afternoon; she was more alert today and denied dyspnea, nausea, or abdominal pain. Her sister reported significant diarrhea overnight. NAD, more alert today although speech largely limited to yes/no answers Respirations nonlabored with diminished breath sounds throughout-seen slightly labored at time of my exam but was not hypoxic Irregular cardiac rhythm-telemetry reviewed atrial fibrillation with frequent PVCs CT of the lungs reviewed by myself revealing moderate bilateral pleural effusions R>L with compressive atelectasis; there is a nodular area in the right midlung field of uncertain etiology-may represent focal edema versus infiltrate versus mass. Discussed proceeding with thoracentesis for both therapeutic and diagnostic purposes with the patient's sister and granddaughter; Lovenox placed on hold late this afternoon procedure late tomorrow. Potassium replaced IV earlier today ; IV calcium again given for hypocalcemia. Discussed with Dr. Kessler Hospital Course Summary Disclaimer: The visit summary below is not to be considered part of the above Progress Note. Hospital Course: 11/13/17 admitted with profound hypokalemia, likely due to loop diuretics, and suspect right lower lobe pneumonia, she is in a healthcare setting, along with recent hospitalizations, aspiration pneumonitis/pneumonia is less likely, but cannot be ruled out. she did cough when she took her liquid potassium supplement this evening. she is admitted with telemetry, will continue antibiotics, gentle lasix given her relatively low blood pressure reported in the clinic, continue the majority of her home medications besides warfarin for which vitamin k was given to antagonize. appreciate cardiology's input expertise and familiarity in these matters in the morning, as well as physical occupational and speech therapies. will provide further symptomatic, supportive, and diagnostic cares as the current workup, or as changes in her clinical scenario indicate. the plan of care was discussed with the patient and her family at the bedside at the time of my evaluation and they expressed understanding and a desire to proceed. 11/14/17 IV potassium chloride 60 mEq 1. Continue oral potassium chloride 20 mEq twice a day. We will recheck potassium chloride this evening at 1600. Stool for occult blood. Hemoglobin dropped from 8.7 last night to 7.4 this morning. We will type, cross match and transfuse 1 unit of PRBC. Will recheck H& H 1 hour posttransfusion. INR 6.75. Will provide 10 mg vitamin K subcutaneous 1, with concern for active lower GI bleeding. We will recheck INR at 1600. Patient will be placed on clear liquid diet. Cautious diuresis IV Lasix 20 mg twice a day. Patient has received IV vancomycin and Levaquin, with concern for recurrent aspiration pneumonia. Discontinue Levaquin, considering patient's age and history of atrial fibrillation. Patient will be started on IV Rocephin 1 g daily. Long catheter in place, will monitor intake and output, daily weights. 11/15/17 Patient will remain in contact precautions. Oral vancomycin 125 mg every 6 hours for positive C. difficile. Serum potassium 3.0, patient received 20 mEq oral potassium chloride. Will provide 20 mEq IV potassium chloride and monitor potassium levels. Patient reports she does not like oral potassium chloride supplementation which will be discontinued for now. Cardiology consulted, recommendation for oral Lasix 40 mg twice a day. We'll monitor intake and output, daily weights. Echocardiogram findings as described above. INR reaches greater than 10 on admission has dropped to 1.55 last evening. Will monitor PT/INR. Coumadin remains on hold. We will continue digoxin 0.125 mg daily. Patient status post transfusion of 1 unit of PRBC, hemoglobin improved from 7.4 to 10.7 last evening, repeat hemoglobin dropped to 8.9 this morning. Stool for occult blood negative. Will discuss case with general surgeon, Dr. Ibrahim regarding need for repeat colonoscopy. Patient will remain on clear liquid diet. If no plan for colonoscopy, will progress to soft cardiac diet. 11/16/17 Potassium has dropped further to 2.7. IV replacement has been ordered. Mag is low normal at 1.6, and will start daily replacement. White count increased to 16.4. Continue oral Vanco for C. difficile. She continues on Rocephin as well - will discuss antibiotics with attending. Advance diet to soft cardiac diet. Dr. Ibrahim indicated that she may follow- up outpatient. Diuresis per cardiology. Fluid status is +1.7; weight trending up. DC Long as soon as possible. Will need to discuss anticoagulation with cardiology. 11/[address] scan of the chest to further evaluate pleural effusions Persistent Leukocytosis- 17. Likely secondary to known C difficile, remains on IV Flagyl Strict NPO as recommended by Speech therapy Lovenox daily for anticoagulation Remains on diuretics- Lasix 40 mg BID. Weight stable Potassium replaced orally Case discussed with attending, Dr Henry
[2017-11-21] MEDS ORDERED: VANCOMYCIN 250mg/5ml ORAL LIQ PO SCH (17:00)
[2017-11-21 17:56] VITALS: BP 114/69; TEMP 98.5; O2SAT 93
[2017-11-21 21:37] VITALS: PULSE 96; RESP 20
--- NOTE | 2017-11-22 08:30 | CT Scan Report ---
Indication: leukocytosis, pleural effusions PROCEDURE: CT chest wo con: Encounter: Initial Comparison: Chest x-ray dated November 21, 2017 Technique: Axial CT images were performed through the chest without intravenous contrast. Coronal and sagittal two-dimensional reformats. Automated Exposure Control and Iterative Reconstruction dose reducing techniques were utilized. Findings: Moderate to large right and moderate left pleural effusions with compressive atelectasis of both lower lobes. There is an irregular right upper lobe nodule on axial image #22 measuring 2.2 cm diameter as noted on prior chest x-ray. No pneumothorax. No axillary adenopathy. There are markedly enlarged mediastinal lymph nodes with a large right paratracheal node on image #20 measuring 2.7 cm in short axis. Right hilar node on image #29 measuring 3.4 cm in short axis. Bulky prevascular and paratracheal adenopathy. There is a nodule associated with the right atrium as well, somewhat poorly evaluated without IV contrast. Small pericardial effusion. Heart size is normal. The upper abdomen shows no acute findings. No obvious lytic or blastic bony lesions. Impression: 1. Right upper lobe nodule with extensive mediastinal adenopathy, strongly suspicious for a primary lung malignancy with dewayne metastatic disease. Recommend consideration of bronchoscopic biopsy. 2. Significant pleural effusions. Diagnostic and therapeutic thoracentesis may be helpful. .
--- NOTE | 2017-11-23 09:58 | Death Note ---
Providers - Provider Primary care physician: Meir Reid MD Admitting clinician: Edgard Villalba Attending Physician: Barbara Henry Consults: Consulting Provider: [place] Kessler Reason For Exam: HFpEF, readmission Diagnosis - PCOD Cause of : Chronic diastolic congestive heart failure - Contributing Factors (1) Essential (primary) hypertension Status: Chronic (2) Atrial fibrillation Status: Acute (3) Hypokalemia Status: Acute (4) C. difficile diarrhea Status: Acute Summary - Date and Time Date of admission: 11/13/17 19:55 Date of : 11/21/17 Time of : 20:57 - Summary Details: Mrs. Ardon was hospitalized on 11/13 with progressive weakness, weight gain, and leukocytosis. Potassium was replaced aggressively with gentle diuresis due to evidence of persistent pleural effusions. Coagulopathy due to warfarin was present requiring administration of vitamin K early in the hospital course. Melanotic stools were described on admission but subsided with correction of the coagulopathy; transfusion of 1 unit of blood transfused on 11/14 after which hemoglobin was stable. The patient was treated with antibiotics on admission due to concern of possible aspiration pneumonia but was subsequently found to have C. difficile colitis for which treatment was initiated and IV antibiotics discontinued after several days. Patient was seen in consultation by Dr. Kessler for assistance managing her known diagnosis of heart failure and atrial fibrillation. Diuresis continued but x-rays revealed worsening pleural effusions progressively. The patient had episodes of depressed mental status without identified acute pathology by CT head or MRI brain. Increased ventricular ectopy developed through the hospital course ongoing IV potassium replacement with oral potassium when patient was able to tolerate it; magnesium was also replaced. CT of the chest was obtained to better define pulmonary disease and extent of pleural effusions anticipating thoracentesis on 11/21. Following CT the patient returned to her room and visited with family. Family alerted nursing that the patient was having difficulty breathing just before 9 PM; when nursing arrived the patient was unresponsive and without pulse or respirations. The patient had a prior DO NOT RESUSCITATE order which was respected and was pronounced at 2056. CT scan of the chest was formally read the following day at which time we was learned that in addition to the large pleural effusions which were known the patient also had a 2.2 cm irregular right upper lobe nodule with extensive mediastinal adenopathy strongly suggestive of lung cancer. The nodule was not evident on chest x-rays obtained earlier in the hospital course. Although I believe the patient's was cardiac and due to acute on chronic diastolic heart failure is likely that metastatic lung cancer contributed to the patient's overall debility and . Recurrent electrolyte abnormalities, generalized debility, colitis, and anemia all contributed to patient's deterioration and . Cause of : Chronic diastolic heart failure Hypertension Hypokalemia C. difficile colitis Probable metastatic lung cancer - Additional Data Confirmation of as documented by pronouncing clinician: no pulse, no respirations, no heart sounds, other (asystole on speech communication professor) Family: at bedside Attending/PCP notified?: Yes Attending physician: Barbara Henry MD Was code activated?: No Autopsy requested?: No vocational examiner notified?: No Advance directives: Yes Hospice patient?: No
== END 2017-11-21 20:57 | disposition expired | DRG 291 ==
LOC: ED 17:05 → SUATTDRO 19:55 → EDHOLD 19:55 → MED 20:00 → EDHOLD 20:00
PROVIDERS: ADMIT Internal Medicine; ATTEND Internal Medicine